=== PATIENT | male | born 1950 | race Asian ===

== ENCOUNTER → 2020-06-27 08:17 | Outpatient (CLI) | payer MEDICARE, SELFPAY ==
[2020-06-27 10:13] LABS: Absolute Lymphocyte Count 2.11 X10^3/uL (0.83-4.51); Absolute Neutrophil Count 2.7 X10^3/uL (2.0-7.7); Basophil# 0.02 X10^3/uL; Basophil% 0.3 % (0-1); Eosinophils% 14.4 % (0-5); Hematocrit 52.5 % (40-54); Hemoglobin 16.6 g/dL (13.0-16.5); Lymphocyte # 2.11 X10^3/ul (4.0); Lymphocyte % 33.8 % (19-41); Mean Corp Hgb Conc 31.6 g/dL (32-36); Mean Corpuscular Hgb 28.9 pg (27.0-32.0); Mean Corpuscular Volume 91.3 fL (80-94); Mean Platelet Vol. 9.9 fl (6.2-12.0); NRBC Flagged by Analyzer 0 % (0-5); Neutrophil # 2.69 X10^3/uL (2.7-7.7); Neutrophil % 43.2 % (47-70); Platelet Count 280 K/mm3 (150-450); RBC Distribution Width CV 13.2 % (11.6-14.6); RBC Distribution Width SD 44.7 fl (35.1-43.9); Red Blood Count 5.75 M/mm3 (4.6-6.2); White Blood Count 6.2 K/mm3 (4.4-11.0)
[2020-06-27 10:41] LABS: Hemoglobin A1c 6.1 % (3.8-5.6)
[2020-06-27 10:47] LABS: ALB/GLOB Ratio 1.1 RATIO (0.9-2.4); AST(SGOT) 26 U/L (15-37); Alanine Aminotransfer ALT/SGPT 19 U/L (16-61); Albumin, Serum 4.1 g/dL (3.2-5.0); Alkaline Phosphatase 100 U/L (45-117); Anion Gap 10 (5-15); BUN 11 mg/dL (7-18); BUN/Creat Ratio 10.8 RATIO (10-20); Calcium,Total 9.3 mg/dL (8.5-10.1); Chloride 106 mmol/L (98-107); Cholesterol 173 mg/dL (200); Creatinine, Serum 1.02 mg/dL (0.70-1.30); EST Glomerular Filtration Rate 77 mL/min (>60); Est Glom Filt Rate - Afr Amer 93 mL/min (>60); Globulin 3.9 g/dL (2.2-4.2); Glucose 85 mg/dL (74-106); High Density Lipoprotein 40 mg/dL; Potassium 4.1 mmol/L (3.5-5.1); Sodium Level 140 mmol/L (136-145); Triglycerides 217 mg/dL; Very Low Density Lipoprotein 43 mg/dL (5-40)
== END ==
PROVIDERS: Visit Provider Family Medicine
DX: E11.9 Type 2 diabetes mellitus without complications (principal); E78.5 Hyperlipidemia, unspecified
CPT/HCPCS: 36415; 80053; 80061; 83036; 85025

== ENCOUNTER → 2020-09-29 07:31 | Outpatient (CLI) | payer MEDICARE, SELFPAY ==
[2020-09-29 10:40] LABS: Hemoglobin A1c 6.3 % (3.8-5.6)
[2020-09-29 10:45] LABS: ALB/GLOB Ratio 0.8 RATIO (0.9-2.4); AST(SGOT) 20 U/L (15-37); Alanine Aminotransfer ALT/SGPT 24 U/L (16-61); Albumin, Serum 3.9 g/dL (3.2-5.0); Alkaline Phosphatase 90 U/L (45-117); Anion Gap 7 (5-15); BUN 12 mg/dL (7-18); BUN/Creat Ratio 10.3 RATIO (10-20); Calcium,Total 9.7 mg/dL (8.5-10.1); Chloride 102 mmol/L (98-107); Cholesterol 203 mg/dL (200); Creatinine, Serum 1.16 mg/dL (0.70-1.30); EST Glomerular Filtration Rate 66 mL/min (>60); Est Glom Filt Rate - Afr Amer 80 mL/min (>60); Globulin 4.6 g/dL (2.2-4.2); Glucose 95 mg/dL (74-106); High Density Lipoprotein 49 mg/dL; Potassium 4.2 mmol/L (3.5-5.1); Protein, Total 8.5 g/dL (6.4-8.2); Sodium Level 138 mmol/L (136-145); Triglycerides 197 mg/dL; Very Low Density Lipoprotein 39 mg/dL (5-40)
== END ==
DX: E11.9 Type 2 diabetes mellitus without complications (principal)
CPT/HCPCS: 36415; 80053; 80061; 83036

== ENCOUNTER → 2020-10-11 | Outpatient (CLI) | payer MEDICARE, SELFPAY | END | disposition home or self-care (01) | LOC: LABSPEC 11:32 | PROVIDERS: Referring Provider Nurse Practitioner Adult Health; Visit Provider Nurse Practitioner Adult Health | DX: D72.10 Eosinophilia, unspecified (principal) | CPT/HCPCS: 87177; 87209 ==

== ENCOUNTER → 2020-10-20 | Outpatient (CLI) | payer MEDICARE, SELFPAY | END | disposition home or self-care (01) | LOC: LABSPEC 11:27 | PROVIDERS: Visit Provider Internal Medicine Infectious Disease | DX: D72.10 Eosinophilia, unspecified (principal) | CPT/HCPCS: 87177; 87209 ==

== ENCOUNTER → 2020-10-27 07:36 | Outpatient (CLI) | payer MEDICARE, SELFPAY ==
--- NOTE | 2020-10-27 07:43 | US_ITS ---
INDICATION: ABD PAIN-general. epigasric -- REFLUX EXAMINATION: Ultrasound US Abdomen Complete TECHNIQUE: Hinojosa-scale and color Doppler imaging was performed of the abdomen. COMPARISON: None. FINDINGS: LIVER: There is increased hepatic echogenicity.. No focal hepatic lesion. No intrahepatic biliary ductal dilatation. There is no free fluid. GALLBLADDER AND BILIARY TREE: The gallbladder is surgically absent. The common bile measures 8 mm in diameter. PANCREAS: No focal abnormality is demonstrated in the pancreas. No pancreatic ductal dilatation. SPLEEN: The spleen is normal in size and homogeneous in echotexture. KIDNEYS: There is no hydronephrosis. No shadowing calculus, focal lesion, or perinephric collection is demonstrated. VESSELS: Submitted longitudinal images of the intra-abdominal aorta demonstrate no gross abnormalities and are unremarkable. The IVC is patent. US/Abdomen Complete IMPRESSION: Healed fatty liver infiltration. Electronically Signed: Amaury Johnson MD at 12:17 EDT Tel , Service support ,
== END ==
DX: K21.9 Gastro-esophageal reflux disease without esophagitis (principal)
CPT/HCPCS: 76700

== ENCOUNTER → 2020-11-18 07:30 | Outpatient (CLI) | payer MEDICARE, SELFPAY ==
[2020-11-18 12:52] LABS: Absolute Lymphocyte Count 2.24 X10^3/uL (0.83-4.51); Absolute Neutrophil Count 2.4 X10^3/uL (2.0-7.7); Basophil# 0.03 X10^3/uL; Basophil% 0.5 % (0-1); Eosinophil# 0.48 X10^3/uL; Eosinophils% 8.2 % (0-5); Hematocrit 47.7 % (40-54); Hemoglobin 15.2 g/dL (13.0-16.5); Lymphocyte # 2.24 X10^3/ul (0.83-4.51); Lymphocyte % 38.2 % (19-41); Mean Corp Hgb Conc 31.9 g/dL (32-36); Mean Corpuscular Hgb 28.1 pg (27.0-32.0); Mean Corpuscular Volume 88.2 fL (80-94); Monocyte# 0.68 X10^3/uL; Monocyte% 11.6 % (0-10); NRBC Flagged by Analyzer 0 % (0-5); Neutrophil % 40.8 % (47-70); Platelet Count 471 K/mm3 (150-450); RBC Distribution Width CV 13.2 % (11.6-14.6); RBC Distribution Width SD 42.6 fl (35.1-43.9); Red Blood Count 5.41 M/mm3 (4.6-6.2); White Blood Count 5.9 K/mm3 (4.4-11.0)
== END ==
PROVIDERS: Referring Provider Internal Medicine Infectious Disease; Visit Provider Internal Medicine Infectious Disease
DX: D72.10 Eosinophilia, unspecified (principal)
CPT/HCPCS: 36415; 85025

== ENCOUNTER → 2021-06-15 08:16 | Outpatient (CLI) | payer MEDICARE, SELFPAY ==
[2021-06-15 10:11] LABS: Absolute Lymphocyte Count 2.21 X10^3/uL (0.83-4.51); Absolute Neutrophil Count 2.8 X10^3/uL (2.0-7.7); Basophil# 0.03 X10^3/uL; Basophil% 0.5 % (0-1); Eosinophil# 0.23 X10^3/uL; Eosinophils% 3.9 % (0-5); Hemoglobin 16.3 g/dL (13.0-16.5); Lymphocyte # 2.21 X10^3/ul (0.83-4.51); Lymphocyte % 37.9 % (19-41); Mean Corp Hgb Conc 33.3 g/dL (32-36); Mean Corpuscular Hgb 29.3 pg (27.0-32.0); Mean Platelet Vol. 9.3 fl (6.2-12.0); Monocyte% 8.6 % (0-10); NRBC Flagged by Analyzer 0 % (0-5); Neutrophil # 2.83 X10^3/uL (2.7-7.7); Neutrophil % 48.6 % (47-70); Platelet Count 376 K/mm3 (150-450); RBC Distribution Width CV 13.2 % (11.6-14.6); RBC Distribution Width SD 42.5 fl (35.1-43.9); Red Blood Count 5.57 M/mm3 (4.6-6.2); White Blood Count 5.8 K/mm3 (4.4-11.0)
[2021-06-15 10:28] LABS: ALB/GLOB Ratio 0.8 RATIO (0.9-2.4); AST(SGOT) 17 U/L (15-37); Alanine Aminotransfer ALT/SGPT 20 U/L (16-61); Albumin, Serum 3.7 g/dL (3.2-5.0); Alkaline Phosphatase 81 U/L (45-117); Anion Gap 4 (5-15); BUN 18 mg/dL (7-18); BUN/Creat Ratio 16.4 RATIO (10-20); Chloride 107 mmol/L (98-107); EST Glomerular Filtration Rate 70 mL/min (>60); Est Glom Filt Rate - Afr Amer 85 mL/min (>60); Globulin 4.4 g/dL (2.2-4.2); Glucose 103 mg/dL (74-106); Potassium 4.3 mmol/L (3.5-5.1); Protein, Total 8.1 g/dL (6.4-8.2); Sodium Level 139 mmol/L (136-145); Vitamin D,25 Hydroxy 70.6 ng/mL
[2021-06-15 10:39] LABS: Microalbumin,Random Urine 8.6 mg/L (NO RANGE EST.); Microalbumin:Creatinine Ratio 7.6 mg/g CRE (<30 mg/g CRE)
== END ==
PROVIDERS: Visit Provider Family Medicine
DX: E11.69 Type 2 diabetes mellitus with other specified complication (principal); I10 Essential (primary) hypertension; C61 Malignant neoplasm of prostate; R79.89 Other specified abnormal findings of blood chemistry
CPT/HCPCS: 36415; 80053; 82043; 82306; 82570; 83036; 84153; 85025

== ENCOUNTER → 2021-07-20 06:29 | Outpatient (CLI) | payer MEDICARE, SELFPAY ==
--- NOTE | 2021-07-20 13:27 | STRESSREP_ITS ---
Stress Test Report Exercise myocardial perfusion stress test. 70-year-old man with a history of chest pain. Stress protocol: Resting EKG demonstrates normal sinus rhythm with a rate of 60 bpm normal intervals are noted resting blood pressure is 146/84 mmHg. The patient exercised according to the regular Ronald protocol for total duration of 7 minutes completing 1 minute into stage III of the Ronald protocol. The maximum heart rate attained 141 bpm which was 94% maximum heart rate the maximum workload was 10.1 metabolic equivalents. At rest with no ST or T wave changes noted to suggest ischemia and at peak exercise upsloping ST changes were noted with did not meet the criteria for ischemia. No clinical angina was noted. The peak blood pressure was 198/90 mmHg the test was terminated due to dyspnea and the target heart rate being achieved. Myocardial perfusion protocol. 11.8 mCi of technetium 99m sestamibi was injected at rest. The patient exer cised according to regular Ronald protocol for total duration of 7 minutes. At peak exercise 36.0 mCi of technetium 99m sestamibi was injected stress images were obtained stress and rest images were reconstructed and compared in the short axis vertical long and horizontal long axis. Gated images were also obtained per Perfusion SPECT analysis: Review of the stress images demonstrate normal uptake of tracer noted in all areas of the myocardium. The resting images similarly demonstrate normal uptake of tracer noted in all areas of the myocardium. No areas of reversibility are noted suggest ischemia no previous infarct is noted. Gated SPECT analysis: The gated ejection fraction is 83%. Conclusion: Normal exercise myocardial perfusion stress test at a high workload. Preserved ejection fraction.
== END ==
PROVIDERS: Referring Provider Family Medicine; Visit Provider Family Medicine
DX: R07.89 Other chest pain (principal); E11.9 Type 2 diabetes mellitus without complications; Z86.73 Personal history of transient ischemic attack (TIA), and cerebral infarction without residual deficits
CPT/HCPCS: 78452; 93017; A9500; A4216

== ENCOUNTER 2021-12-03 09:00 | Outpatient (RCR) | payer MEDICARE, SELFPAY ==
--- NOTE | 2021-11-03 15:00 | HP.PTEVAL ---
Patient's Visit Information ERIC RENO is a 70 year old M referred to Physical Therapy by Dr. Bc Romero MD with a diagnosis of RIGHT SHOULDER/UPPER BACK PAIN. Date of Evaluation: 11/03/21 Physical Therapist: Walker Mejía PT, Cert MDT, OCS - Visit Plan Frequency: 2x /Week Duration: 4 Weeks Plan: PT INTERVERTIONS POSTURAL EX'S ,US,ICTX 16#-22# X15 MIN ,CERVICAL ROM AND MANUAL STRENGTHENING - Subjective This 70 y/o male presents to physical therapy with right UE and scapular pain. Patient has left arm pain for ~ 2weeks . 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 Initially pain started in right scapular and progressively worsen in right arm. Aggravating sitting ,turning neck to right , some lifting., driving . Alleviating factors rest lay down . Denies paresthesia/tingling, Denies MENDEZ/nausea/tinnitus. Patient sleeping good at night. No h/o trauma. Patient seen chiropractor. No diagnostics. Patient pain affects QOL and function. Patient goals decrease pain. VOCATION: retired. SOCIAL: - Pain Right Shoulder Pain Intensity (Out of 10): 4 Pain Intensity Range: 10 Right Scapula Pain Intensity (Out of 10): 4 Pain Intensity Range: 10 Right Elbow Pain Intensity (Out of 10): 4 Pain Intensity Range: 10 - Objective POSTURE: mild forward posture. PALPATION: tender UT/levator. NEURO: denies paresthesia/tingling, reflexes C5-6-7 2/3. AROM: shoulder WNL. MMT: RTC/DELTOID/BICEP/TRICEP 4/5. CERVICAL ROM: flexion min loss ,lateral flexion/rotation min loss with pain in right arm with right side movement, flexion WFL min loss ,. extension min loss mild right shoulder pain - Special Tests C/S Radiculapathy - Left Upper limb tension test: Negative C/S Radiculapathy - Right Upper limb tension test: Negative C/S Radiculapathy - Left Spurlings: Negative C/S Radiculapathy - Right Spurlings: Positive C/S Radiculapathy - Left Cervical distraction: Negative C/S Radiculapathy - Right Cervical distraction: Negative C/S Radiculapathy - Left Relief test: Negative Sharp Eliana: Negative Vertebral Artery Test: Negative Alar Ligament Test: Negative Cervical Sitting: Protrusion - Mechanical Response: No effect Cervical Sitting: Protrusion - Symptoms During Testing: Increases Cervical Sitting: Protrusion - Symptoms After Testing: No worse Cervical Sitting: Retraction - Mechanical Response: No effect Cervical Sitting: Retraction - Symptoms During Testing: Increases Cervical Sitting: Retraction - Symptoms After Testing: No worse Cervical Sitting: Retraction-Extension - Mechanical Response: No effect Cerv Sitting: Retraction-Extension - Symptoms During Testing: Increases Cerv Sitting: Retraction-Extension - Symptoms After Testing: No worse Cervical Sitting: Sidebend Right - Mechanical Response: No effect Cervical Sitting: Sidebend Right - Symptoms During Testing: Increases Cervical Sitting: Sidebend Right - Symptoms After Testing: Worse Cervical Sitting: Sidebend Left - Mechanical Response: No effect Cervical Sitting: Sidebend Left - Symptoms During Testing: Abolishes Cervical Sitting: Sidebend Left - Symptoms After Testing: Better Cervical Sitting: Rotation Right - Mechanical Response: No effect Cervical Sitting: Rotation Right - Symptoms During Testing: Increases Cervical Sitting: Rotation Right - Symptoms After Testing: Worse Cervical Sitting: Rotation Left - Mechanical Response: No effect Cervical Sitting: Rotation Left - Symptoms During Testing: Abolishes Cervical Sitting: Rotation Left - Symptoms After Testing: Better Cervical Sitting: Flexion - Mechanical Response: No effect Cervical Sitting: Flexion - Symptoms During Testing: Increases Cervical Sitting: Flexion - Symptoms After Testing: No worse - Balance/Special Test Scores Oswestry Neck Score: 16 - Goals Goal 1:: I with HEP for cervical spine Goal Time Frame: 4-6 Weeks Goal 2:: Patient improve posture for ADLS Goal Time Frame: 4-6 Weeks Goal 3:: Patient to demonstrate 75% improvement with decrease symptoms in arm and improve function Goal Time Frame: 4-6 Weeks Goal 4:: Patient to improve cervical ROM for function of recovery to turn neck when driving Goal Time Frame: 4-6 Weeks Goal 5:: Patient to improve neck oswestry score by 5 points or > to improve QOL and function Goal Time Frame: 4-6 Weeks - Rehabilitation Potential Physical Therapy Diagnosis: This patient has cervical radiculopathy with pain with positioning with sitting ,motion testing with + spurling test to right and pain less with motion to left and cervical traction relieves symptoms thus benefit from skilled PT Rehabilitation Potential: Good - Anticipated Interventions Patient/Client Instruction: Educate patient on: Condition, Plan of Care For the Purpose of:: To decrease pain, To increase ROM, To improve muscle performance and motor function, To improve ability to perform ADL's, To increase tolerance to activity/condition/position, To improve ability of physical actions for home/community/work/leisure, To improve health of tissue, To decrease soft tissue restriction, To increase flexibility/ROM, To prevent re-injury Therapeutic Exercise to Include: Strength training, Body mechanics, Postural training, Active ROM For the Purpose of:: To decrease pain, To increase ROM, To improve muscle performance and motor function, To improve ability to perform ADL's, To increase tolerance to activity/condition/position, To improve ability of physical actions for home/community/work/leisure, To improve health of tissue, To decrease soft tissue restriction, To increase flexibility/ROM, To reduce risk of recurrence TENS: Yes IF ES: Yes Cryotherapy (ice pack, ice massage): Yes Thermo therapy (hot pack): Yes Ultrasound (thermal/non thermal): Yes Intermittent cervical traction: Yes For the Purpose of:: To decrease pain, To decrease swelling/inflammation, To increase ROM, To improve nutrient delivery to tissue, To increase oxygenation perfusion, To improve health of tissue, To decrease soft tissue restriction, To increase flexibility/ROM Thank you for the opportunity to evaluate your patient. For Medicare and Medicare HMO plans, please review the plan of care and approve it. It will need to be FAXED BACK to us at [phone] for Medicare purposes. For Medicare only, by signing this I certify the plan of care. Please let me know if there are questions or concerns regarding this plan of care. Physician Signature: Date:
--- NOTE | 2022-04-28 09:30 | HP.PTDCSUM ---
It has been my pleasure to treat ERIC RENO referred by Dr. Bc Romero MD, with the diagnosis of RIGHT SHOULDER/UPPER BACK PAIN for a total of 9 visit(s). Discharge Date: 12/03/21 Please see the following information for a summary of their discharge status. Subjective: Doing good ..no pain today Right Shoulder Pain Intensity (Out of 10): 0 Right Scapula Pain Intensity (Out of 10): 0 Right Elbow Pain Intensity (Out of 10): 0 % Improvement: 100 Objective/Function: POSTURE: WFL. NEURO: :INTACT. BUE: WFL. MMT: BUE 4/5. CERTVIVAL ROM: FLEXION WFL,ROTATION MIN,LATERAL FLEXION MIN LOSS,EXT MIN LOSS Goal 1:: I with HEP for cervical spine Goal Progress: Goal Met Goal 2:: Patient improve posture for ADLS Goal Progress: Goal Met Goal 3:: Patient to demonstrate 75% improvement with decrease symptoms in arm and improve function Goal Progress: Goal Met Goal 4:: Patient to improve cervical ROM for function of recovery to turn neck when driving Goal Progress: Goal Met Goal 5:: Patient to improve neck oswestry score by 5 points or > to improve QOL and function Goal Progress: Goal Met Plan: D/C If there are questions or concerns regarding this patient's physical therapy, please feel free to call me at [phone]. Thank you for the referral of this patient. Sincerely, Walker Mejía, PT, Cert MDT, OCS Balance/Gait/Functional tests - Balance/Special Test Scores Oswestry Neck Score: 0
== END 2021-12-03 19:00 | disposition home or self-care (01) ==
LOC: PT 09:00
PROVIDERS: Referring Provider Family Medicine; Visit Provider Family Medicine
DX: M25.511 Pain in right shoulder (principal); M54.9 Dorsalgia, unspecified
CPT/HCPCS: 97012; 97035; 97110; 97162

== ENCOUNTER → 2022-06-08 | Outpatient (CLI) | payer MEDICARE, SELFPAY | END | disposition home or self-care (01) | LOC: MFPLAB 08:07 | PROVIDERS: PCP Family Medicine; Referring Provider Family Medicine; Visit Provider Family Medicine | DX: Z00.00 Encounter for general adult medical examination without abnormal findings (principal) ==

== ENCOUNTER → 2022-12-13 | Outpatient (CLI) | payer MEDICARE, SELFPAY ==
[2022-12-13 10:13] LABS: Absolute Lymphocyte Count 2.11 X10^3/uL (0.83-4.51); Absolute Neutrophil Count 2.2 X10^3/uL (2.0-7.7); Basophil# 0.02 X10^3/uL; Basophil% 0.4 % (0-1); Eosinophil# 0.12 X10^3/uL; Eosinophils% 2.4 % (0-5); Hemoglobin 16.2 g/dL (13.0-16.5); Lymphocyte # 2.11 X10^3/ul (0.83-4.51); Lymphocyte % 42.4 % (19-41); Mean Corp Hgb Conc 33.1 g/dL (32-36); Mean Corpuscular Hgb 29.5 pg (27.0-32.0); Mean Corpuscular Volume 89.1 fL (80-94); Mean Platelet Vol. 9.6 fl (6.2-12.0); Monocyte# 0.55 X10^3/uL; NRBC Flagged by Analyzer 0 % (0-5); Neutrophil # 2.17 X10^3/uL (2.7-7.7); Neutrophil % 43.6 % (47-70); Platelet Count 368 K/mm3 (150-450); RBC Distribution Width CV 13.7 % (11.6-14.6); RBC Distribution Width SD 44.8 fl (35.1-43.9)
[2022-12-13 10:37] LABS: Microalbumin,Random Urine < 5.0 mg/L (NO RANGE EST.)
[2022-12-13 10:46] LABS: ALB/GLOB Ratio 0.9 RATIO (0.9-2.4); AST(SGOT) 25 U/L (15-37); Alanine Aminotransfer ALT/SGPT 27 U/L (16-61); Albumin, Serum 3.8 g/dL (3.2-5.0); Alkaline Phosphatase 93 U/L (45-117); Anion Gap 10 (5-15); BUN 14 mg/dL (7-18); BUN/Creat Ratio 12.7 RATIO (10-20); Calcium,Total 9.3 mg/dL (8.5-10.1); Chloride 105 mmol/L (98-107); EST Glomerular Filtration Rate 70 mL/min (>60); Est Glom Filt Rate - Afr Amer 84 mL/min (>60); Globulin 4.3 g/dL (2.2-4.2); Glucose 113 mg/dL (74-106); Potassium 4.6 mmol/L (3.5-5.1); Protein, Total 8.1 g/dL (6.4-8.2); Sodium Level 140 mmol/L (136-145)
== END | disposition home or self-care (01) ==
LOC: MFPLAB 08:10
PROVIDERS: PCP Family Medicine; Visit Provider Family Medicine
DX: R01.2 Other cardiac sounds (principal); E11.69 Type 2 diabetes mellitus with other specified complication; I10 Essential (primary) hypertension
CPT/HCPCS: 36415; 80053; 82043; 82570; 85025

== ENCOUNTER → 2023-03-31 | Outpatient (CLI) | payer MEDICARE, SELFPAY ==
[2023-03-31 17:39] LABS: Absolute Lymphocyte Count 2.18 X10^3/uL (0.83-4.51); Absolute Neutrophil Count 3.4 X10^3/uL (2.0-7.7); Basophil# 0.03 X10^3/uL; Basophil% 0.5 % (0-1); Eosinophils% 1.6 % (0-5); Hematocrit 49.2 % (40-54); Hemoglobin 15.9 g/dL (13.0-16.5); Lymphocyte # 2.18 X10^3/ul (0.83-4.51); Lymphocyte % 34.7 % (19-41); Mean Corp Hgb Conc 32.3 g/dL (32-36); Mean Corpuscular Volume 89.6 fL (80-94); Mean Platelet Vol. 9.5 fl (6.2-12.0); Monocyte# 0.56 X10^3/uL; Monocyte% 8.9 % (0-10); NRBC Flagged by Analyzer 0 % (0-5); Neutrophil # 3.39 X10^3/uL (2.7-7.7); Platelet Count 370 K/mm3 (150-450); RBC Distribution Width CV 13.2 % (11.6-14.6); RBC Distribution Width SD 43.9 fl (35.1-43.9); Red Blood Count 5.49 M/mm3 (4.6-6.2); White Blood Count 6.3 K/mm3 (4.4-11.0)
[2023-03-31 17:56] LABS: Vitamin B12 309 pg/mL (211-911)
[2023-03-31 18:18] LABS: ALB/GLOB Ratio 0.9 RATIO (0.9-2.4); AST(SGOT) 22 U/L (15-37); Alanine Aminotransfer ALT/SGPT 22 U/L (16-61); Albumin, Serum 3.7 g/dL (3.2-5.0); Alkaline Phosphatase 86 U/L (45-117); Anion Gap 7 (5-15); BUN 11 mg/dL (7-18); BUN/Creat Ratio 9.6 RATIO (10-20); CRP < 2.90 mg/L (0.0-3.0); Calcium,Total 8.9 mg/dL (8.5-10.1); Chloride 105 mmol/L (98-107); Creatinine, Serum 1.15 mg/dL (0.70-1.30); EST Glomerular Filtration Rate 66 mL/min (>60); Est Glom Filt Rate - Afr Amer 80 mL/min (>60); Glucose 135 mg/dL (74-106); Potassium 3.8 mmol/L (3.5-5.1); Protein, Total 7.7 g/dL (6.4-8.2); Sodium Level 137 mmol/L (136-145); Thyroid Stim Hormone (TSH) 1.67 uIU/mL (0.358-3.74)
[2023-04-04 15:08] LABS: PROEL- A/G Ratio 1.2 (0.7-1.7); PROEL- Albumin 3.9 g/dL (2.9-4.4); PROEL- Alpha-1 Globulin 0.2 g/dL (0.0-0.4); PROEL- Alpha-2 Globulin 0.7 g/dL (0.4-1.0); PROEL- Gamma Globulin 1.3 g/dL (0.4-1.8); PROEL- Globulin, Total 3.2 g/dL (2.2-3.9); PROEL- TOTAL PROTEIN 7.1 g/dL (6.0-8.5)
== END | disposition home or self-care (01) ==
LOC: MFPLAB 14:11
PROVIDERS: PCP Family Medicine; Visit Provider Family Medicine
DX: R53.83 Other fatigue (principal); C61 Malignant neoplasm of prostate
CPT/HCPCS: 36415; 80053; 82607; 82746; 84153; 84165; 84443; 85025; 86140

== ENCOUNTER → 2023-04-14 | Outpatient (CLI) | payer MEDICARE, SELFPAY ==
--- NOTE | 2023-04-14 10:55 | RAD_ITS ---
STUDY: X-RAY CHEST REASON FOR EXAM: Male, 72 years old. wheezing, SOB TECHNIQUE: PA and lateral views of the chest. COMPARISON: None. FINDINGS: There is minimal lower lobe atelectasis and/or fibrotic change. There is no demonstrated pleural abnormality. Normal size heart. Normal mediastinum and jovanny. Normal visualized pulmonary arteries. There is atherosclerotic calcification of the aortic arch with tortuosity. Normal visualized thoracic spine. Normal visualized ribs, clavicles, and shoulders. There is no demonstrated abnormality of the visualized soft tissue structures of the upper abdomen. RAD/Chest PA and Lateral IMPRESSION: No demonstrated acute cardiopulmonary process. Electronically Signed: Laura Anderson MD at 4:13 EDT ,
== END | disposition home or self-care (01) ==
LOC: MTRAD 10:54
PROVIDERS: PCP Family Medicine; Visit Provider Family Medicine
DX: R06.2 Wheezing (principal)
CPT/HCPCS: 71046

== ENCOUNTER → 2023-07-01 | Outpatient (CLI) | payer MEDICARE, SELFPAY ==
[2023-07-01 12:45] LABS: Absolute Lymphocyte Count 1.97 X10^3/uL (0.83-4.51); Basophil# 0.02 X10^3/uL; Basophil% 0.4 % (0-1); Eosinophils% 1.8 % (0-5); Hemoglobin 16.5 g/dL (13.0-16.5); Lymphocyte # 1.97 X10^3/ul (0.83-4.51); Mean Corp Hgb Conc 32.4 g/dL (32-36); Mean Corpuscular Hgb 28.3 pg (27.0-32.0); Mean Corpuscular Volume 87.5 fL (80-94); Monocyte# 0.49 X10^3/uL; Monocyte% 8.7 % (0-10); NRBC Flagged by Analyzer 0 % (0-5); Neutrophil # 3.03 X10^3/uL (2.7-7.7); Neutrophil % 53.7 % (47-70); Platelet Count 386 K/mm3 (150-450); RBC Distribution Width CV 13.8 % (11.6-14.6); RBC Distribution Width SD 43.4 fl (35.1-43.9); Red Blood Count 5.83 M/mm3 (4.6-6.2); White Blood Count 5.6 K/mm3 (4.4-11.0)
[2023-07-01 13:06] LABS: ALB/GLOB Ratio 0.9 RATIO (0.9-2.4); AST(SGOT) 29 U/L (15-37); Alanine Aminotransfer ALT/SGPT 27 U/L (16-61); Alkaline Phosphatase 87 U/L (45-117); Anion Gap 6 (5-15); BUN 15 mg/dL (7-18); BUN/Creat Ratio 14.2 RATIO (10-20); Calcium,Total 9.3 mg/dL (8.5-10.1); Chloride 108 mmol/L (98-107); Creatinine, Serum 1.06 mg/dL (0.70-1.30); EST Glomerular Filtration Rate 73 mL/min (>60); Est Glom Filt Rate - Afr Amer 88 mL/min (>60); Globulin 4.4 g/dL (2.2-4.2); Glucose 70 mg/dL (74-106); Potassium 4.1 mmol/L (3.5-5.1); Protein, Total 8.4 g/dL (6.4-8.2); Sodium Level 138 mmol/L (136-145)
[2023-07-02 05:07] LABS: Fructosamine 273 umol/L (0-285)
== END | disposition home or self-care (01) ==
LOC: MFPLAB 11:21
PROVIDERS: PCP Family Medicine; Visit Provider Family Medicine
DX: E11.65 Type 2 diabetes mellitus with hyperglycemia (principal)
CPT/HCPCS: 36415; 80053; 82985; 83036; 85025

== ENCOUNTER → 2023-11-01 | Outpatient (CLI) | payer MEDICARE, SELFPAY ==
[2023-11-01 16:33] LABS: AST(SGOT) 32 U/L (15-37); Alanine Aminotransfer ALT/SGPT 25 U/L (16-61); Albumin, Serum 4.1 g/dL (3.2-5.0); Alkaline Phosphatase 78 U/L (45-117); Anion Gap 11 (5-15); BUN 15 mg/dL (7-18); BUN/Creat Ratio 12.9 RATIO (10-20); Calcium,Total 9.4 mg/dL (8.5-10.1); Chloride 110 mmol/L (98-107); Creatinine, Serum 1.16 mg/dL (0.70-1.30); EST Glomerular Filtration Rate 65 mL/min (>60); Est Glom Filt Rate - Afr Amer 79 mL/min (>60); Globulin 4.1 g/dL (2.2-4.2); Glucose 63 mg/dL (74-106); Potassium 3.8 mmol/L (3.5-5.1); Protein, Total 8.2 g/dL (6.4-8.2); Sodium Level 140 mmol/L (136-145)
== END | disposition home or self-care (01) ==
LOC: MFPLAB 11:13
PROVIDERS: PCP Family Medicine; Visit Provider Family Medicine
DX: E11.69 Type 2 diabetes mellitus with other specified complication (principal)
CPT/HCPCS: 36415; 80053

== ENCOUNTER → 2024-01-31 | Outpatient (CLI) | payer MEDICARE, SELFPAY ==
--- NOTE | 2024-01-31 16:22 | CT_ITS ---
STUDY: CT ABDOMEN AND PELVIS WITHOUT CONTRAST REASON FOR EXAM: Male, 73 years old. hematuria, flank pain, r/o kidney stone RADIATION DOSAGE (If Supplied By Facility): CTDIvol = ( 6.34 ) mGy, DLP = ( 337.53 ) mGycm TECHNIQUE: Transaxial images were obtained from the dome of the diaphragm to the symphysis pubis without oral contrast, and without intravenous contrast. Sagittal and coronal images were reconstructed. Individualized dose optimization techniques were used for this CT. COMPARISON: None. FINDINGS: The visualized lung bases are unremarkable. The visualized portions of the heart are within normal limits. Normal liver. Nonvisualization of the gallbladder. No dilatation of the extrahepatic biliary system. Normal spleen. Normal pancreas. Normal bilateral adrenal glands. Mild hydronephrosis of the right kidney with right hydroureter. Normal left kidney. Normal visualized stomach. Normal small intestine. Normal colon. The appendix is visualized and appears normal. Normal abdominal aorta. Normal inferior vena cava. Normal retroperitoneum. There is an obstructive 3 mm stone at the intramural segment of the right UVJ in the urinary bladder. Normal abdominal wall. Normal osseous structures. CT/Abdomen/Pelvis without Cont IMPRESSION: Right hydronephrosis and right hydroureter with a stone at the right UVJ noted. Electronically Signed: Heath Nuno DO at 18:13 EDT Reading Location ID and State: [facility] / [place] Tel [phone], Service support ,
== END | disposition home or self-care (01) ==
PROVIDERS: PCP Family Medicine; Referring Provider Family Medicine; Visit Provider Family Medicine
DX: R31.9 Hematuria, unspecified (principal); R10.9 Unspecified abdominal pain
CPT/HCPCS: 74176

== ENCOUNTER 2024-05-12 11:51 | Observation (INO) | payer MEDICARE, SELFPAY ==
[2024-05-12] VITALS (16 sets, daily range): BP systolic 126–155; BP diastolic 69–89; PULSE 59–78; RESP 14–24; TEMP 36.1–36.7; O2SAT 95–99; BMI 27.5; BMI 29.1; BMI 27.4
[2024-05-12 12:38] LABS: Bedside Glucose 99 mg/dL (74-106)
--- NOTE | 2024-05-12 13:08 | CT_ITS ---
HISTORY: Dizziness. TECHNIQUE: Noncontrast axial images were obtained of the brain. Subsequently, routine carotid and [place] CT angiogram protocol was performed after the intravenous administration of 100 mL Isovue-370. NASCET criteria using the distal ICAs for comparison were used for evaluation of stenoses. 3D reconstructions were reviewed. A radiation dose optimization technique was used for this scan .2426 images. COMPARISON: None. FINDINGS: --CT BRAIN: BRAIN PARENCHYMA: Mild chronic small vessel ischemic gliosis. No acute intraparenchymal hemorrhage. CSF SPACES: Mild generalized volume loss. No midline shift or other significant mass effect.No acute extra-axial hemorrhage. OTHER: Intact calvarium.No significant air fluid levels in the paranasal sinuses. Right scleral banding. ASPECTS Score for Acute Strokes: 10 --CTA NECK: AORTIC ARCH AND BRANCHES: Mild atherosclerosis. RIGHT CCA: No occlusion, significant stenosis or dissection. RIGHT ICA: No occlusion, significant stenosis or dissection. LEFT CCA: No occlusion, significant stenosis or dissection. LEFT ICA: No occlusion, significant stenosis or dissection. RIGHT VERTEBRAL ARTERY: Hypoplastic. No occlusion, significant stenosis or dissection. LEFT VERTEBRAL ARTERY: No occlusion, significant stenosis or dissection. --CTA HEAD: ICAs: No significant stenosis at the intracranial/visualized segments. ACAs: No significant stenosis at the visualized segments. MCAs: No significant stenosis at the visualized segments. furniture fabricator: No significant stenosis at the visualized segments. Bilateral origins. BASILAR ARTERY: No significant stenosis. VERTEBRAL ARTERIES: No significant stenosis at the intradural/visualized segments. Hypoplastic right vertebral artery terminating as PICA. No evidence of intracranial aneurysm or vascular malformation. CT/CTA Head AND Neck W/ Contrast IMPRESSION: No acute intracranial process identified. Mild chronic involutional and white matter changes. No evidence for significant stenosis or occlusion in the carotid or vertebral arteries of the neck. No evidence for large vessel occlusion or other focal vascular abnormality in the [place] region. Electronically Signed: Demetria Shah MD at 14:53 EDT ,
--- NOTE | 2024-05-12 13:09 | EKG12_ITS ---
Test Reason : DIZZNIESS/BLURRED VISION Blood Pressure : / mmHG Vent. Rate : 064 BPM Atrial Rate : 064 BPM P-R Int : 198 ms QRS Dur : 070 ms QT Int : 426 ms P-R-T Axes : 035 011 018 degrees QTc Int : 439 ms Normal sinus rhythm Normal ECG Confirmed by Edmund Hoyt ([id number]), graphic editor LIONEL SOLORZANO ([id number]) on 05/14/2024 11:27:00 AM Referred By: Confirmed By:Edmund Hoyt
--- NOTE | 2024-05-12 13:17 | RAD_ITS ---
HISTORY: Dizziness. TECHNIQUE: XR Chest 1 View. COMPARISON: 04/14/2023. FINDINGS: CARDIOMEDIASTINAL BORDERS: Cardiac silhouette within normal limits in size. Mediastinal contour unremarkable. LUNGS: Mild linear bibasilar opacities. PLEURA: Mild blunting of the right costophrenic angle. OSSEOUS STRUCTURES: Unremarkable. RAD/Chest 1 View (Portable) IMPRESSION: Mild bibasilar atelectasis or scarring. Trace right pleural effusion. Electronically Signed: Demetria Shah MD at 13:52 EDT ,
--- NOTE | 2024-05-12 13:29 | EX.ED.DYSGE1 ---
HPI History of Present Illness Chief Complaint: Neuro S/Sx Narrative Narrative: Chief complaint and HPI: Dizziness. 73-year-old male with previous history of CVA on Plavix, HLD, DM, HTN presents with daughter for evaluation of dizziness. Patient states his last known normal was evening. He states yesterday he woke up with dizziness and diplopia. Daughter visited him today and noticed that he had worsening left-sided facial droop and brought him to the emergency department for further evaluation. Patient denies any headache, URI symptoms, chest pain, shortness of breath, abdominal pain, nausea, vomiting, dysuria, focal weakness, numbness or tingling. Denies any recent falls. He is unsure about his left-sided facial droop as he did not pay attention to it. Him and his daughter state at baseline he has a slight left-sided facial droop due to an injury when he was a child however daughter states again that it is worse than his baseline. Patient states his dizziness is causing him difficulty with ambulating. Review of systems: See HPI Medications: As listed on the chart Allergies: As listed on the chart PFSH: Per chart Vital signs: As listed on the chart. Reviewed. Physical exam: Gen: A&O x3, NAD Head: Normocephalic, atraumatic Eyes: No sclera icterus, conjunctiva clear, PERRL, EOMI, no nystagmus, no visual field defects on my evaluation-patient was able to interpret correctly how many fingers I was holding up despite him saying he is seeing doubling of the clock on the wall ENT: Moist mucous membranes, left-sided facial droop Neck: Trachea midline, No JVD CV: RRR, no murmurs, no peripheral edema Resp: Lungs CTA BL, no w/r/c GI: Abd soft, non-distended, non-tender, no r/r/g Musc: Full ROM, no deformity, strength +5/5 in all extremities, no pronator drift, no ataxia with [id number] or [id number] testing, ambulation was tested and patient had slightly unsteady gait but no obvious ataxia Skin: Warm, dry, intact Neuro: Alert, oriented, grossly intact, sensation intact, no focal deficits, NIH 1 Psych: Cooperative, appropriate mood and affect [facility] Medical History (Updated 05/12/24 @ 17:[address] Gerardo Gandhi MD) Hypertension Stroke Home Medications ?Medication ?Instructions ?Recorded ?Last Taken ?Type atorvastatin 20 mg tablet 20 mg PO DAILY 05/12/24 Unknown History cetirizine 10 mg tablet (24Hour 10 mg PO DAILY PRN allergy symptoms 05/12/24 Unknown History Allergy) cholecalciferol (vitamin D3) 1,250 1,250 mcg PO DAILY 05/12/24 Unknown History mcg (50,000 unit) capsule clopidogrel 75 mg tablet 75 mg PO DAILY 05/12/24 Unknown History famotidine 20 mg tablet 20 mg PO DAILY 05/12/24 Unknown History fluticasone propionate 50 1 spray intranasal DAILY PRN 05/12/24 Unknown History mcg/actuation nasal allergy symptoms spray,suspension (Allergy Relief (fluticasone)) glipizide 5 mg tablet, extended 5 mg PO DAILY 05/12/24 Unknown History release 24 hr lisinopril 5 mg tablet 5 mg PO DAILY 05/12/24 Unknown History metformin 500 mg tablet 500 mg PO DAILY 05/12/24 Unknown History omega 8-sqd-pjn-fish oil 1,200 mg cap PO 05/12/24 Unknown History (144 mg-216 mg) capsule (Fish Oil) Allergy/AdvReac Type Severity Reaction Status Date / Time No Known Allergies Allergy Verified 05/12/24 11:52 Social History (Updated 05/12/24 @ 12:16 by Funmilayo George) household members: significant other and family housing: house Smoking Status: Never smoker EXAM Physical Exam Const Vital Signs: 05/12/24 11:53 05/12/24 12:52 05/12/24 13:00 Temperature 98.1 F Temperature Source Oral Pulse Rate 78 68 66 Respiratory Rate 18 17 18 Blood Pressure 155/88 H 137/81 H 146/83 H Blood Pressure Mean 110 99 104 Pulse Ox 95 96 98 Oxygen Delivery Method Room Air Room Air Room Air 05/12/24 13:45 05/12/24 14:00 05/12/24 14:00 Temperature Temperature Source Pulse Rate 68 69 Respiratory Rate 17 17 Blood Pressure 144/86 H 140/85 H 140/85 H Blood Pressure Mean 104 103 103 Pulse Ox 97 99 Oxygen Delivery Method Room Air 05/12/24 14:08 05/12/24 14:15 05/12/24 14:30 Temperature Temperature Source Pulse Rate 71 69 65 Respiratory Rate 16 19 H 18 Blood Pressure 143/83 H 148/86 H Blood Pressure Mean 99 106 Pulse Ox 97 99 97 Oxygen Delivery Method 05/12/24 14:45 05/12/24 15:00 Temperature Temperature Source Pulse Rate 66 62 Respiratory Rate 17 14 Blood Pressure 151/84 H 147/89 H Blood Pressure Mean 105 108 Pulse Ox 96 96 Oxygen Delivery Method MDM MDM MDM Narrative Medical decision making narrative: 74-year-old male presents for evaluation of dizziness, diplopia, worsening left facial droop. Last known normal was evening therefore patient is outside the stroke and LVO window. Patient was not made a stroke alert. Differential diagnosis includes but is not limited to CVA, TIA, electrolyte abnormality, intracranial abnormality, vascular occlusion, UTI, ACS. Stroke workup ordered including UA. EKG and chest x-ray reviewed see below. CBC without leukocytosis. Patient does have hemoconcentration with a hemoglobin of 16.8. Coagulation panel unremarkable. BMP without WARREN. Patient does have mild hyponatremia at 3.3. Troponin unremarkable x 2. UA has yet to be obtained. CT head and CTA head and neck shows no acute intercranial process. Patient has chronic changes. No LVO. No significant stenosis or occlusion of the carotid or vertebral arteries of the neck. On reevaluation, patient is still endorsing dizziness and diplopia. At this point in time, without MRI brain I cannot rule out a CVA. Patient's daughter in the room wanted me to speak to the other daughter on the phone. I did speak with her. Updated of her on all the results. She states patient has received an MRI at [place] in the past for his previous stroke. Patient's was educated of all his results as well. Recommend further workup with MRI brain to assess for CVA. He confirmed understanding. Patient will warrant admission. I spoke with the hospitalist Dr. Gandhi who accepted. EKG: Interpreted by me/EM physician: EKG shows normal sinus rhythm without any acute ischemic changes. Heart rate 64. Diagnostic: Interpreted by me/EM physician: Negative for pneumonia, large effusion, cardiomegaly, pneumothorax Impression: 1. Concern for possible CVA 2. Dizziness 3. Diplopia 4. Worsening baseline left facial droop Lab Data Labs: Laboratory Results - last 24 hr 05/12/24 05/12/24 12:05 12:21 WBC 7.0 RBC 5.88 Hgb 16.8 H Hct 51.3 MCV 87.2 MCH 28.6 MCHC 32.7 RDW Std Deviation 45.6 H RDW Coeff of Rick 14.2 Plt Count 403 MPV 8.9 Immature Gran % (Auto) 0.600 Neut % (Auto) 53.0 Lymph % (Auto) 36.0 Mckenzie % (Auto) 8.1 Eos % (Auto) 1.9 Baso % (Auto) 0.4 Absolute Neuts (auto) 3.7 Absolute Lymphs (auto) 2.53 Nucleated RBC % 0 PT 12.3 INR 0.9 APTT 29.2 Sodium 138 Potassium 3.3 L Chloride 105 Carbon Dioxide 26.0 Anion Gap 7 BUN 12 Creatinine 1.18 Estim Creat Clear Calc 53.37 Est GFR (MDRD) Af Amer 78 Est GFR (MDRD) Non-Af 64 BUN/Creatinine Ratio 10.2 Glucose 76 Calcium 9.8 Troponin I High Sens 3 POC Glucose 99 Radiography Diagnostic Testing: Clinical Impression(s) from Imaging Studies Head/Neck CTA 05/12/24 13:08 IMPRESSION: No acute intracranial process identified. Mild chronic involutional and white matter changes. No evidence for significant stenosis or occlusion in the carotid or vertebral arteries of the neck. No evidence for large vessel occlusion or other focal vascular abnormality in the [place] region. Electronically Signed: Demetria Shah MD at 14:53 EDT , Chest X-Ray 05/12/24 13:17 IMPRESSION: Mild bibasilar atelectasis or scarring. Trace right pleural effusion. Electronically Signed: Demetria Shah MD at 13:52 EDT , Discharge Plan Triage Chief Complaint: Neuro S/Sx ED Provider: Kem Lindsey Dx/Rx/DC Orders Primary Care Provider: Bc Romero Referrals: Bc Romero MD [Primary Care Provider] - Print Language: [place]
[2024-05-12 13:38] LABS: Absolute Lymphocyte Count 2.53 X10^3/uL (0.83-4.51); Absolute Neutrophil Count 3.7 X10^3/uL (2.0-7.7); Basophil# 0.03 X10^3/uL; Basophil% 0.4 % (0-1); Eosinophil# 0.13 X10^3/uL; Eosinophils% 1.9 % (0-5); Hematocrit 51.3 % (40-54); Hemoglobin 16.8 g/dL (13.0-16.5); Lymphocyte # 2.53 X10^3/ul (0.83-4.51); Mean Corp Hgb Conc 32.7 g/dL (32-36); Mean Corpuscular Hgb 28.6 pg (27.0-32.0); Mean Corpuscular Volume 87.2 fL (80-94); Mean Platelet Vol. 8.9 fl (6.2-12.0); Monocyte# 0.57 X10^3/uL; Monocyte% 8.1 % (0-10); NRBC Flagged by Analyzer 0 % (0-5); Neutrophil # 3.72 X10^3/uL (2.7-7.7); Platelet Count 403 K/mm3 (150-450); RBC Distribution Width CV 14.2 % (11.6-14.6); RBC Distribution Width SD 45.6 fl (35.1-43.9); Red Blood Count 5.88 M/mm3 (4.6-6.2)
[2024-05-12 13:43] LABS: International Normalized Ratio 0.9; Partial Thromboplast Time 29.2 Seconds (24.1-36.2); Prothrombin Time (Protime)PT. 12.3 SECONDS (11.7-14.9)
[2024-05-12 13:47] LABS: Anion Gap 7 (5-15); BUN 12 mg/dL (7-18); BUN/Creat Ratio 10.2 RATIO (10-20); Calcium,Total 9.8 mg/dL (8.5-10.1); Chloride 105 mmol/L (98-107); Creatinine, Serum 1.18 mg/dL (0.70-1.30); EST Glomerular Filtration Rate 64 mL/min (>60); Est Glom Filt Rate - Afr Amer 78 mL/min (>60); Estimated Creatinine Clearance 53.37 ml/min; Glucose 76 mg/dL (74-106); Potassium 3.3 mmol/L (3.5-5.1); Sodium Level 138 mmol/L (136-145); Troponin-I HS (w/2H Reflex) 3 pg/mL (3.0-78.0)
[2024-05-12] MEDS: 0.9% Normal Saline (1000mL) 1,000 ML 999 ML IV (14:15)
[2024-05-12 15:26] LABS: Reflex Troponin-HS? (from REC) Y
--- NOTE | 2024-05-12 15:32 | PCM.HP.STD ---
HPI - General General Date of Admission: 05/12/24 Date of Service: 05/12/24 Chief Complaint: Diplopia, dizziness and left facial droop since 05/11/2024 evening HPI Narrative ERIC RENO, is a 73 M was brought to ED by her daughter for onset of sudden onset of diplopia, left-sided facial deficit and dizziness started in the evening of 05/11/2024. Patient also had mini stroke in the past about 19 years ago and resolved. Patient had left facial surgery therefore it seems mild left facial droop. Denies any one-sided weakness, imbalance/disequilibrium or falls or numbness or tingling Patient denies any change in the speech, dysphagia. Patient did not notice change in equity of vision but but vertical or horizontal lines look zigzag Patient does not meet criteria for stroke alert. Patient was admitted for stroke workup [facility] Medical History Hypertension Stroke Home Medications ?Medication ?Instructions ?Recorded ?Last Taken ?Type atorvastatin 20 mg tablet 20 mg PO DAILY 05/12/24 05/12/24 History cetirizine 10 mg tablet (24Hour 10 mg PO DAILY PRN allergy symptoms 05/12/24 05/12/24 History Allergy) cholecalciferol (vitamin D3) 1,250 1,250 mcg PO QWEEK supplement 05/12/24 05/07/24 History mcg (50,000 unit) capsule clopidogrel 75 mg tablet 75 mg PO DAILY 05/12/24 05/12/24 History famotidine 20 mg tablet 20 mg PO DAILY 05/12/24 05/12/24 History fluticasone propionate 50 1 spray intranasal DAILY PRN 05/12/24 05/12/24 History mcg/actuation nasal allergy symptoms spray,suspension (Allergy Relief (fluticasone)) glipizide 5 mg tablet, extended 5 mg PO DAILY 05/12/24 05/12/24 History release 24 hr lisinopril 5 mg tablet 5 mg PO DAILY 05/12/24 05/12/24 History metformin 500 mg tablet 500 mg PO DAILY 05/12/24 05/12/24 History omega 1-xyd-ewk-fish oil 1,200 mg 1 cap PO DAILY supplement 05/12/24 05/12/24 History (144 mg-216 mg) capsule (Fish Oil) Allergy/AdvReac Type Severity Reaction Status Date / Time No Known Allergies Allergy Verified 05/12/24 11:52 Social History household members: significant other and family housing: house Smoking Status: Never smoker ROS ROS Narrative Constitutional: Reports fatigue and weakness. No fever. HEENT: As described in HPI reports systems reviewed and no addt'l complaints, except as documented Respiratory/Chest: No acute shortness of breath or respiratory distress or wheezing. CVS: No chest pain pressure or tightness. Denies history of CAD. Gastrointestinal: Denies coffee ground emesis, hematemesis or vomiting Genitourinary: Denies burning urination or new urinary tract symptoms Musculoskeletal: Denies acute joint pain or limited range of motion. No acute injury Neurologic: Denies seizure-like symptoms. History of TIA in the past skin: No ulcer. No rash Endocrinology: Reports systems reviewed and no addt'l complaints, except as documented Hematologic/Lymphatic: Reports systems reviewed and no addt'l complaints, except as documented Rest 14 ROS are negative except as mentioned in HPI Vital Signs Vital Signs Vital Signs: 05/12/24 11:53 05/12/24 12:52 05/12/24 13:00 Temperature 98.1 F Temperature Source Oral Pulse Rate 78 68 66 Respiratory Rate 18 17 18 Blood Pressure 155/88 H 137/81 H 146/83 H Blood Pressure Mean 110 99 104 Pulse Ox 95 96 98 Oxygen Delivery Method Room Air Room Air Room Air 05/12/24 13:45 05/12/24 14:00 05/12/24 14:00 Temperature Temperature Source Pulse Rate 68 69 Respiratory Rate 17 17 Blood Pressure 144/86 H 140/85 H 140/85 H Blood Pressure Mean 104 103 103 Pulse Ox 97 99 Oxygen Delivery Method Room Air 05/12/24 14:08 05/12/24 14:15 05/12/24 14:30 Temperature Temperature Source Pulse Rate 71 69 65 Respiratory Rate 16 19 H 18 Blood Pressure 143/83 H 148/86 H Blood Pressure Mean 99 106 Pulse Ox 97 99 97 Oxygen Delivery Method 05/12/24 14:45 05/12/24 15:00 Temperature Temperature Source Pulse Rate 66 62 Respiratory Rate 17 14 Blood Pressure 151/84 H 147/89 H Blood Pressure Mean 105 108 Pulse Ox 96 96 Oxygen Delivery Method Weight Weight: 175 lb 4.28 oz Body Mass Index (BMI) 29.1 Physical Exam Narrative General: Alert, Oriented x3, Cooperative HEENT: No quadrantropia or hemianopia. No diplopia noticed. PERRLA, EOMI, Normocephalic Oral: No Gingival or Mucosal Lesions/ Ulcerations Neck: Supple, No JVD, Negative Carotid Bruits Chest wall/Lungs: Air entry diminished in bilateral lung bases. No crepitation/rhonchi Cardiovascular: Irregular rhythm due to PVCs, Normal S1, Normal S2, soft systolic murmur Abdomen: Bowel Sounds Present, Soft, Non Tender, Non-Distended : No dysuria. No renal angle tenderness. No suprapubic tenderness. Extremities: No edema, Capillary Refill Less than 3 Seconds Skin: No rashes, No breakdown Musculoskeletal: No Tenderness to Palpation of Joints or Extremities. Muscle strength 5/5 at major joints. Neurological: Cranial nerves II-XII grossly intact, DTR 2+/4. NIH stroke scale 0. Psych/Mental Status: Normal Affect, Appropriate. Results Lab / Micro Data 05/12/24 12:05 05/12/24 12:05 Labs: Laboratory Results - last 24 hr 05/12/24 12:05: WBC 7.0, RBC 5.88, Hgb 16.8 H, Hct 51.3, MCV 87.2, MCH 28.6, MCHC 32.7, RDW Std Deviation 45.6 H, RDW Coeff of Rick 14.2, Plt Count 403, MPV 8.9, Immature Gran % (Auto) 0.600, Neut % (Auto) 53.0, Lymph % (Auto) 36.0, Morton % (Auto) 8.1, Eos % (Auto) 1.9, Baso % (Auto) 0.4, Absolute Neuts (auto) 3.7, Absolute Lymphs (auto) 2.53, Nucleated RBC % 0, PT 12.3, INR 0.9, APTT 29.2, Sodium 138, Potassium 3.3 L, Chloride 105, Carbon Dioxide 26.0, Anion Gap 7, BUN 12, Creatinine 1.18, Estim Creat Clear Calc 53.37, Est GFR (MDRD) Af Amer 78, Est GFR (MDRD) Non-Af 64, BUN/Creatinine Ratio 10.2, Glucose 76, Calcium 9.8, Troponin I High Sens 3 05/12/24 12:21: POC Glucose 99 Imaging Radiology Impression Head/Neck CTA 05/12/24 13:08 IMPRESSION: No acute intracranial process identified. Mild chronic involutional and white matter changes. No evidence for significant stenosis or occlusion in the carotid or vertebral arteries of the neck. No evidence for large vessel occlusion or other focal vascular abnormality in the [place] region. Electronically Signed: Demetria Shah MD at 14:53 EDT , Chest X-Ray 05/12/24 13:17 IMPRESSION: Mild bibasilar atelectasis or scarring. Trace right pleural effusion. Electronically Signed: Demetria Shah MD at 13:52 EDT , Assessment & Plan Assessment/Plan (1) Diplopia: PLAN: Plan This 73 gentleman being admitted for evaluation of diplopia, dizziness with suspicion of posterior circulation stroke/TIA 1. Possible posterior circulation stroke/TIA: Patient is being admitted in PCU. CTA head and neck does not show acute intracranial process. No evidence for LVO or occlusion in carotid or vertebral arteries of the neck. Chest x-ray mild bibasilar atelectasis. Twelve-lead EKG NSR 64 bpm, occasional PVCs. PT, OT, speech therapy/swallow evaluation and management, nursing NIH stroke scale, BP and glucose monitoring and control as per stroke protocol. TSH, A1c fasting lipid profile tomorrow AM. MRI brain and 2D echo with bubble contrast study ordered 2. Hypertension: Blood pressure is controlled. 3. History of left sided face surgery: This might be reason for left-sided facial droop but her daughter said she noticed more obvious left-sided facial droop but it sounds baseline today. DVT prophylaxis, high risk: Lovenox 40 Mg subcu daily. Living will/advanced directive/end of life care: Patient does have living will or advanced directive. His daughter who is not present in ED is power of resp therapist for health. After discussion of benefits/risks procedures involved with full code, DNR CC arrest and DNR CC, the patient opted for full code. Patient does want artificial life support including intubation, tube feed, ventilator and/chest compression, central venous catheter, vasopressor and DC shock if needed Total time spent in [id number] encounter in discussion of advanced directive 17 minutes. Laboratory Results 05/12/24 12:05: WBC 7.0, RBC 5.88, Hgb 16.8 H, Hct 51.3, MCV 87.2, MCH 28.6, MCHC 32.7, RDW Std Deviation 45.6 H, RDW Coeff of Rick 14.2, Plt Count 403, MPV 8.9, Immature Gran % (Auto) 0.600, Neut % (Auto) 53.0, Lymph % (Auto) 36.0, Morton % (Auto) 8.1, Eos % (Auto) 1.9, Baso % (Auto) 0.4, Absolute Neuts (auto) 3.7, Absolute Lymphs (auto) 2.53, Nucleated RBC % 0, PT 12.3, INR 0.9, APTT 29.2, Sodium 138, Potassium 3.3 L, Chloride 105, Carbon Dioxide 26.0, Anion Gap 7, BUN 12, Creatinine 1.18, Estim Creat Clear Calc 53.37, Est GFR (MDRD) Af Amer 78, Est GFR (MDRD) Non-Af 64, BUN/Creatinine Ratio 10.2, Glucose 76, Calcium 9.8, Troponin I High Sens 3 05/12/24 12:21: POC Glucose 99 05/12/24 15:13: Troponin I High Sens 4 Clinical Impression(s) from Imaging Studies Head/Neck CTA 05/12/24 13:08 IMPRESSION: No acute intracranial process identified. Mild chronic involutional and white matter changes. No evidence for significant stenosis or occlusion in the carotid or vertebral arteries of the neck. No evidence for large vessel occlusion or other focal vascular abnormality in the [place] region. Chest X-Ray 05/12/24 13:17 IMPRESSION: Mild bibasilar atelectasis or scarring. Trace right pleural effusion. Electronically Signed: Demetria Shah MD at 13:52 EDT , Charges/Coding Visit Charges Inpatient E&M: 01950 Init Hosp L3 Procedures Hospitalists Procedures: 30887 Advncd Care Plan 30 Min
[2024-05-12 15:55] LABS: Troponin-I HS 4 pg/mL (3.0-78.0)
[2024-05-12] MEDS: 0.9% Normal Saline (1000mL) 1,000 ML 75 ML IV (18:28)
[2024-05-12] MEDS: Aspirin 81 MG TAB.CHEW PO (18:31)
[2024-05-12 20:12] LABS: Bedside Glucose 99 mg/dL (74-106)
[2024-05-12] MEDS: Famotidine 20 MG Tablet PO (23:03)
[2024-05-12] MEDS: Atorvastatin Calcium 80 MG Tablet PO (23:03)
[2024-05-13] VITALS (8 sets, daily range): BP systolic 118–148; BP diastolic 66–86; PULSE 57–68; RESP 16; TEMP 36.5–36.8; O2SAT 96–99
[2024-05-13 03:49] LABS: Bedside Glucose 104 mg/dL (74-106)
--- NOTE | 2024-05-13 03:59 | ECHOD_ITS ---
Reason For Study: TIA/CVA Procedure This was a 2D Doppler, Color Flow transthoracic echocardiogram. Exam performed portable in patient room. Left Ventricle Normal LV size. Left ventricular systolic function is normal. The estimated ejection fraction is 60 %. Normal diastology for age. No regional wall motion abnormalities noted. Right Ventricle Normal RV size. Normal systolic function. Atria The left and right atria are normal. Mitral Valve The mitral valve is structurally normal. No prolapse or stenosis seen. Mild (1+) mitral valve insufficiency. Tricuspid Valve Normal tricuspid valve. Trivial tricuspid valve insufficiency. Unable to estimate RV systolic pressure due to insufficient tricuspid regurgitant envelope. Aortic Valve Trisinus/trileaflet aortic valve. Pulmonic Valve Normal pulmonic valve. Mild (1+) pulmonic valve insufficiency. Great Vessels Normal aortic root. Pericardium/Pleural No pericardial effusion. Medication Negative bubble study on previous echo. MMode/2D Measurements & Calculations LVIDd: 4.0 cm IVSd: 0.96 cm Ao root diam: 3.3 cm LVIDs: 2.5 cm LVPWd: 0.95 cm RVDd: 3.5 cm FS: 36.4 % LAV(MOD-bp): 26.2 ml LVAd ap4: 21.7 cm2 LVAd ap2: 20.1 cm2 LAV(MOD-bp) Indexed: 14.4 ml/m2 LVLd ap4: 7.5 cm LVLd ap2: 7.1 cm LAV(MOD-sp2): 20.2 ml EDV(MOD-sp4): 54.0 ml EDV(MOD-sp2): 48.4 ml LAV(MOD-sp4): 28.0 ml EDV(sp4-el): 53.6 ml EDV(sp2-el): 48.4 ml LVAs ap4: 13.1 cm2 LVAs ap2: 12.0 cm2 LVLs ap4: 6.8 cm LVLs ap2: 6.5 cm ESV(MOD-sp4): 21.7 ml ESV(MOD-sp2): 19.2 ml ESV(sp4-el): 21.5 ml ESV(sp2-el): 18.7 ml EF(MOD-sp4): 59.8 % EF(MOD-sp2): 60.3 % EF(sp4-el): 60.0 % SV(MOD-sp4): 32.3 ml SV(MOD-sp2): 29.2 ml SV(sp4-el): 32.2 ml LA A4 area: 13.6 cm2 LA dimension(2D): 3.6 cm RA A4 area: 12.5 cm2 TAPSE: 1.9 cm Time Measurements MV dec time: 0.19 sec Doppler Measurements & Calculations MV E max nima: 69.9 cm/sec Lat Peak E' Nima: 10.0 cm/sec Med Peak E' Nima: 6.7 cm/sec MV A max nima: 77.9 cm/sec E/E' lat: 7.0 E/E' med: 10.4 MV E/A: 0.90 Ao V2 max: 106.6 cm/sec LV V1 max: 73.6 cm/sec MV dec slope: 365.4 cm/sec2 Ao max P.5 mmHg LV V1 max P.2 mmHg Ao V2 mean: 70.6 cm/sec LV V1 mean P.3 mmHg Ao mean P.3 mmHg LV V1 mean: 52.8 cm/sec Ao V2 VTI: 22.0 cm LV V1 VTI: 16.3 cm AV (velocity ratio): 0.74 PA V2 max: 84.0 cm/sec PA V2 mean: 55.5 cm/sec ECHO/Echo Complete Interpretation Summary The estimated ejection fraction is 60 %. Mild (1+) mitral valve insufficiency. Mild (1+) pulmonic valve insufficiency. Ordering Physician: Keyona العراقي Referring Physician: Bc Romero MD Performed By: Beena Gallardo RDCS
[2024-05-13] MEDS: Enoxaparin 40 MG/0.4 ML Syringe SC (06:15)
[2024-05-13 06:32] LABS: Cholesterol 131 mg/dL (200); High Density Lipoprotein 35 mg/dL; Triglycerides 130 mg/dL; Very Low Density Lipoprotein 26 mg/dL (5-40)
[2024-05-13 06:42] LABS: Bedside Glucose 91 mg/dL (74-106)
[2024-05-13 07:38] LABS: Hemoglobin A1c 5.9 % (3.8-5.6)
[2024-05-13] MEDS: Aspirin 81 MG TAB.CHEW PO (09:14)
[2024-05-13] MEDS: Famotidine 20 MG Tablet PO ×2 (09:14→21:52)
[2024-05-13] MEDS: Clopidogrel Bisulfate 75 MG Tablet PO (09:14)
[2024-05-13] MEDS: metFORMIN HCl 500 MG Tablet PO (09:14)
[2024-05-13] MEDS: glipiZIDE XL 5 MG Tablet PO (09:14)
[2024-05-13] MEDS: Lisinopril 5 MG Tablet PO (09:14)
[2024-05-13] MEDS: FLU VACCINE **HIGH DOSE** TV 24-25 180 MCG/0.5 ML SYRINGE IM (09:17)
[2024-05-13] MEDS: Acetaminophen 325 MG Tablet 650 MG PO ×2 (09:29→16:43)
--- NOTE | 2024-05-13 11:18 | NEURO.CONS ---
Assessment and Plan: Neuro Assessment/Plan ERIC RENO is a 73 M with a past medical history of htn and stoke, being evaluated by Teleneurology for diplopia and dizziness, sudden onset on Tuesday morning. Unclear etiology, stroke is a possibility but less likely. Could also consider slight CN palsy - III or . [place], so could also consider an atypical infection. Will need to better evaluate with MRI. Diagnosis: Dysconjugate gaze Plan: - MRI Brain with and without contrast - Neurology will follow I personally attended this patient and spent a total time of 31 minutes evaluating this patient including clinical assessment, review of chart, medical history imaging, and determining appropriate treatment and workup. HPI Consult Data Date of Consult: 05/13/24 HPI Narrative HPI Narrative: ERIC RENO, is a 73 M who presents with dizziness and double vision. His double visions and dizziness began on Tuesday morning, worsened on Tuesday. Objects appear as a side by side echo of each other. No fevers, chills, cough. No weakness, numbness. He is able to walk, but feels unsteady and will sway like he drunk for a brief moment. He also reports a slight posterior headache and the top of his head feels warm. He also feels a burning sensation on the right sided of his nose. Family reports he did just return home from visit to [facility]. [facility] Medical History Hypertension Stroke Home Medications ?Medication ?Instructions ?Recorded ?Last Taken ?Type atorvastatin 20 mg tablet 20 mg PO DAILY 05/12/24 05/12/24 History cetirizine 10 mg tablet (24Hour 10 mg PO DAILY PRN allergy symptoms 05/12/24 05/12/24 History Allergy) cholecalciferol (vitamin D3) 1,250 1,250 mcg PO QWEEK supplement 05/12/24 05/07/24 History mcg (50,000 unit) capsule clopidogrel 75 mg tablet 75 mg PO DAILY 05/12/24 05/12/24 History famotidine 20 mg tablet 20 mg PO DAILY 05/12/24 05/12/24 History fluticasone propionate 50 1 spray intranasal DAILY PRN 05/12/24 05/12/24 History mcg/actuation nasal allergy symptoms spray,suspension (Allergy Relief (fluticasone)) glipizide 5 mg tablet, extended 5 mg PO DAILY 05/12/24 05/12/24 History release 24 hr lisinopril 5 mg tablet 5 mg PO DAILY 05/12/24 05/12/24 History metformin 500 mg tablet 500 mg PO DAILY 05/12/24 05/12/24 History omega 7-gqm-wxt-fish oil 1,200 mg 1 cap PO DAILY supplement 05/12/24 05/12/24 History (144 mg-216 mg) capsule (Fish Oil) Allergy/AdvReac Type Severity Reaction Status Date / Time No Known Allergies Allergy Verified 05/12/24 11:52 Social History household members: significant other and family housing: house Smoking Status: Never smoker Vital Signs Vital Signs Vital Signs: 05/12/24 11:53 05/12/24 12:52 05/12/24 13:00 Temperature 98.1 F Temperature Source Oral Pulse Rate 78 68 66 Respiratory Rate 18 17 18 Respiratory Effort Respiratory Depth Respiratory Pattern Blood Pressure 155/88 H 137/81 H 146/83 H Blood Pressure Mean 110 99 104 Blood Pressure Source Blood Pressure Position Blood Pressure Location Pulse Ox 95 96 98 Oxygen Delivery Method Room Air Room Air Room Air 05/12/24 13:45 05/12/24 14:00 05/12/24 14:00 Temperature Temperature Source Pulse Rate 68 69 Respiratory Rate 17 17 Respiratory Effort Respiratory Depth Respiratory Pattern Blood Pressure 144/86 H 140/85 H 140/85 H Blood Pressure Mean 104 103 103 Blood Pressure Source Blood Pressure Position Blood Pressure Location Pulse Ox 97 99 Oxygen Delivery Method Room Air 05/12/24 14:08 05/12/24 14:15 05/12/24 14:30 Temperature Temperature Source Pulse Rate 71 69 65 Respiratory Rate 16 19 H 18 Respiratory Effort Respiratory Depth Respiratory Pattern Blood Pressure 143/83 H 148/86 H Blood Pressure Mean 99 106 Blood Pressure Source Blood Pressure Position Blood Pressure Location Pulse Ox 97 99 97 Oxygen Delivery Method 05/12/24 14:45 05/12/24 15:00 05/12/24 15:34 Temperature 97.6 F L Temperature Source Pulse Rate 66 62 62 Respiratory Rate 17 14 14 Respiratory Effort Respiratory Depth Respiratory Pattern Blood Pressure 151/84 H 147/89 H 147/89 H Blood Pressure Mean 105 108 108 Blood Pressure Source Blood Pressure Position Blood Pressure Location Pulse Ox 96 96 96 Oxygen Delivery Method 05/12/24 16:00 05/12/24 17:25 05/12/24 17:30 Temperature 96.9 F L Temperature Source Temporal Pulse Rate 59 L 67 Respiratory Rate 24 H 16 Respiratory Effort Normal Non-Labored Respiratory Depth Normal Respiratory Pattern Normal Blood Pressure 145/86 H 150/84 H Blood Pressure Mean 105 106 Blood Pressure Source Monitor Blood Pressure Position Semi-Fowlers Blood Pressure Location Left Arm Pulse Ox 97 98 Oxygen Delivery Method Room Air Room Air 05/12/24 18:29 05/12/24 20:30 05/12/24 23:00 Temperature 98.1 F Temperature Source Oral Pulse Rate 65 59 L Respiratory Rate 16 Respiratory Effort Normal Non-Labored Respiratory Depth Respiratory Pattern Blood Pressure 126/69 H Blood Pressure Mean 88 Blood Pressure Source Monitor Blood Pressure Position Semi-Fowlers Blood Pressure Location Left Arm Pulse Ox 96 96 96 Oxygen Delivery Method Room Air Room Air Room Air 05/13/24 04:00 05/13/24 07:47 05/13/24 07:58 Temperature 97.7 F L 98 F Temperature Source Oral Oral Pulse Rate 68 67 Respiratory Rate 16 16 Respiratory Effort Respiratory Depth Respiratory Pattern Blood Pressure 128/72 H 130/82 H Blood Pressure Mean 90 98 Blood Pressure Source Monitor Monitor Blood Pressure Position Semi-Fowlers Supine Blood Pressure Location Right Arm Left Arm Pulse Ox 96 97 97 Oxygen Delivery Method Room Air Room Air Room Air 05/13/24 08:49 Temperature Temperature Source Pulse Rate Respiratory Rate Respiratory Effort Normal Non-Labored Respiratory Depth Normal Respiratory Pattern Normal Blood Pressure Blood Pressure Mean Blood Pressure Source Blood Pressure Position Blood Pressure Location Pulse Ox Oxygen Delivery Method Room Air Weight Weight: 74.752 kg Body Mass Index (BMI) 27.4 EEG Results Procedure Details EEG Procedure Details: ERIC RENO is a 73 year old M with a past medical history of , who presents for evaluation of Electroencephalogram on DATE at TIME NIHSS NIHSS Nursing Documentation NIHSS Nursing Documentation: NIHSS: Ischemic Stroke/TIA Start: 05/12/24 16:58 Text: For ICU Patients: NIH sroke scale at Status: Active presentation and every 2 hours or with change in RN caregiver Freq: [id number] Protocol: Activity Type Activity Date Activity User E-sign Co-sign Detail Recorded Client Recorded Date Recorded By Document 05/13/24 04:00 [facility] [id number] 05/13/24 04:34 Dandre 05/13/24 04:00 NIH Stroke Scale [NIHSS] A score of 0 is normal or asymptomatic . Total possible score is 42. Inpatient: RN or Physician to activate a stroke alert for onset of new stroke symptoms or with NIHSS increase >/= 3 points. Following change in neurological status, NIHSS will be performed per physician order or more frequently PRN. -1a. Level of Consciousness Alert; keenly responsive -1b. LOC Questions Answers BOTH questions correctly. -1c. LOC Commands Performs both tasks correctly . -2. Best Gaze Normal -3. Visual No visual loss -4. Facial Palsy Minor paralysis (flattened nasolabial fold , asymmetry on smiling) -5a. Left Arm No drift; arm holds 90 (or 45 ) degrees for full 10 seconds -5b. Right Arm No drift; arm holds 90 (or 45 ) degrees for full 10 seconds -6a. Left Leg No drift; leg holds 30-degree position for full 5 seconds -6b. Right Leg No drift; leg holds 30-degree position for full 5 seconds -7. Limb Ataxia Absent -8. Sensory Normal; no sensory loss -9. Best Language No aphasia; normal -10. Dysarthria Normal -11. Extinction and Inattention No abnormality -Total 1 Query Text:A score of 0 is normal or asymptomatic. Total possible score is 42 . ED: Notify Physician for NIHSS increase by > / = 3 points. Inpatient: RN or Physician to activate a stroke alert for NIHSS increase of > / = 3 points. Coma Scale [Assess] -Eye Opening Spontaneous -Motor Obeys Commands -Verbal Oriented [Total] -Coma Scale Total 15 NIHSS: Ischemic Stroke/TIA Start: 05/12/24 16:58 Text: For PCU Patients: NIH and Neuro Check every 4 Status: Active hours, PRN and with change in RN caregiver. Freq: [id number] Protocol: Activity Type Activity Date Activity User E-sign Co-sign Detail Recorded Client Recorded Date Recorded By Document 05/13/24 07:57 GABE [id number] 05/13/24 07:59 GABE 05/13/24 07:57 NIH Stroke Scale [NIHSS] A score of 0 is normal or asymptomatic . Total possible score is 42. Inpatient: RN or Physician to activate a stroke alert for onset of new stroke symptoms or with NIHSS increase >/= 3 points. Following change in neurological status, NIHSS will be performed per physician order or more frequently PRN. -1a. Level of Consciousness Alert; keenly responsive -1b. LOC Questions Answers BOTH questions correctly. -1c. LOC Commands Performs both tasks correctly . -2. Best Gaze Normal -3. Visual No visual loss -4. Facial Palsy Minor paralysis (flattened nasolabial fold , asymmetry on smiling) -5a. Left Arm No drift; arm holds 90 (or 45 ) degrees for full 10 seconds -5b. Right Arm No drift; arm holds 90 (or 45 ) degrees for full 10 seconds -6a. Left Leg No drift; leg holds 30-degree position for full 5 seconds -6b. Right Leg No drift; leg holds 30-degree position for full 5 seconds -7. Limb Ataxia Absent -8. Sensory Normal; no sensory loss -9. Best Language No aphasia; normal -10. Dysarthria Normal -11. Extinction and Inattention No abnormality -Total 1 Query Text:A score of 0 is normal or asymptomatic. Total possible score is 42 . ED: Notify Physician for NIHSS increase by > / = 3 points. Inpatient: RN or Physician to activate a stroke alert for NIHSS increase of > / = 3 points. Coma Scale [Assess] -Eye Opening Spontaneous -Motor Obeys Commands -Verbal Oriented [Total] -Coma Scale Total 15 Physical Exam Const alert, oriented x3 and no apparent distress Neuro oriented x3 Cranial Nerves: CN normal except as noted, CN III (oculomotor) Laterality: bilateral (Slight discon gaze at rest, but EOMI appear intact. ) and CN VII (facial) Laterality: left (slightl left facial droop at rest (chronic - prior surgery involving left cheek)) Coordination / Balance: bsfnix-dm-pwza test normal, qejs-qw-aftm test normal, tandem gait normal and Romberg test negative Speech: speech normal Gait (Neuro): normal gait Sensory Exam: extremities light-touch: normal Motor Exam: strength 5/5 throughout, muscle tone normal throughout and no pronator drift Coordination: amykpg-kh-jevw test normal, xmnt-rw-ftgt test normal and Romberg test normal Lab / Micro Data 05/12/24 12:05 05/12/24 12:05 Labs: Laboratory Results - last 24 hr 05/12/24 12:05: WBC 7.0, RBC 5.88, Hgb 16.8 H, Hct 51.3, MCV 87.2, MCH 28.6, MCHC 32.7, RDW Std Deviation 45.6 H, RDW Coeff of Rick 14.2, Plt Count 403, MPV 8.9, Immature Gran % (Auto) 0.600, Neut % (Auto) 53.0, Lymph % (Auto) 36.0, Iron % (Auto) 8.1, Eos % (Auto) 1.9, Baso % (Auto) 0.4, Absolute Neuts (auto) 3.7, Absolute Lymphs (auto) 2.53, Nucleated RBC % 0, PT 12.3, INR 0.9, APTT 29.2, Sodium 138, Potassium 3.3 L, Chloride 105, Carbon Dioxide 26.0, Anion Gap 7, BUN 12, Creatinine 1.18, Estim Creat Clear Calc 53.37, Est GFR (MDRD) Af Amer 78, Est GFR (MDRD) Non-Af 64, BUN/Creatinine Ratio 10.2, Glucose 76, Calcium 9.8, Troponin I High Sens 3 05/12/24 12:21: POC Glucose 99 05/12/24 15:13: Troponin I High Sens 4 05/12/24 18:33: POC Glucose 99 05/12/24 23:05: POC Glucose 104 05/13/24 05:15: Hemoglobin A1c 5.9 H, Triglycerides 130, Cholesterol 131, LDL Cholesterol 70, VLDL Cholesterol 26, HDL Cholesterol 35 L, TSH 1.910 05/13/24 06:12: POC Glucose 91 Imaging Radiology Impression Head/Neck CTA 05/12/24 13:08 IMPRESSION: No acute intracranial process identified. Mild chronic involutional and white matter changes. No evidence for significant stenosis or occlusion in the carotid or vertebral arteries of the neck. No evidence for large vessel occlusion or other focal vascular abnormality in the [place] region. Electronically Signed: Demetria Shah MD at 14:53 EDT Reading Location ID and State: [facility] / [place] Tel , Service support , Chest X-Ray 05/12/24 13:17 IMPRESSION: Mild bibasilar atelectasis or scarring. Trace right pleural effusion. Electronically Signed: Demetria Shah MD at 13:52 EDT Reading Location ID and State: [facility] / [place] Tel , Service support , Active Medications Active Medications Active Medications: Current Medications Generic Name Dose Route Start Last Admin Trade Name Freq PRN Reason Stop Dose Admin Acetaminophen 650 mg 05/12/24 16:58 05/13/24 09:29 Acetaminophen 325 Mg Tablet PO 650 mg Q4H PRN PRN Administration Pain 1-10 Or Fever>99.6 Aspirin 81 mg 05/12/24 16:58 05/13/24 09:14 Aspirin 81 Mg Tab.Chew PO 81 mg BREAKFAST ARIE Administration Atorvastatin Calcium 80 mg 05/12/24 22:00 05/12/24 23:03 Atorvastatin Calcium 80 Mg Tablet PO 80 mg QHS ARIE Administration Clopidogrel Bisulfate 75 mg 05/13/24 10:00 05/13/24 09:14 Clopidogrel Bisulfate 75 Mg Tablet PO 75 mg DAILY ARIE Administration Enoxaparin Sodium 40 mg 05/13/24 06:00 05/13/24 06:15 Enoxaparin 40 Mg/0.4 Ml Syringe SC 40 mg DAILY@0600 ARIE Administration Ergocalciferol 1.25 mg 05/14/24 08:00 Ergocalciferol 1.25 Mg (50, 000 Unit) Capsule PO Mo ARIE Famotidine 20 mg 05/12/24 22:00 05/13/24 09:14 Famotidine 20 Mg Tablet PO 20 mg BID ARIE Administration Fluticasone Propionate 1 spray 05/12/24 17:00 Fluticasone 0.05% 1 [place] Nasal.Sry NASAL DAILY PRN allergy symptoms Glipizide 5 mg 05/13/24 08:00 05/13/24 09:14 Glipizide Xl 5 Mg Tablet PO 5 mg DAILYCM ARIE Administration Glucagon 1 mg 05/12/24 17:01 Glucagon 1 Mg/Ml Syringe IM X1 PRN Hypoglycemia Protocol Hydralazine HCl 5 mg 05/12/24 16:58 Hydralazine 20 Mg/Ml Vial IV 05/13/24 16:58 Q30M PRN maintain BP parameters with HR <60 Dextrose 250 mls @ 0 mls/hr 05/12/24 17:01 Dextrose 10%-Water IV .Q0M PRN HYPOGLYCEMIA Protocol As Directed Insulin Human Lispro 0 unit 05/12/24 22:00 05/13/24 06:15 Insulin Lispro 100 Unit/Ml Insuln.Pen SC Not Given ACHS ARIE Protocol Labetalol HCl 10 - 20 mg 05/12/24 16:58 Labetalol (Prefilled) 20 Mg/4 Ml Vial IV 05/13/24 16:58 Q10M PRN PRN maintain BP parameters with HR >/=60 Lisinopril 5 mg 05/13/24 10:00 05/13/24 09:14 Lisinopril 5 Mg Tablet PO 5 mg DAILY ARIE Administration Protocol Loratadine 10 mg 05/12/24 17:00 Loratadine 10 Mg Tablet PO DAILY PRN allergy symptoms Metformin HCl 500 mg 05/13/24 08:00 05/13/24 09:14 Metformin Hcl 500 Mg Tablet PO 500 mg DAILYCM ARIE Administration Sodium Chloride 10 - 40 ml 05/12/24 16:59 0.9% Saline Lock 10 Ml Syringe IV UD PRN SALINE FLUSH
[2024-05-13] MEDS: Insulin Lispro 100 UNIT/ML INSULN.PEN SC (11:47)
[2024-05-13 12:11] LABS: Bedside Glucose 165 mg/dL (74-106)
--- NOTE | 2024-05-13 12:44 | PN.HOSP_ITS ---
Subjective Subjective Doing well, no issues overnight. Still little bit of double vision and a headache but no left facial droop or numbness. Objective Data Objective Data Vital Signs: Vital Signs Temp Pulse Resp BP Pulse Ox O2 Del Method 98 F 67 16 130/82 H 97 Room Air 05/13/24 07:58 05/13/24 07:58 05/13/24 07:58 05/13/24 07:58 05/13/24 07:58 05/13/24 08:49 Oxygen Delivery Method Room Air Weight: 164 lb 12.8 oz Body Mass Index (BMI) 27.4 Intake & Output: Intake and Output for Last 24 Hours 05/12/24 05/13/24 05/14/24 03:59 03:59 03:59 Intake Total 1300 / 1300 1200 / 1200 Balance 1300 / 1300 1200 / 1200 Lab / Micro Data 05/12/24 12:05 05/12/24 12:05 Labs: Laboratory Results - last 24 hr 05/12/24 12:05: WBC 7.0, RBC 5.88, Hgb 16.8 H, Hct 51.3, MCV 87.2, MCH 28.6, MCHC 32.7, RDW Std Deviation 45.6 H, RDW Coeff of Rick 14.2, Plt Count 403, MPV 8.9, Immature Gran % (Auto) 0.600, Neut % (Auto) 53.0, Lymph % (Auto) 36.0, [place] % (Auto) 8.1, Eos % (Auto) 1.9, Baso % (Auto) 0.4, Absolute Neuts (auto) 3.7, Absolute Lymphs (auto) 2.53, Nucleated RBC % 0, PT 12.3, INR 0.9, APTT 29.2, Sodium 138, Potassium 3.3 L, Chloride 105, Carbon Dioxide 26.0, Anion Gap 7, BUN 12, Creatinine 1.18, Estim Creat Clear Calc 53.37, Est GFR (MDRD) Af Amer 78, Est GFR (MDRD) Non-Af 64, BUN/Creatinine Ratio 10.2, Glucose 76, Calcium 9.8, Troponin I High Sens 3 05/12/24 15:13: Troponin I High Sens 4 05/12/24 18:33: POC Glucose 99 05/12/24 23:05: POC Glucose 104 05/13/24 05:15: Hemoglobin A1c 5.9 H, Triglycerides 130, Cholesterol 131, LDL Cholesterol 70, VLDL Cholesterol 26, HDL Cholesterol 35 L, TSH 1.910 05/13/24 06:12: POC Glucose 91 05/13/24 11:34: POC Glucose 165 H Radiography Diagnostic Testing: Radiology Impression Head/Neck CTA 05/12/24 13:08 IMPRESSION: No acute intracranial process identified. Mild chronic involutional and white matter changes. No evidence for significant stenosis or occlusion in the carotid or vertebral arteries of the neck. No evidence for large vessel occlusion or other focal vascular abnormality in the [place] region. Electronically Signed: Demetria Shah MD at 14:53 EDT Reading Location ID and State: [facility] / [place] Tel , Service support , Chest X-Ray 05/12/24 13:17 IMPRESSION: Mild bibasilar atelectasis or scarring. Trace right pleural effusion. Electronically Signed: Demetria Shah MD at 13:52 EDT , Physical Exam Narrative General: Alert, Oriented x3, Cooperative, No apparent distress HEENT: Atraumatic, PERRLA, EOMI, Normocephalic, no nystagmus Oral: Moist Mucosa Neck: Supple, No JVD Lungs: Clear to auscultation, Normal air movement, No rhonchi, No wheeze, No rales Cardiovascular: Regular rate, Regular Rhythm, Normal S1, Normal S2, No murmurs Abdomen: Soft, Non Tender, Non-Distended, No Hepato-splenomegaly Extremities: No edema, Capillary Refill Less than 3 Seconds Skin: No rashes, No breakdown Musculoskeletal: No Tenderness to Palpation of Joints or Extremities Neurological: No focal neurological deficits, Motor Exam 5/5 strength throughout, Sensory exam intact to light touch and pain Psych/Mental Status: Normal Affect, Appropriate Assessment & Plan Assessment/Plan (1) Diplopia: PLAN: Plan 1. CVA versus cranial nerve palsy versus other etiology ? Appreciate neurology's assistance. Left facial droop now appears to be at chronic baseline after his cheek surgery ? Will change MRI to with and without contrast per the recommendation ? No obvious signs of infection, no neck pain though he does have a headache ? CTA of the head and neck is unremarkable ? LDL of 70 2. Essential HTN/HLD ? Blood pressures are stable ? Will continue with his home blood pressure medications ? Will monitor make adjustments as necessary 3. Type 2 diabetes ? Since he will have an MRI with contrast will hold metformin ? Sliding scale insulin ? Accu-Cheks ACHS ? Will monitor make adjustments as necessary ? A1c of 5.9 DVT: Lovenox Charges/Coding Visit Charges Inpatient E&M: 84648 Subs Hosp L2
[2024-05-13 17:31] LABS: Bedside Glucose 99 mg/dL (74-106)
--- NOTE | 2024-05-13 18:53 | PCM.HOSP.N ---
Hospitalist Note Seen and examined at the request of patient's PCP Dr. Bc Romero As per the patient's daughter, he had hemianopsia could not see half of the vision but when I went to see the patient he denies any hemianopsia. On one-to-one visual confrontation exam, he can see in all 4 quadrants. No diplopia near vision but he seems to clocks on the wall. No lateral gaze deviation. No nystagmus. On further review of the chart, patient was seen by neurologist. MRI brain with and without contrast is ordered as per his recommendation. Is thinking more of slight cranial or passive 3 or 6 rather than a stroke although stroke may be less likely. The patient's attending hospitalist also informed. After I saw the patient, I communicated back to the patient's PCP Dr. Bc Romero, and told him about the plan of management. Patient's granddaughter present in the room she has patient is also on tamsulosin and pregabalin which I do not see on his home medication list. I talked to Dr. Bc Romero and he said he does not have over the top of his head but will send his updated medicine list tomorrow to PCU.
[2024-05-13] MEDS: Atorvastatin Calcium 80 MG Tablet PO (21:52)
[2024-05-13 22:56] LABS: Bedside Glucose 124 mg/dL (74-106)
[2024-05-14 01:46] VITALS: BP 142/70; PULSE 59; RESP 14; TEMP 36.8; O2SAT 97
[2024-05-14 05:45] VITALS: BP 144/81; PULSE 62; RESP 18; TEMP 36.7; O2SAT 97
[2024-05-14] MEDS: Enoxaparin 40 MG/0.4 ML Syringe SC (06:21)
[2024-05-14 06:40] LABS: Bedside Glucose 106 mg/dL (74-106)
[2024-05-14 06:51] VITALS: O2SAT 98
--- NOTE | 2024-05-14 09:58 | NURSING ---
NIHSS not completed on time at 0945 as patient was off the unit getting Brain MRI. Will complete when patient returns to the floor.
[2024-05-14 10:03] VITALS: BP 140/92; PULSE 69; RESP 17; TEMP 36.6; O2SAT 97
--- NOTE | 2024-05-14 10:08 | CASEMGMT ---
Met with patients daughter to complete MORENO form. MORENO form explained to daughter who voiced understanding and signed form. Original form placed in pt?s chart and copy provided to patient. Pamela Panda, Discharge Planning Asst
[2024-05-14] MEDS: Clopidogrel Bisulfate 75 MG Tablet PO (10:10)
[2024-05-14] MEDS: Aspirin 81 MG TAB.CHEW PO (10:10)
[2024-05-14] MEDS: Famotidine 20 MG Tablet PO (10:10)
[2024-05-14] MEDS: Ergocalciferol 1.25 MG (50, 000 UNIT) Capsule PO (10:10)
[2024-05-14] MEDS: Lisinopril 5 MG Tablet PO (10:11)
--- NOTE | 2024-05-14 12:16 | MRI_ITS ---
STUDY: MRI BRAIN WITH AND WITHOUT CONTRAST REASON FOR EXAM: Male, 73 years old. CVA r/o and other differential Technologist Notes double vision, MENDEZ, HTN, prior stroke, severe artifact from unremovable dental work TECHNIQUE: Standardized multiplanar fat and water weighted pulse sequences were obtained. IV 15ml clariscan was administered for the contrast portion of the examination. COMPARISON: Head CT dated May 12, 2024 FINDINGS: Metallic artifact from right side dental implants result in significant susceptibility artifact and limited visualization of the right orbit, right frontal lobe, and right periventricular regions on different sequences. No significant pathology can''t be excluded in these areas. Only the posterior half of the brain is visualized on the diffusion-weighted sequence with no evidence of an acute infarct. The anterior half of the brain is completely obscured by metallic artifact and not evaluated by MRI. There is mild cerebral atrophy with widening of the extra-axial spaces and ventricular dilatation. There are multiple white matter hyperintensities, distributed throughout the deep white matter tracts of the cerebral hemispheres, consistent with moderate chronic white matter ischemic changes. Normal sella turcica, pituitary gland, infundibular stalk, optic chiasm and hypothalamus. Normal tectal plate and pineal gland. Normal midbrain, shayne and medulla. Normal cerebellum. Normal basal cisterns. Normal bilateral temporal bones. Normal bilateral internal auditory canals. MRI/Brain W/WO Contrast IMPRESSION: 1. Metallic artifact from right side dental implants result in significant susceptibility artifact and limited visualization of the right orbit, right frontal lobe, and right periventricular regions on different sequences. No significant pathology can''t be excluded in these areas. 2. Only the posterior half of the brain is visualized on the diffusion-weighted sequence with no evidence of an acute infarct. The anterior half of the brain is completely obscured by metallic artifact and not evaluated by MRI. 3. Involutional and chronic ischemic changes of the brain, as described above. Electronically Signed: Juan Antonio Schaefer MD at 10:23 EDT ,
[2024-05-14 14:00] VITALS: BP 150/89; PULSE 73; RESP 16; TEMP 36.8; O2SAT 96
--- NOTE | 2024-05-14 15:22 | DCINST_ITS ---
Discharge Instructions Diet Discharge Diet: Low fat / Low cholesterol Activity Discharge Activity: May Not Drive Dressing / Incision Call your doctor if you observe: Fever of 101 or Higher, Shortness of breath, Dizziness, Fainting spells, Swelling in the ankles, Chest pain and Increased palpitations (irregular heartbeat) Follow Up Care Test Results: Test results from this visit will be discussed in further detail at your follow- up appointment, if applicable. Discharge Plan Admission Admit Date/Time: 05/12/24 15:27 Attending Provider: Samir Gutierrez Primary Care Provider: Bc Romero Consulting Providers: Santino Treviño; Catrina Duke; Zulma Cherry; Yulia Miller; Jo Ann Shahid; Jason Valente; Zulema Martins; Allen Perez; Walker Breen; Alejandro Rivas; Karma Monterroso; Jose Rafael Strickland; Yessenia Gates; Tracy Davis; Celi Alfonso; Yvon Garcia; Niesha Hernandez; Harinder Andrea; Irene Tripp; Kim Carvalho; Gerardo Gandhi Discharge Orders/Prescriptions Prescriptions: New meclizine 25 mg tablet 25 mg PO BID PRN (Reason: dizziness) Qty: 20 0RF Continued fluticasone propionate [Allergy Relief (fluticasone)] 50 mcg/actuation spray,suspension 1 spray intranasal DAILY PRN (Reason: allergy symptoms) Rx Instructions: administer into each nostril glipizide 5 mg tablet extended release 24hr 5 mg PO DAILY cholecalciferol (vitamin D3) 1,250 mcg (50,000 unit) capsule 1,250 mcg PO QWEEK Rx Instructions: takes every tuesday clopidogrel 75 mg tablet 75 mg PO DAILY metformin 500 mg tablet 500 mg PO DAILY cetirizine [24Hour Allergy] 10 mg tablet 10 mg PO DAILY PRN (Reason: allergy symptoms) famotidine 20 mg tablet 20 mg PO DAILY atorvastatin 20 mg tablet 20 mg PO DAILY lisinopril 5 mg tablet 5 mg PO DAILY pregabalin [Lyrica] 25 mg capsule 25 mg PO TID Rx Instructions: 1-2 capsules TID tamsulosin [Flomax] 0.4 mg capsule 0.4 mg PO QHS Referrals / Follow Up: Bc Romero MD [Primary Care Provider] - Within 1 Week Keith Paul MD [Med Staff - Active Staff] - Within 1 Week Disposition Disposition (needs filled in before D/C Order can be placed): Home, Self Care
--- NOTE | 2024-05-14 16:22 | PCM.DC.SUM ---
Providers Date of Admission: 05/12/24 Primary Care Physician: Dr. Bc Romero MD Consultations 05/12/24 16:58 Consult: Tele-Neurology Routine Consulting Provider: [facility] Reason for Consult: Acute Ischemic Stroke/TIA EMERGENT Consult: No MD Notified: Yes Date Notified: 05/12/24 Time Notified: 23:40 Method of Notification: Answering Service Comments:: Dizziness, diplopia and facial droop Nursing Unit Staff Notify [facility] of Tele-Neurology Consult: Yes Reason For Visit: DIPOLPIA, DIZZINESS Diagnosis Discharge Diagnosis (1) Diplopia: Status: Acute Code(s): H53.2 - Diplopia Medications at Discharge Home Medications atorvastatin 20 mg tablet 20 mg PO DAILY cholesterol 05/12/24 cetirizine 10 mg tablet (24Hour Allergy) 10 mg PO DAILY PRN allergy symptoms 05/12/24 cholecalciferol (vitamin D3) 1,250 mcg (50,000 unit) capsule 1,250 mcg PO QWEEK supplement 05/12/24 clopidogrel 75 mg tablet 75 mg PO DAILY anti-platelet 05/12/24 famotidine 20 mg tablet 20 mg PO DAILY GERD 05/12/24 fluticasone propionate 50 mcg/actuation nasal spray,suspension (Allergy Relief (fluticasone)) 1 spray intranasal DAILY PRN allergy symptoms 05/12/24 glipizide 5 mg tablet, extended release 24 hr 5 mg PO DAILY diabetes 05/12/24 lisinopril 5 mg tablet 5 mg PO DAILY blood pressure 05/12/24 metformin 500 mg tablet 500 mg PO DAILY diabetes 05/12/24 meclizine 25 mg tablet 25 mg PO BID PRN dizziness #20 tabs 05/14/24 pregabalin 25 mg capsule (Lyrica) 25 mg PO TID nerve pain 05/14/24 tamsulosin 0.4 mg capsule (Flomax) 0.4 mg PO QHS 05/14/24 Hospital Course Operations None Procedures 2-D Echocardiogram Summary of Care Provided Minutes Spent on Discharge: 36 Hospital Course: Per HPI: ERIC RENO, marlene a 73 M was brought to ED by her daughter for onset of sudden onset of diplopia, left-sided facial deficit and dizziness started in the evening of 05/11/2024. Patient also had mini stroke in the past about 19 years ago and resolved. Patient had left facial surgery therefore it seems mild left facial droop. Denies any one-sided weakness, imbalance/disequilibrium or falls or numbness or tingling Patient denies any change in the speech, dysphagia. Patient did not notice change in equity of vision but but vertical or horizontal lines look zigzag Patient does not meet criteria for stroke alert. Patient was admitted for stroke workup Hospital Course: 1. CVA versus cranial nerve palsy versus other etiology?73-year-old male presented to hospital with left facial droop as well as headache and diplopia. 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 No signs of infection, no leukocytosis or fever. No neck pain. He was evaluated by neurology who recommended an MRI with and without contrast however he does have a metal feeling so his left and right frontal lobe lobes cannot be seen on the DWI and the T2 flares were not evident on the right frontal lobe so a stroke cannot be completely ruled out however the symptoms do not seem to correlate with a right frontal lobe CVA. He does not have any nystagmus on exam and neurology was recommending an ophthalmology consult as an an outpatient with the possibility of a neuro-ophthalmology consult. 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 Symptoms have not worsened but I do recommend that he does not drive which was made abundantly clear to the family. No changes in his home medications were made though he was given a prescription for meclizine to see if this helps with his nausea and his dizziness with the diplopia. Recommended follow-up with his PCP in 3 to 5 days, and if no obvious answer for the diplopia is found by the department store door greeter then he can likely obtain a referral for neuro-department store door greeter from his primary department store door greeter. CTA of the head and neck was also unremarkable on admission, an echo was normal with an EF of 60%. 2. Essential hypertension, hyperlipidemia, type 2 diabetes are chronic medical conditions which complicate his care. His home medications were continued where appropriate. A1c of 5.9. Physical Exam Narrative General: Alert, Oriented x3, Cooperative, No apparent distress HEENT: Atraumatic, PERRLA, EOMI, Normocephalic, no nystagmus Oral: Moist Mucosa Neck: Supple, No JVD Lungs: Clear to auscultation, Normal air movement, No rhonchi, No wheeze, No rales Cardiovascular: Regular rate, Regular Rhythm, Normal S1, Normal S2, No murmurs Abdomen: Soft, Non Tender, Non-Distended, No Hepato-splenomegaly Extremities: No edema, Capillary Refill Less than 3 Seconds Skin: No rashes, No breakdown Musculoskeletal: No Tenderness to Palpation of Joints or Extremities Neurological: No focal neurological deficits, Motor Exam 5/5 strength throughout, Sensory exam intact to light touch and pain Psych/Mental Status: Normal Affect, Appropriate Weight / BMI Weight Weight: 164 lb 14.492 oz Body Mass Index (BMI) 27.4 ABG / Lab / Microbiology Data 05/12/24 12:05 05/12/24 12:05 Laboratory: Laboratory Results - last 24 hr 05/13/24 16:41: POC Glucose 99 05/13/24 21:49: POC Glucose 124 H 05/14/24 06:20: POC Glucose 106 Radiography Diagnostic Testing: Radiology Impression Echocardiogram 05/13/24 03:59 Interpretation Summary The estimated ejection fraction is 60 %. Mild (1+) mitral valve insufficiency. Mild (1+) pulmonic valve insufficiency. Ordering Physician: Keyona العراقي Referring Physician: Bc Romero MD Performed By: Beena Gallardo [facility] Brain MRI 05/14/24 12:16 IMPRESSION: 1. Metallic artifact from right side dental implants result in significant susceptibility artifact and limited visualization of the right orbit, right frontal lobe, and right periventricular regions on different sequences. No significant pathology can''t be excluded in these areas. 2. Only the posterior half of the brain is visualized on the diffusion-weighted sequence with no evidence of an acute infarct. The anterior half of the brain is completely obscured by metallic artifact and not evaluated by MRI. 3. Involutional and chronic ischemic changes of the brain, as described above. Electronically Signed: Juan Antonio Schaefer MD at 10:23 EDT , D/C Instructions Discharge Diet: Low fat / Low cholesterol Call your doctor if you observe: Fever of 101 or Higher, Shortness of breath, Dizziness, Fainting spells, Swelling in the ankles, Chest pain and Increased palpitations (irregular heartbeat) Meaningful Use Info Meaningful Use Meaningful Use Diagnoses (Choose all that apply): None applicable Ischemic Stroke Statin Dosing Therapy Reference: STATIN DOSE THERAPY REFERENCE: * Patients > 75 years receive moderate or high dose statin therapy. * Patients 75 years or YOUNGER should receive HIGH intensity statin dose unless contraindicated. You will be required to document reason for non-treatment if statin daily dose does not meet guidelines. HIGH DOSE STATIN THERAPY DAILY Atorvastatin > than or = to 40 mg Rosuvastatin > than or = to 20 mg Amlodipine + Atorvastatin > than or = to 2.5/40 mg Ezetimibe + Simvastatin 10/80 mg Simvastatin 80mg Discharge Plan Admission Admit Date/Time: 05/12/24 15:27 Attending Provider: Samir Gutierrez Primary Care Provider: Bc Romero Consulting Providers: Santino Treviño; Catrina Duke; Zulma Cherry; Yulia Miller; Jo Ann Shahid; Jason Valente; Zulema Martins; Allen Perez; Walker Breen; Alejandro Rivas; Karma Monterroso; Jose Rafael Strickland; Yessenia Gates; Tracy Davis; Celi Alfonso; Yvon Garcia; Niesha Hernandez; Harinder Andrea; Irene Tripp; Kim Carvalho; Gerardo Gandhi Discharge Orders/Prescriptions Prescriptions: New meclizine 25 mg tablet 25 mg PO BID PRN (Reason: dizziness) Qty: 20 0RF Continued fluticasone propionate [Allergy Relief (fluticasone)] 50 mcg/actuation spray,suspension 1 spray intranasal DAILY PRN (Reason: allergy symptoms) Rx Instructions: administer into each nostril glipizide 5 mg tablet extended release 24hr 5 mg PO DAILY cholecalciferol (vitamin D3) 1,250 mcg (50,000 unit) capsule 1,250 mcg PO QWEEK Rx Instructions: takes every tuesday clopidogrel 75 mg tablet 75 mg PO DAILY metformin 500 mg tablet 500 mg PO DAILY cetirizine [24Hour Allergy] 10 mg tablet 10 mg PO DAILY PRN (Reason: allergy symptoms) famotidine 20 mg tablet 20 mg PO DAILY atorvastatin 20 mg tablet 20 mg PO DAILY lisinopril 5 mg tablet 5 mg PO DAILY pregabalin [Lyrica] 25 mg capsule 25 mg PO TID Rx Instructions: 1-2 capsules TID tamsulosin [Flomax] 0.4 mg capsule 0.4 mg PO QHS Referrals / Follow Up: Bc Romero MD [Primary Care Provider] - Within 1 Week Keith Paul MD [Med Staff - Active Staff] - Within 1 Week Disposition Disposition (needs filled in before D/C Order can be placed): Home, Self Care Charges/Coding Visit Charges Inpatient E&M: 71701 Disch Hosp >30min
--- NOTE | 2024-05-14 16:42 | PN.NEURO_ITS ---
Assessment and Plan: Neuro Assessment/Plan This is a 73-year-old gentleman with a past medical history of diabetes, hypertension, prior stroke on Plavix who presented to [facility] on 05/12/24 for sudden onset double vision, dizziness, headache. He describes objects as appearing horizontally side by side. Denies vertigo or room spinning. Family denies fever, new rash, shortness of breath, palpitations. Recent travel to [place]. Labs on admission showed normal WBC count and differential, he has been afebrile since admission. MRI brain with and without contrast limited due to dental artifact, but no brainstem pathology, no clear pathologic enhancement. At this time unclear etiology for double vision. On examination, his extraocular movements appear overall normal, however subtle abnormalities will be missed over televideo. I do not think lumbar puncture will be of great utility at this point given normal MRI brain, and afebrile status. This may be subtle nerve palsy due to diabetes. 1. recommend evaluation with neuro-ophthalmology in the outpatient setting I personally attended this patient and spent a total time of 30 minutes evaluating this patient including clinical assessment, review of chart, medical history imaging, and determining appropriate treatment and workup. Subject: Neurology Subjective This is a 73-year-old gentleman with a past medical history of diabetes, hypertension, prior stroke on Plavix who presented to [facility] on 05/12/24 for sudden onset double vision, dizziness, headache. He describes objects as side by side. Denies vertigo or room spinning. Family denies fever, new rash, shortness of breath, palpitations. Recent travel to [place]. Labs on admission showed normal WBC count (7), normal differential, normal renal function NIHSS NIHSS Nursing Documentation NIHSS Nursing Documentation: NIHSS: Ischemic Stroke/TIA Start: 05/12/24 16:58 Text: For ICU Patients: NIH sroke scale at Status: Complete presentation and every 2 hours or with change in RN caregiver Freq: [id number] Protocol: Activity Type Activity Date Activity User E-sign Co-sign Detail Recorded Client Recorded Date Recorded By Document 05/13/24 04:00 JL [id number] 05/13/24 04:34 STEPH 05/13/24 04:00 NIH Stroke Scale [NIHSS] A score of 0 is normal or asymptomatic . Total possible score is 42. Inpatient: RN or Physician to activate a stroke alert for onset of new stroke symptoms or with NIHSS increase >/= 3 points. Following change in neurological status, NIHSS will be performed per physician order or more frequently PRN. -1a. Level of Consciousness Alert; keenly responsive -1b. LOC Questions Answers BOTH questions correctly. -1c. LOC Commands Performs both tasks correctly . -2. Best Gaze Normal -3. Visual No visual loss -4. Facial Palsy Minor paralysis (flattened nasolabial fold , asymmetry on smiling) -5a. Left Arm No drift; arm holds 90 (or 45 ) degrees for full 10 seconds -5b. Right Arm No drift; arm holds 90 (or 45 ) degrees for full 10 seconds -6a. Left Leg No drift; leg holds 30-degree position for full 5 seconds -6b. Right Leg No drift; leg holds 30-degree position for full 5 seconds -7. Limb Ataxia Absent -8. Sensory Normal; no sensory loss -9. Best Language No aphasia; normal -10. Dysarthria Normal -11. Extinction and Inattention No abnormality -Total 1 Query Text:A score of 0 is normal or asymptomatic. Total possible score is 42 . ED: Notify Physician for NIHSS increase by > / = 3 points. Inpatient: RN or Physician to activate a stroke alert for NIHSS increase of > / = 3 points. Coma Scale [Assess] -Eye Opening Spontaneous -Motor Obeys Commands -Verbal Oriented [Total] -Coma Scale Total 15 NIHSS: Ischemic Stroke/TIA Start: 05/12/24 16:58 Text: For PCU Patients: NIH and Neuro Check every 4 Status: Discharge hours, PRN and with change in RN caregiver. Freq: [id number] Protocol: Activity Type Activity Date Activity User E-sign Co-sign Detail Recorded Client Recorded Date Recorded By Document 05/14/24 14:00 [id number] 05/14/24 14:51 05/14/24 14:00 NIH Stroke Scale [NIHSS] A score of 0 is normal or asymptomatic . Total possible score is 42. Inpatient: RN or Physician to activate a stroke alert for onset of new stroke symptoms or with NIHSS increase >/= 3 points. Following change in neurological status, NIHSS will be performed per physician order or more frequently PRN. -1a. Level of Consciousness Alert; keenly responsive -1b. LOC Questions Answers BOTH questions correctly. -1c. LOC Commands Performs both tasks correctly . -2. Best Gaze Normal -3. Visual No visual loss -4. Facial Palsy Normal symmetrical movements -5a. Left Arm No drift; arm holds 90 (or 45 ) degrees for full 10 seconds -5b. Right Arm No drift; arm holds 90 (or 45 ) degrees for full 10 seconds -6a. Left Leg No drift; leg holds 30-degree position for full 5 seconds -6b. Right Leg No drift; leg holds 30-degree position for full 5 seconds -7. Limb Ataxia Absent -8. Sensory Normal; no sensory loss -9. Best Language No aphasia; normal -10. Dysarthria Normal -11. Extinction and Inattention No abnormality -Total 0 Query Text:A score of 0 is normal or asymptomatic. Total possible score is 42 . ED: Notify Physician for NIHSS increase by > / = 3 points. Inpatient: RN or Physician to activate a stroke alert for NIHSS increase of > / = 3 points. Coma Scale [Assess] -Eye Opening Spontaneous -Motor Obeys Commands -Verbal Oriented [Total] -Coma Scale Total 15 EEG Results Procedure Details EEG Procedure Details: ERIC RENO is a 73 year old M with a past medical history of , who presents for evaluation of Electroencephalogram on DATE at TIME Objective Data Objective Data Vital Signs: Vital Signs Temp Pulse Resp BP Pulse Ox O2 Del Method 98.3 F 73 16 150/89 H 96 Room Air 05/14/24 14:00 05/14/24 14:00 05/14/24 14:00 05/14/24 14:00 05/14/24 14:00 05/14/24 14:00 Oxygen Delivery Method Room Air Weight: 74.8 kg Body Mass Index (BMI) 27.4 Intake & Output: Intake and Output for Last 24 Hours 05/12/24 05/13/24 05/14/24 23:59 23:59 23:59 Intake Total 1000 / 1300 1500 / 1500 Balance 1000 / 1300 1500 / 1500 Lab / Micro Data 05/12/24 12:05 05/12/24 12:05 Labs: Laboratory Results - last 24 hr 05/13/24 16:41: POC Glucose 99 05/13/24 21:49: POC Glucose 124 H 05/14/24 06:20: POC Glucose 106 Radiography Diagnostic Testing: Radiology Impression Echocardiogram 05/13/24 03:59 Interpretation Summary The estimated ejection fraction is 60 %. Mild (1+) mitral valve insufficiency. Mild (1+) pulmonic valve insufficiency. Ordering Physician: Keyona العراقي Referring Physician: Bc Romero MD Performed By: Beena Gallardo [facility] Brain MRI 05/14/24 12:16 IMPRESSION: 1. Metallic artifact from right side dental implants result in significant susceptibility artifact and limited visualization of the right orbit, right frontal lobe, and right periventricular regions on different sequences. No significant pathology can''t be excluded in these areas. 2. Only the posterior half of the brain is visualized on the diffusion-weighted sequence with no evidence of an acute infarct. The anterior half of the brain is completely obscured by metallic artifact and not evaluated by MRI. 3. Involutional and chronic ischemic changes of the brain, as described above. Electronically Signed: Juan Antonio Schaefer MD at 10:23 EDT Reading Location ID and State: [address] [place] [address] , Service support , Physical Exam Neuro Neuro Narrative: Mental Status: The patient was alert and oriented to person, place, month, and year Language: speech is fluent and without dysarthria. Naming and repletion are intact Cranial Nerves: Pupils are equal and reactive to light.? EOMI, no nystagmus is appreciated, visual zuniga full, face is symmetric at rest and with activation, hearing is intact to conversational tone, tongue protrudes midline. Facial sensation is intact to light touch, and equal bilaterally Motor: ?All extremities are antigravity. No pronator drift noted. Muscle bulk appears normal. Sensation- Intact to light touch bilaterally Coordination: No dysmetria on [id number], finger follow finger or [id number]. No truncal ataxia
--- NOTE | 2024-05-14 16:51 | PHA.DC.MR.R ---
Pharmacy [place] Med Reconciliation Pharmacy Service has performed discharge medication reconciliation for this patient. Medication education papers prepared, patient discharged when counseling was attempted. Medications reviewed. The patient's discharge medication list was reviewed for discrepancies and discrepancies were resolved. Medications at Discharge Home Medications atorvastatin 20 mg tablet 20 mg PO DAILY cholesterol 05/12/24 cetirizine 10 mg tablet (24Hour Allergy) 10 mg PO DAILY PRN allergy symptoms 05/12/24 cholecalciferol (vitamin D3) 1,250 mcg (50,000 unit) capsule 1,250 mcg PO QWEEK supplement 05/12/24 clopidogrel 75 mg tablet 75 mg PO DAILY anti-platelet 05/12/24 famotidine 20 mg tablet 20 mg PO DAILY GERD 05/12/24 fluticasone propionate 50 mcg/actuation nasal spray,suspension (Allergy Relief (fluticasone)) 1 spray intranasal DAILY PRN allergy symptoms 05/12/24 glipizide 5 mg tablet, extended release 24 hr 5 mg PO DAILY diabetes 05/12/24 lisinopril 5 mg tablet 5 mg PO DAILY blood pressure 05/12/24 metformin 500 mg tablet 500 mg PO DAILY diabetes 05/12/24 meclizine 25 mg tablet 25 mg PO BID PRN dizziness #20 tabs 05/14/24 pregabalin 25 mg capsule (Lyrica) 25 mg PO TID nerve pain 05/14/24 tamsulosin 0.4 mg capsule (Flomax) 0.4 mg PO QHS 05/14/24
== END 2024-05-14 15:30 | disposition home or self-care (01) ==
LOC: ED 15:44 → PCU 16:12
PROVIDERS: Admitting Provider Internal Medicine; Emergency Provider Surgery; PCP Family Medicine; Visit Provider Family Medicine
DX: R42 Dizziness and giddiness (principal); E11.9 Type 2 diabetes mellitus without complications; Z79.84 Long term (current) use of oral hypoglycemic drugs; E87.1 Hypo-osmolality and hyponatremia; I10 Essential (primary) hypertension; H53.2 Diplopia; R13.10 Dysphagia, unspecified; E78.5 Hyperlipidemia, unspecified; R29.810 Facial weakness; Z79.899 Other long term (current) drug therapy; Z79.02 Long term (current) use of antithrombotics/antiplatelets; Z23 Encounter for immunization; Z86.73 Personal history of transient ischemic attack (TIA), and cerebral infarction without residual deficits; I34.0 Nonrheumatic mitral (valve) insufficiency; R53.1 Weakness; J98.11 Atelectasis; I49.3 Ventricular premature depolarization
CPT/HCPCS: 36415; 70496; 70498; 70553; 71045; 80048; 80061; 82962; 83036; 84443; 84484; 85025; 85610; 85730; 90662; 92610; 93005; 93306; 94762; 96360; 96361; 96372; 97110; 97162; 97166; 97530; 97802; 99221; 99285; A9575; J7030; Q9967; A4216; G0378; J2405

== ENCOUNTER → 2024-05-15 | Outpatient (CLI) | payer MEDICARE, SELFPAY ==
[2024-05-15 15:08] LABS: Absolute Lymphocyte Count 2.18 X10^3/uL (0.83-4.51); Absolute Neutrophil Count 4.8 X10^3/uL (2.0-7.7); Basophil# 0.03 X10^3/uL; Basophil% 0.4 % (0-1); Eosinophil# 0.13 X10^3/uL; Eosinophils% 1.7 % (0-5); Hematocrit 51.8 % (40-54); Lymphocyte # 2.18 X10^3/ul (0.83-4.51); Lymphocyte % 27.8 % (19-41); Mean Corp Hgb Conc 32.8 g/dL (32-36); Mean Corpuscular Hgb 28.7 pg (27.0-32.0); Mean Corpuscular Volume 87.4 fL (80-94); Monocyte# 0.63 X10^3/uL; NRBC Flagged by Analyzer 0 % (0-5); Neutrophil # 4.82 X10^3/uL (2.7-7.7); Neutrophil % 61.6 % (47-70); Platelet Count 442 K/mm3 (150-450); RBC Distribution Width CV 14.4 % (11.6-14.6); RBC Distribution Width SD 46.3 fl (35.1-43.9); Red Blood Count 5.93 M/mm3 (4.6-6.2); White Blood Count 7.8 K/mm3 (4.4-11.0)
[2024-05-15 15:31] LABS: CRP < 2.90 mg/L (0.0-3.0)
[2024-05-15 16:08] LABS: Erythrocyte Sedimentation Rate 13 mm/hr (0-20)
[2024-05-21 16:09] LABS: Lyme IgG P18 Ab Absent (.); Lyme IgG P23 Ab Absent (.); Lyme IgG P28 Ab Absent (.); Lyme IgG P30 Ab Absent (.); Lyme IgG P39 Ab Absent (.); Lyme IgG P41 Ab Absent (.); Lyme IgG P45 Ab Absent (.); Lyme IgG P58 Ab Absent (.); Lyme IgG P66 Ab Absent (.); Lyme IgG P93 Ab Absent (.); Lyme IgG WB Interpretation Negative (.); Lyme IgM P23 Ab Absent (.); Lyme IgM P39 Ab Absent (.); Lyme IgM P41 Ab Absent (.); Lyme IgM WB Interpretation Negative (.); PROEL- Albumin 3.9 g/dL (2.9-4.4); PROEL- Alpha-1 Globulin 0.2 g/dL (0.0-0.4); PROEL- Alpha-2 Globulin 0.8 g/dL (0.4-1.0); PROEL- Beta Globulin 1.2 g/dL (0.7-1.3); PROEL- Gamma Globulin 1.6 g/dL (0.4-1.8); PROEL- Globulin, Total 3.8 g/dL (2.2-3.9); PROEL- TOTAL PROTEIN 7.7 g/dL (6.0-8.5); PROEL-M-Spike Not Observed g/dL (Not Observed)
== END | disposition home or self-care (01) ==
PROVIDERS: Ophthalmology; PCP Family Medicine; Referring Provider Family Medicine; Visit Provider Family Medicine
DX: H53.2 Diplopia (principal)
CPT/HCPCS: 36415; 84165; 85025; 85652; 86140; 86617

== ENCOUNTER → 2024-05-16 | Outpatient (CLI) | payer MEDICARE, SELFPAY ==
--- OUTSIDE RECORDS SUMMARY | 2024-05-16 11:43 | XMS RPT_ITS | CCD ---
Author Organization [facility] Care Team Providers Care Signal Operator Name Role Phone CHRIS, JAYRAM Unavailable Unavailable IMCA Unavailable Unavailable IMCA Unavailable Unavailable CHRIS, JAYRAM Unavailable Unavailable IMCA Unavailable Unavailable IMCA Unavailable Unavailable CHRIS, JAYRAM Unavailable Unavailable IMCA Unavailable Unavailable IMCA Unavailable Unavailable CHRIS, JAYRAM Unavailable Unavailable IMCA Unavailable Unavailable IMCA Unavailable Unavailable Qasim ALFARO MD, Camryn Unavailable Ava Macias Primary Care Provider Qasim ALFARO MD, Camryn Unavailable Ava Macias Primary Care Provider Sabine Romero MD Primary Care Provider Qasim ALFARO MD, Camryn Unavailable Sabine Romero MD Primary Care Provider Sabine Romero MD Primary Care Provider [phone] ALVIN STORM MD Attending Unavail able SABINE ROMERO MD Primary Care Unavailable Camryn Tripp MD Unavailable Sabine Romero MD Primary Care Provider REGLA QUINN Referring Unavailable ROMERO, SABINE A Primary Care Unavailable ROMERO, SABINE A Primary Care Unavailable RAMESH LOVE Referring Unavail able GANGA SABINE A Primary Care Unavailable RAMESH LOVE Referring Unavail able ROMERO, SABINE A Primary Care Unavailable REGLA QUINN Attending Unavailable ROMERO, SABINE A Primary Care Unavailable ROMERO, SABINE A Referring Unavailable RAMESH LOVE Attending Unavail able GANGA, SABINE A Primary Care Unavailable RAMESH LOVE Referring Unavail SABINE Harris Primary Care Unavailable RAMESH LOVE Attending Unavail SABINE Harris Primary Care Unavailable RAMESH LOVE Attending Unavail SABINE Harris Primary Care Unavailable CHRISTINA HOWARD Admitting Unavaildevon christine CHRISTINA HOWARD Attending Unavailabl christine GANGASABINE Primary Care Unavailable CHRISTINA HOWARD Attending Unavailabl e Medications Current Medications Medication Drug Class(es) Dates Sig (Normalized) Sig (Original) aspirin 81 mg delayed release oral tablet (18 sources) Platelet Aggregation Inhibitor, Nonsteroidal Anti-inflammatory Drug take 1 tablet by mouth once daily aspirin, enteric coated (ASPIRIN, ENTERIC COATED) 81 mg EC tablet Take 81 mg by mouth once daily. Active Comment on above: Take 81 mg by mouth once daily. atorvastatin 20 mg oral tablet (18 sources) HMG-CoA Reductase Inhibitor take 1 tablet by mouth once daily atorvastatin (LIPITOR) 20 mg tablet Take 20 mg by mouth once daily. Active Comment on above: Take 20 mg by mouth once daily. cholecalciferol 1.25 mg oral capsule (18 sources) Vitamin D Start: 06-03-2017 cholecalciferol, Vitamin D3, (VITAMIN D3) 50,000 unit cap capsule once each week. 2 06/03/2017 Active Comment on above: once each week. clopidogrel 75 mg oral tablet (14 sources) P2Y12 Platelet Inhibitor take 1 tablet by mouth once daily clopidogrel (PLAVIX) 75 mg tablet Take 75 mg by mouth once daily. Active Comment on above: Take 75 mg by mouth once daily. famotidine 20 mg oral tablet (14 sources) Histamine-2 Receptor Antagonist take 1 tablet by mouth twice daily famotidine (PEPCID) 20 mg tablet Take 20 mg by mouth twice daily. Active Comment on above: Take 20 mg by mouth twice daily. gabapentin 100 mg oral capsule (14 sources) Anti-epileptic Agent take 1 capsule by mouth every eight hours as needed gabapentin (NEURONTIN) 100 mg capsule Take 100 mg by mouth three times daily as needed. Active Comment on above: Take 100 mg by mouth three times daily. Take 100 mg by mouth three times daily as needed. hydrocortisone 25 mg/ml topical cream (18 sources) Corticosteroid Start: 01-14-2016 hydrocortisone (ANUSOL-HC) 2.5 % rectal cream 1 application by RECTAL route twice daily. 1 Tube 0 01/14/2016 Active Comment on above: 1 application by REC DEIDRA route twice daily. IPRATROPIUM BROMIDE 18 MCG/ACTUATION AEROSOL INHALER (14 sources) IPRATROPIUM BROM RICH 18 MCG/ACTUATION AEROSOL INHALER Active IPRATROPIUM BROM RICH 18 MCG/ACTUATION AEROSOL INHALER iv contrast (will be provide d with radiology test) (20 sources) Start: 06-14-2023 iv contrast (w ill be provided with radiology test) MRI Prostate Inject, intravenously, once for 1 dose. No IV access, insert saline lock prior to the beginning of sedation, infusion, injection of imaging exam. Discontinue saline lock post exam. If Pt. has a central line or IVAD, may access for administration according to line specific nursing protocol. Once exam is complete flush line and de-access according to line specific nursing protocol in the MR contrast administration guidelines link. 1 Each 06/14/2023 Active Start: 06-14-2023 iv contrast (w ill be provided with radiology test) MRI Prostate Inject, intravenously, once for 1 dose. No IV access, insert saline lock prior to the beginning of sedation, infusion, injection of imaging exam. Discontinue saline lock post exam. If Pt. has a central line or IVAD, may access for administration according to line specific nursing protocol. Once exam is complete flush line and de-access according to line specific nursing protocol in the MR contrast administration guidelines link. 1 Each 0 06/14/2023 Active Start: 02-09-2022 iv contrast (w ill be provided with radiology test) MRI Prostate Inject, intravenously, once for 1 dose. No IV access, insert saline lock prior to the beginning of sedation, infusion, injection of imaging exam. Discontinue saline lock post exam. If Pt. has a central line or IVAD, may access for administration according to line specific nursing protocol. Once exam is complete flush line and de-access according to line specific nursing protocol in the MR contrast administration guidelines link. 1 Each 02/09/2022 Active Start: 02-09-2022 iv contrast (w ill be provided with radiology test) MRI Prostate Inject, intravenously, once for 1 dose. No IV access, insert saline lock prior to the beginning of sedation, infusion, injection of imaging exam. Discontinue saline lock post exam. If Pt. has a central line or IVAD, may access for administration according to line specific nursing protocol. Once exam is complete flush line and de-access according to line specific nursing protocol in the MR contrast administration guidelines link. 1 Each 0 02/09/2022 Active Start: 02-21-2018 iv contrast (w ill be provided with radiology test) MRI Prostate Inject, intravenously, once for 1 dose. No IV access, insert saline lock prior to the beginning of sedation, infusion, injection of imaging exam. Discontinue saline lock post exam. If Pt. has a central line or IVAD, may access for administration according to line specific nursing protocol. Once exam is complete flush line and de-access according to line specific nursing protocol in the MR contrast administration guidelines link. 1 Each 02/21/2018 Active Start: 02-21-2018 iv contrast (w ill be provided with radiology test) MRI Prostate Inject, intravenously, once for 1 dose. No IV access, insert saline lock prior to the beginning of sedation, infusion, injection of imaging exam. Discontinue saline lock post exam. If Pt. has a central line or IVAD, may access for administration according to line specific nursing protocol. Once exam is complete flush line and de-access according to line specific nursing protocol in the MR contrast administration guidelines link. 1 Each 0 02/21/2018 Active Comment on above: MRI Prostate Inject, intravenously, once for 1 dose. No IV access, insert saline lock prior to the beginning of sedation, infusion, injection of imaging exam. Discontinue saline lock post exam. If Pt. has a central line or IVAD, may access for administration according to line specific nursing protocol. Once exam is complete flush line and de-access according to line specific nursing protocol in the MR contrast administration guidelines link. lisinopril 5 mg oral tablet (14 sources) Angiotensin Converting Enzyme Inhibitor take 1 tablet by mouth once daily lisinopril (ZESTRIL, PRINIVIL) 5 mg tablet Take 5 mg by mouth once daily. Active Comment on above: Take 5 mg by mouth o nce daily. metFORMIN hydrochloride 500 mg oral tablet (14 sources) Biguanide take 1 tablet by mouth once daily at breakfast metFORMIN (GLUCOPHAGE) 500 mg tablet Take 500 mg by mouth daily with breakfast. Active Comment on above: Take 500 mg by mouth daily with breakfast. Oakwood-3 Fatty Acids 500 mg cap (18 sources) take 1 capsule by mouth once daily Oakwood-3 Fatty Acids 500 mg cap Take 500 mg by mouth once daily. Active take 1 capsule by mouth once yesica ly Oakwood-3 Fatty Acids 500 mg cap Take 500 mg by mouth once daily. 0 Active Comment on above: Take 500 mg by mouth once daily. pregabalin 25 mg oral capsule (5 sources) take 1 capsule by mouth twice daily pregabalin (LYRICA) 25 mg capsule Take 25 mg by mouth two times a day. Active rosuvastatin calcium 10 mg oral tablet (18 sources) HMG-CoA Reductase Inhibitor Start: 7 take 1 tablet by mouth once daily rosuvastatin (CRESTOR) 10 mg tablet Take 10 mg by mouth once daily. 2 06/07/2017 Active Comment on above: Take 10 mg by mouth once daily. tamsulosin hydrochloride 0.4 mg oral capsule (7 sources) alpha-Adrenergic Ti Start: 4 take 1 capsule by mouth once daily at bedtime tamsulosin (FLOMAX) 0.4 mg Take 1 capsule by mouth daily at bedtime. 90 capsule 3 01/12/2024 Active Completed/Discontinued Medications Medication Drug Class(es) Dates Sig (Normalized) Sig (Original) acetaminophen 325 mg oral tablet (1 source) Start: 02-29-2024 End: 02-29-2024 acetaminophen 975 mg tab(s) (TYLENOL) Start: 02-29-2024 End: 02-29-2024 acetaminophen 975 mg tab(s) (TYLENOL) levoFLOXacin 500 mg oral tablet (1 source) Quinolone Antimicrobial Start: 02-29-2024 End: 02-29-2024 levoFLOXacin 500 mg tab(s) (LEVAQUIN) Start: 02-29-2024 End: 02-29-2024 levoFLOXacin 500 mg tab(s) ( LEVAQUIN) tobramycin 40 mg/ml injectable solution (1 source) Aminoglycoside Antibacterial Start: 02-29-2024 End: 02-29-2024 tobramycin 120 mg injection (NEBCIN) Problems Active Problems Problem Classification Problem Date Documented Da te Episodic/Chronic Calculus of urinary tract (4 sources) Kidney stone; Translations: [Calculus of kidney] Onset: 02-02-2024 02-02-2024 Episodic Cancer of prostate (20 sources) Malignant tumor of prostate; Translations: [Malignant neoplasm of prostate] Onset: 09-22-2015 09-22-2015 Chronic Diabetes mellitus without complication (4 sources) Type 2 diabetes mellitus; Translations: [Type 2 diabetes mellitus without complications] Onset: 02-29-2024 02-29-2024 Chronic Essential hypertension (4 sources) Essential hypertension; Translations: [Essential (primary) hypertension] Onset: 02-29-2024 02-29-2024 Chronic Hyperplasia of prostate (20 sources) Benign prostatic hypertrophy with outflow obstruction; Translations: [Benign prostatic hyperplasia with lower urinary tract symptoms] Onset: 08-14-2015 02-21-2018 Chronic Other diseases of kidney and ureters (1 source) Other obstructive and reflux uropathy; Translations: [BPH with obstruction/lower urinary tract symptoms] Onset: 01-12-2024 Episodic Other screening for suspected conditions (not mental disorders or infectious disease) (20 sources) Liver function tests abnormal; Translations: [Abnormal results of liver function studies] Onset: 04-19-2005 04-19-2005 Episodic Unclassified (1 source) Unknown / UNK(Unknown) Onset: 02-21-2018 Urinary tract infections (2 sources) Urinary tract infectious disease; Translations: [Urinary tract infection, site not specified] Onset: 02-02-2024 02-02-2024 Episodic Past or Other Problems Problem Classification Problem Date Documented Da te Episodic/Chronic Other nervous system disorders (18 sources) Disorder of large intestine; Translations: [Other disturbances of skin sensation] Onset: 09-22-2015 09-22-2015 Episodic Unclassified (1 source) Benign prostatic hyperplasia with lower urinary tract symptoms Onset: 02-21-2018 Results Test Name Value Interpretation Reference Range Facility [facility] 03-15-2024 CNOV Office Visit (UROLAE ) ERIC RENO ([id number]) 1950 M Date Time Provider Department 03/15/24 10:00 AM RAMESH LOVE During your visit today, we recorded the following information about you: Pulse Blood pressure 82/minute 126/72 Ramesh Love MD 03/15/2024 10:57 AM Signed [facility] [place] ESTABLISHED PATIENT OFFICE VISIT HISTORY OF PRESENT ILLNESS Eric Reno is a 73 year old male who presents with prostate cancer. Here in follow-up to recent prostate fusion biopsy. Biopsy indicated due to progression on MRI. Pathology is as below. Fusion biopsy prostate 02/29/24: FINAL DIAGNOSIS A. Prostate, right, lesion #1, biopsy: - Adenocarcinoma of the prostate, Cottonwood score 3+4 = 7 (grade Group 2), involving 4 of 4 cores (8 mm, 6 mm, 4 mm, 2 mm, 55%, 50%, 70%, 25%). - Pattern 4 comprises approximately 5% of the tumor. B. Prostate, right lateral base, needle biopsy: - Adenocarcinoma of the prostate, Cottonwood score 3+4 =7 (grade Group 2), involving 1 of 1 core (6 mm, 70%). - Pattern 4 comprises approximately 5% of the tumor. - Perineural invasion is present C. Prostate, right lateral MID, needle biopsy: - Adenocarcinoma of the prostate, Poonam score 3+3 = 6 (grade Group 1), involving 1 of 1 core (3 mm, 25%). D. Prostate, right lateral apex, needle biopsy: - Adenocarcinoma of the prostate, Poonam score 3+3 = 6 (grade Group 1), involving 1 of 1 core (4 mm, 50%). E. Prostate, left lateral base, needle biopsy: - Atypical small acinar proliferation. See comment. F. Prostate, left lateral MID, needle biopsy: - Benign prostatic tissue. G. Prostate, left lateral apex, needle biopsy: - Benign prostatic tissue. Prostate Cancer Biopsy Summary Number of cores examined: 10 Number of cores positive: 7 Highest Grade Group: 2 Highest % of core involvement: 70 % Cribriform pattern 4: Absent Intraductal carcinoma: Absent MRI prostate October 25, 2023: Interval increase in size of right peripheral zone base to mid gland abnormality, now measuring 1.5 cm and compatible with a PI-RADS 5 lesion. The lesion is equivocal for exercise extension with broad capsule contact. Dimensions: 4.3 x 3.1 x 3.7 cm corresponding to a volume of approximately 26 cc. Cancer history: Dr. Perez's summary: Initial visit: Patient has a history of carcinoma of the prostate. He has undergone 2 prostate biopsies, 1 that was repeated and prior to May 2016 came back showing Cottonwood 6 in 2 cores, 1 core positive 40%, 1 core positive 10% Cottonwood 6. This was repeated again with a 2nd biopsy which came back again showing the same Cottonwood 6 tumor. A genetic Oncotype test was accomplished with a very low GPS score (8), Two daughters are here with him providing history and placed the patient active surveillance. A PSA in April 2016 was 6.56, May of 2017 was 7.58, and now in November 2017 was 9.73. Plan 06/09/22: PSA stable MRI reviewed - one PIRADS 2 lesion (2017) No high grade lesions MRI 03/2022 - PIRADS 4 lesion - s/p MRI fusion biopsy - 05/28/2022 Stable Poonam 6 disease and one small focus of Cottonwood 7 Send decipher biopsy. Continue PSA surveillance. Path: 09/15/15 ([place]) Specimen originated from [facility] Specimen #: [id number] Submitting Physician: VICTOR M MEMBRENO M.D. FINAL DIAGNOSIS 1. Prostate, right base, lateral, needle biopsy (A) - Adenocarcinoma of the prostate, Poonam score 3+3=6 discontinuously involving 40% of one of one core and measuring 4 mm. 2. Prostate, right mid lateral, needle biopsy (B) - Benign prostatic tissue. 3. Prostate, right apex lateral, needle biopsy (C) - Benign prostatic tissue with focal atrophy and chronic inflammation. 4. Prostate, right base medial, needle biopsy (D) - Adenocarcinoma of the prostate, Poonam score 3+3=6 involving 10% of one of one core and measuring 1 mm. 5. Prostate, right mid medial, needle biopsy (E) - Benign prostatic tissue. 6. Prostate, right apex medial, needle biopsy (F) - Benign prostatic tissue with focal atrophy. 7. Prostate, left base lateral, needle biopsy (G) - Benign prostatic tissue. 8. Prostate, left mid lateral, needle biopsy (H) - Benign prostatic tissue with focal chronic inflammation. 9. Prostate, left apex lateral, needle biopsy (I) - Benign prostatic tissue. 10. Prostate, left base medial, needle biopsy (J) - Benign prostatic tissue with focal acute inflammation. 11. Prostate, left mid medial, needle biopsy (K) - Benign prostatic tissue. 12. Prostate, left apex medial, needle biopsy (L) - Benign prostatic tissue. Path 05/26/22 (Colby/Chris): FINAL DIAGNOSIS A. Prostate, lesion #1, biopsy: - Prostatic adenocarcinoma Poonam score 3+3 = 6 (grade (more content not included)... Normal [facility] HISTORY PHYSICALon HISTORY PHYSICAL HNO ID: [id number] Author: CHRISTINA HOWARD MD Service: Urology Author Type: Physician Type: H&P Filed: 02/29/2024 12:44 Note Text: UPDATED HISTORY AND PHYSICAL EXAMINATION SERVICE DATE: 02/29/2024 SERVICE TIME: 12:44 PM PHYSICAL EXAM MUST BE COMPLETED ON ADMISSION The History and Physical (completed in the past 30 days) has been reviewed and the patient has been examined. The contents accurately reflect the patient's condition with the following additions or revisions since the HANDP was completed. Rrr cta Examination indicates no changes. This HANDP can be found in the Electronic Medical Record dated 02/13. SIGNATURE: Christina Howard MD PATIENT NAME: Eric Reno DATE: February 29, 2024 TIME: 12:44 PM PAGER: Normal [facility] HISTORY PHYSICAL HNO ID: [id number] Author: RAEGAN CHAPARRO APRN.CNP Service: Anesthesiology Author Type: Nurse Practitioner Type: H&P Filed: 02/29/2024 12:54 Note Text: HISTORY AND PHYSICAL EXAMINATION Eric [place] 1950 SERVICE DATE: 02/29/2024 SERVICE TIME: 12:22 PM PRIMARY CARE PHYSICIAN: Sabine Romero MD SURGEON: Surgeon(s) and Role: * Christina Howard MD - Primary ANESTHESIA: Local DIAGNOSIS: Elevated prostate specific antigen (PSA) [R97.20] Malignant neoplasm of prostate (HCC) [C61] PROCEDURE: Procedure(s) with comments: BIOPSY PROSTATE, TRANSRECTAL (N/A) - LOCAL MRI FUSION PROSTATE BIOPSY (N/A) Subjective CHIEF COMPLAINT: elevated PSA, malignant neoplasm of prostate The reason for this visit is to perform a comprehensive review of the patient's past medical history, assess their current health status and obtain any additional testing required based on anesthesia guidelines. We will also identify any potential anesthesia problems or contraindications to the planned procedure. HPI: This is a 73 year old male who presents with elevated PSA, malignant neoplasm of prostate. Hx prostate cancer, active surveillance. Biopsy 2 years ago per pt. Denies gross hematuria. No family hx prostate cancer METS: Climb a flight of stairs or walk up a hill (5.50 METs) FUNCTIONAL STATUS: Independent PAST MEDICAL HISTORY No date: Diabetes mellitus (HCC) No date: Essential hypertension No date: Hyperlipidemia No date: Kidney stone No date: Prostate cancer (HCC) 11/2020: Shingles 07/2019: Stroke (HCC) Comment: no residual PAST SURGICAL HISTORY No date: CHOLECYSTECTOMY No date: COLONOSCOPY No date: PAST SURGICAL HISTORY OF; Right Comment: retinal detachment FAMILY HISTORY Problem Relation Age of Onset other (heart disease) Mother Stroke Brother Social History Tobacco Use Smoking status: Never Smokeless tobacco: Never Substance Use Topics Alcohol use: Yes Comment: social - weekends Drug use: No Prior to Admission medications as of 02/29/24 1234 Medication Sig Last Dose Taking pregabalin (LYRICA) 25 mg capsule Take 25 mg by mouth two times a day. 02/29/2024 Yes tamsulosin (FLOMAX) 0.4 mg Take 1 capsule by mouth daily at bedtime. 02/29/2024 Yes clopidogrel (PLAVIX) 75 mg tablet Take 75 mg by mouth once daily. 02/22/2024 Yes metFORMIN (GLUCOPHAGE) 500 mg tablet Take 500 mg by mouth daily with breakfast. 02/29/2024 Yes gabapentin (NEURONTIN) 100 mg capsule Take 100 mg by mouth three times daily as needed. 02/29/2024 at 1030 Yes IPRATROPIUM BROMIDE 18 MCG/ACTUATION AEROSOL INHALER 02/29/2024 Yes cholecalciferol, Vitamin D3, (VITAMIN D3) 50,000 unit cap capsule once each week. 02/22/2024 Yes atorvastatin (LIPITOR) 20 mg tablet Take 20 mg by mouth once daily. 02/29/2024 Yes Oakwood-3 Fatty Acids 500 mg cap Take 500 mg by mouth once daily. 02/22/2024 Yes iv contrast (will be provided with radiology test) MRI Prostate Inject, intravenously, once for 1 dose. No IV access, insert saline lock prior to the beginning of sedation, infusion, injection of imaging exam. Discontinue saline lock post exam. If Pt. has a central line or IVAD, may access for administration according to line specific nursing protocol. Once exam is complete flush line and de-access according to line specific nursing protocol in the MR contrast administration guidelines link. lisinopril (ZESTRIL, PRINIVIL) 5 mg tablet Take 5 mg by mouth once daily. famotidine (PEPCID) 20 mg tablet Take 20 mg by mouth twice daily. Patient not taking: Reported on 02/14/2024 iv contrast (will be provided with radiology test) MRI Prostate Inject, intravenously, once for 1 dose. No IV access, insert saline lock prior to the beginning of sedation, infusion, injection of imaging exam. Discontinue saline lock post exam. If Pt. has a central line or IVAD, may access for administration according to line specific nursing protocol. Once exam is complete flush line and de-access according to line specific nursing protocol in the MR contrast administration guidelines link. Patient not taking: Reported on 04/13/2022 iv contrast (will be provided with radiology test) MRI Prostate Inject, intravenously, once for 1 dose. No IV access, insert saline lock prior to the beginning of sedation, infusion, injection of imaging exam. Discontinue saline lock post exam. If Pt. has a central line or IVAD, may access for administration according to line specific nursing protocol. Once exam is complete flush line and de-access according to line specific nursing protocol in the MR contrast administration guidelines link. Patient not taking: No sig reported rosuvastatin (CRESTOR) 10 mg tablet Take 10 mg by mouth once daily. Patient not taking: Reported on 04/13/2022 hydrocortisone (ANUSOL-HC) 2.5 % rectal cream 1 application by RECTAL route twice daily. Patient not taking: No sig reported aspirin, enteric coated (ASPIRIN, ENTERIC (more content not included)... Normal [facility] OPERATIVE NOon 02-29-2024 OPERATIVE NO HNO ID: [id number] Author: CHRISTINA HOWARD MD Service: Urology Author Type: Physician Type: Operative Report Filed: 02/29/2024 13:14 Note Text: MRI Fusion Biopsy of Prostate/transrectal Eric Reno a 73 year old. 02/29/2024 LOG ID: [id number] INCISION/PROCEDURE START TIME: 12:57 PM INCISION CLOSE/PROCEDURE END TIME: 1:09 PM Preop Dx: elevated PSA, prostate cancer Post op Dx: same Procedure: MRI fusion biopsy of the prostate Surgeon: Christina Howard MD SURGEON(S)/PROCEDURALIST(S) AND REMOTE SENSING PROGRAM MANAGER(S): Surgeon(s) and Role: * Christina Howard MD - Primary No Additional Staff Anesthesia: local ESTIMATED BLOOD LOSS: < 5 cc SPECIMENS: prostate bxs COMPLICATIONS: None Procedure: History and Physical reviewed and is unchanged. . ALLERGIES No Known Allergies Informed Consent Discussed: Yes. Risks, benefits, alternatives and personnel discussed with patient who consents to proceed. Discussed RBAPC. Antibiotics given pre-operatively: Yes, ; Levaquin 500 mg po, Tobramycin 120 mg IM on arrival Huddle was performed in standard fashion and pt taken back to OR Pt placed in Lt lateral decubitus position Audible time out was performed. PSA (ng/mL) Date Value 12/08/2023 12.42 07/07/2021 9.21 PROSTATE ULTRASOUND/TRUS MEDICATIONS: 10 ml 1% Plain Xylocaine alondra prostatic nerve block given: Yes The prostate sonogram was obtained via transrectal approach. The gland is slightly enlarged, measuring 25cc. There is an inhomogeneous echo pattern throughout the prostate gland. Echogenic foci within the gland consistant with clacifications were noted. There is no focal lesion within the pereferal zone of the prostate gland. MRI/US fusion/guided biopsies: The MRI image was viewed on the UroNav unit and the the image was fused to US image in standard fashion. There are 1 lesion noted on the MRI: the biopsy needle is passed using this guidence Lesion 1--6 biopsies taken Prostate biopsies taken from the site below using ultrasound guidance 1.) RIGHT BASE: 1 2.) RIGHT MID: 1 3.) RIGHT APEX: 1 4.) LEFT BASE: 1 5.) LEFT MID: 1 6.) LEFT APEX: 1 POST PROCEDURE: Pt taken to recovery room and will f/u as planned Christina Howard MD Normal [facility] SURGICAL PATHOLOGYon 024 CASE REPORT Normal [facility] Comment on above: Order Comment: Speci men Type: TISSUE SPECIMENOrdering Facility: [facility] Address: [address] [place] [address] Result Comment: [facility] Pathology Report Case: [id number] Authorizing Provider: Christina Howard MD Collected: 02/29/2024 01:05 PM Ordering Location: [facility] Received: 02/29/2024 04:10 PM Pathologist: Stephen Perez DO Specimens: A) - Prostate, Target/Lesion, Biopsy, #1 lesion right side B) - Prostate, Right, Lateral Base, Biopsy C) - Prostate, Right, Lateral Mid, Biopsy D) - Prostate, Right, Lateral Williams, Biopsy E) - Prostate, Left, Lateral Base, Biopsy F) - Prostate, Left, Lateral Mid, Biopsy G) - Prostate, Left, Lateral Williams , Biopsy Performed By: #### S ####[facility]ITAL[facility] [id number] [address] CLINICAL HISTORY Normal [facility] Comment on above: Order Comment: Speci men Type: TISSUE SPECIMENOrdering Facility: [facility] Address: [address] [place] [address] Result Comment: Pre- op diagnosis: Elevated prostate specific antigen (PSA) [R97.20] Malignant neoplasm of prostate (HCC) [C61] Performed By: #### S ####[facility] LABORATORYCLIA [id number] [address] DIAGNOSIS COMMENT Normal [facility] Comment on above: Order Comment: Speci men Type: TISSUE SPECIMENOrdering Facility: [facility] Address: [address] [place] [address] Result Comment: E. T he atypical glands in part E is qualitatively and quantitatively insufficient for the diagnosis of adenocarcinoma. Christopher Blackburn has reviewed part A of this case and agrees with the above diagnosis. Performed By: #### S ####[facility] LABORATORYCLIA [id number] [address] FINAL DIAGNOSIS Normal [facility] Comment on above: Order Comment: Speci men Type: TISSUE SPECIMENOrdering Facility: [facility] Address: [address] [place] [address] Result Comment: Christopher Ballesteros rostate, right, lesion #1, biopsy: - Adenocarcinoma of the prostate, Poonam score 3+4 = 7 (grade Group 2), involving 4 of 4 cores (8 mm, 6 mm, 4 mm, 2 mm, 55%, 50%, 70%, 25%). - Pattern 4 comprises approximately 5% of the tumor. B. Prostate, right lateral base, needle biopsy: - Adenocarcinoma of the prostate, Poonam score 3+4 =7 (grade Group 2), involving 1 of 1 core (6 mm, 70%). - Pattern 4 comprises approximately 5% of the tumor. - Perineural invasion is present C. Prostate, right lateral MID, needle biopsy: - Adenocarcinoma of the prostate, Poonam score 3+3 = 6 (grade Group 1), involving 1 of 1 core (3 mm, 25%). D. Prostate, right lateral apex, needle biopsy: - Adenocarcinoma of the prostate, Cottonwood score 3+3 = 6 (grade Group 1), involving 1 of 1 core (4 mm, 50%). E. Prostate, left lateral base, needle biopsy: - Atypical small acinar proliferation. See comment. F. Prostate, left lateral MID, needle biopsy: - Benign prostatic tissue. G. Prostate, left lateral apex, needle biopsy: - Benign prostatic tissue. Prostate Cancer Biopsy Summary Number of cores examined: 10 Number of cores positive: 7 Highest Grade Group: 2 Highest % of core involvement: 70 % Cribriform pattern 4: Absent Intraductal carcinoma: Absent Performed By: #### S ####[facility] LABORATORYCLIA [id number] [address] STATES OF [facility] FINAL PERFORMING LAB Normal [facility] Comment on above: Order Comment: Speci men Type: TISSUE SPECIMENOrdering Facility: [facility] Address: [address] [place] [address] Result Comment: Diag nostic interpretation performed at [facility], [address] [place] [address] CLIA# [id number] Roll Trucker: Sabine Trevino M.D. Performed By: #### S ####[facility] LABORATORYCLIA [id number] [address] STATES OF [place] DESCRIPTION Normal [facility] Comment on above: Order Comment: Speci men Type: TISSUE SPECIMENOrdering Facility: [facility] Address: [address] [place] [address] [place] [address] Result Comment: A. P rostate, Target/Lesion, Biopsy Received in formalin labeled lesion #1 right side are 5 segments of cylindrical tissue ranging in length from 0.4 to 1.5 cm and averaging 0.1 cm in diameter, hernandez and of a soft and friable consistency. Totally submitted in formalin in cassette A1-A2. B. Prostate, Right, Lateral Base, Biopsy Received in formalin labeled right lateral base is one hernandez, cylindrical fragment of soft tissue measuring 2 x 0.1 x 0.1 cm. Totally submitted in cassette B1. C. Prostate, Right, Lateral Mid, Biopsy Received in formalin labeled right lateral mid is one hernandez, cylindrical fragment of soft tissue measuring 1 x 0.1 x 0.1 cm. Totally submitted in cassette C1. D. Prostate, Right, Lateral Williams, Biopsy Received in formalin labeled right lateral apex is one hernandez, cylindrical fragment of soft tissue measuring 1 x 0.1 x 0.1 cm. Totally submitted in cassette D1. E. Prostate, Left, Lateral Base, Biopsy Received in formalin labeled left lateral base is one hernandez, cylindrical fragment of soft tissue measuring 1.5 x 0.1 x 0.1 cm. Totally submitted in cassette E1. F. Prostate, Left, Lateral Mid, Biopsy Received in formalin labeled left lateral mid is one hernandez, cylindrical fragment of soft tissue measuring 1.5 x 0.1 x 0.1 cm. Totally submitted in cassette F1. G. Prostate, Left, Lateral Williams , Biopsy Received in formalin labeled left lateral apex is one hernandez, cylindrical fragment of soft tissue measuring 1 x 0.1 x 0.1 cm. Totally submitted in cassette G1. Gross examination performed at [facility], [address] [place] [address] CLIA#[id number] [facility] March 01, 2024 2:17 PM Performed By: #### S ####[facility] [id number] [place] [address] [facility] Luz Maria 02-23-2024 CNPN Telephone (AKURFL) NATEERIC OSORIO ([id number]) 1950 M Date Time Provider Department 02/23/24 CHRISTINA HOWARD During your visit today, we recorded the following information about you: Aimee Amaya 02/23/2024 9:29 AM Signed Pt is scheduled for MRI Fusion Bx LOCAL with Dr Howard at [facility] on 02/29/24 @ 1:30 (12:00 arrival). Pt to stop Plavix 7 days prior and resume 2 days after. Follow up with Dr Love on 03/15/24. Pt and daughter Harvey given date, time, prep and arrival instructions in person on 02/14/24. Written info given also. Aimee Amaya Allergies As of Date: 02/23/2024 (No Known Allergies) Date Reviewed: 02/14/2024 Reviewed by: Christina Howard MD - Fully Assessed Reason for Visit: Surgery Scheduled [Other] Prescriptions as of 02/23/2024 - pregabalin (LYRICA) 25 mg capsule Take 25 mg by mouth two times a day. - tamsulosin (FLOMAX) 0.4 mg Take 1 capsule by mouth daily at bedtime. - iv contrast (will be provided with radiology test) MRI Prostate Inject, intravenously, once for 1 dose. No IV access, insert saline lock prior to the beginning of sedation, infusion, injection of imaging exam. Discontinue saline lock post exam. If Pt. has a central line or IVAD, may access for administration according to line specific nursing protocol. Once exam is complete flush line and de-access according to line specific nursing protocol in the MR contrast administration guidelines link. - clopidogrel (PLAVIX) 75 mg tablet Take 75 mg by mouth once daily. - lisinopril (ZESTRIL, PRINIVIL) 5 mg tablet Take 5 mg by mouth once daily. - metFORMIN (GLUCOPHAGE) 500 mg tablet Take 500 mg by mouth daily with breakfast. - gabapentin (NEURONTIN) 100 mg capsule Take 100 mg by mouth three times daily as needed. - famotidine (PEPCID) 20 mg tablet Take 20 mg by mouth twice daily. - IPRATROPIUM BROMIDE 18 MCG/ACTUATION AEROSOL INHALER - iv contrast (will be provided with radiology test) MRI Prostate Inject, intravenously, once for 1 dose. No IV access, insert saline lock prior to the beginning of sedation, infusion, injection of imaging exam. Discontinue saline lock post exam. If Pt. has a central line or IVAD, may access for administration according to line specific nursing protocol. Once exam is complete flush line and de-access according to line specific nursing protocol in the MR contrast administration guidelines link. - iv contrast (will be provided with radiology test) MRI Prostate Inject, intravenously, once for 1 dose. No IV access, insert saline lock prior to the beginning of sedation, infusion, injection of imaging exam. Discontinue saline lock post exam. If Pt. has a central line or IVAD, may access for administration according to line specific nursing protocol. Once exam is complete flush line and de-access according to line specific nursing protocol in the MR contrast administration guidelines link. - rosuvastatin (CRESTOR) 10 mg tablet Take 10 mg by mouth once daily. - cholecalciferol, Vitamin D3, (VITAMIN D3) 50,000 unit cap capsule once each week. - hydrocortisone (ANUSOL-HC) 2.5 % rectal cream 1 application by RECTAL route twice daily. - atorvastatin (LIPITOR) 20 mg tablet Take 20 mg by mouth once daily. - Oakwood-3 Fatty Acids 500 mg cap Take 500 mg by mouth once daily. - aspirin, enteric coated (ASPIRIN, ENTERIC COATED) 81 mg EC tablet Take 81 mg by mouth once daily. Problem List As Of Date 02/23/2024 Noted Resolved ABNORMAL LIVER FUNCTION STUDY [R94.5] 04/19/2005 Elevated prostate specific antigen (PSA) [R97.2*08/14/2015 Benign prostatic hyperplasia with urinary obstr*08/14/2015 Prostate cancer (HCC) [C61] 09/22/2015 Rectal burning [R20.8] 09/22/2015 Encounter Status:Closed by AIMEE AMAYA on 02/23/24 Normal [facility] US KIDNEY/BLADDERon 02-15-20 US KIDNEY/BLADDER * * *Final Report* * * DATE OF EXAM: Feb 15 2024 7:54AM [facility] 1055 - US KIDNEY/BLADDER / PROCEDURE REASON: Kidney stone * * * * Physician Interpretation * * * * EXAMINATION: RENAL ULTRASOUND CLINICAL HISTORY: History of right hydronephrosis. History of 3 mm stone at the right UVJ TECHNIQUE: Sonography of the kidneys and urinary bladder was performed. Images were obtained and stored in a permanent archive. MQ: UR_1 COMPARISON: Report from CT scans of 09/28/2004 RESULT: Right Kidney: -Renal length: 10.7 cm -Parenchyma: Normal parenchymal echogenicity. Normal parenchymal thickness. -Collecting system: No hydronephrosis. -Calculus: No echogenic, shadowing calculus. -Lesion: None. Left Kidney: -Renal length: 10.4 cm -Parenchyma: Normal parenchymal echogenicity. Normal parenchymal thickness. -Collecting system: No hydronephrosis. -Calculus: No echogenic, shadowing calculus. -Lesion: None. Bladder: Normal sonographic appearance. Bilateral ureteral jets are seen Pre and postvoid urinary bladder volume of 211 cc and 14 cc respectively were recorded IMPRESSION: NORMAL SONOGRAPHIC APPEARANCE OF KIDNEYS AND BLADDER. No evidence of persistent hydronephrosis Test Deck Supervisor: [facility] Transcribe Date/Time: Feb 15 2024 8:17A Dictated by : FLORIN ARREGUIN MD This examination was interpreted and the report reviewed and electronically signed by: FLORIN ARREGUIN MD on Feb 15 2024 8:19AM EST [id number] Normal [facility] US Kidney - bilateral and Ur inary bladderon 02-15-2024 IMPRESSION: NORMAL SONOGRAPHIC APPEARANCE OF KIDNEYS AND BLADDER. No evidence of persistent hydronephrosis Test Deck Supervisor: [facility] Transcribe Date/Time: Feb 15 2024 8:17A Dictated by : FLORIN ARREGUIN MD This examination was interpreted and the report reviewed and electronically signed by: FLORIN ARREGUIN MD on Feb 15 2024 8:19AM EST DIVISION OF RADIOLOGY * * *Final Report* * * DATE OF EXAM: Feb 15 2024 7:54AM [facility] 1055 - US KIDNEY/BLADDER / PROCEDURE REASON: Kidney stone * * * * Physician Interpretation * * * * EXAMINATION: RENAL ULTRASOUND CLINICAL HISTORY: History of right hydronephrosis. History of 3 mm stone at the right UVJ TECHNIQUE: Sonography of the kidneys and urinary bladder was performed. Images were obtained and stored in a permanent archive. MQ: UR_1 COMPARISON: Report from CT scans of 09/28/2004 RESULT: Right Kidney: -Renal length: 10.7 cm -Parenchyma: Normal parenchymal echogenicity. Normal parenchymal thickness. -Collecting system: No hydronephrosis. -Calculus: No echogenic, shadowing calculus. -Lesion: None. Left Kidney: -Renal length: 10.4 cm -Parenchyma: Normal parenchymal echogenicity. Normal parenchymal thickness. -Collecting system: No hydronephrosis. -Calculus: No echogenic, shadowing calculus. -Lesion: None. Bladder: Normal sonographic appearance. Bilateral ureteral jets are seen Pre and postvoid urinary bladder volume of 211 cc and 14 cc respectively were recorded DIVISION OF RADIOLOGY Provider, [facility] - 02/15/2024 * * *Final Report* * * DATE OF EXAM: Feb 15 2024 7:54AM [facility] KIDNEY/BLADDER / PROCEDURE REASON: Kidney stone * * * * Physician Interpretation * * * * EXAMINATION: RENAL ULTRASOUND CLINICAL HISTORY: History of right hydronephrosis. History of 3 mm stone at the right UVJ TECHNIQUE: Sonography of the kidneys and urinary bladder was performed. Images were obtained and stored in a permanent archive. MQ: UR_1 COMPARISON: Report from CT scans of 09/28/2004 RESULT: Right Kidney: -Renal length: 10.7 cm -Parenchyma: Normal parenchymal echogenicity. Normal parenchymal thickness. -Collecting system: No hydronephrosis. -Calculus: No echogenic, shadowing calculus. -Lesion: None. Left Kidney: -Renal length: 10.4 cm -Parenchyma: Normal parenchymal echogenicity. Normal parenchymal thickness. -Collecting system: No hydronephrosis. -Calculus: No echogenic, shadowing calculus. -Lesion: None. Bladder: Normal sonographic appearance. Bilateral ureteral jets are seen Pre and postvoid urinary bladder volume of 211 cc and 14 cc respectively were recorded IMPRESSION IMPRESSION: NORMAL SONOGRAPHIC APPEARANCE OF KIDNEYS AND BLADDER. No evidence of persistent hydronephrosis Test Deck Supervisor: [facility] Transcribe Date/Time: Feb 15 2024 8:17A Dictated by : FLORIN ARREGUIN MD This examination was interpreted and the report reviewed and electronically signed by: FLORIN ARREGUIN MD on Feb 15 2024 8:19AM EST [facility] Radiology Study observation (narrative) [facility] US Kidney - bilateral and Ur inary bladderOrdered By: Ccf Provider on 02-15-2024 [facility] CNOVon 02-14-2024 CNOV Office Visit (AKURFL ) ERIC RENO ([id number]) 1950 M Date Time Provider Department 02/14/24 4:00 PM CHRISTINA HOWARD TXALLISON During your visit today, we recorded the following information about you: Pulse Height 80/minute 1.651 m Christina Howard MD 02/15/2024 9:25 AM Signed ESTABLISHED PATIENT OFFICE VISIT PATIENT INFO: rEic Reno 73 year old HPI 02/14/2024 CC: bx Patient had MRI done at [facility] and PI-RADS 5 lesion x 1 and 26 cc prostate patient with prostate cancer and seen by me in the past and did fine with fusion biopsy under local anesthetic Presents with his daughter who helps with some translation but he can give history himself also No longer on baby aspirin but remains on Plavix We will schedule fusion biopsy under local and he knows to be off Plavix 7 days prior and 2 days after the biopsy Past Urology Hx: February 02, 2024-seen by nurse practitioner- 73 year old male who presents today in f/u. Patient with a history of prostate cancer, BPH. Presents today with complaints of a kidney stone. Was seen in the emergency room at [facility] on 01/31/2024 with complaints of right flank pain. CT abdomen pelvis without IV contrast showed a 3 mm calculi in the right UVJ of the bladder. Patient feels that he may have passed the stone. He felt a pop while voiding in the middle of the night. He has intermittent mild right flank pain now. He denies any fever or chills. No nausea. Denies gross hematuria. No dysuria. He is taking tamsulosin 0.4 mg daily. ASSESSMENT/PLAN: 1. Urinary tract infection without hematuria, site unspecified - ICD9: 599.0, ICD10: N39.0 2. Kidney stone - ICD9: 592.0, ICD10: N20.0 -urine culture sent today. -Renal US scheduled. -Patient to report to the emergency room with any fever greater than 100.5 or uncontrolled pain. June 14, 2023-seen by Dr. Love- 72 year old male who presents with prostate cancer on . Hx as below w/ Dr. Perez. Minimal LUTs. Stream is good. No hesitancy. No hematuria. No UTIs. Erections not a priority. AUASS:09/22 Dr. Perez's summary: Initial visit: Patient has a history of carcinoma of the prostate. He has undergone 2 prostate biopsies, 1 that was repeated and prior to May 2016 came back showing Cottonwood 6 in 2 cores, 1 core positive 40%, 1 core positive 10% Cottonwood 6. This was repeated again with a 2nd biopsy which came back again showing the same Poonam 6 tumor. A genetic Oncotype test was accomplished with a very low GPS score (8), Two daughters are here with him providing history and placed the patient active surveillance. A PSA in April 2016 was 6.56, May of 2017 was 7.58, and now in November 2017 was 9.73. Plan 06/09/22: PSA stable MRI reviewed - one PIRADS 2 lesion (2018) No high grade lesions MRI 03/2022 - PIRADS 4 lesion - s/p MRI fusion biopsy - 05/28/2022 Stable Cottonwood 6 disease and one small focus of Poonam 7 Send decipher biopsy. Continue PSA surveillance. Path: 09/15/15 (Aron)Specimen originated from [facility] Specimen #: [id number] Submitting Physician: VICTOR M MEMBRENO M.D. FINAL DIAGNOSIS 1. Prostate, right base, lateral, needle biopsy (A) - Adenocarcinoma of the prostate, Poonam score 3+3=6 discontinuously involving 40% of one of one core and measuring 4 mm. 4. Prostate, right base medial, needle biopsy (D) - Adenocarcinoma of the prostate, Cottonwood score 3+3=6 involving 10% of one of one core and measuring 1 mm. Path 06/01/16 (Aron): FINAL DIAGNOSIS 1. Prostate, right base lateral, needle biopsy (A) - Adenocarcinoma of the prostate, Poonam score 3+3=6 (Grade Group 1), involving 40% of one of one core and measuring 6 mm. 4. Prostate, right base medial, needle biopsy (D) - Adenocarcinoma of the prostate, Poonam score 3+3=6 (Grade Group 1), involving 10% of one of one core and measuring 1.5 mm. Path 05/26/22 (Colby/Chris): FINAL DIAGNOSIS A. Prostate, lesion #1, biopsy: - Prostatic adenocarcinoma Cottonwood score 3+3 = 6 (grade group 1) involving 6 of 6 cores (100%, 15%, 20%, 50%, 5%, and 80%) 23 mm total tumor length. E. Prostate, right lateral base, biopsy: - Prostatic adenocarcinoma Poonam score 3+4 = 7 (grade group 2) involving 80% of 1 core (5 mm tumor length). 5% pattern 4. F. Prostate, right lateral mid, biopsy: - Prostatic adenocarcinoma Cottonwood score 3+3 = 6 (grade group 1) involving 65% of 1 core (6 mm tumor length). G. Prostate, right lateral apex, biopsy: - Prostatic adenocarcinoma Poonam score 3+3 = 6 (grade group 1) involving 20% of 1 core (1 mm tumor length). I discussed with him and his daughter is his intermediate risk prostate cancer and active surveillance. His PSA is relatively high. He is (more content not included)... Normal [facility] Bacteria Ur Culton 4 Bacteria identified Cx Nom (U) CULTURE, URINE: No growth (<1,000 CFU/ml) Normal [facility] Comment on above: Performed By: #### 6 30-4 ####[facility] LABORATORYCLIA [id number] [address] STATES OF [facility] CNOVon 02-02-2024 CNOV Office Visit (URHWST ) ERIC RENO ([id number]) 1950 M Date Time Provider Department 02/02/24 2:45 PM REGLA QUINNBOUCHRA During your visit today, we recorded the following information about you: Height 1.651 m Regla Quinn APRN.CHRONOMETER TESTER 02/02/2024 4:02 PM Signed ESTABLISHED PATIENT OFFICE VISIT HISTORY OF PRESENT ILLNESS Margaguru Reno is a 73 year old male who presents today in f/u. Patient with a history of prostate cancer, BPH. Presents today with complaints of a kidney stone. Was seen in the emergency room at [facility] on 01/31/2024 with complaints of right flank pain. CT abdomen pelvis without IV contrast showed a 3 mm calculi in the right UVJ of the bladder. Patient feels that he may have passed the stone. He felt a pop while voiding in the middle of the night. He has intermittent mild right flank pain now. He denies any fever or chills. No nausea. Denies gross hematuria. No dysuria. He is taking tamsulosin 0.4 mg daily. LAB RESULTS Creatinine Date Value Ref Range Status 01/27/2022 0.93 0.73 - 1.22 mg/dL Final PSA (ng/mL) Date Value 12/08/2023 12.42 06/21/2023 11.24 11/23/2022 12.20 01/27/2022 12.08 01/27/2022 12.33 07/07/2021 9.21 11/24/2020 10.51 2019 9.09 05/25/2019 10.64 11/20/2018 11.03 02/22/2018 8.40 06/02/2017 7.58 05/04/2016 6.56 No results found for: COLOR , CLARITY , UGLUC , UBILI , UKET , SPGR , UHB , UPH , UPROT , UROBILINOGEN , NITRITES , LEUKEST MEDICATIONS: tamsulosin (FLOMAX) 0.4 mg Take 1 capsule by mouth daily at bedtime. clopidogrel (PLAVIX) 75 mg tablet Take 75 mg by mouth once daily. lisinopril (ZESTRIL, PRINIVIL) 5 mg tablet Take 5 mg by mouth once daily. metFORMIN (GLUCOPHAGE) 500 mg tablet Take 500 mg by mouth daily with breakfast. gabapentin (NEURONTIN) 100 mg capsule Take 100 mg by mouth three times daily as needed. famotidine (PEPCID) 20 mg tablet Take 20 mg by mouth twice daily. IPRATROPIUM BROMIDE 18 MCG/ACTUATION AEROSOL INHALER cholecalciferol, Vitamin D3, (VITAMIN D3) 50,000 unit cap capsule once each week. atorvastatin (LIPITOR) 20 mg tablet Take 20 mg by mouth once daily. Oakwood-3 Fatty Acids 500 mg cap Take 500 mg by mouth once daily. aspirin, enteric coated (ASPIRIN, ENTERIC COATED) 81 mg EC tablet Take 81 mg by mouth once daily. iv contrast (will be provided with radiology test) MRI Prostate Inject, intravenously, once for 1 dose. No IV access, insert saline lock prior to the beginning of sedation, infusion, injection of imaging exam. Discontinue saline lock post exam. If Pt. has a central line or IVAD, may access for administration according to line specific nursing protocol. Once exam is complete flush line and de-access according to line specific nursing protocol in the MR contrast administration guidelines link. iv contrast (will be provided with radiology test) MRI Prostate Inject, intravenously, once for 1 dose. No IV access, insert saline lock prior to the beginning of sedation, infusion, injection of imaging exam. Discontinue saline lock post exam. If Pt. has a central line or IVAD, may access for administration according to line specific nursing protocol. Once exam is complete flush line and de-access according to line specific nursing protocol in the MR contrast administration guidelines link. (Patient not taking: Reported on 04/13/2022) iv contrast (will be provided with radiology test) MRI Prostate Inject, intravenously, once for 1 dose. No IV access, insert saline lock prior to the beginning of sedation, infusion, injection of imaging exam. Discontinue saline lock post exam. If Pt. has a central line or IVAD, may access for administration according to line specific nursing protocol. Once exam is complete flush line and de-access according to line specific nursing protocol in the MR contrast administration guidelines link. (Patient not taking: No sig reported) rosuvastatin (CRESTOR) 10 mg tablet Take 10 mg by mouth once daily. (Patient not taking: Reported on 04/13/2022) hydrocortisone (ANUSOL-HC) 2.5 % rectal cream 1 application by RECTAL route twice daily. (Patient not taking: No sig reported) REVIEW OF SYSTEMS CONSTITUTIONAL: Patient reports no recent fever or weight loss CARDIOVASCULAR: No chest pain, palpitations or ankle edema. RESPIRATORY: No wheezing, frequent cough or shortness of breath GENITOURINARY: See HPI HISTORIES PAST MEDICAL HISTORY Diagnosis Date Diabetes mellitus (HCC) Essential hypertension Hyperlipidemia Kidney stone Prostate cancer (HCC) Shingles 11/2020 Stroke (HCC) 07/2019 no residual FAMILY HISTORY Problem Relation Age of Onset other (heart disease) Mother Stroke Brother PAST SURGICAL HISTORY Procedure Laterality Date CHOLECYSTECTOMY COLONOSCOPY PAST SURGICAL HISTORY OF Right retinal detach (more content not included)... Normal [facility] UA DIP, URINE (POC)on 2023 BILIRUBIN UA (POCT) Negative Negative [facility] CLARITY UA (POCT) Clear [facility] COLOR UA (POCT) Yellow [facility] GLUCOSE UA (POCT) Negative Negative mg/dL [facility] Hemoglobin Ql (U) Trace-lysed Abnormal Negative [facility] Interpretation and review of laboratory results Abnormal [facility] KETONE UA (POCT) Negative Negative mg/dL [facility] LEUKOCYTES UA (POCT) Negative Negative [facility] NITRITE UA (POCT) Negative Negative [facility] PH UA (POCT) 5.5 4.5 - 8.0 [facility] Protein Ql (U) Negative Negative mg/dL [facility] SPECIFIC GRAVITY UA (POCT) 1.015 1.005 - 1.030 [facility] UROBILINOGEN UA (POCT) 0.2 Normal E.U./dL [facility] Location:[facility], [address], [place], [place], [id number] [place] [address] POINT OF CARE [facility] CNOVon 01-12-2024 CNOV Office Visit (UROLAE ) ERIC RENO ([id number]) 1950 M Date Time Provider Department 01/12/24 9:00 AM RAMESH LOVE During your visit today, we recorded the following information about you: Pulse Blood pressure 74/minute 124/74 Ramesh Love MD 03/08/2024 3:11 PM Signed [facility] [place] ESTABLISHED PATIENT OFFICE VISIT HISTORY OF PRESENT ILLNESS Eric Reno is a 73 year old male who presents longstanding diagnosis of prostate cancer previous monitors by Dr. Perez.has been on active surveillance. Here today with his daughters, 1 from [place] and 1 from [place] to discuss MRI findings. MRI as below: MRI prostate October 25, 2023: Interval increase in size of right peripheral zone base to mid gland abnormality, now measuring 1.5 cm and compatible with a PI-RADS 5 lesion. The lesion is equivocal for exercise extension with broad capsule contact. Dimensions: 4.3 x 3.1 x 3.7 cm corresponding to a volume of approximately 26 cc. Cancer history: Dr. Perez's summary: Initial visit: Patient has a history of carcinoma of the prostate. He has undergone 2 prostate biopsies, 1 that was repeated and prior to May 2016 came back showing Cottonwood 6 in 2 cores, 1 core positive 40%, 1 core positive 10% Cottonwood 6. This was repeated again with a 2nd biopsy which came back again showing the same Cottonwood 6 tumor. A genetic Oncotype test was accomplished with a very low GPS score (8), Two daughters are here with him providing history and placed the patient active surveillance. A PSA in April 2016 was 6.56, May of 2017 was 7.58, and now in November 2017 was 9.73. Plan 06/09/22: PSA stable MRI reviewed - one PIRADS 2 lesion (2018) No high grade lesions MRI 03/2022 - PIRADS 4 lesion - s/p MRI fusion biopsy - 05/28/2022 Stable Cottonwood 6 disease and one small focus of Cottonwood 7 Send decipher biopsy. Continue PSA surveillance. Path: 09/15/15 (Aron) Specimen originated from [facility] Specimen #: [id number] Submitting Physician: VICTOR M MEMBRENO M.D. FINAL DIAGNOSIS 1. Prostate, right base, lateral, needle biopsy (A) - Adenocarcinoma of the prostate, Pooanm score 3+3=6 discontinuously involving 40% of one of one core and measuring 4 mm. 2. Prostate, right mid lateral, needle biopsy (B) - Benign prostatic tissue. 3. Prostate, right apex lateral, needle biopsy (C) - Benign prostatic tissue with focal atrophy and chronic inflammation. 4. Prostate, right base medial, needle biopsy (D) - Adenocarcinoma of the prostate, Poonam score 3+3=6 involving 10% of one of one core and measuring 1 mm. 5. Prostate, right mid medial, needle biopsy (E) - Benign prostatic tissue. 6. Prostate, right apex medial, needle biopsy (F) - Benign prostatic tissue with focal atrophy. 7. Prostate, left base lateral, needle biopsy (G) - Benign prostatic tissue. 8. Prostate, left mid lateral, needle biopsy (H) - Benign prostatic tissue with focal chronic inflammation. 9. Prostate, left apex lateral, needle biopsy (I) - Benign prostatic tissue. 10. Prostate, left base medial, needle biopsy (J) - Benign prostatic tissue with focal acute inflammation. 11. Prostate, left mid medial, needle biopsy (K) - Benign prostatic tissue. 12. Prostate, left apex medial, needle biopsy (L) - Benign prostatic tissue. Path 05/26/22 (Carlos): FINAL DIAGNOSIS A. Prostate, lesion #1, biopsy: - Prostatic adenocarcinoma Cottonwood score 3+3 = 6 (grade group 1) involving 6 of 6 cores (100%, 15%, 20%, 50%, 5%, and 80%) 23 mm total tumor length. B. Prostate, left lateral base, biopsy: - Benign prostatic tissue. C. Prostate, left lateral mid, biopsy: - Benign prostatic tissue. D. Prostate, left lateral apex, biopsy: - Benign prostatic tissue. E. Prostate, right lateral base, biopsy: - Prostatic adenocarcinoma Cottonwood score 3+4 = 7 (grade group 2) involving 80% of 1 core (5 mm tumor length). 5% pattern 4. F. Prostate, right lateral mid, biopsy: - Prostatic adenocarcinoma Poonam score 3+3 = 6 (grade group 1) involving 65% of 1 core (6 mm tumor length). G. Prostate, right lateral apex, biopsy: - Prostatic adenocarcinoma Cottonwood score 3+3 = 6 (grade group 1) involving 20% of 1 core (1 mm tumor length). Prostate Cancer Biopsy Summary Number of cores examined: 12 Number of cores positive: 9 Highest Grade Group: 2 Highest % of core involvement: 100 % Cribriform pattern 4: Absent Intraductal carcinoma: Absent Shift Nurse Manager tumor block to use for additional studies: E AUA 19/0 ISHAN 12 Review of Systems Constitutional: Negative. HENT: Negative. Eyes: Negative. Respiratory: Negative. Cardiovascular: Negative. Gastrointestinal: Negative. Genit (more content not included)... Normal [facility] UA DIP, URINE (POC)on 2023 BILIRUBIN UA (POCT) Negative Negative [facility] CLARITY UA (POCT) Clear [facility] COLOR UA (POCT) Yellow [facility] GLUCOSE UA (POCT) Negative Negative mg/dL [facility] Hemoglobin Ql (U) Trace-intact Abnormal Negative [facility] Interpretation and review of laboratory results Abnormal [facility] KETONE UA (POCT) Negative Negative mg/dL [facility] LEUKOCYTES UA (POCT) Negative Negative [facility] NITRITE UA (POCT) Negative Negative [facility] PH UA (POCT) 6.5 4.5 - 8.0 [facility] Protein Ql (U) Negative Negative mg/dL [facility] SPECIFIC GRAVITY UA (POCT) <=1.005 Abnormal 1.005 - 1.030 [facility] UROBILINOGEN UA (POCT) 0.2 Normal E.U./dL [facility] Location:[facility], [address], [place], [address] [facility] POINT OF CARE [facility] PSA SerPl-mCncon 12-08-2023 Prostate specific Ag [Mass/Vol] 12.42 ng/mL High <2.60 [facility] Comment on above: Order Comment: Speci men Type: BLOOD SPECIMEN Ordering Facility: [facility] Address: [address] [place] [address] Result Comment: Tota l PSA test methodology used is the Electrochemiluminescence Immunoassay by [employer]. Total PSA values by differing methodologies cannot be interchanged. For an individual patient, the significance of a PSA level should be interpreted in a broad clinical context, including age, race, family history, digital rectal exam, prostate size, results of prior testing (prostate biopsy, free PSA, PCA3), and use of 5-alpha reductase inhibitors. Considering the high incidence of asymptomatic cancer in the general population that may not pose an ultimate risk to a patient, the decision to recommend urological evaluation or prostate biopsy should be individualized after consideration of all these factors. REFERENCE: Ruslan Kilgore M.D., M.P.H., Buzz Mccoy M.D., Ph.D., Jose Angel Ramos M.D., Martha Beck, M.P.H., Olena Caba, Sc.K[place]ley. Effect of Verification Bias on Screening for Prostate Cancer by Measurement of Prostatic Specific Antigen. N Engl J Med 2003,349:335-42. Performed By: #### 2 [id number] #### [facility] CLIA [id number] [address] [place], [place] [address] [place] [address] [place] MRI 3D POST PROCESSINGon MRI 3D POST PROCESSING * * *Final Report* * * DATE OF EXAM: Oct 25 2023 10:30AM [facility] 0280 - MRI 3D POST PROCESSING / PROCEDURE REASON: Malignant neoplasm of prostate (HCC) * * * * Physician Interpretation * * * * EXAMINATION: MRI PELVIS WITHOUT AND WITH IV CONTRAST (MULTIPARAMETRIC PROSTATE MRI) CLINICAL HISTORY: 72 years old with prostate cancer on active surveillance. Previous biopsy: Positive, Grade Group 2 (GS 3 + 4) 05/26/2022 PSA: 11.24 ng/mL (06/21/2023) ; Prior therapy: None. TECHNIQUE: Multiparametric MRI of the prostate and pelvis performed on a 3T scanner utilizing phase pelvic coil. Sequences obtained: multiplanar T2-WI with small FOV; Axial DWI with multiple B-values and creation of ADC-maps; DCE T1-weighted images through the prostate obtained before, during and after the administration of intravenous gadolinium; prostate dimensions and volume were obtained using a semi-automated software (Zayo). THREE-DIMENSIONAL IMAGIND imaging including complex volumetric analysis of the prostate was created on a dedicated stand-alone workstation (Zayo) by the interpreting physician, with images reviewed and archived. CONTRAST: IV: 15 cc of Dotarem. COMPARISON: None RESULT: PQ: 3-3-3-5 Prostate: Dimensions: 4.3 x 3.1 x 3.7 cm corresponding to a volume of approximately 26 cc. Post biopsy hemorrhage: Absent Peripheral zone: Diffuse mild T2/ADC map hypointensity (PI-RADS 2). Lesion #1: Location: right mid/base posterolateral peripheral zone Greatest dimension: 1.5-cm (series:5; image:10) previously 1.1 cm T2-WI: Circumscribed, homogenous moderate hypointense focus/mass (score 5) DWI/ADC: Focal markedly hypointense on ADC and markedly hyperintense on high b-value DWI (score 5) DCE: Positive Extra-prostatic extension: Equivocal (capsule contact > or = 1.5 cm OR capsule irregularity or bulge) PI-RADS assessment category: 5 Transition zone: There is transition zone hypertrophy, without focal abnormalities suspicious for clinically significant disease (PI-RADS 1). No focal lesion present. Neurovascular bundle: Unremarkable. Seminal vesicles: Unremarkable. Adjacent Organ Involvement: Not applicable. Lymph nodes: No enlarged pelvic lymph nodes. Bladder: Unremarkable. Pelvic bones: No suspicious pelvic osseous lesions. Other Findings: None. IMPRESSION: Interval increase in size of right peripheral zone base to mid gland abnormality, now measuring 1.5 cm and compatible with a PI-RADS 5 lesion. The lesion is equivocal for exercise extension with broad capsule contact. No pelvic lymphadenopathy or enhancing bone lesions. Number of targets created for MR/US fusion biopsy: Peripheral zone: 0 Transition zone: 0 If present, targets were numbered in order of level of suspicion for clinically significant prostate cancer (Cottonwood score 3 + 4 or higher). PI-RADS v2.1 Assessment Categories: PI-RADS 1: Clinically significant cancer is highly unlikely PI-RADS 2: Clinically significant cancer is unlikely PI-RADS 3: Clinically significant cancer is equivocal PI-RADS 4: Clinically significant cancer is likely PI-RADS 5: Clinically significant cancer is highly likely (V.) Test Deck Supervisor: PSCB Transcribe Date/Time: Oct 28 2023 8:47A Dictated by : CAMILLE AVILEZ MD This examination was interpreted and the report reviewed and electronically signed by: CAMILLE AVILEZ MD on Oct 28 2023 8:58AM EST [id number] Normal [facility] MRI PROSTATE WO/W IVCONon MRI PROSTATE WO/W IVCON * * *Final Report* * * DATE OF EXAM: Oct 25 2023 10:30AM [facility] 0751 - MRI PROSTATE WO/W IVCON / PROCEDURE REASON: Malignant neoplasm of prostate (HCC) * * * * Physician Interpretation * * * * EXAMINATION: MRI PELVIS WITHOUT AND WITH IV CONTRAST (MULTIPARAMETRIC PROSTATE MRI) CLINICAL HISTORY: 72 years old with prostate cancer on active surveillance. Previous biopsy: Positive, Grade Group 2 (GS 3 + 4) 05/26/2022 PSA: 11.24 ng/mL (06/21/2023) ; Prior therapy: None. TECHNIQUE: Multiparametric MRI of the prostate and pelvis performed on a 3T scanner utilizing phase pelvic coil. Sequences obtained: multiplanar T2-WI with small FOV; Axial DWI with multiple B-values and creation of ADC-maps; DCE T1-weighted images through the prostate obtained before, during and after the administration of intravenous gadolinium; prostate dimensions and volume were obtained using a semi-automated software (Zayo). THREE-DIMENSIONAL IMAGIND imaging including complex volumetric analysis of the prostate was created on a dedicated stand-alone workstation (Zayo) by the interpreting physician, with images reviewed and archived. CONTRAST: IV: 15 cc of Dotarem. COMPARISON: None RESULT: PQ: 3-3-3-5 Prostate: Dimensions: 4.3 x 3.1 x 3.7 cm corresponding to a volume of approximately 26 cc. Post biopsy hemorrhage: Absent Peripheral zone: Diffuse mild T2/ADC map hypointensity (PI-RADS 2). Lesion #1: Location: right mid/base posterolateral peripheral zone Greatest dimension: 1.5-cm (series:5; image:10) previously 1.1 cm T2-WI: Circumscribed, homogenous moderate hypointense focus/mass (score 5) DWI/ADC: Focal markedly hypointense on ADC and markedly hyperintense on high b-value DWI (score 5) DCE: Positive Extra-prostatic extension: Equivocal (capsule contact > or = 1.5 cm OR capsule irregularity or bulge) PI-RADS assessment category: 5 Transition zone: There is transition zone hypertrophy, without focal abnormalities suspicious for clinically significant disease (PI-RADS 1). No focal lesion present. Neurovascular bundle: Unremarkable. Seminal vesicles: Unremarkable. Adjacent Organ Involvement: Not applicable. Lymph nodes: No enlarged pelvic lymph nodes. Bladder: Unremarkable. Pelvic bones: No suspicious pelvic osseous lesions. Other Findings: None. IMPRESSION: Interval increase in size of right peripheral zone base to mid gland abnormality, now measuring 1.5 cm and compatible with a PI-RADS 5 lesion. The lesion is equivocal for exercise extension with broad capsule contact. No pelvic lymphadenopathy or enhancing bone lesions. Number of targets created for MR/US fusion biopsy: Peripheral zone: 0 Transition zone: 0 If present, targets were numbered in order of level of suspicion for clinically significant prostate cancer (Poonam score 3 + 4 or higher). PI-RADS v2.1 Assessment Categories: PI-RADS 1: Clinically significant cancer is highly unlikely PI-RADS 2: Clinically significant cancer is unlikely PI-RADS 3: Clinically significant cancer is equivocal PI-RADS 4: Clinically significant cancer is likely PI-RADS 5: Clinically significant cancer is highly likely (.) Test Deck Supervisor: SHAI Transcribe Date/Time: Oct 28 2023 8:47A Dictated by : CAMILLE AVILEZ MD This examination was interpreted and the report reviewed and electronically signed by: CAMILLE AVILEZ MD on Oct 28 2023 8:58AM EST [id number] Normal [facility] .Auto Diffon 07-09-2023 Basophil, Absolute 0.0 10 3/mcL Normal 0.0-0.2 [facility] ([place]) Comment on above: Performed By: #### M DW, GFR, ANEU, TROPHS, LIP, CMP, CBC, ADIFF #### [address] [address] Basophils/100 WBC (Bld) 0.2 % Normal 0.0-2.5 [facility] ([place]) Comment on above: Performed By: #### M DW, GFR, ANEU, TROPHS, LIP, CMP, CBC, ADIFF #### [address] [address] Eosinophil, Absolute 0.1 10 3/mcL Normal 0.0-0.4 [facility] ([place]) Comment on above: Performed By: #### M DW, GFR, ANEU, TROPHS, LIP, CMP, CBC, ADIFF #### [address] [address] Eosinophils/100 WBC (Bld) 0.9 % Normal 0.0-7.0 [facility] ([place]) Comment on above: Performed By: #### M DW, GFR, ANEU, TROPHS, LIP, CMP, CBC, ADIFF #### [address] [address] Lymphocyte, Absolute 2.0 10 3/mcL Normal 0.8-3.9 [facility] ([place]) Comment on above: Performed By: #### M DW, GFR, ANEU, TROPHS, LIP, CMP, CBC, ADIFF #### [address] [address] Lymphocytes/100 WBC (Bld) 22.4 % Normal 10.0-50.0 [facility] ([place]) Comment on above: Performed By: #### M DW, GFR, ANEU, TROPHS, LIP, CMP, CBC, ADIFF #### [address] [address] Monocyte, Absolute 0.7 10 3/mcL Normal 0.2-1.0 [facility] ([place]) Comment on above: Performed By: #### M DW, GFR, ANEU, TROPHS, LIP, CMP, CBC, ADIFF #### [address] [address] Monocytes/100 WBC (Bld) 7.6 % Normal 1.7-13.0 [facility] ([place]) Comment on above: Performed By: #### M DW, GFR, ANEU, TROPHS, LIP, CMP, CBC, ADIFF #### [address] [address] Neutrophils/100 WBC (Bld) 68.9 % Normal 37.0-80.0 [facility] ([place]) Comment on above: Performed By: #### M DW, GFR, ANEU, TROPHS, LIP, CMP, CBC, ADIFF #### [address] [address] .GFRon 07-09-2023 GFR 70 ml/min/1.73sqm Normal [facility] ([place]) Comment on above: Result Comment: GFR Population mean for , Non- Americans Ages 20-29 = 116 mL/min/1.73 sq.m. Ages 30-39 = 107 mL/min/1.73 sq.m. Ages 40-49 = 99 mL/min/1.73 sq.m. Ages 50-59 = 93 mL/min/1.73 sq.m. Ages 60-69 = 85 mL/min/1.73 sq.m. Ages 70+ = 75 mL/min/1.73 sq.m. Chronic Kidney Disease: Less than 60 mL/min/1.73 square meters End Stage Renal Disease: Less than 15 mL/min/1.73 square meters Performed By: #### M DW, GFR, ANEU, TROPHS, LIP, CMP, CBC, ADIFF #### [address] [address] GFR Non- 58 ml/min/1.73sqm Normal [facility] ([place]) Comment on above: Result Comment: GFR Population mean for , Non- Americans Ages 20-29 = 116 mL/min/1.73 sq.m. Ages 30-39 = 107 mL/min/1.73 sq.m. Ages 40-49 = 99 mL/min/1.73 sq.m. Ages 50-59 = 93 mL/min/1.73 sq.m. Ages 60-69 = 85 mL/min/1.73 sq.m. Ages 70+ = 75 mL/min/1.73 sq.m. Chronic Kidney Disease: Less than 60 mL/min/1.73 square meters End Stage Renal Disease: Less than 15 mL/min/1.73 square meters Performed By: #### M DW, GFR, ANEU, TROPHS, LIP, CMP, CBC, ADIFF #### [place] [address] .MDWon 07-09-2023 Monocyte Distribution Width 16.66 Normal 0.00-20.00 [facility] ([place]) Comment on above: Result Comment: For ED adult patients suspected of sepsis, MDW<=20.0 does not rule out sepsis or risk of sepsis Performed By: #### M DW, GFR, ANEU, TROPHS, LIP, CMP, CBC, ADIFF #### [place] [address] .NEUABSon 07-09-2023 Neutrophil, Absolute 6.0 10 3/mcL Normal 2.9-6.2 [facility] ([place]) Comment on above: Performed By: #### M DW, GFR, ANEU, TROPHS, LIP, CMP, CBC, ADIFF #### [place] [address] CBCon 07-09-2023 Erythrocyte distribution width (RBC) [Ratio] 13.9 % Normal 11.5-14.5 [facility] ([place] Comment on above: Performed By: #### M DW, GFR, ANEU, TROPHS, LIP, CMP, CBC, ADIFF #### [place] [id number] Hematocrit (Bld) [Volume fraction] 44.1 % Normal 42.0-52.0 [facility] ([place] Comment on above: Performed By: #### M DW, GFR, ANEU, TROPHS, LIP, CMP, CBC, ADIFF #### [address] [address] Hgb 15.0 G/dL Normal 14.0-18.0 [facility] ([place]) Comment on above: Performed By: #### M DW, GFR, ANEU, TROPHS, LIP, CMP, CBC, ADIFF #### [address] [address] MCH (RBC) [Entitic mass] 29.3 pg Normal 27.0-31.2 [facility] ([place] Comment on above: Performed By: #### M DW, GFR, ANEU, TROPHS, LIP, CMP, CBC, ADIFF #### [address] [address] MCHC 34.0 G/dL Normal 31.8-35.4 [facility] ([place]) Comment on above: Performed By: #### M DW, GFR, ANEU, TROPHS, LIP, CMP, CBC, ADIFF #### [address] [address] MCV (RBC) [Entitic vol] 86.2 fL Normal 80.0-94.0 [facility] ([place] Comment on above: Performed By: #### M DW, GFR, ANEU, TROPHS, LIP, CMP, CBC, ADIFF #### [address] [address] Platelet 372 10 3/mcL Normal 130-400 [facility] ([place]) Comment on above: Performed By: #### M DW, GFR, ANEU, TROPHS, LIP, CMP, CBC, ADIFF #### [address] [address] Platelet mean volume (Bld) [Entitic vol] 6.9 fL Low 7.4-10.4 [facility] ([place] Comment on above: Performed By: #### M DW, GFR, ANEU, TROPHS, LIP, CMP, CBC, ADIFF #### [address] [address] RBC 5.12 10 6/mcL Normal 4.04-6.13 [facility] ([place] Comment on above: Performed By: #### M DW, GFR, ANEU, TROPHS, LIP, CMP, CBC, ADIFF #### [address] [address] WBC 8.8 10 3/mcL Normal 4.6-10.8 [facility] ([place] Comment on above: Performed By: #### M DW, GFR, ANEU, TROPHS, LIP, CMP, CBC, ADIFF #### [address] [address] CMPon 07-09-2023 Albumin Level 3.5 G/dL Normal 3.4-4.8 [facility] ([place] Comment on above: Performed By: #### M DW, GFR, ANEU, TROPHS, LIP, CMP, CBC, ADIFF #### [address] [address] Albumin/Globulin [Mass ratio] 1.0 {ratio} Low 1.1-2.5 [facility] ([place] Comment on above: Performed By: #### M DW, GFR, ANEU, TROPHS, LIP, CMP, CBC, ADIFF #### [address] [address] ALP [Catalytic activity/Vol] 87 U/L Normal 40-135 [facility] ([place]) Comment on above: Performed By: #### M DW, GFR, ANEU, TROPHS, LIP, CMP, CBC, ADIFF #### [address] [address] ALT [Catalytic activity/Vol] 21 U/L Normal 16-63 [facility] ([place] Comment on above: Performed By: #### M DW, GFR, ANEU, TROPHS, LIP, CMP, CBC, ADIFF #### [address] [address] AST [Catalytic activity/Vol] 28 U/L Normal 10-40 [facility] ([place]) Comment on above: Performed By: #### M DW, GFR, ANEU, TROPHS, LIP, CMP, CBC, ADIFF #### [address] [address] Bili Total 0.4 mg/dL Normal 0.2-1.0 [facility] ([place]) Comment on above: Result Comment: Use of this assay is not recommended for patients undergoing treatment with eltrombopag due to the potential for falsely elevated results. Performed By: #### M DW, GFR, ANEU, TROPHS, LIP, CMP, CBC, ADIFF #### [address] [address] BUN/Creatinine Ratio 11 ratio Normal 7-27 [facility] ([place] Comment on above: Performed By: #### M DW, GFR, ANEU, TROPHS, LIP, CMP, CBC, ADIFF #### [address] [address] Calcium [Mass/Vol] 9.1 mg/dL Normal 8.4-10.2 [facility] ([place]) Comment on above: Performed By: #### M DW, GFR, ANEU, TROPHS, LIP, CMP, CBC, ADIFF #### [address] [address] Chloride [Moles/Vol] 104 mmol/L Normal 98-107 [facility] ([place]) Comment on above: Performed By: #### M DW, GFR, ANEU, TROPHS, LIP, CMP, CBC, ADIFF #### [address] [address] CO2 [Moles/Vol] 27 mmol/L Normal 23-31 [facility] ([place]) Comment on above: Performed By: #### M DW, GFR, ANEU, TROPHS, LIP, CMP, CBC, ADIFF #### [address] [address] Creatinine [Mass/Vol] 1.23 mg/dL Normal 0.70-1.30 [facility] ([place] Comment on above: Performed By: #### M DW, GFR, ANEU, TROPHS, LIP, CMP, CBC, ADIFF #### [address] [address] Electrolyte Balance 11.0 mEq/L Normal 4.0-15.0 [facility] ([place]) Comment on above: Performed By: #### M DW, GFR, ANEU, TROPHS, LIP, CMP, CBC, ADIFF #### [address] [address] Globulin 3.6 G/dL Normal [facility] ([place]) Comment on above: Performed By: #### M DW, GFR, ANEU, TROPHS, LIP, CMP, CBC, ADIFF #### [address] [address] Glucose [Mass/Vol] 139 mg/dL High 83-110 [facility] ([place]) Comment on above: Performed By: #### M DW, GFR, ANEU, TROPHS, LIP, CMP, CBC, ADIFF #### [address] [address] Potassium [Moles/Vol] 4.4 mmol/L Normal 3.5-5.1 [facility] ([place] Comment on above: Performed By: #### M DW, GFR, ANEU, TROPHS, LIP, CMP, CBC, ADIFF #### [address] [address] Sodium [Moles/Vol] 142 mmol/L Normal 136-145 [facility] ([place]) Comment on above: Performed By: #### M DW, GFR, ANEU, TROPHS, LIP, CMP, CBC, ADIFF #### [address] [address] Total Protein 7.1 G/dL Normal 6.4-8.2 [facility] ([place] Comment on above: Performed By: #### M DW, GFR, ANEU, TROPHS, LIP, CMP, CBC, ADIFF #### [address] [address] Urea nitrogen [Mass/Vol] 14 mg/dL Normal 7-18 [facility] ([place]) Comment on above: Performed By: #### M DW, GFR, ANEU, TROPHS, LIP, CMP, CBC, ADIFF #### [address] [place], [place] [address] LIPon 07-09-2023 Lipase Level 52 U/L Normal 16-77 [facility] ([place] Comment on above: Performed By: #### M DW, GFR, ANEU, TROPHS, LIP, CMP, CBC, ADIFF #### [facility] [address] [place], [place] [address] TROPHSon 07-09-2023 Troponin I High Sensitivity 4.6 ng/L Normal 0.0-76.2 [facility] ([place]) Comment on above: Performed By: #### M DW, GFR, ANEU, TROPHS, LIP, CMP, CBC, ADIFF #### [address] [place], [place] [address] XR CHEST 1 VIEWon 07-09-2023 XR CHEST 1 VIEW ORIGINAL EXAMINATION: ONE XRAY VIEW OF THE CHEST 07/09/2023 5:23 pm COMPARISON: Chest x-ray 08/01/2019 HISTORY: ORDERING SYSTEM PROVIDED HISTORY: Reason for Exam: chest pain FINDINGS: The cardiomediastinal silhouette is stable. Right basilar streaky opacity. Left basilar scarring noted, similar to prior exam from 2019. There is trace right pleural effusion. No vascular congestion. No pneumothorax. No acute osseous abnormality. IMPRESSION: Right basilar streaky opacity likely representing atelectasis or developing pneumonia. Stable left basilar scarring. Trace right pleural effusion. I have personally reviewed the images of this examination and agree with the resident's findings and interpretation. Interpreted by: Tavo Callahan Preliminary Report By: Brie Knapp Electronically signed By Tavo Callahan Dictated Date: 07/09/2023 5:28:44 PM Prelim Date: 07/09/2023 5:31:54 PM Sign Date: 07/09/2023 5:35:07 PM Ordering Provider: ALVIN Horowitz [facility] ([place]) PSA SerPl-ncon 06-21-2023 Prostate specific Ag [Mass/Vol] 11.24 ng/mL High <2.60 [facility] Comment on above: Order Comment: Speci men Type: BLOOD SPECIMEN Ordering Facility: [facility] Address: [address] [place] [address] Result Comment: Lori mae PSA test methodology used is the Electrochemiluminescence Immunoassay by [employer]. Total PSA values by differing methodologies cannot be interchanged. For an individual patient, the significance of a PSA level should be interpreted in a broad clinical context, including age, race, family history, digital rectal exam, prostate size, results of prior testing (prostate biopsy, free PSA, PCA3), and use of 5-alpha reductase inhibitors. Considering the high incidence of asymptomatic cancer in the general population that may not pose an ultimate risk to a patient, the decision to recommend urological evaluation or prostate biopsy should be individualized after consideration of all these factors. REFERENCE: Ruslan Kilgore M.D., M.P.H., Buzz Mccoy M.D., Ph.D., Jose Angel Ramos M.D., Martha Beck, M.P.H., Olena Caba, Sc.D. Effect of Verification Bias on Screening for Prostate Cancer by Measurement of Prostatic Specific Antigen. N Engl J Med 2003,349:335-42. Performed By: #### 2 [id number] #### [facility] CLIA [id number] [address] [place] [address] [place] [facility] CNOVon 06-14-2023 CNOV Office Visit (UROLAE ) ERIC RENO ([id number]) 1950 M Date Time Provider Department 06/14/23 9:30 AM RAMESH LOVE During your visit today, we recorded the following information about you: Pulse Blood pressure 78/minute 130/76 Ramesh Love MD 06/14/2023 12:56 PM Signed [facility] [place] ESTABLISHED PATIENT OFFICE VISIT HISTORY OF PRESENT ILLNESS Eric Reno is a 72 year old male who presents with prostate cancer on . Hx as below w/ Dr. Perez. Minimal LUTs. Stream is good. No hesitancy. No hematuria. No UTIs. Erections not a priority. AUASS:09/22 Dr. Perez's summary: Initial visit: Patient has a history of carcinoma of the prostate. He has undergone 2 prostate biopsies, 1 that was repeated and prior to May 2016 came back showing Poonam 6 in 2 cores, 1 core positive 40%, 1 core positive 10% Cottonwood 6. This was repeated again with a 2nd biopsy which came back again showing the same Poonam 6 tumor. A genetic Oncotype test was accomplished with a very low GPS score (8), Two daughters are here with him providing history and placed the patient active surveillance. A PSA in April 2016 was 6.56, May of 2017 was 7.58, and now in November 2017 was 9.73. Plan 06/09/22: PSA stable MRI reviewed - one PIRADS 2 lesion (2017) No high grade lesions MRI 03/2022 - PIRADS 4 lesion - s/p MRI fusion biopsy - 05/28/2022 Stable Cottonwood 6 disease and one small focus of Cottonwood 7 Send decipher biopsy. Continue PSA surveillance. Path: 09/15/15 ([facility]) Specimen originated from [facility] Specimen #: [id number] Submitting Physician: VICTOR M MEMBRENO M.D. FINAL DIAGNOSIS 1. Prostate, right base, lateral, needle biopsy (A) - Adenocarcinoma of the prostate, Cottonwood score 3+3=6 discontinuously involving 40% of one of one core and measuring 4 mm. 2. Prostate, right mid lateral, needle biopsy (B) - Benign prostatic tissue. 3. Prostate, right apex lateral, needle biopsy (C) - Benign prostatic tissue with focal atrophy and chronic inflammation. 4. Prostate, right base medial, needle biopsy (D) - Adenocarcinoma of the prostate, Poonam score 3+3=6 involving 10% of one of one core and measuring 1 mm. 5. Prostate, right mid medial, needle biopsy (E) - Benign prostatic tissue. 6. Prostate, right apex medial, needle biopsy (F) - Benign prostatic tissue with focal atrophy. 7. Prostate, left base lateral, needle biopsy (G) - Benign prostatic tissue. 8. Prostate, left mid lateral, needle biopsy (H) - Benign prostatic tissue with focal chronic inflammation. 9. Prostate, left apex lateral, needle biopsy (I) - Benign prostatic tissue. 10. Prostate, left base medial, needle biopsy (J) - Benign prostatic tissue with focal acute inflammation. 11. Prostate, left mid medial, needle biopsy (K) - Benign prostatic tissue. 12. Prostate, left apex medial, needle biopsy (L) - Benign prostatic tissue. Path 06/01/16 ([facility]): FINAL DIAGNOSIS 1. Prostate, right base lateral, needle biopsy (A) - Adenocarcinoma of the prostate, Poonam score 3+3=6 (Grade Group 1), involving 40% of one of one core and measuring 6 mm. 2. Prostate, right mid lateral, needle biopsy (B) - Benign prostatic tissue with focal atrophy and chronic inflammation. 3. Prostate, right apex, needle biopsy (C) - Benign prostatic tissue with atrophy. 4. Prostate, right base medial, needle biopsy (D) - Adenocarcinoma of the prostate, Cottonwood score 3+3=6 (Grade Group 1), involving 10% of one of one core and measuring 1.5 mm. 5. Prostate, right mid medial, needle biopsy (E) - Benign prostatic tissue with focal atrophy and chronic inflammation. 6. Prostate, right apex medial, needle biopsy (F) - Benign prostatic tissue with focal atrophy and chronic inflammation. 7. Prostate, left base lateral, needle biopsy (G) - Benign prostatic tissue. 8. Prostate, left mid lateral, needle biopsy (H) - Focal high-grade prostatic intraepithelial neoplasia. 9. Prostate, left apex lateral, needle biopsy (I) - Prostatic tissue with small focus of atypical glands. 10. Prostate, left base medial, needle biopsy (J) - Benign prostatic tissue. 11. Prostate, left mid medial, needle biopsy (K) - Benign prostatic tissue. 12. Prostate, left apex medial, needle biopsy (L) - Benign prostatic tissue. CMG/srj 06/02/2016 Path 05/26/22 ([facility]): FINAL DIAGNOSIS A. Prostate, lesion #1, biopsy: - Prostatic adenocarcinoma Cottonwood score 3+3 = 6 (grade group 1) involving 6 of 6 cores (100%, 15%, 20%, 50%, 5%, and 80%) 23 mm total tumor length. B. Prostate, left lateral base, biopsy: - Benign prostatic tissue. C. Prostate, left lateral mid, biopsy: - Benign prostatic tissue. D. (more content not included)... Normal [facility] UA DIP, URINE (POC)on 2022 BILIRUBIN UA (POCT) Negative Negative [facility] CLARITY UA (POCT) Clear [facility] COLOR UA (POCT) Yellow [facility] GLUCOSE UA (POCT) 100 mg/dL Abnormal Negative mg/dL [facility] Hemoglobin Ql (U) Trace-intact Abnormal Negative [facility] KETONE UA (POCT) Negative Negative mg/dL [facility] LEUKOCYTES UA (POCT) Negative Negative [facility] NITRITE UA (POCT) Negative Negative [facility] PH UA (POCT) 6.0 4.5 - 8.0 [facility] Protein Ql (U) Negative Negative mg/dL [facility] SPECIFIC GRAVITY UA (POCT) <=1.005 Abnormal 1.005 - 1.030 [facility] UROBILINOGEN UA (POCT) 0.2 E.U./dL Normal E.U./dL [facility] US MSR POST-VOID RESID URINE [facility] Vital Signs Date Time Vital Sign Value Performing Clinician Faci lity 03-15-2024 10:14-0400 Diastolic blood pressure 72 mm[Hg] Ramesh Love MD Work Phone: [facility] 03-15-2024 10:14-0400 Heart rate 82 /min Ramesh Love MD Work Phone: [facility] 03-15-2024 10:14-0400 SaO2% (BldA) [Mass fraction] 98 % Ramesh Love MD Work Phone: [facility] 03-15-2024 10:14-0400 Systolic blood pressure 126 mm[Hg] Ramesh Love MD Work Phone: [facility] 02-29-2024 13:14-0400 Diastolic blood pressure 80 mm[Hg] Christina Howard MD Work Phone: [facility] 02-29-2024 13:14-0400 Heart rate 72 /min Christina Howard MD Work Phone: [facility] 02-29-2024 13:14-0400 Respiratory rate 16 /min Christina Howard MD Work Phone: [facility] 02-29-2024 13:14-0400 SaO2% (BldA) [Mass fraction] 99 % Christina Howard MD Work Phone: [facility] 02-29-2024 13:14-0400 Systolic blood pressure 136 mm[Hg] Christina Howard MD Work Phone: [facility] 02-29-2024 12:16-0400 Body height 165.1 cm Christina Howard MD Work Phone: [facility] 02-29-2024 12:16-0400 Body mass index (BMI) [Ratio] 26.96 kg/m2 Christina Howard MD Work Phone: [facility] 02-29-2024 12:16-0400 Body temperature 96.8 [degF] Christina Howard MD Work Phone: [facility] 02-29-2024 12:16-0400 Body weight 73.48 kg Christina Howard MD Work Phone: [facility] 02-14-2024 15:31-0400 Body height 165.1 cm Christina Howard MD Work Phone: [facility] 02-14-2024 15:31-0400 Heart rate 80 /min Christina Howard MD Work Phone: [facility] 02-14-2024 15:31-0400 SaO2% (BldA) [Mass fraction] 98 % Christina Howard MD Work Phone: [facility] 02-02-2024 14:27-0400 Body height 165.1 cm Regla Quinn GIOVANNI Work Phone: [facility] 01-12-2024 09:02-0400 Diastolic blood pressure 74 mm[Hg] Ramesh Love MD Work Phone: [facility] 01-12-2024 09:02-0400 Heart rate 74 /min Ramesh Love MD Work Phone: [facility] 01-12-2024 09:02-0400 SaO2% (BldA) [Mass fraction] 96 % Ramesh Love MD Work Phone: [facility] 01-12-2024 09:02-0400 Systolic blood pressure 124 mm[Hg] Ramesh Love MD Work Phone: [facility] 06-14-2023 09:53-0500 Diastolic blood pressure 76 mm[Hg] Ramesh Love MD Work Phone: [facility] 06-14-2023 09:53-0500 Heart rate 78 /min Ramesh Love MD Work Phone: [facility] 06-14-2023 09:53-0500 SaO2% (BldA) [Mass fraction] 93 % Ramesh Love MD Work Phone: [facility] 06-14-2023 09:53-0500 Systolic blood pressure 130 mm[Hg] Ramesh Love MD Work Phone: [facility] 06-09-2022 15:50-0500 Body height 165.1 cm Lena Perez DO Work Phone: [facility] 06-09-2022 15:50-0500 Body weight 72.58 kg Lena Perez DO Work Phone: [facility] 04-13-2022 16:00-0400 Body height 165.1 cm Christina Howard MD Work Phone: [facility] 04-13-2022 16:00-0400 Body weight 71.67 kg Christina Howard MD Work Phone: [facility] 04-13-2022 16:00-0400 Diastolic blood pressure 80 mm[Hg] Christina Howard MD Work Phone: [facility] 04-13-2022 16:00-0400 Systolic blood pressure 124 mm[Hg] Christina Howard MD Work Phone: [facility] 02-09-2022 10:38-0400 Body height 165.1 cm Remyyrruben Woodardnan DO Work Phone: [facility] 02-09-2022 10:38-0400 Body weight 71.67 kg Jayram Chris DO Work Phone: [facility] 02-09-2022 10:38-0400 Diastolic blood pressure 80 mm[Hg] Jayram Chris DO Work Phone: [facility] 02-09-2022 10:38-0400 Systolic blood pressure 114 mm[Hg] Jayram Chris DO Work Phone: [facility] Encounters Encounter Date Encounter Type Care Provider Facility Start: 03-15-2024 End: 03-15-2024 Patient encounter procedure Ramesh Love MD Work Phone: Urology Comment on above: Prostate cancer (HCC ) (Primary Dx) Start: 03-15-2024 End: 03-15-2024 ambulatory [facility] Facility:[facility] Start: 02-29-2024 ambulatory SABINE Arelis KAHUKU Facility:[facility] Start: 02-29-2024 End: 02-29-2024 Preprocedural examination done Christina Howard MD Work Phone: [facility] Work Phone: Start: 02-29-2024 End: 02-29-2024 Subsequent hospital visit by physician Christina Howard MD Work Phone: [facility] Comment on above: Elevated prostate sp ecific antigen (PSA) [R97.20] Start: 02-23-2024 Telephone encounter Christina Howard MD Work Phone: [facility] Comment on above: Surgery Scheduled Start: 02-15-2024 End: 02-15-2024 ambulatory REGLA QUINN Facility:[facility] Start: 02-15-2024 End: 02-15-2024 Subsequent hospital visit by physician [facility] Work Phone: Radiology Comment on above: Kidney stone [N20.0] Start: 02-14-2024 End: 02-14-2024 Patient encounter procedure Christina Howard MD Work Phone: [facility] Comment on above: Prostate cancer (HCC ) (Primary Dx); BPH with obstruction/lower urinary tract symptoms Start: 02-14-2024 End: 02-14-2024 ambulatory SABINE ROMERO Facility:[facility] Start: 02-02-2024 End: 02-02-2024 Patient encounter procedure Regla Quinn CHRONOMETER TESTER Work Phone: Urology Comment on above: Urinary tract infect ion without hematuria, site unspecified (Primary Dx); Kidney stone Start: 02-02-2024 End: 02-02-2024 ambulatory SABINE ROMERO Facility:[facility] Start: 01-12-2024 End: 01-12-2024 Patient encounter procedure Ramesh Love MD Work Phone: Urology Comment on above: Prostate cancer (HCC ) (Primary Dx); BPH with obstruction/lower urinary tract symptoms Start: 01-12-2024 End: 01-12-2024 ambulatory SABINE ROMERO Facility:[facility] Start: 12-08-2023 End: 12-08-2023 ambulatory SABINE ROMERO Facility:[facility] Start: 10-25-2023 ambulatory SABINEIRISH ROMERO Facility:[facility] Start: 10-25-2023 End: 10-25-2023 Subsequent hospital visit by physician Mri 1 [facility] (I-Stat/Lg Bore/3t) [facility] Comment on above: Malignant neoplasm o f prostate (HCC) [C61] Start: 07-09-2023 End: 07-09-2023 Emergency department patient visit ALVIN STORM MD Facility:B Start: 06-21-2023 End: 06-21-2023 ambulatory SABINE ROMERO Facility:[facility] Start: 06-14-2023 End: 06-14-2023 Patient encounter procedure Ramesh Love MD Work Phone: Urology Comment on above: Malignant neoplasm o f prostate (HCC) (Primary Dx) Start: 06-14-2023 End: 06-14-2023 ambulatory SABINE Arelis KAHUKU Facility:[facility] Start: 12-03-2022 ambulatory Jayram Michael n DO Work Phone: [facility] [address] Start: 12-03-2022 Patient encounter procedure Remyyram Chris DO Work Phone: [facility] Comment on above: Upcoming appointment - December 07 Start: 06-09-2022 End: 06-09-2022 Patient encounter procedure Remyyram Chris DO Work Phone: [facility] Comment on above: Prostate cancer (HCC ) (Primary Dx) Start: 05-18-2022 Telephone encounter Christina Howard MD Work Phone: [facility] Comment on above: Surgery Scheduled Start: 05-17-2022 Orders Only Christina Howard MD Work Phone: [facility] Comment on above: Malignant neoplasm o f prostate (HCC) (Primary Dx) Start: 04-13-2022 End: 04-13-2022 Patient encounter procedure Christina Howard MD Work Phone: [facility] Comment on above: Prostate cancer (HCC ) (Primary Dx) Start: 04-03-2022 ambulatory Remyyram Michael n DO Work Phone: [facility] Comment on above: Question regarding M RI PROSTATE WO/W IVCON Start: 03-26-2022 End: 03-26-2022 Subsequent hospital visit by physician Mri 1 [facility] (I-Stat/Lg Bore/3t) [facility] Comment on above: Prostate cancer (HCC ) [C61] Start: 02-09-2022 End: 02-09-2022 Patient encounter procedure Remyyram Chris DO Work Phone: [facility] Comment on above: Prostate cancer (HCC ) (Primary Dx) Start: 02-02-2022 Telephone encounter Lena paez DO Work Phone: Urology Comment on above: Results Start: 11-28-2018 Patient encounter procedure LENA PEREZ Facility:[facility] Start: 10-24-2018 Patient encounter procedure LENA PEREZ Facility:[facility] Start: 04-25-2018 End: 04-25-2018 Patient encounter procedure LENA PEREZ Facility:[facility] Start: 02-21-2018 End: 02-21-2018 Patient encounter procedure LENA PEREZ Facility:[facility] Procedures Date Procedure Procedure Detail Performing Clinician Start: 02-15-2024 Us retroperitoneal r eal time w/image complete Regla Quinn INTERNET SPECIALIST.CHRONOMETER TESTER Work Phone: Start: 02-02-2024 Urnls dip stick/tabl et rgnt auto w/o microscopy Regla Quinn INTERNET SPECIALIST.CHRONOMETER TESTER Work Phone: Start: 01-12-2024 Urnls dip stick/tabl et rgnt auto w/o microscopy Ramesh Love MD Work Phone: Start: 06-14-2023 End: 06-14-2023 Kelsea post-voiding residual urine&/bladder cap Ramesh Love MD Work Phone: Start: 01-27-2022 Lipid 1996 panel - S alice or Plasma Ramesh Love MD Work Phone: Start: 01-06-2016 Colonoscopy Lena paez DO Work Phone: Plan of Treatment Date Care Activity Detail Author Start: 01-27-2027 Lipid 1996 panel - S alice or Plasma Lipid Screening [facility] Start: 01-27-2027 Lipid panel Lipid Screening [facility] Start: 01-27-2027 LIPID SCREEN LIPID SCREEN [facility] Start: 03-15-2025 BP Controlled (<130/80) BP Controlle d (<130/80) [facility] Start: 01-27-2025 DIABETES [facility]CREEN [facility] Start: 01-27-2025 Diabetes Screening Diabetes Screenalvin singh [facility] Start: 01-11-2025 BP Controlled (<130/80) BP Controlle d (<130/80) [facility] Start: 06-14-2024 End: 06-14-2024 Patient encounter procedure 06/14/2024 2:45 PM EST Office Visit Urology [address] [place] [address] Ramesh Love MD [address] [place] [address] 1 year fu w/psa Urology Comment on above: 1 year fu w/psa Start: 03-25-2024 Influenza vaccination Influenza Vacc ine (#1) [facility] Start: 03-15-2024 End: 03-15-2024 Patient encounter procedure 03/15/2024 10:00 AM EDT Office Visit Urology [address] [place] [address] Ramesh Love MD [address] [place] [address] fusion Bx results Urology Comment on above: fusion Bx results Start: 02-29-2024 End: 02-29-2024 Admission to same day surgery center 02/29/2024 12:45 PM EDT - 02/29/2024 1:30 PM EDT Surgery [facility] [address] [address] Christina Howard MD [address] [place] [id number] BIOPSY PROSTATE, TRANSRECTAL [facility] Comment on above: BIOPSY PROSTATE, TRA NSRECTAL Start: 02-29-2024 End: 02-29-2024 Prostate needle biopsy any approach BIOPSY PROSTATE Elevated prostate specific antigen (PSA) Malignant neoplasm of prostate (HCC) 02/29/2024 12:45 PM EDT [facility] Start: 02-29-2024 Subsequent hospital visit by physician 02/29/2024 12:45 PM EDT Hospital Encounter [facility] [address] [place] [address] Christina Howard MD [address] [place] [address] Elevated prostate specific antigen (PSA) [R97.20] [facility] Comment on above: Elevated prostate sp ecific antigen (PSA) [R97.20] Start: 02-29-2024 End: 02-29-2024 Us guidance needle placement img s&i MRI FUSION PROSTATE BIOPSY Elevated prostate specific antigen (PSA) Malignant neoplasm of prostate (HCC) 02/29/2024 12:45 PM EDT [facility] Start: 02-15-2024 End: 02-15-2024 Patient encounter procedure 02/15/2024 7:45 AM EDT Appointment Radiology [address] [place], [place] [id number] Kidney stone [N20.0] Radiology Comment on above: Kidney stone [N20.0] Start: 02-14-2024 End: 02-14-2024 Patient encounter procedure 02/14/2024 4:00 PM EDT Office Visit [facility] [address] [place] [address] Christina Howard MD [address] [place] [phone] MRI fusion biopsy prostate Per [facility] Comment on above: MRI fusion biopsy pr ostate Per [facility] Start: 07-25-2023 Advance Directive Discussion Advance Directive Discussion [facility] Start: 07-25-2023 Behavioral Health Screening Behavioral Health Screening [facility] Start: 07-25-2023 Depression Assessment Depression Ass essment [facility] Start: 03-25-2023 Covid-19 Vaccine ( season) Covid-19 Vaccine ( season) [facility] Start: 03-25-2023 Influenza vaccination INFLUENZ A (Season Ended) [facility] Start: 01-27-2023 Hepatitis B surface antibody level LDL Cholesterol [facility] Start: 07-30-2022 Hemoglobin A1c measurement HbA1C [facility] Start: 07-25-2022 ADVANCE DIRECTIVE DISCUSSION ADVANCE DIRECTIVE DISCUSSION [facility] Start: 07-25-2022 DEPRESSION ASSESSMENT DEPRESSION ASS ESSMENT [facility] Start: 03-25-2022 Influenza vaccination INFLUENZA (#1) [facility] Start: 01-26-2022 COVID-19 VACCINE (5 - Booster for Moderna series) COVID-19 VACCINE (5 - Booster for Moderna series) [facility] Start: 07-25-2021 ADVANCE DIRECTIVE DISCUSSION ADVANCE DIRECTIVE DISCUSSION [facility] Start: 07-25-2021 DEPRESSION ASSESSMENT DEPRESSION ASS ESSMENT [facility] Start: 04-10-2021 COVID-19 VACCINE (3 - Booster for Moderna series) COVID-19 VACCINE (3 - Booster for Moderna series) [facility] Start: 01-05-2017 Colonoscopy COLONOSCOPY [facility] Start: 01-05-2017 COLORECTAL CANCER SCREENING COLORECTAL CANCER SCREENING [facility] Start: 01-05-2017 Screening for malign ant neoplasm of colon [facility] Start: 2014 Pneumococcal Vaccine : 65+ (1 - PCV) Pneumococcal Vaccine: 65+ (1 - PCV) [facility] Start: 2014 Pneumococcal Vaccine : 65+ (1 of 1 - PCV) Pneumococcal Vaccine: 65+ (1 of 1 - PCV) [facility] Start: 2014 PNEUMOCOCCAL: 65+ (1 - PCV) PNEUMOCOCCAL: 65+ (1 - PCV) [facility] Start: 2009 RSV Vaccine (1 - 1-d ose 60+ series) RSV Vaccine (1 - 1-dose 60+ series) [facility] Start: 11-27-1999 SHINGRIX VACCINE (1 of 2) SHINGRIX VACCINE (1 of 2) [facility] Start: 1994 COLOGUARD (FIT-DNA) COLOGUARD (FIT-D NA) [facility] Start: [address] COLONOGRAPHY [facility] Start: 1994 FECAL OCCULT BLOOD FECAL OCCULT BLOO D [facility] Start: 1994 Screening for malign ant neoplasm of colon [facility] Start: 1994 SIGMOIDOSCOPY SIGMOIDOSCOPY [facility] Start: 1968 Urine microalbumin profile [facility] Start: 11-27-1967 Annual PCP Team Load Builder magan Disease Visit Annual PCP Team Chronic Disease Visit [facility] Start: 11-27-1967 Anxiety Screening Anxiety Screening [facility] Start: 11-27-1967 Depression Screening Depression Scre ening [facility] Start: 11-27-1967 HEPATITIS C SCREENING HEPATITIS C [facility] Start: 11-27-1967 Hepatitis C screening Hepatitis C [facility] Start: 1961 Adult depression screening assessment DEPRESSION SCREENING [facility] Start: 11-27-1959 Diabetic foot examination Diabetic Foot Exam [facility] Start: 11-27-1959 Glaucoma screening Dilated Retinal E xam [facility] Start: 11-27-1959 Hepatitis B screening Urine Albumin:Creatinine Ratio [facility] Start: 11-27-1955 Pneumococcal Vaccine : 65+ (1 of 2 - PCV) Pneumococcal Vaccine: 65+ (1 of 2 - PCV) [facility] Bacteria identified in Urine by Culture URINE CULTURE Microbiology Routine Urinary tract infection without hematuria, site unspecified 02/02/2024 3:26 PM EDT [facility] MR Prostate WO and W contrast IV MRI PROSTATE WO/W IVCON Radiology Routine Malignant neoplasm of prostate (HCC) 10/25/2023 10:30 AM EDT [facility] Work Phone: MR Unspecified body region 3D post processing MRI 3D POST PROCESSING Radiology Routine Malignant neoplasm of prostate (HCC) 10/25/2023 10:30 AM T [facility] Work Phone: End: 07-13-2024 MRI 3D POST PROCESSING MRI 3D POST PROCESSING Radiology Routine Malignant neoplasm of prostate (HCC) 1 Occurrences starting 06/14/2023 until 07/13/2024 [facility] Work Phone: Comment on above: 1 Occurrences starti ng 06/14/2023 until 07/13/2024 End: 03-11-2023 Mri pelvis w/o & w/contrast material MRI PROSTATE WO/W IVCON Radiology Routine Prostate cancer (HCC) 1 Occurrences starting 02/09/2022 until 03/11/2023 [facility] Work Phone: Comment on above: 1 Occurrences starti ng 02/09/2022 until 03/11/2023 End: 03-26-2022 Mri pelvis w/o & w/contrast material [facility] Work Phone: Comment on above: 1 Occurrences starti ng 03/26/2022 until 03/26/2022 End: 07-13-2024 MRI PROSTATE WO/W IVCON MRI PROSTATE WO/W IVCON Radiology Routine Malignant neoplasm of prostate (HCC) 1 Occurrences starting 06/14/2023 until 07/13/2024 [facility] Work Phone: Comment on above: 1 Occurrences starti ng 06/14/2023 until 07/13/2024 End: 06-09-2023 Prostate specific Ag [Mass/volume] in Serum or Plasma PSA/PROSTSPECAG DIAG Lab Routine Prostate cancer (HCC) Every 6 months for 20 Occurrences starting 06/09/2022 until 06/09/2023 [facility] Work Phone: Comment on above: Every 6 months for 2 0 Occurrences starting 06/09/2022 until 06/09/2023 End: 06-13-2024 Prostate specific Ag [Mass/volume] in Serum or Plasma PSA/PROSTSPECAG DIAG Lab Routine Malignant neoplasm of prostate (HCC) Every 6 months for 3 Occurrences starting 06/14/2023 until 06/13/2024 [facility] Work Phone: Comment on above: Every 6 months for 3 Occurrences starting 06/14/2023 until 06/13/2024 SURGICAL PATHOLOGY [facility] Work Phone: Comment on above: Release Upon Orderin g for 1 Occurrences starting 02/29/2024 End: 03-03-2025 US Kidney - bilateral and Urinary bladder US KIDNEY/BLADDER Radiology Routine Kidney stone 1 Occurrences starting 02/02/2024 until 03/03/2025 [facility] Work Phone: Comment on above: 1 Occurrences starti ng 02/02/2024 until 03/03/2025 [facility] Immunizations Immunization Date Immunization Notes Care Provider Fa jean-pierre 04-22-2023 influenza virus vacc ine, unspecified formulation Regla Quinn APRN.CHRONOMETER TESTER Work Phone: [facility] Payers Date Payer Category Payer Medicare MEDICARE MEDICAR E A AND B [id number] 2014-Present [phone] [place] [address] Medicare [id number] 2014 Medicare MEDICARE MEDICAR E A AND B [id number] 2014-Present [phone] [place] [address] Medicare [id number] 2014 Medicare [id number] 1950 Unknown [id number] 1950 Unknown [id number] 1950 Unknown [id number] 1950 Unknown [id number] 1950 Unknown [id number] Medicare [id number] Social History Date Type Detail Facility Start: 02-13-2018 End: 05-26-2022 Tobacco smoking status INIS Never smoked tobacco [facility] Start: 07-14-2021 End: 03-15-2024 Alcohol intake Current drinker of alcohol (finding) [facility] Start: 11-24-2015 History SDOH Alcohol Comment social - weekends [facility] Start: 1950 Sex Assigned At Not on file [facility] Start: 01-30-2022 End: 05-26-2022 Exposure to SARS-CoV-2 (event) Not sure [facility] Start: 02-13-2018 End: 05-26-2022 Tobacco use and exposure Smokeless tobacco non-user Luis Fernando godoy [facility] Start: 12-07-2022 End: 06-14-2023 History of Social function [facility] Start: 12-07-2022 End: 06-14-2023 Tobacco use panel [facility] National Score (1-10 0), lower number is lower risk 66 [facility] Start: 1950 Sex Assigned At Male C [facility] Start: 06-10-2023 Gender identity Identifies as male gender (finding) [facility] Clinical Notes 02-02-2022 to 03-15-2024 Patient InstructionsRamesh Love MD - 03/15/2024 10:15 AM Ravinder Ellison RN - 02/29/2024 1:52 PM Ravinder Ellison RN - 02/29/2024 1:52 PM EDTPatient InstructionsPatient Instructions Note Date & Type Note Facility 03-15-2024 Instructions Ramesh Love MD - 03/15/2024 10:51 AM EDT Plan: Decipher genetic test Radiation oncology consult Meet back with me afterwards. documented in this encounter [facility] 03-15-2024 Note HNO ID: [id number] Author: RAMESH LOVE MD Service: ? Author Type: Physician Type: Progress Notes Filed: 03/15/2024 10:57 Note Text: [facility] [place] ESTABLISHED PATIENT OFFICE VISIT HISTORY OF PRESENT ILLNESS Eric Reno is a 73 year old male who presents with prostate cancer. Here in follow-up to recent prostate fusion biopsy. Biopsy indicated due to progression on MRI. Pathology is as below. Fusion biopsy prostate 02/29/24: FINAL DIAGNOSIS A. Prostate, right, lesion #1, biopsy: - Adenocarcinoma of the prostate, Poonam score 3+4 = 7 (grade Group 2), involving 4 of 4 cores (8 mm, 6 mm, 4 mm, 2 mm, 55%, 50%, 70%, 25%). - Pattern 4 comprises approximately 5% of the tumor. B. Prostate, right lateral base, needle biopsy: - Adenocarcinoma of the prostate, Poonam score 3+4 =7 (grade Group 2), involving 1 of 1 core (6 mm, 70%). - Pattern 4 comprises approximately 5% of the tumor. - Perineural invasion is present C. Prostate, right lateral MID, needle biopsy: - Adenocarcinoma of the prostate, Poonam score 3+3 = 6 (grade Group 1), involving 1 of 1 core (3 mm, 25%). D. Prostate, right lateral apex, needle biopsy: - Adenocarcinoma of the prostate, Cottonwood score 3+3 = 6 (grade Group 1), involving 1 of 1 core (4 mm, 50%). E. Prostate, left lateral base, needle biopsy: - Atypical small acinar proliferation. See comment. F. Prostate, left lateral MID, needle biopsy: - Benign prostatic tissue. G. Prostate, left lateral apex, needle biopsy: - Benign prostatic tissue. Prostate Cancer Biopsy Summary Number of cores examined: 10 Number of cores positive: 7 Highest Grade Group: 2 Highest % of core involvement: 70 % Cribriform pattern 4: Absent Intraductal carcinoma: Absent MRI prostate October 25, 2023: Interval increase in size of right peripheral zone base to mid gland abnormality, now measuring 1.5 cm and compatible with a PI-RADS 5 lesion. The lesion is equivocal for exercise extension with broad capsule contact. Dimensions: 4.3 x 3.1 x 3.7 cm corresponding to a volume of approximately 26 cc. Cancer history: Dr. Perez's summary: Initial visit: Patient has a history of carcinoma of the prostate. He has undergone 2 prostate biopsies, 1 that was repeated and prior to May 2016 came back showing Cottonwood 6 in 2 cores, 1 core positive 40%, 1 core positive 10% Cottonwood 6. This was repeated again with a 2nd biopsy which came back again showing the same Cottonwood 6 tumor. A genetic Oncotype test was accomplished with a very low GPS score (8), Two daughters are here with him providing history and placed the patient active surveillance. A PSA in April 2016 was 6.56, May of 2017 was 7.58, and now in November 2017 was 9.73. Plan 06/09/22: PSA stable MRI reviewed - one PIRADS 2 lesion (2018) No high grade lesions MRI 03/2022 - PIRADS 4 lesion - s/p MRI fusion biopsy - 05/28/2022 Stable Cottonwood 6 disease and one small focus of Cottonwood 7 Send decipher biopsy. Continue PSA surveillance. Path: 09/15/15 (Aron) Specimen originated from [facility] Specimen #: [id number] Submitting Physician: VICTOR M MEMBRENO M.D. FINAL DIAGNOSIS 1. Prostate, right base, lateral, needle biopsy (A) - Adenocarcinoma of the prostate, Cottonwood score 3+3=6 discontinuously involving 40% of one of one core and measuring 4 mm. 2. Prostate, right mid lateral, needle biopsy (B) - Benign prostatic tissue. 3. Prostate, right apex lateral, needle biopsy (C) - Benign prostatic tissue with focal atrophy and chronic inflammation. 4. Prostate, right base medial, needle biopsy (D) - Adenocarcinoma of the prostate, Cottonwood score 3+3=6 involving 10% of one of one core and measuring 1 mm. 5. Prostate, right mid medial, needle biopsy (E) - Benign prostatic tissue. 6. Prostate, right apex medial, needle biopsy (F) - Benign prostatic tissue with focal atrophy. 7. Prostate, left base lateral, needle biopsy (G) - Benign prostatic tissue. 8. Prostate, left mid lateral, needle biopsy (H) - Benign prostatic tissue with focal chronic inflammation. 9. Prostate, left apex lateral, needle biopsy (I) - Benign prostatic tissue. 10. Prostate, left base medial, needle biopsy (J) - Benign prostatic tissue with focal acute inflammation. 11. Prostate, left mid medial, needle biopsy (K) - Benign prostatic tissue. 12. Prostate, left apex medial, needle biopsy (L) - Benign prostatic tissue. Path 05/26/22 (Colby/Chris): FINAL DIAGNOSIS A. Prostate, lesion #1, biopsy: - Prostatic adenocarcinoma Poonam score 3+3 = 6 (grade group 1) involving 6 of 6 cores (100%, 15%, 20%, 50%, 5%, and 80%) 23 mm total tumor length. B. Prostate, left lateral base, biopsy: - Benign prostatic tissue. C. Prostate, left lateral mid, biopsy: - Benign prostatic tissue. D. Prostate, left (more content not included)... [facility] 03-15-2024 History of Presen t illness Narrative Images from the original note were not included. [facility] [place] ESTABLISHED PATIENT OFFICE VISIT HISTORY OF PRESENT ILLNESS Eric Reno is a 73 year old male who presents with prostate cancer. Here in follow-up to recent prostate fusion biopsy. Biopsy indicated due to progression on MRI. Pathology is as below. Fusion biopsy prostate 02/29/24: FINAL DIAGNOSIS A. Prostate, right, lesion #1, biopsy: - Adenocarcinoma of the prostate, Poonam score 3+4 = 7 (grade Group 2), involving 4 of 4 cores (8 mm, 6 mm, 4 mm, 2 mm, 55%, 50%, 70%, 25%). - Pattern 4 comprises approximately 5% of the tumor. B. Prostate, right lateral base, needle biopsy: - Adenocarcinoma of the prostate, Poonam score 3+4 =7 (grade Group 2), involving 1 of 1 core (6 mm, 70%). - Pattern 4 comprises approximately 5% of the tumor. - Perineural invasion is present C. Prostate, right lateral MID, needle biopsy: - Adenocarcinoma of the prostate, Poonam score 3+3 = 6 (grade Group 1), involving 1 of 1 core (3 mm, 25%). D. Prostate, right lateral apex, needle biopsy: - Adenocarcinoma of the prostate, Poonam score 3+3 = 6 (grade Group 1), involving 1 of 1 core (4 mm, 50%). E. Prostate, left lateral base, needle biopsy: - Atypical small acinar proliferation. See comment. F. Prostate, left lateral MID, needle biopsy: - Benign prostatic tissue. G. Prostate, left lateral apex, needle biopsy: - Benign prostatic tissue. Prostate Cancer Biopsy Summary Number of cores examined: 10 Number of cores positive: 7 Highest Grade Group: 2 Highest % of core involvement: 70 % Cribriform pattern 4: Absent Intraductal carcinoma: Absent MRI prostate October 25, 2023: Interval increase in size of right peripheral zone base to mid gland abnormality, now measuring 1.5 cm and compatible with a PI-RADS 5 lesion. The lesion is equivocal for exercise extension with broad capsule contact. Dimensions: 4.3 x 3.1 x 3.7 cm corresponding to a volume of approximately 26 cc. Cancer history: Dr. Perez's summary: Initial visit: Patient has a history of carcinoma of the prostate. He has undergone 2 prostate biopsies, 1 that was repeated and prior to May 2016 came back showing Cottonwood 6 in 2 cores, 1 core positive 40%, 1 core positive 10% Cottonwood 6. This was repeated again with a 2nd biopsy which came back again showing the same Cottonwood 6 tumor. A genetic Oncotype test was accomplished with a very low GPS score (8), Two daughters are here with him providing history and placed the patient active surveillance. A PSA in April 2016 was 6.56, May of 2017 was 7.58, and now in November 2017 was 9.73. Plan 06/09/22: PSA stable MRI reviewed - one PIRADS 2 lesion (2017) No high grade lesions MRI 03/2022 - PIRADS 4 lesion - s/p MRI fusion biopsy - 05/28/2022 Stable Cottonwood 6 disease and one small focus of Poonam 7 Send decipher biopsy. Continue PSA surveillance. Path: 09/15/15 (Aron) Specimen originated from [facility] Specimen #: [id number] Submitting Physician: VICTOR M MEMBRENO M.D. FINAL DIAGNOSIS 1. Prostate, right base, lateral, needle biopsy (A) - Adenocarcinoma of the prostate, Poonam score 3+3=6 discontinuously involving 40% of one of one core and measuring 4 mm. 2. Prostate, right mid lateral, needle biopsy (B) - Benign prostatic tissue. 3. Prostate, right apex lateral, needle biopsy (C) - Benign prostatic tissue with focal atrophy and chronic inflammation. 4. Prostate, right base medial, needle biopsy (D) - Adenocarcinoma of the prostate, Poonam score 3+3=6 involving 10% of one of one core and measuring 1 mm. 5. Prostate, right mid medial, needle biopsy (E) - Benign prostatic tissue. 6. Prostate, right apex medial, needle biopsy (F) - Benign prostatic tissue with focal atrophy. 7. Prostate, left base lateral, needle biopsy (G) - Benign prostatic tissue. 8. Prostate, left mid lateral, needle biopsy (H) - Benign prostatic tissue with focal chronic inflammation. 9. Prostate, left apex lateral, needle biopsy (I) - Benign prostatic tissue. 10. Prostate, left base medial, needle biopsy (J) - Benign prostatic tissue with focal acute inflammation. 11. Prostate, left mid medial, needle biopsy (K) - Benign prostatic tissue. 12. Prostate, left apex medial, needle biopsy (L) - Benign prostatic tissue. Path 05/26/22 (Colby/Chris): FINAL DIAGNOSIS A. Prostate, lesion #1, biopsy: - Prostatic adenocarcinoma Poonam score 3+3 = 6 (grade group 1) involving 6 of 6 cores (100%, 15%, 20%, 50%, 5%, and 80%) 23 mm total tumor length. B. Prostate, left lateral base, biopsy: - Benign prostatic tissue. C. Prostate, left lateral mid, biopsy: - Benign prostatic tissue. D. Prostate, left lateral apex, biopsy: - Benign prostatic tissue. E. Prostate, right lateral base, biopsy: - Prostatic adenocarcinoma Cottonwood score 3+4 = 7 (grade group 2) involving 80% of 1 core (5 mm tumor length). 5% pattern 4. F. Prostate, right lateral mid, biopsy: - Prostatic adenocarcinoma Cottonwood score 3+3 = 6 (grade group 1) involving 65% of 1 core (6 mm tumor length). G. Prostate, right lateral apex, biopsy: - Prostatic adenocarcinoma Cottonwood score 3+3 = 6 (grade group 1) involving 20% of 1 core (1 mm tumor length). Prostate Cancer Biopsy Summary Number of cores examined: 12 Number of cores positive: 9 Highest Grade Group: 2 Highest % of core involvement: 100 % Cribriform pattern 4: Absent Intraductal carcinoma: Absent Shift Nurse Manager tumor block to use for additional studies: E Review of Systems Constitutional: Negative. HENT: Negative. Eyes: Negative. Respiratory: Negative. Cardiovascular: Negative. Gastrointestinal: Negative. Endocrine: Negative. Genitourinary: Negative. Musculoskeletal: Negative. Skin: Negative. Allergic/Immunologic: Negative. Neurological: Negative. Hematological: Negative. Psychiatric/Behavioral: Negative. The remainder of the ROS was reviewed and is negative. LAB Creatinine Date Value Ref Range Status 01/27/2022 0.93 0.73 - 1.22 mg/dL Final PSA (ng/mL) Date Value 12/08/2023 12.42 06/21/2023 11.24 11/23/2022 12.20 01/27/2022 12.08 01/27/2022 12.33 07/07/2021 9.21 11/24/2020 10.51 2019 9.09 05/25/2019 10.64 11/20/2018 11.03 02/22/2018 8.40 06/02/2017 7.58 05/04/2016 6.56 GLUCOSE UA (POCT) Negative 02/02/2024 BILIRUBIN UA (POCT) Negative 02/02/2024 KETONE UA (POCT) Negative 02/02/2024 SPECIFIC GRAVITY UA (POCT) 1.015 02/02/2024 HEMOGLOBIN/BLOOD UA (POCT) Trace-lysed 02/02/2024 PH UA (POCT) 5.5 02/02/2024 PROTEIN UA (POCT) Negative 02/02/2024 UROBILINOGEN UA (POCT) 0.2 02/02/2024 NITRITE UA (POCT) Negative 02/02/2024 LEUKOCYTES UA (POCT) Negative 02/02/2024 COLOR UA (POCT) Yellow 02/02/2024 CLARITY UA (POCT) Clear 02/02/2024 MEDICATIONS pregabalin (LYRICA) 25 mg capsule Take 25 mg by mouth two times a day. tamsulosin (FLOMAX) 0.4 mg Take 1 capsule by mouth daily at bedtime. iv contrast (will be provided with radiology test) MRI Prostate Inject, intravenously, once for 1 dose. No IV access, insert saline lock prior to the beginning of sedation, infusion, injection of imaging exam. Discontinue saline lock post exam. If Pt. has a central line or IVAD, may access for administration according to line specific nursing protocol. Once exam is complete flush line and de-access according to line specific nursing protocol in the MR contrast administration guidelines link. clopidogrel (PLAVIX) 75 mg tablet Take 75 mg by mouth once daily. lisinopril (ZESTRIL, PRINIVIL) 5 mg tablet Take 5 mg by mouth once daily. metFORMIN (GLUCOPHAGE) 500 mg tablet Take 500 mg by mouth daily with breakfast. gabapentin (NEURONTIN) 100 mg capsule Take 100 mg by mouth three times daily as needed. famotidine (PEPCID) 20 mg tablet Take 20 mg by mouth twice daily. (Patient not taking: Reported on 02/14/2024) IPRATROPIUM BROMIDE 18 MCG/ACTUATION AEROSOL INHALER iv contrast (will be provided with radiology test) MRI Prostate Inject, intravenously, once for 1 dose. No IV access, insert saline lock prior to the beginning of sedation, infusion, injection of imaging exam. Discontinue saline lock post exam. If Pt. has a central line or IVAD, may access for administration according to line specific nursing protocol. Once exam is complete flush line and de-access according to line specific nursing protocol in the MR contrast administration guidelines link. (Patient not taking: Reported on 04/13/2022) iv contrast (will be provided with radiology test) MRI Prostate Inject, intravenously, once for 1 dose. No IV access, insert saline lock prior to the beginning of sedation, infusion, injection of imaging exam. Discontinue saline lock post exam. If Pt. has a central line or IVAD, may access for administration according to line specific nursing protocol. Once exam is complete flush line and de-access according to line specific nursing protocol in the MR contrast administration guidelines link. (Patient not taking: No sig reported) rosuvastatin (CRESTOR) 10 mg tablet Take 10 mg by mouth once daily. (Patient not taking: Reported on 04/13/2022) cholecalciferol, Vitamin D3, (VITAMIN D3) 50,000 unit cap capsule once each week. hydrocortisone (ANUSOL-HC) 2.5 % rectal cream 1 application by RECTAL route twice daily. (Patient not taking: No sig reported) atorvastatin (LIPITOR) 20 mg tablet Take 20 mg by mouth once daily. Oakwood-3 Fatty Acids 500 mg cap Take 500 mg by mouth once daily. aspirin, enteric coated (ASPIRIN, ENTERIC COATED) 81 mg EC tablet Take 81 mg by mouth once daily. (Patient not taking: Reported on 02/14/2024) HISTORIES PAST MEDICAL HISTORY No date: Diabetes mellitus (HCC) No date: Essential hypertension No date: Hyperlipidemia No date: Kidney stone No date: Prostate cancer (HCC) 11/2020: Shingles 07/2019: Stroke (HCC) Comment: no residual PAST SURGICAL HISTORY No date: CHOLECYSTECTOMY No date: COLONOSCOPY No date: PAST SURGICAL HISTORY OF; Right Comment: retinal detachment FAMILY HISTORY Problem Relation Age of Onset other (heart disease) Mother Stroke Brother SOCIAL HISTORY Social History Tobacco Use Smoking status: Never Smokeless tobacco: Never Substance Use Topics Alcohol use: Yes Comment: social - weekends Drug use: No BP 126/72 Pulse 82 SpO2 98% Physical Exam IMAGING ASSESSMENT/PLAN: 1. Prostate cancer (HCC) - ICD9: 185, ICD10: C61 Unfortunately he does have evidence of progression of disease. Both pathologic and radiologic progression noted. His PSA has remained stable over the last couple years. Certainly treatment could be considered at this time. Of note he did have an Oncotype Dx test in 2018 that placed him in a very low risk category. I am going to obtain a decipher score and have him see radiation oncology to discuss treatment options further. Definitely 1 could consider active surveillance as he still has grade group 2 only disease. I will see him back after meeting with radiation oncology along with his daughters to finalize a decision. Ramesh Love Medical Decision Making: Problems: High: Chronic illness with severe change Data: Unique test result(s) reviewed: 2 Unique test(s) ordered: 2 Risk: Moderate: Moderate risk from testing/treatment Medical Decision Making Level: 4 - Moderate This note was partially created using voice recognition software and is inherently subject to errors including those of syntax and sound-alike substitutions which may escape proofreading. In such instances, original meaning may be extrapolated by contextual derivation. documented in this encounter [facility] 02-29-2024 Note HNO ID: [id number] Author: RAVINDER JOHN RN Service: ? Author Type: Registered Nurse Type: Nursing Progress Note Filed: 02/29/2024 13:53 Note Text: Patient voided without difficulty [facility] 02-29-2024 Nurse Note Patient voided without difficulty [facility] 02-29-2024 Nurse Note Patient voided without difficulty documented in this encounter [facility] 02-29-2024 Surgery Surgical operation note MRI Fusion Biopsy of Prostate/transrectal Eric Reno a 73 year old. 02/29/2024 LOG ID: [id number] INCISION/PROCEDURE START TIME: 12:57 PM INCISION CLOSE/PROCEDURE END TIME: 1:09 PM Preop Dx: elevated PSA, prostate cancer Post op Dx: same Procedure: MRI fusion biopsy of the prostate Surgeon: Christina Howard MD SURGEON(S)/PROCEDURALIST(S) AND REMOTE SENSING PROGRAM MANAGER(S): Surgeon(s) and Role: * Christina Howard MD - Primary No Additional Staff Anesthesia: local ESTIMATED BLOOD LOSS: < 5 cc SPECIMENS: prostate bxs COMPLICATIONS: None Procedure: History and Physical reviewed and is unchanged. . ALLERGIES No Known Allergies Informed Consent Discussed: Yes. Risks, benefits, alternatives and personnel discussed with patient who consents to proceed. Discussed RBAPC. Antibiotics given pre-operatively: Yes, ; Levaquin 500 mg po, Tobramycin 120 mg IM on arrival Huddle was performed in standard fashion and pt taken back to OR Pt placed in Lt lateral decubitus position Audible time out was performed. PSA (ng/mL) Date Value 12/08/2023 12.42 07/07/2021 9.21 PROSTATE ULTRASOUND/TRUS MEDICATIONS: 10 ml 1% Plain Xylocaine alondra prostatic nerve block given: Yes The prostate sonogram was obtained via transrectal approach. The gland is slightly enlarged, measuring 25cc. There is an inhomogeneous echo pattern throughout the prostate gland. Echogenic foci within the gland consistant with clacifications were noted. There is no focal lesion within the pereferal zone of the prostate gland. MRI/US fusion/guided biopsies: The MRI image was viewed on the UroNav unit and the the image was fused to US image in standard fashion. There are 1 lesion noted on the MRI: the biopsy needle is passed using this guidence Lesion 1--6 biopsies taken Prostate biopsies taken from the site below using ultrasound guidance 1.) RIGHT BASE: 1 2.) RIGHT MID: 1 3.) RIGHT APEX: 1 4.) LEFT BASE: 1 5.) LEFT MID: 1 6.) LEFT APEX: 1 POST PROCEDURE: Pt taken to recovery room and will f/u as planned Christina Howard MD [facility] 02-29-2024 Surgical operatio n note MRI Fusion Biopsy of Prostate/transrectal Eric Reno a 73 year old. 02/29/2024 LOG ID: [id number] INCISION/PROCEDURE START TIME: 12:57 PM INCISION CLOSE/PROCEDURE END TIME: 1:09 PM Preop Dx: elevated PSA, prostate cancer Post op Dx: same Procedure: MRI fusion biopsy of the prostate Surgeon: Christina Howard MD SURGEON(S)/PROCEDURALIST(S) AND REMOTE SENSING PROGRAM MANAGER(S): Surgeon(s) and Role: * Christina Howard MD - Primary No Additional Staff Anesthesia: local ESTIMATED BLOOD LOSS: < 5 cc SPECIMENS: prostate bxs COMPLICATIONS: None Procedure: History and Physical reviewed and is unchanged. . ALLERGIES No Known Allergies Informed Consent Discussed: Yes. Risks, benefits, alternatives and personnel discussed with patient who consents to proceed. Discussed RBAPC. Antibiotics given pre-operatively: Yes, ; Levaquin 500 mg po, Tobramycin 120 mg IM on arrival Huddle was performed in standard fashion and pt taken back to OR Pt placed in Lt lateral decubitus position Audible time out was performed. PSA (ng/mL) Date Value 12/08/2023 12.42 07/07/2021 9.21 PROSTATE ULTRASOUND/TRUS MEDICATIONS: 10 ml 1% Plain Xylocaine alondra prostatic nerve block given: Yes The prostate sonogram was obtained via transrectal approach. The gland is slightly enlarged, measuring 25cc. There is an inhomogeneous echo pattern throughout the prostate gland. Echogenic foci within the gland consistant with clacifications were noted. There is no focal lesion within the pereferal zone of the prostate gland. MRI/US fusion/guided biopsies: The MRI image was viewed on the UroNav unit and the the image was fused to US image in standard fashion. There are 1 lesion noted on the MRI: the biopsy needle is passed using this guidence Lesion 1--6 biopsies taken Prostate biopsies taken from the site below using ultrasound guidance 1.) RIGHT BASE: 1 2.) RIGHT MID: 1 3.) RIGHT APEX: 1 4.) LEFT BASE: 1 5.) LEFT MID: 1 6.) LEFT APEX: 1 POST PROCEDURE: Pt taken to recovery room and will f/u as planned Christina Howard MD documented in this encounter [facility] 02-29-2024 History and physical note UPDATED HISTORY AND PHYSICAL EXAMINATION SERVICE DATE: 02/29/2024 SERVICE TIME: 12:44 PM PHYSICAL EXAM MUST BE COMPLETED ON ADMISSION The History and Physical (completed in the past 30 days) has been reviewed and the patient has been examined. The contents accurately reflect the patient's condition with the following additions or revisions since the H&P was completed. Rrr cta Examination indicates no changes. This H&P can be found in the Electronic Medical Record dated 02/13. SIGNATURE: Christina Howard MD PATIENT NAME: Eric Reno DATE: February 29, 2024 TIME: 12:44 PM PAGER: [facility] 02-29-2024 History and physical note UPDATED HISTORY AND PHYSICAL EXAMINATION SERVICE DATE: 02/29/2024 SERVICE TIME: 12:44 PM PHYSICAL EXAM MUST BE COMPLETED ON ADMISSION The History and Physical (completed in the past 30 days) has been reviewed and the patient has been examined. The contents accurately reflect the patient's condition with the following additions or revisions since the H&P was completed. Rrr cta Examination indicates no changes. This H&P can be found in the Electronic Medical Record dated 02/13. SIGNATURE: Christina Howard MD PATIENT NAME: Eric Reno DATE: February 29, 2024 TIME: 12:44 PM PAGER: HISTORY AND PHYSICAL EXAMINATION Eric Reno 1950 SERVICE DATE: 02/29/2024 SERVICE TIME: 12:22 PM PRIMARY CARE PHYSICIAN: Sabine Romero MD SURGEON: Surgeon(s) and Role: * Christina Howard MD - Primary ANESTHESIA: Local DIAGNOSIS: Elevated prostate specific antigen (PSA) [R97.20] Malignant neoplasm of prostate (HCC) [C61] PROCEDURE: Procedure(s) with comments: BIOPSY PROSTATE, TRANSRECTAL (N/A) - LOCAL MRI FUSION PROSTATE BIOPSY (N/A) Subjective CHIEF COMPLAINT: elevated PSA, malignant neoplasm of prostate The reason for this visit is to perform a comprehensive review of the patient's past medical history, assess their current health status and obtain any additional testing required based on anesthesia guidelines. We will also identify any potential anesthesia problems or contraindications to the planned procedure. HPI: This is a 73 year old male who presents with elevated PSA, malignant neoplasm of prostate. Hx prostate cancer, active surveillance. Biopsy 2 years ago per pt. Denies gross hematuria. No family hx prostate cancer METS: Climb a flight of stairs or walk up a hill (5.50 METs) FUNCTIONAL STATUS: Independent PAST MEDICAL HISTORY No date: Diabetes mellitus (HCC) No date: Essential hypertension No date: Hyperlipidemia No date: Kidney stone No date: Prostate cancer (HCC) 11/2020: Shingles 07/2019: Stroke (HCC) Comment: no residual PAST SURGICAL HISTORY No date: CHOLECYSTECTOMY No date: COLONOSCOPY No date: PAST SURGICAL HISTORY OF; Right Comment: retinal detachment FAMILY HISTORY Problem Relation Age of Onset other (heart disease) Mother Stroke Brother Social History Tobacco Use Smoking status: Never Smokeless tobacco: Never Substance Use Topics Alcohol use: Yes Comment: social - weekends Drug use: No Prior to Admission medications as of 02/29/24 1234 Medication Sig Last Dose Taking pregabalin (LYRICA) 25 mg capsule Take 25 mg by mouth two times a day. 02/29/2024 Yes tamsulosin (FLOMAX) 0.4 mg Take 1 capsule by mouth daily at bedtime. 02/29/2024 Yes clopidogrel (PLAVIX) 75 mg tablet Take 75 mg by mouth once daily. 02/22/2024 Yes metFORMIN (GLUCOPHAGE) 500 mg tablet Take 500 mg by mouth daily with breakfast. 02/29/2024 Yes gabapentin (NEURONTIN) 100 mg capsule Take 100 mg by mouth three times daily as needed. 02/29/2024 at 1030 Yes IPRATROPIUM BROMIDE 18 MCG/ACTUATION AEROSOL INHALER 02/29/2024 Yes cholecalciferol, Vitamin D3, (VITAMIN D3) 50,000 unit cap capsule once each week. 02/22/2024 Yes atorvastatin (LIPITOR) 20 mg tablet Take 20 mg by mouth once daily. 02/29/2024 Yes Oakwood-3 Fatty Acids 500 mg cap Take 500 mg by mouth once daily. 02/22/2024 Yes iv contrast (will be provided with radiology test) MRI Prostate Inject, intravenously, once for 1 dose. No IV access, insert saline lock prior to the beginning of sedation, infusion, injection of imaging exam. Discontinue saline lock post exam. If Pt. has a central line or IVAD, may access for administration according to line specific nursing protocol. Once exam is complete flush line and de-access according to line specific nursing protocol in the MR contrast administration guidelines link. lisinopril (ZESTRIL, PRINIVIL) 5 mg tablet Take 5 mg by mouth once daily. famotidine (PEPCID) 20 mg tablet Take 20 mg by mouth twice daily. Patient not taking: Reported on 02/14/2024 iv contrast (will be provided with radiology test) MRI Prostate Inject, intravenously, once for 1 dose. No IV access, insert saline lock prior to the beginning of sedation, infusion, injection of imaging exam. Discontinue saline lock post exam. If Pt. has a central line or IVAD, may access for administration according to line specific nursing protocol. Once exam is complete flush line and de-access according to line specific nursing protocol in the MR contrast administration guidelines link. Patient not taking: Reported on 04/13/2022 iv contrast (will be provided with radiology test) MRI Prostate Inject, intravenously, once for 1 dose. No IV access, insert saline lock prior to the beginning of sedation, infusion, injection of imaging exam. Discontinue saline lock post exam. If Pt. has a central line or IVAD, may access for administration according to line specific nursing protocol. Once exam is complete flush line and de-access according to line specific nursing protocol in the MR contrast administration guidelines link. Patient not taking: No sig reported rosuvastatin (CRESTOR) 10 mg tablet Take 10 mg by mouth once daily. Patient not taking: Reported on 04/13/2022 hydrocortisone (ANUSOL-HC) 2.5 % rectal cream 1 application by RECTAL route twice daily. Patient not taking: No sig reported aspirin, enteric coated (ASPIRIN, ENTERIC COATED) 81 mg EC tablet Take 81 mg by mouth once daily. Patient not taking: Reported on 02/14/2024 ALLERGIES No Known Allergies COMPLETE REVIEW OF SYSTEMS: GENERAL: No weight loss, malaise or fevers RESPIRATORY: Negative for cough, hemoptysis, wheezing, COPD, dyspnea or shortness of breath Cardiac: Negative for chest pain, leg swelling, CHF or palpitations, +HTN, +HLD GI: No nausea, vomiting, or diarrhea : See HPI MUSCULOSKELETAL: Negative for joint pain or swelling, back pain or muscle pain PSYCH: Negative for sleep disturbance, mood disorder and recent psychosocial stressors ENDOCRINE:DM type II, denies thyroid problems NEURO: No Hx seizures, tremors, hx of 07/2019 CVA no residual Heme/Onc: No hx blood clots, clotting disorders, hx prostate cancer Objective PHYSICAL EXAM: 02/29/24 1216 BP: 127/83 Pulse: 85 Resp: 16 Temp: 36 C (96.8 F) TempSrc: Temporal Artery SpO2: 98% Weight: 73.5 kg (162 lb) Height: 165.1 cm (5' 5 ) Body mass index is 26.96 kg/m . MENTAL STATUS: alert, oriented to person, place and time HEENT: Normocephalic/atraumatic, pharynx clear LUNGS: Lungs clear to auscultation, Good diaphragmatic excursion CARDIAC: Normal S1 and S2; no rubs, murmurs, or gallops ABDOMEN: Soft, nontender EXTREMITIES: Extremities normal, no deformities, edema, clubbing or skin discoloration. Good capillary refill. Diagnostic tests reviewed for today's visit: Lab Value Units Date High Low HB No results within date range. HCT No results within date range. WBC No results within date range. PLT No results within date range. NA No results within date range. K No results within date range. GLUC No results within date range. BUN No results within date range. CREAT No results within date range. PTSEC No results within date range. INR No results within date range. APTT No results within date range. ALT No results within date range. AST No results within date range. TBILI No results within date range. TSH No results within date range. Lab Value Units Date High Low HCGQT No results within date range. UHCG No results within date range. HCG, BODY* No results within date range. Lab Value Units Date High Low ABORHD No results within date range. ABSCREEN No results within date range. Hemoglobin A1C (%) Date Value 01/27/2022 6.3 Assessment/Plan ANESTHESIA FINDINGS: Intubation History: No history of difficult intubation Significant Anesthesia Considerations: None FAMILY PROBLEMS WITH ANESTHESIA: no history of adverse anesthetic event Pre-op testing: Medical conditions which may affect the alondra-operative course were addressed in the visit today. PLAN Procedure Diagnosis: Elevated prostate specific antigen (PSA) [R97.20] Malignant neoplasm of prostate (HCC) [C61] Planned Procedure: Procedure(s) with comments: BIOPSY PROSTATE, TRANSRECTAL (N/A) - LOCAL MRI FUSION PROSTATE BIOPSY (N/A) Planned Anesthetic: local I spent a total of 20 minutes on the date of the service which included preparing to see the patient, [id number] patient care, completing clinical documentation, obtaining and/or reviewing separately obtained history, and performing a medically appropriate examination. SIGNATURE: Raegan Chaparro APRN.CNP PATIENT NAME: Eric Phillipsbereket DATE: February 29, 2024 TIME: 12:22 PM PAGER/CONTACT #: documented in this encounter [facility] 02-29-2024 History and physical note HISTORY AND PHYSICAL EXAMINATION Eric Rene Rogelio 1950 SERVICE DATE: 02/29/2024 SERVICE TIME: 12:22 PM PRIMARY CARE PHYSICIAN: Sabine Romero MD SURGEON: Surgeon(s) and Role: * Christina Howard MD - Primary ANESTHESIA: Local DIAGNOSIS: Elevated prostate specific antigen (PSA) [R97.20] Malignant neoplasm of prostate (HCC) [C61] PROCEDURE: Procedure(s) with comments: BIOPSY PROSTATE, TRANSRECTAL (N/A) - LOCAL MRI FUSION PROSTATE BIOPSY (N/A) Subjective CHIEF COMPLAINT: elevated PSA, malignant neoplasm of prostate The reason for this visit is to perform a comprehensive review of the patient's past medical history, assess their current health status and obtain any additional testing required based on anesthesia guidelines. We will also identify any potential anesthesia problems or contraindications to the planned procedure. HPI: This is a 73 year old male who presents with elevated PSA, malignant neoplasm of prostate. Hx prostate cancer, active surveillance. Biopsy 2 years ago per pt. Denies gross hematuria. No family hx prostate cancer METS: Climb a flight of stairs or walk up a hill (5.50 METs) FUNCTIONAL STATUS: Independent PAST MEDICAL HISTORY No date: Diabetes mellitus (HCC) No date: Essential hypertension No date: Hyperlipidemia No date: Kidney stone No date: Prostate cancer (HCC) 11/2020: Shingles 07/2019: Stroke (HCC) Comment: no residual PAST SURGICAL HISTORY No date: CHOLECYSTECTOMY No date: COLONOSCOPY No date: PAST SURGICAL HISTORY OF; Right Comment: retinal detachment FAMILY HISTORY Problem Relation Age of Onset other (heart disease) Mother Stroke Brother Social History Tobacco Use Smoking status: Never Smokeless tobacco: Never Substance Use Topics Alcohol use: Yes Comment: social - weekends Drug use: No Prior to Admission medications as of 02/29/24 1234 Medication Sig Last Dose Taking pregabalin (LYRICA) 25 mg capsule Take 25 mg by mouth two times a day. 02/29/2024 Yes tamsulosin (FLOMAX) 0.4 mg Take 1 capsule by mouth daily at bedtime. 02/29/2024 Yes clopidogrel (PLAVIX) 75 mg tablet Take 75 mg by mouth once daily. 02/22/2024 Yes metFORMIN (GLUCOPHAGE) 500 mg tablet Take 500 mg by mouth daily with breakfast. 02/29/2024 Yes gabapentin (NEURONTIN) 100 mg capsule Take 100 mg by mouth three times daily as needed. 02/29/2024 at 1030 Yes IPRATROPIUM BROMIDE 18 MCG/ACTUATION AEROSOL INHALER 02/29/2024 Yes cholecalciferol, Vitamin D3, (VITAMIN D3) 50,000 unit cap capsule once each week. 02/22/2024 Yes atorvastatin (LIPITOR) 20 mg tablet Take 20 mg by mouth once daily. 02/29/2024 Yes Oakwood-3 Fatty Acids 500 mg cap Take 500 mg by mouth once daily. 02/22/2024 Yes iv contrast (will be provided with radiology test) MRI Prostate Inject, intravenously, once for 1 dose. No IV access, insert saline lock prior to the beginning of sedation, infusion, injection of imaging exam. Discontinue saline lock post exam. If Pt. has a central line or IVAD, may access for administration according to line specific nursing protocol. Once exam is complete flush line and de-access according to line specific nursing protocol in the MR contrast administration guidelines link. lisinopril (ZESTRIL, PRINIVIL) 5 mg tablet Take 5 mg by mouth once daily. famotidine (PEPCID) 20 mg tablet Take 20 mg by mouth twice daily. Patient not taking: Reported on 02/14/2024 iv contrast (will be provided with radiology test) MRI Prostate Inject, intravenously, once for 1 dose. No IV access, insert saline lock prior to the beginning of sedation, infusion, injection of imaging exam. Discontinue saline lock post exam. If Pt. has a central line or IVAD, may access for administration according to line specific nursing protocol. Once exam is complete flush line and de-access according to line specific nursing protocol in the MR contrast administration guidelines link. Patient not taking: Reported on 04/13/2022 iv contrast (will be provided with radiology test) MRI Prostate Inject, intravenously, once for 1 dose. No IV access, insert saline lock prior to the beginning of sedation, infusion, injection of imaging exam. Discontinue saline lock post exam. If Pt. has a central line or IVAD, may access for administration according to line specific nursing protocol. Once exam is complete flush line and de-access according to line specific nursing protocol in the MR contrast administration guidelines link. Patient not taking: No sig reported rosuvastatin (CRESTOR) 10 mg tablet Take 10 mg by mouth once daily. Patient not taking: Reported on 04/13/2022 hydrocortisone (ANUSOL-HC) 2.5 % rectal cream 1 application by RECTAL route twice daily. Patient not taking: No sig reported aspirin, enteric coated (ASPIRIN, ENTERIC COATED) 81 mg EC tablet Take 81 mg by mouth once daily. Patient not taking: Reported on 02/14/2024 ALLERGIES No Known Allergies COMPLETE REVIEW OF SYSTEMS: GENERAL: No weight loss, malaise or fevers RESPIRATORY: Negative for cough, hemoptysis, wheezing, COPD, dyspnea or shortness of breath Cardiac: Negative for chest pain, leg swelling, CHF or palpitations, +HTN, +HLD GI: No nausea, vomiting, or diarrhea : See HPI MUSCULOSKELETAL: Negative for joint pain or swelling, back pain or muscle pain PSYCH: Negative for sleep disturbance, mood disorder and recent psychosocial stressors ENDOCRINE:DM type II, denies thyroid problems NEURO: No Hx seizures, tremors, hx of 07/2019 CVA no residual Heme/Onc: No hx blood clots, clotting disorders, hx prostate cancer Objective PHYSICAL EXAM: 02/29/24 1216 BP: 127/83 Pulse: 85 Resp: 16 Temp: 36 C (96.8 F) TempSrc: Temporal Artery SpO2: 98% Weight: 73.5 kg (162 lb) Height: 165.1 cm (5' 5 ) Body mass index is 26.96 kg/m . MENTAL STATUS: alert, oriented to person, place and time HEENT: Normocephalic/atraumatic, pharynx clear LUNGS: Lungs clear to auscultation, Good diaphragmatic excursion CARDIAC: Normal S1 and S2; no rubs, murmurs, or gallops ABDOMEN: Soft, nontender EXTREMITIES: Extremities normal, no deformities, edema, clubbing or skin discoloration. Good capillary refill. Diagnostic tests reviewed for today's visit: Lab Value Units Date High Low HB No results within date range. HCT No results within date range. WBC No results within date range. PLT No results within date range. NA No results within date range. K No results within date range. GLUC No results within date range. BUN No results within date range. CREAT No results within date range. PTSEC No results within date range. INR No results within date range. APTT No results within date range. ALT No results within date range. AST No results within date range. TBILI No results within date range. TSH No results within date range. Lab Value Units Date High Low HCGQT No results within date range. UHCG No results within date range. HCG, BODY* No results within date range. Lab Value Units Date High Low ABORHD No results within date range. ABSCREEN No results within date range. Hemoglobin A1C (%) Date Value 01/27/2022 6.3 Assessment/Plan ANESTHESIA FINDINGS: Intubation History: No history of difficult intubation Significant Anesthesia Considerations: None FAMILY PROBLEMS WITH ANESTHESIA: no history of adverse anesthetic event Pre-op testing: Medical conditions which may affect the alondra-operative course were addressed in the visit today. PLAN Procedure Diagnosis: Elevated prostate specific antigen (PSA) [R97.20] Malignant neoplasm of prostate (HCC) [C61] Planned Procedure: Procedure(s) with comments: BIOPSY PROSTATE, TRANSRECTAL (N/A) - LOCAL MRI FUSION PROSTATE BIOPSY (N/A) Planned Anesthetic: local I spent a total of 20 minutes on the date of the service which included preparing to see the patient, [id number] patient care, completing clinical documentation, obtaining and/or reviewing separately obtained history, and performing a medically appropriate examination. SIGNATURE: Raegan Chaparro APRN.CNP PATIENT NAME: Eric Reno DATE: February 29, 2024 TIME: 12:22 PM PAGER/CONTACT #: [facility] 02-23-2024 Telephone encounter Note Pt is scheduled for MRI Fusion Bx LOCAL with Dr Howard at [facility] on 02/29/24 @ 1:30 (12:00 arrival). Pt to stop Plavix 7 days prior and resume 2 days after. Follow up with Dr Love on 03/15/24. Pt and daughter Harvey given date, time, prep and arrival instructions in person on 02/14/24. Written info given also. Aimee Amaya [facility] 02-23-2024 Miscellaneous Notes Pt is scheduled for MRI Fusion Bx LOCAL with Dr Howard at [facility] on 02/29/24 @ 1:30 (12:00 arrival). Pt to stop Plavix 7 days prior and resume 2 days after. Follow up with Dr Love on 03/15/24. Pt and daughter Harvey given date, time, prep and arrival instructions in person on 02/14/24. Written info given also. Aimee Amaya documented in this encounter [facility] 02-15-2024 History of Presen t illness Narrative Radiology Service Progress Note PATIENT NAME: Eric Reno DATE OF SERVICE: February 15, 2024 TIME: 9:08 AM PATIENT IDENTITY VERIFICATION COMPLETED USING TWO (2) IDENTIFIERS: Name and Date of confirmed by patient verbally. FALL SCREENING: Has the patient had 2 falls in the last year or 1 fall with injury or currently using an Ambulatory Assistive Device (Walker, Cane, Wheelchair, Crutches, etc.)? No PATIENT GENDER DATA: Male PATIENT RELEVANT IMPLANT DATA REVIEWED: Not Applicable PATIENT PRESENTS WITH AN IMPLANTABLE OR ATTACHED CLOTH FINISHING RANGE TENDER: No RADIOLOGY DEPARTMENT: Ultrasound PERIPHERAL IV DATA: Not applicable SIGNED BY: Ibis Escalante RDMS February 15, 2024 9:08 AM documented in this encounter [facility] 02-15-2024 Note HNO ID: [id number] Author: IBIS ESCALANTE RDMS Service: ? Author Type: Windshield Wiper Repairer Type: Progress Notes Filed: 02/15/2024 09:08 Note Text: Radiology Service Progress Note PATIENT NAME: Eric Reno DATE OF SERVICE: February 15, 2024 TIME: 9:08 AM PATIENT IDENTITY VERIFICATION COMPLETED USING TWO (2) IDENTIFIERS: Name and Date of confirmed by patient verbally. FALL SCREENING: Has the patient had 2 falls in the last year or 1 fall with injury or currently using an Ambulatory Assistive Device (Walker, Cane, Wheelchair, Crutches, etc.)? No PATIENT GENDER DATA: Male PATIENT RELEVANT IMPLANT DATA REVIEWED: Not Applicable PATIENT PRESENTS WITH AN IMPLANTABLE OR ATTACHED CLOTH FINISHING RANGE TENDER: No RADIOLOGY DEPARTMENT: Ultrasound PERIPHERAL IV DATA: Not applicable SIGNED BY: Ibis Escalante RDMS February 15, 2024 9:08 AM [facility] 02-14-2024 Instructions Christina Howard MD - 02/14/2024 3:52 PM EDT INSTRUCTIONS FROM DR. HOWARD: PATIENT INFORMATION: For prostate biopsy You may take Baby aspirin if you are on it Do not take high dose aspirin ,ibuprofen or other blood thinner type products for 1 week prior to the biopsy: Blood thinners can include also Advil, Motrin, Naprosyn, naproxen, Aleve, Plavix, Coumadin, etc. MEDICATION INFORMATION ASPIRIN and ADVIL can make you more prone to bleeding after surgery. Please STOP taking these medications at least (7) days before surgery or procedure. Medications can be resumed (1) days after the Prostate Biopsy procedure. NOTE: Please obtain approval to stop any prescribed medication from the prescribing doctor. Some common medications that contain ASPIRIN or act like Aspirin are to be avoided are as follows: This is a list of the medications you should avoid: Advil Clinoril (Sulindac) Naprosyn (Naproxen) Aggrenox Ecotrin NSAID (Non-Steroidal Agrylin Excedrin Anti-Inflammatory Drugs) Aleve (Naproxen) Fish Oil Pepto-Bismol Josephine-Chariton Gingko [place] Persantine (Dipyridamole) Anacin Glucosamine Chondroitin Plavix (Clopidogrel) Ascriptin Green Tea Plaquenil (Hydroxychloroquine) Aspergum Heparin Pletal (Cilostazol) Aspirin Herbals Ticlid (Ticlopidine) Abbie Ibuprofen Trental (Pentoxyfylline) Bextra Indocin (Indomethacin) Vanquish Bufferin Midol Vitamin E (MVI) Coumadin (warfarin) Mobic/Meloxicam Multivitamin (MVI) MEDICATIONS you may SUBSTITUTE: Anacin 3 Plenadol Percocet* Datril Sine-Aide Excedrin PM Tylenol Fioricet* Tylenol with codeine* (*Denotes prescription needed to obtain these medications) documented in this encounter [facility] 02-14-2024 Nurse Note patient declined manager athletics Aida Roldan MA [facility] 02-14-2024 Note HNO ID: [id number] Author: CHRISTINA HOWARD MD Service: ? Author Type: Physician Type: Progress Notes Filed: 02/15/2024 09:25 Note Text: ESTABLISHED PATIENT OFFICE VISIT PATIENT INFO: Eric Reno 73 year old HPI 02/14/2024 CC: bx Patient had MRI done at [facility] and PI-RADS 5 lesion x 1 and 26 cc prostate patient with prostate cancer and seen by me in the past and did fine with fusion biopsy under local anesthetic Presents with his daughter who helps with some translation but he can give history himself also No longer on baby aspirin but remains on Plavix We will schedule fusion biopsy under local and he knows to be off Plavix 7 days prior and 2 days after the biopsy Past Urology Hx: February 02, 2024-seen by nurse practitioner- 73 year old male who presents today in f/u. Patient with a history of prostate cancer, BPH. Presents today with complaints of a kidney stone. Was seen in the emergency room at [facility] on 01/31/2024 with complaints of right flank pain. CT abdomen pelvis without IV contrast showed a 3 mm calculi in the right UVJ of the bladder. Patient feels that he may have passed the stone. He felt a pop while voiding in the middle of the night. He has intermittent mild right flank pain now. He denies any fever or chills. No nausea. Denies gross hematuria. No dysuria. He is taking tamsulosin 0.4 mg daily. ASSESSMENT/PLAN: 1. Urinary tract infection without hematuria, site unspecified - ICD9: 599.0, ICD10: N39.0 2. Kidney stone - ICD9: 592.0, ICD10: N20.0 -urine culture sent today. -Renal US scheduled. -Patient to report to the emergency room with any fever greater than 100.5 or uncontrolled pain. June 14, 2023-seen by Dr. Love- 72 year old male who presents with prostate cancer on . Hx as below w/ Dr. Perez. Minimal LUTs. Stream is good. No hesitancy. No hematuria. No UTIs. Erections not a priority. AUASS:09/22 Dr. Perez's summary: Initial visit: Patient has a history of carcinoma of the prostate. He has undergone 2 prostate biopsies, 1 that was repeated and prior to May 2016 came back showing Cottonwood 6 in 2 cores, 1 core positive 40%, 1 core positive 10% Cottonwood 6. This was repeated again with a 2nd biopsy which came back again showing the same Poonam 6 tumor. A genetic Oncotype test was accomplished with a very low GPS score (8), Two daughters are here with him providing history and placed the patient active surveillance. A PSA in April 2016 was 6.56, May of 2017 was 7.58, and now in November 2017 was 9.73. Plan 06/09/22: PSA stable MRI reviewed - one PIRADS 2 lesion (2018) No high grade lesions MRI 03/2022 - PIRADS 4 lesion - s/p MRI fusion biopsy - 05/28/2022 Stable Cottonwood 6 disease and one small focus of Cottonwood 7 Send decipher biopsy. Continue PSA surveillance. Path: 09/15/15 (Aron)Specimen originated from [facility] Specimen #: [id number] Submitting Physician: VICTOR M MEMBRENO M.D. FINAL DIAGNOSIS 1. Prostate, right base, lateral, needle biopsy (A) - Adenocarcinoma of the prostate, Cottonwood score 3+3=6 discontinuously involving 40% of one of one core and measuring 4 mm. 4. Prostate, right base medial, needle biopsy (D) - Adenocarcinoma of the prostate, Poonam score 3+3=6 involving 10% of one of one core and measuring 1 mm. Path 06/01/16 (Aron): FINAL DIAGNOSIS 1. Prostate, right base lateral, needle biopsy (A) - Adenocarcinoma of the prostate, Cottonwood score 3+3=6 (Grade Group 1), involving 40% of one of one core and measuring 6 mm. 4. Prostate, right base medial, needle biopsy (D) - Adenocarcinoma of the prostate, Cottonwood score 3+3=6 (Grade Group 1), involving 10% of one of one core and measuring 1.5 mm. Path 05/26/22 (Carlos): FINAL DIAGNOSIS A. Prostate, lesion #1, biopsy: - Prostatic adenocarcinoma Poonam score 3+3 = 6 (grade group 1) involving 6 of 6 cores (100%, 15%, 20%, 50%, 5%, and 80%) 23 mm total tumor length. E. Prostate, right lateral base, biopsy: - Prostatic adenocarcinoma Cottonwood score 3+4 = 7 (grade group 2) involving 80% of 1 core (5 mm tumor length). 5% pattern 4. F. Prostate, right lateral mid, biopsy: - Prostatic adenocarcinoma Cottonwood score 3+3 = 6 (grade group 1) involving 65% of 1 core (6 mm tumor length). G. Prostate, right lateral apex, biopsy: - Prostatic adenocarcinoma Cottonwood score 3+3 = 6 (grade group 1) involving 20% of 1 core (1 mm tumor length). I discussed with him and his daughter is his intermediate risk prostate cancer and active surveillance. His PSA is relatively high. He is content with his urinary symptoms though not completely emptying today. I want him to have a PSA now and every 6 months. Plan on MRI in September 2023 provided PSA is stable. Follow-up with me in a year. April 13, 2022-seen by me- CC: (more content not included)... [facility] 02-14-2024 History of Presen t illness Narrative ESTABLISHED PATIENT OFFICE VISIT PATIENT INFO: Eric Reno 73 year old HPI 02/14/2024 CC: bx Patient had MRI done at [facility] and PI-RADS 5 lesion x 1 and 26 cc prostate patient with prostate cancer and seen by me in the past and did fine with fusion biopsy under local anesthetic Presents with his daughter who helps with some translation but he can give history himself also No longer on baby aspirin but remains on Plavix We will schedule fusion biopsy under local and he knows to be off Plavix 7 days prior and 2 days after the biopsy Past Urology Hx: February 02, 2024-seen by nurse practitioner- 73 year old male who presents today in f/u. Patient with a history of prostate cancer, BPH. Presents today with complaints of a kidney stone. Was seen in the emergency room at [facility] on 01/31/2024 with complaints of right flank pain. CT abdomen pelvis without IV contrast showed a 3 mm calculi in the right UVJ of the bladder. Patient feels that he may have passed the stone. He felt a pop while voiding in the middle of the night. He has intermittent mild right flank pain now. He denies any fever or chills. No nausea. Denies gross hematuria. No dysuria. He is taking tamsulosin 0.4 mg daily. ASSESSMENT/PLAN: 1. Urinary tract infection without hematuria, site unspecified - ICD9: 599.0, ICD10: N39.0 2. Kidney stone - ICD9: 592.0, ICD10: N20.0 -urine culture sent today. -Renal US scheduled. -Patient to report to the emergency room with any fever greater than 100.5 or uncontrolled pain. June 14, 2023-seen by Dr. Love- 72 year old male who presents with prostate cancer on . Hx as below w/ Dr. Perez. Minimal LUTs. Stream is good. No hesitancy. No hematuria. No UTIs. Erections not a priority. AUASS:09/22 Dr. Perez's summary: Initial visit: Patient has a history of carcinoma of the prostate. He has undergone 2 prostate biopsies, 1 that was repeated and prior to May 2016 came back showing Cottonwood 6 in 2 cores, 1 core positive 40%, 1 core positive 10% Poonam 6. This was repeated again with a 2nd biopsy which came back again showing the same Poonam 6 tumor. A genetic Oncotype test was accomplished with a very low GPS score (8), Two daughters are here with him providing history and placed the patient active surveillance. A PSA in April 2016 was 6.56, May of 2017 was 7.58, and now in November 2017 was 9.73. Plan 06/09/22: PSA stable MRI reviewed - one PIRADS 2 lesion (2017) No high grade lesions MRI 03/2022 - PIRADS 4 lesion - s/p MRI fusion biopsy - 05/28/2022 Stable Cottonwood 6 disease and one small focus of Poonam 7 Send decipher biopsy. Continue PSA surveillance. Path: 09/15/15 (Aron)Specimen originated from [facility] Specimen #: [id number] Submitting Physician: VICTOR M MEMBRENO M.D. FINAL DIAGNOSIS 1. Prostate, right base, lateral, needle biopsy (A) - Adenocarcinoma of the prostate, Poonam score 3+3=6 discontinuously involving 40% of one of one core and measuring 4 mm. 4. Prostate, right base medial, needle biopsy (D) - Adenocarcinoma of the prostate, Cottonwood score 3+3=6 involving 10% of one of one core and measuring 1 mm. Path 06/01/16 (Aron): FINAL DIAGNOSIS 1. Prostate, right base lateral, needle biopsy (A) - Adenocarcinoma of the prostate, Cottonwood score 3+3=6 (Grade Group 1), involving 40% of one of one core and measuring 6 mm. 4. Prostate, right base medial, needle biopsy (D) - Adenocarcinoma of the prostate, Cottonwood score 3+3=6 (Grade Group 1), involving 10% of one of one core and measuring 1.5 mm. Path 05/26/22 (Colby/Chris): FINAL DIAGNOSIS A. Prostate, lesion #1, biopsy: - Prostatic adenocarcinoma Cottonwood score 3+3 = 6 (grade group 1) involving 6 of 6 cores (100%, 15%, 20%, 50%, 5%, and 80%) 23 mm total tumor length. E. Prostate, right lateral base, biopsy: - Prostatic adenocarcinoma Cottonwood score 3+4 = 7 (grade group 2) involving 80% of 1 core (5 mm tumor length). 5% pattern 4. F. Prostate, right lateral mid, biopsy: - Prostatic adenocarcinoma Cottonwood score 3+3 = 6 (grade group 1) involving 65% of 1 core (6 mm tumor length). G. Prostate, right lateral apex, biopsy: - Prostatic adenocarcinoma Poonam score 3+3 = 6 (grade group 1) involving 20% of 1 core (1 mm tumor length). I discussed with him and his daughter is his intermediate risk prostate cancer and active surveillance. His PSA is relatively high. He is content with his urinary symptoms though not completely emptying today. I want him to have a PSA now and every 6 months. Plan on MRI in September 2023 provided PSA is stable. Follow-up with me in a year. 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 Perez as noted below and has PI-RADS 4 lesion with 26 cc prostate on MRI that was done through [facility] system Had an MRI in 2018 that just shows PI-RADS 2 area Patient understands but presents with daughter who helps with communication and they say they help him with all his medical issues and information He is on Plavix and they understand setting up MRI fusion biopsy and will need to be off Plavix week prior and can resume 48 hours after and get medical clearance without Not a great historian so hard to know exactly how he did with his previous biopsies so we will plan on twilight anesthetic which he thinks he wants anyway On the Plavix because of history of stroke RADS: Creatinine Date Value Ref Range Status 01/27/2022 0.93 0.73 - 1.22 mg/dL Final PSA (ng/mL) Date Value 12/08/2023 12.42 06/21/2023 11.24 11/23/2022 12.20 01/27/2022 12.08 01/27/2022 12.33 07/07/2021 9.21 11/24/2020 10.51 2019 9.09 05/25/2019 10.64 11/20/2018 11.03 02/22/2018 8.40 06/02/2017 7.58 05/04/2016 6.56 No results found for: COLOR , CLARITY , UGLUC , UBILI , UKET , SPGR , UHB , UPH , UPROT , UROBILINOGEN , NITRITES , LEUKEST Review of Systems Constitutional: Negative. HENT: Negative. Eyes: Negative. Respiratory: Negative. Cardiovascular: Negative. Gastrointestinal: Negative. Endocrine: Negative. Genitourinary: See HPI Musculoskeletal: Negative. Skin: Negative. Allergic/Immunologic: Negative. Neurological: Negative. Hematological: Negative. Psychiatric/Behavioral: Negative. I reviewed and confirmed ROS obtained by MA HISTORIES PAST MEDICAL HISTORY Diagnosis Date Diabetes mellitus (HCC) Essential hypertension Hyperlipidemia Kidney stone Prostate cancer (HCC) Shingles 11/2020 Stroke (HCC) 07/2019 no residual FAMILY HISTORY Problem Relation Age of Onset other (heart disease) Mother Stroke Brother SOCIAL HISTORY Social History Tobacco Use Smoking status: Never Smokeless tobacco: Never Substance Use Topics Alcohol use: Yes Comment: social - weekends Drug use: No MEDICATIONS: pregabalin (LYRICA) 25 mg capsule Take 25 mg by mouth two times a day. tamsulosin (FLOMAX) 0.4 mg Take 1 capsule by mouth daily at bedtime. clopidogrel (PLAVIX) 75 mg tablet Take 75 mg by mouth once daily. lisinopril (ZESTRIL, PRINIVIL) 5 mg tablet Take 5 mg by mouth once daily. metFORMIN (GLUCOPHAGE) 500 mg tablet Take 500 mg by mouth daily with breakfast. gabapentin (NEURONTIN) 100 mg capsule Take 100 mg by mouth three times daily as needed. cholecalciferol, Vitamin D3, (VITAMIN D3) 50,000 unit cap capsule once each week. atorvastatin (LIPITOR) 20 mg tablet Take 20 mg by mouth once daily. Oakwood-3 Fatty Acids 500 mg cap Take 500 mg by mouth once daily. iv contrast (will be provided with radiology test) MRI Prostate Inject, intravenously, once for 1 dose. No IV access, insert saline lock prior to the beginning of sedation, infusion, injection of imaging exam. Discontinue saline lock post exam. If Pt. has a central line or IVAD, may access for administration according to line specific nursing protocol. Once exam is complete flush line and de-access according to line specific nursing protocol in the MR contrast administration guidelines link. famotidine (PEPCID) 20 mg tablet Take 20 mg by mouth twice daily. (Patient not taking: Reported on 02/14/2024) IPRATROPIUM BROMIDE 18 MCG/ACTUATION AEROSOL INHALER iv contrast (will be provided with radiology test) MRI Prostate Inject, intravenously, once for 1 dose. No IV access, insert saline lock prior to the beginning of sedation, infusion, injection of imaging exam. Discontinue saline lock post exam. If Pt. has a central line or IVAD, may access for administration according to line specific nursing protocol. Once exam is complete flush line and de-access according to line specific nursing protocol in the MR contrast administration guidelines link. (Patient not taking: Reported on 04/13/2022) iv contrast (will be provided with radiology test) MRI Prostate Inject, intravenously, once for 1 dose. No IV access, insert saline lock prior to the beginning of sedation, infusion, injection of imaging exam. Discontinue saline lock post exam. If Pt. has a central line or IVAD, may access for administration according to line specific nursing protocol. Once exam is complete flush line and de-access according to line specific nursing protocol in the MR contrast administration guidelines link. (Patient not taking: No sig reported) rosuvastatin (CRESTOR) 10 mg tablet Take 10 mg by mouth once daily. (Patient not taking: Reported on 04/13/2022) hydrocortisone (ANUSOL-HC) 2.5 % rectal cream 1 application by RECTAL route twice daily. (Patient not taking: No sig reported) aspirin, enteric coated (ASPIRIN, ENTERIC COATED) 81 mg EC tablet Take 81 mg by mouth once daily. (Patient not taking: Reported on 02/14/2024) Physical Exam HENT: Head: Normocephalic and atraumatic. Nose: Nose normal. Neck: Trachea: No tracheal deviation. Pulmonary: Effort: Pulmonary effort is normal. No respiratory distress. Musculoskeletal: General: No deformity. Normal range of motion. Cervical back: Normal range of motion. Skin: General: Skin is warm. Neurological: Mental Status: He is alert and oriented to person, place, and time. Gait: Gait is intact. Psychiatric: Mood and Affect: Mood and affect normal. Cognition and Memory: Memory normal. Risk/Benefit Discussion: Prostate Ultrasound With Needle Biopsy Prostate Patient was instructed to stop all aspirin type products 7 days prior to the procedure. I specifically explained the possible complications, and the fact that a negative prostate biopsy does not definitely indicate that there is no prostate cancer present, but only that there was no malignancy found in the biopsy specimens. I explained the possibility of impotency and some incontinence, blood in the urine, stool/possible severe and admition to hospital , and/or semen. Risk retention urine. He may also experience frequency, urgency, and dysuria after the procedure. I explained the remote possibility of blood loss and the possibility of infection of the prostate and rectum post operatively/sepsis risk. The patient expressed an understanding with regard to possible benefits, risks, complications and outcome. FOLLOW UP (1s&1w; 3s): Return if symptoms worsen or fail to improve. ASSESSMENT/PLAN: 1. Prostate cancer (HCC) - ICD9: 185, ICD10: C61 (primary diagnosis) [facility]-MRI fusion biopsy of prostate/local 2. BPH with obstruction/lower urinary tract symptoms - ICD9: 600.01, 599.69, ICD10: N40.1, N13.8 Christina Howard Please note: This note has been produced using speech recognition software and may contain errors related to that system including grammar, punctuation, spelling, gender and words and phrases that may be inappropriate. 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 Author Type: Nurse Practitioner Type: Progress Notes Filed: 02/02/2024 16:02 Note Text: ESTABLISHED PATIENT OFFICE VISIT HISTORY OF PRESENT ILLNESS Eric Reno is a 73 year old male who presents today in f/u. Patient with a history of prostate cancer, BPH. Presents today with complaints of a kidney stone. Was seen in the emergency room at [facility] on 01/31/2024 with complaints of right flank pain. CT abdomen pelvis without IV contrast showed a 3 mm calculi in the right UVJ of the bladder. Patient feels that he may have passed the stone. He felt a pop while voiding in the middle of the night. He has intermittent mild right flank pain now. He denies any fever or chills. No nausea. Denies gross hematuria. No dysuria. He is taking tamsulosin 0.4 mg daily. LAB RESULTS Creatinine Date Value Ref Range Status 01/27/2022 0.93 0.73 - 1.22 mg/dL Final PSA (ng/mL) Date Value 12/08/2023 12.42 06/21/2023 11.24 11/23/2022 12.20 01/27/2022 12.08 01/27/2022 12.33 07/07/2021 9.21 11/24/2020 10.51 2019 9.09 05/25/2019 10.64 11/20/2018 11.03 02/22/2018 8.40 06/02/2017 7.58 05/04/2016 6.56 No results found for: COLOR , CLARITY , UGLUC , UBILI , UKET , SPGR , UHB , UPH , UPROT , UROBILINOGEN , NITRITES , LEUKEST MEDICATIONS: tamsulosin (FLOMAX) 0.4 mg Take 1 capsule by mouth daily at bedtime. clopidogrel (PLAVIX) 75 mg tablet Take 75 mg by mouth once daily. lisinopril (ZESTRIL, PRINIVIL) 5 mg tablet Take 5 mg by mouth once daily. metFORMIN (GLUCOPHAGE) 500 mg tablet Take 500 mg by mouth daily with breakfast. gabapentin (NEURONTIN) 100 mg capsule Take 100 mg by mouth three times daily as needed. famotidine (PEPCID) 20 mg tablet Take 20 mg by mouth twice daily. IPRATROPIUM BROMIDE 18 MCG/ACTUATION AEROSOL INHALER cholecalciferol, Vitamin D3, (VITAMIN D3) 50,000 unit cap capsule once each week. atorvastatin (LIPITOR) 20 mg tablet Take 20 mg by mouth once daily. Oakwood-3 Fatty Acids 500 mg cap Take 500 mg by mouth once daily. aspirin, enteric coated (ASPIRIN, ENTERIC COATED) 81 mg EC tablet Take 81 mg by mouth once daily. iv contrast (will be provided with radiology test) MRI Prostate Inject, intravenously, once for 1 dose. No IV access, insert saline lock prior to the beginning of sedation, infusion, injection of imaging exam. Discontinue saline lock post exam. If Pt. has a central line or IVAD, may access for administration according to line specific nursing protocol. Once exam is complete flush line and de-access according to line specific nursing protocol in the MR contrast administration guidelines link. iv contrast (will be provided with radiology test) MRI Prostate Inject, intravenously, once for 1 dose. No IV access, insert saline lock prior to the beginning of sedation, infusion, injection of imaging exam. Discontinue saline lock post exam. If Pt. has a central line or IVAD, may access for administration according to line specific nursing protocol. Once exam is complete flush line and de-access according to line specific nursing protocol in the MR contrast administration guidelines link. (Patient not taking: Reported on 04/13/2022) iv contrast (will be provided with radiology test) MRI Prostate Inject, intravenously, once for 1 dose. No IV access, insert saline lock prior to the beginning of sedation, infusion, injection of imaging exam. Discontinue saline lock post exam. If Pt. has a central line or IVAD, may access for administration according to line specific nursing protocol. Once exam is complete flush line and de-access according to line specific nursing protocol in the MR contrast administration guidelines link. (Patient not taking: No sig reported) rosuvastatin (CRESTOR) 10 mg tablet Take 10 mg by mouth once daily. (Patient not taking: Reported on 04/13/2022) hydrocortisone (ANUSOL-HC) 2.5 % rectal cream 1 application by RECTAL route twice daily. (Patient not taking: No sig reported) REVIEW OF SYSTEMS CONSTITUTIONAL: Patient reports no recent fever or weight loss CARDIOVASCULAR: No chest pain, palpitations or ankle edema. RESPIRATORY: No wheezing, frequent cough or shortness of breath GENITOURINARY: See HPI HISTORIES PAST MEDICAL HISTORY Diagnosis Date Diabetes mellitus (HCC) Essential hypertension Hyperlipidemia Kidney stone Prostate cancer (HCC) Shingles 11/2020 Stroke (HCC) 07/2019 no residual FAMILY HISTORY Problem Relation Age of Onset other (heart disease) Mother Stroke Brother PAST SURGICAL HISTORY Procedure Laterality Date CHOLECYSTECTOMY COLONOSCOPY PAST SURGICAL HISTORY OF Right retinal detachment SOCIAL HISTORY Social History Tobacco Use Smoking status: Never Smokeless tobacco: Never Substance Use Topics Alcohol use: Yes Comment: social - weekends Drug use: No PHYSICAL EXAMINATION (more content not included)... [facility] 02-02-2024 History of Presen t illness Narrative ESTABLISHED PATIENT OFFICE VISIT HISTORY OF PRESENT ILLNESS Eric Reno is a 73 year old male who presents today in f/u. Patient with a history of prostate cancer, BPH. Presents today with complaints of a kidney stone. Was seen in the emergency room at [facility] on 01/31/2024 with complaints of right flank pain. CT abdomen pelvis without IV contrast showed a 3 mm calculi in the right UVJ of the bladder. Patient feels that he may have passed the stone. He felt a pop while voiding in the middle of the night. He has intermittent mild right flank pain now. He denies any fever or chills. No nausea. Denies gross hematuria. No dysuria. He is taking tamsulosin 0.4 mg daily. LAB RESULTS Creatinine Date Value Ref Range Status 01/27/2022 0.93 0.73 - 1.22 mg/dL Final PSA (ng/mL) Date Value 12/08/2023 12.42 06/21/2023 11.24 11/23/2022 12.20 01/27/2022 12.08 01/27/2022 12.33 07/07/2021 9.21 11/24/2020 10.51 2019 9.09 05/25/2019 10.64 11/20/2018 11.03 02/22/2018 8.40 06/02/2017 7.58 05/04/2016 6.56 No results found for: COLOR , CLARITY , UGLUC , UBILI , UKET , SPGR , UHB , UPH , UPROT , UROBILINOGEN , NITRITES , LEUKEST MEDICATIONS: tamsulosin (FLOMAX) 0.4 mg Take 1 capsule by mouth daily at bedtime. clopidogrel (PLAVIX) 75 mg tablet Take 75 mg by mouth once daily. lisinopril (ZESTRIL, PRINIVIL) 5 mg tablet Take 5 mg by mouth once daily. metFORMIN (GLUCOPHAGE) 500 mg tablet Take 500 mg by mouth daily with breakfast. gabapentin (NEURONTIN) 100 mg capsule Take 100 mg by mouth three times daily as needed. famotidine (PEPCID) 20 mg tablet Take 20 mg by mouth twice daily. IPRATROPIUM BROMIDE 18 MCG/ACTUATION AEROSOL INHALER cholecalciferol, Vitamin D3, (VITAMIN D3) 50,000 unit cap capsule once each week. atorvastatin (LIPITOR) 20 mg tablet Take 20 mg by mouth once daily. Oakwood-3 Fatty Acids 500 mg cap Take 500 mg by mouth once daily. aspirin, enteric coated (ASPIRIN, ENTERIC COATED) 81 mg EC tablet Take 81 mg by mouth once daily. iv contrast (will be provided with radiology test) MRI Prostate Inject, intravenously, once for 1 dose. No IV access, insert saline lock prior to the beginning of sedation, infusion, injection of imaging exam. Discontinue saline lock post exam. If Pt. has a central line or IVAD, may access for administration according to line specific nursing protocol. Once exam is complete flush line and de-access according to line specific nursing protocol in the MR contrast administration guidelines link. iv contrast (will be provided with radiology test) MRI Prostate Inject, intravenously, once for 1 dose. No IV access, insert saline lock prior to the beginning of sedation, infusion, injection of imaging exam. Discontinue saline lock post exam. If Pt. has a central line or IVAD, may access for administration according to line specific nursing protocol. Once exam is complete flush line and de-access according to line specific nursing protocol in the MR contrast administration guidelines link. (Patient not taking: Reported on 04/13/2022) iv contrast (will be provided with radiology test) MRI Prostate Inject, intravenously, once for 1 dose. No IV access, insert saline lock prior to the beginning of sedation, infusion, injection of imaging exam. Discontinue saline lock post exam. If Pt. has a central line or IVAD, may access for administration according to line specific nursing protocol. Once exam is complete flush line and de-access according to line specific nursing protocol in the MR contrast administration guidelines link. (Patient not taking: No sig reported) rosuvastatin (CRESTOR) 10 mg tablet Take 10 mg by mouth once daily. (Patient not taking: Reported on 04/13/2022) hydrocortisone (ANUSOL-HC) 2.5 % rectal cream 1 application by RECTAL route twice daily. (Patient not taking: No sig reported) REVIEW OF SYSTEMS CONSTITUTIONAL: Patient reports no recent fever or weight loss CARDIOVASCULAR: No chest pain, palpitations or ankle edema. RESPIRATORY: No wheezing, frequent cough or shortness of breath GENITOURINARY: See HPI HISTORIES PAST MEDICAL HISTORY Diagnosis Date Diabetes mellitus (HCC) Essential hypertension Hyperlipidemia Kidney stone Prostate cancer (HCC) Shingles 11/2020 Stroke (HCC) 07/2019 no residual FAMILY HISTORY Problem Relation Age of Onset other (heart disease) Mother Stroke Brother PAST SURGICAL HISTORY Procedure Laterality Date CHOLECYSTECTOMY COLONOSCOPY PAST SURGICAL HISTORY OF Right retinal detachment SOCIAL HISTORY Social History Tobacco Use Smoking status: Never Smokeless tobacco: Never Substance Use Topics Alcohol use: Yes Comment: social - weekends Drug use: No PHYSICAL EXAMINATION General appearance: Well appearing, alert, in no acute distress, well-hydrated, well nourished.. BACK: not examined. MUSCULOSKELETAL: Negative for joint pain or swelling. RESPIRATORY: Normal respiratory effort. SKIN: Normal color, no rash, no lesions.. ASSESSMENT/PLAN: 1. Urinary tract infection without hematuria, site unspecified - ICD9: 599.0, ICD10: N39.0 2. Kidney stone - ICD9: 592.0, ICD10: N20.0 -urine culture sent today. -Renal US scheduled. -Patient to report to the emergency room with any fever greater than 100.5 or uncontrolled pain. Regla Quinn APRN.PAIGE documented in this encounter [facility] 01-12-2024 Note HNO ID: [id number] Author: RAMESH LOVE MD Service: ? Author Type: Physician Type: Progress Notes Filed: 03/08/2024 15:11 Note Text: [facility] [place] ESTABLISHED PATIENT OFFICE VISIT HISTORY OF PRESENT ILLNESS Eric Reno is a 73 year old male who presents longstanding diagnosis of prostate cancer previous monitors by Dr. Perez.has been on active surveillance. Here today with his daughters, 1 from [place] and 1 from [place] to discuss MRI findings. MRI as below: MRI prostate October 25, 2023: Interval increase in size of right peripheral zone base to mid gland abnormality, now measuring 1.5 cm and compatible with a PI-RADS 5 lesion. The lesion is equivocal for exercise extension with broad capsule contact. Dimensions: 4.3 x 3.1 x 3.7 cm corresponding to a volume of approximately 26 cc. Cancer history: Dr. Perez's summary: Initial visit: Patient has a history of carcinoma of the prostate. He has undergone 2 prostate biopsies, 1 that was repeated and prior to May 2016 came back showing Cottonwood 6 in 2 cores, 1 core positive 40%, 1 core positive 10% Poonam 6. This was repeated again with a 2nd biopsy which came back again showing the same Poonam 6 tumor. A genetic Oncotype test was accomplished with a very low GPS score (8), Two daughters are here with him providing history and placed the patient active surveillance. A PSA in April 2016 was 6.56, May of 2017 was 7.58, and now in November 2017 was 9.73. Plan 06/09/22: PSA stable MRI reviewed - one PIRADS 2 lesion (2017) No high grade lesions MRI 03/2022 - PIRADS 4 lesion - s/p MRI fusion biopsy - 05/28/2022 Stable Poonam 6 disease and one small focus of Poonam 7 Send decipher biopsy. Continue PSA surveillance. Path: 09/15/15 (Aron) Specimen originated from [facility] Specimen #: [id number] Submitting Physician: VICTOR M MEMBRENO M.D. FINAL DIAGNOSIS 1. Prostate, right base, lateral, needle biopsy (A) - Adenocarcinoma of the prostate, Cottonwood score 3+3=6 discontinuously involving 40% of one of one core and measuring 4 mm. 2. Prostate, right mid lateral, needle biopsy (B) - Benign prostatic tissue. 3. Prostate, right apex lateral, needle biopsy (C) - Benign prostatic tissue with focal atrophy and chronic inflammation. 4. Prostate, right base medial, needle biopsy (D) - Adenocarcinoma of the prostate, Cottonwood score 3+3=6 involving 10% of one of one core and measuring 1 mm. 5. Prostate, right mid medial, needle biopsy (E) - Benign prostatic tissue. 6. Prostate, right apex medial, needle biopsy (F) - Benign prostatic tissue with focal atrophy. 7. Prostate, left base lateral, needle biopsy (G) - Benign prostatic tissue. 8. Prostate, left mid lateral, needle biopsy (H) - Benign prostatic tissue with focal chronic inflammation. 9. Prostate, left apex lateral, needle biopsy (I) - Benign prostatic tissue. 10. Prostate, left base medial, needle biopsy (J) - Benign prostatic tissue with focal acute inflammation. 11. Prostate, left mid medial, needle biopsy (K) - Benign prostatic tissue. 12. Prostate, left apex medial, needle biopsy (L) - Benign prostatic tissue. Path 05/26/22 (Colby/Chris): FINAL DIAGNOSIS A. Prostate, lesion #1, biopsy: - Prostatic adenocarcinoma Poonam score 3+3 = 6 (grade group 1) involving 6 of 6 cores (100%, 15%, 20%, 50%, 5%, and 80%) 23 mm total tumor length. B. Prostate, left lateral base, biopsy: - Benign prostatic tissue. C. Prostate, left lateral mid, biopsy: - Benign prostatic tissue. D. Prostate, left lateral apex, biopsy: - Benign prostatic tissue. E. Prostate, right lateral base, biopsy: - Prostatic adenocarcinoma Poonam score 3+4 = 7 (grade group 2) involving 80% of 1 core (5 mm tumor length). 5% pattern 4. F. Prostate, right lateral mid, biopsy: - Prostatic adenocarcinoma Poonam score 3+3 = 6 (grade group 1) involving 65% of 1 core (6 mm tumor length). G. Prostate, right lateral apex, biopsy: - Prostatic adenocarcinoma Poonam score 3+3 = 6 (grade group 1) involving 20% of 1 core (1 mm tumor length). Prostate Cancer Biopsy Summary Number of cores examined: 12 Number of cores positive: 9 Highest Grade Group: 2 Highest % of core involvement: 100 % Cribriform pattern 4: Absent Intraductal carcinoma: Absent Shift Nurse Manager tumor block to use for additional studies: E AUA 19/0 ISHAN 12 Review of Systems Constitutional: Negative. HENT: Negative. Eyes: Negative. Respiratory: Negative. Cardiovascular: Negative. Gastrointestinal: Negative. Genitourinary: Positive for difficulty urinating, frequency and urgency. Musculoskeletal: Negative. Skin: Negative. Allergic/Immunologic: Negative. Neurological: Negative. Hematological: Negative. Psychiatric/Behavioral: Negative. The remainder o (more content not included)... [facility] 01-12-2024 History of Presen t illness Narrative Images from the original note were not included. [facility] [place] ESTABLISHED PATIENT OFFICE VISIT HISTORY OF PRESENT ILLNESS Eric Reno is a 73 year old male who presents longstanding diagnosis of prostate cancer previous monitors by Dr. Perez.has been on active surveillance. Here today with his daughters, 1 from [place] and 1 from [place] to discuss MRI findings. MRI as below: MRI prostate October 25, 2023: Interval increase in size of right peripheral zone base to mid gland abnormality, now measuring 1.5 cm and compatible with a PI-RADS 5 lesion. The lesion is equivocal for exercise extension with broad capsule contact. Dimensions: 4.3 x 3.1 x 3.7 cm corresponding to a volume of approximately 26 cc. Cancer history: Dr. Perez's summary: Initial visit: Patient has a history of carcinoma of the prostate. He has undergone 2 prostate biopsies, 1 that was repeated and prior to May 2016 came back showing Cottonwood 6 in 2 cores, 1 core positive 40%, 1 core positive 10% Cottonwood 6. This was repeated again with a 2nd biopsy which came back again showing the same Cottonwood 6 tumor. A genetic Oncotype test was accomplished with a very low GPS score (8), Two daughters are here with him providing history and placed the patient active surveillance. A PSA in April 2016 was 6.56, May of 2017 was 7.58, and now in November 2017 was 9.73. Plan 06/09/22: PSA stable MRI reviewed - one PIRADS 2 lesion (2018) No high grade lesions MRI 03/2022 - PIRADS 4 lesion - s/p MRI fusion biopsy - 05/28/2022 Stable Cottonwood 6 disease and one small focus of Poonam 7 Send decipher biopsy. Continue PSA surveillance. Path: 09/15/15 (rAon) Specimen originated from [facility] Specimen #: [id number] Submitting Physician: VICTOR M MEMBRENO M.D. FINAL DIAGNOSIS 1. Prostate, right base, lateral, needle biopsy (A) - Adenocarcinoma of the prostate, Cottonwood score 3+3=6 discontinuously involving 40% of one of one core and measuring 4 mm. 2. Prostate, right mid lateral, needle biopsy (B) - Benign prostatic tissue. 3. Prostate, right apex lateral, needle biopsy (C) - Benign prostatic tissue with focal atrophy and chronic inflammation. 4. Prostate, right base medial, needle biopsy (D) - Adenocarcinoma of the prostate, Poonam score 3+3=6 involving 10% of one of one core and measuring 1 mm. 5. Prostate, right mid medial, needle biopsy (E) - Benign prostatic tissue. 6. Prostate, right apex medial, needle biopsy (F) - Benign prostatic tissue with focal atrophy. 7. Prostate, left base lateral, needle biopsy (G) - Benign prostatic tissue. 8. Prostate, left mid lateral, needle biopsy (H) - Benign prostatic tissue with focal chronic inflammation. 9. Prostate, left apex lateral, needle biopsy (I) - Benign prostatic tissue. 10. Prostate, left base medial, needle biopsy (J) - Benign prostatic tissue with focal acute inflammation. 11. Prostate, left mid medial, needle biopsy (K) - Benign prostatic tissue. 12. Prostate, left apex medial, needle biopsy (L) - Benign prostatic tissue. Path 05/26/22 (Colby/Chris): FINAL DIAGNOSIS A. Prostate, lesion #1, biopsy: - Prostatic adenocarcinoma Poonam score 3+3 = 6 (grade group 1) involving 6 of 6 cores (100%, 15%, 20%, 50%, 5%, and 80%) 23 mm total tumor length. B. Prostate, left lateral base, biopsy: - Benign prostatic tissue. C. Prostate, left lateral mid, biopsy: - Benign prostatic tissue. D. Prostate, left lateral apex, biopsy: - Benign prostatic tissue. E. Prostate, right lateral base, biopsy: - Prostatic adenocarcinoma Poonam score 3+4 = 7 (grade group 2) involving 80% of 1 core (5 mm tumor length). 5% pattern 4. F. Prostate, right lateral mid, biopsy: - Prostatic adenocarcinoma Cottonwood score 3+3 = 6 (grade group 1) involving 65% of 1 core (6 mm tumor length). G. Prostate, right lateral apex, biopsy: - Prostatic adenocarcinoma Cottonwood score 3+3 = 6 (grade group 1) involving 20% of 1 core (1 mm tumor length). Prostate Cancer Biopsy Summary Number of cores examined: 12 Number of cores positive: 9 Highest Grade Group: 2 Highest % of core involvement: 100 % Cribriform pattern 4: Absent Intraductal carcinoma: Absent Shift Nurse Manager tumor block to use for additional studies: Christine AUA 19/0 ISHAN 12 Review of Systems Constitutional: Negative. HENT: Negative. Eyes: Negative. Respiratory: Negative. Cardiovascular: Negative. Gastrointestinal: Negative. Genitourinary: Positive for difficulty urinating, frequency and urgency. Musculoskeletal: Negative. Skin: Negative. Allergic/Immunologic: Negative. Neurological: Negative. Hematological: Negative. Psychiatric/Behavioral: Negative. The remainder of the ROS was reviewed and is negative. LAB Creatinine Date Value Ref Range Status 01/27/2022 0.93 0.73 - 1.22 mg/dL Final PSA (ng/mL) Date Value 12/08/2023 12.42 06/21/2023 11.24 11/23/2022 12.20 01/27/2022 12.08 01/27/2022 12.33 07/07/2021 9.21 11/24/2020 10.51 2019 9.09 05/25/2019 10.64 11/20/2018 11.03 02/22/2018 8.40 06/02/2017 7.58 05/04/2016 6.56 GLUCOSE UA (POCT) 100 06/14/2023 BILIRUBIN UA (POCT) Negative 06/14/2023 KETONE UA (POCT) Negative 06/14/2023 SPECIFIC GRAVITY UA (POCT) <=1.005 06/14/2023 HEMOGLOBIN/BLOOD UA (POCT) Trace-intact 06/14/2023 PH UA (POCT) 6.0 06/14/2023 PROTEIN UA (POCT) Negative 06/14/2023 UROBILINOGEN UA (POCT) 0.2 06/14/2023 NITRITE UA (POCT) Negative 06/14/2023 LEUKOCYTES UA (POCT) Negative 06/14/2023 COLOR UA (POCT) Yellow 06/14/2023 CLARITY UA (POCT) Clear 06/14/2023 MEDICATIONS tamsulosin (FLOMAX) 0.4 mg Take 1 capsule by mouth daily at bedtime. iv contrast (will be provided with radiology test) MRI Prostate Inject, intravenously, once for 1 dose. No IV access, insert saline lock prior to the beginning of sedation, infusion, injection of imaging exam. Discontinue saline lock post exam. If Pt. has a central line or IVAD, may access for administration according to line specific nursing protocol. Once exam is complete flush line and de-access according to line specific nursing protocol in the MR contrast administration guidelines link. clopidogrel (PLAVIX) 75 mg tablet Take 75 mg by mouth once daily. lisinopril (ZESTRIL, PRINIVIL) 5 mg tablet Take 5 mg by mouth once daily. metFORMIN (GLUCOPHAGE) 500 mg tablet Take 500 mg by mouth daily with breakfast. gabapentin (NEURONTIN) 100 mg capsule Take 100 mg by mouth three times daily as needed. famotidine (PEPCID) 20 mg tablet Take 20 mg by mouth twice daily. IPRATROPIUM BROMIDE 18 MCG/ACTUATION AEROSOL INHALER iv contrast (will be provided with radiology test) MRI Prostate Inject, intravenously, once for 1 dose. No IV access, insert saline lock prior to the beginning of sedation, infusion, injection of imaging exam. Discontinue saline lock post exam. If Pt. has a central line or IVAD, may access for administration according to line specific nursing protocol. Once exam is complete flush line and de-access according to line specific nursing protocol in the MR contrast administration guidelines link. (Patient not taking: Reported on 04/13/2022) iv contrast (will be provided with radiology test) MRI Prostate Inject, intravenously, once for 1 dose. No IV access, insert saline lock prior to the beginning of sedation, infusion, injection of imaging exam. Discontinue saline lock post exam. If Pt. has a central line or IVAD, may access for administration according to line specific nursing protocol. Once exam is complete flush line and de-access according to line specific nursing protocol in the MR contrast administration guidelines link. (Patient not taking: No sig reported) rosuvastatin (CRESTOR) 10 mg tablet Take 10 mg by mouth once daily. (Patient not taking: Reported on 04/13/2022) cholecalciferol, Vitamin D3, (VITAMIN D3) 50,000 unit cap capsule once each week. hydrocortisone (ANUSOL-HC) 2.5 % rectal cream 1 application by RECTAL route twice daily. (Patient not taking: No sig reported) atorvastatin (LIPITOR) 20 mg tablet Take 20 mg by mouth once daily. Oakwood-3 Fatty Acids 500 mg cap Take 500 mg by mouth once daily. aspirin, enteric coated (ASPIRIN, ENTERIC COATED) 81 mg EC tablet Take 81 mg by mouth once daily. HISTORIES PAST MEDICAL HISTORY Diagnosis Date Diabetes mellitus (HCC) Essential hypertension Hyperlipidemia Kidney stone Prostate cancer (HCC) Shingles 11/2020 Stroke (HCC) 07/2019 no residual PAST SURGICAL HISTORY Procedure Laterality Date CHOLECYSTECTOMY COLONOSCOPY PAST SURGICAL HISTORY OF Right retinal detachment FAMILY HISTORY Problem Relation Age of Onset other (heart disease) Mother Stroke Brother SOCIAL HISTORY Social History Tobacco Use Smoking status: Never Smokeless tobacco: Never Substance Use Topics Alcohol use: Yes Comment: social - weekends Drug use: No BP 124/74 Pulse 74 SpO2 96% Physical Exam IMAGING ASSESSMENT/PLAN: 1. Prostate cancer (HCC) - ICD9: 185, ICD10: C61 (primary diagnosis) 2. BPH with obstruction/lower urinary tract symptoms - ICD9: 600.01, 599.69, ICD10: N40.1, N13.8 Assessment: 1. Intermediate-risk prostate cancer with slight progression based on recent MRI findings. 2. Urinary symptoms potentially due to benign prostatic hyperplasia (BPH) or prostate cancer. Plan: 1. Monitoring and Surveillance: - Continue active surveillance with periodic PSA checks every six months. - Schedule another MRI in 12 months. 2. Biopsy: - Plan for a fusion biopsy to reassess the lesion. Arrange a consultation with Dr. Howard for the procedure. 3. Medication: - Start Tamsulosin (Flomax) to manage urinary symptoms. Discuss potential side effects including dizziness, headache, and fatigue. Recommend taking the medication in the morning. 4. Consultation: - Schedule an appointment with a radiation oncologist to discuss all available treatment options. - Follow-up with the patient after the biopsy to review results and decide on further management. 5. Patient Education and Coordination: - Discuss with the patient and family the rationale for continued surveillance versus immediate intervention. - Inform family that they do not need to be present for every appointment, especially routine follow-ups and post-biopsy discussions. 6. Additional Notes: - Due to family circumstances, avoid scheduling any procedures that could restrict travel in the near term. Follow-Up: - Arrange a follow-up appointment post-biopsy to discuss results and further management. Ramesh Love Medical Decision Making: Problems: Moderate: 2+ stable chronic illnesses Data: Unique test result(s) reviewed: 2 Unique test(s) ordered: 2 Medical Decision Making Level: 4 - Moderate This note was partially created using voice recognition software and is inherently subject to errors including those of syntax and sound-alike substitutions which may escape proofreading. In such instances, original meaning may be extrapolated by contextual derivation. documented in this encounter [facility] 10-25-2023 History of Presen t illness Narrative Radiology Service Progress Note DATE OF SERVICE: October 25, 2023 TIME: 10:01 AM PATIENT IDENTITY VERIFICATION COMPLETED USING TWO (2) STANDARD IDENTIFIERS: Name and Date of confirmed by patient verbally and Name and Date of confirmed by identification band. FALL SCREENING: Has the patient had 2 falls in the last year or 1 fall with injury or currently using an Ambulatory Assistive Device (Walker, Cane, Wheelchair, Crutches, etc.)? No PATIENT GENDER DATA: Male PATIENT RELEVANT IMPLANT DATA REVIEWED: Not Applicable PATIENT PRESENTS WITH AN IMPLANTABLE OR ATTACHED CLOTH FINISHING RANGE TENDER: No ALLERGIES: Reviewed and unchanged CONTRAST ALLERGY: NO. EXAM: MRI - CONTRAST TYPE: GROUP II PERIPHERAL IV DATA: Ambulatory: A peripheral IV was started in the Right antecubital site with a Angio cath: 22 gauge. RADIOLOGY DEPARTMENT: MR; Exam(s) Completed: Body: Prostate SIGNATURE: RT Florian(R) PATIENT NAME: Eric Reno DATE: October 25, 2023 TIME: 10:01 AM documented in this encounter [facility] 10-25-2023 Note HNO ID: [id number] Author: SELIN MARTELL RT(R) Service: Radiology Author Type: Technologist Type: Progress Notes Filed: 10/25/2023 10:02 Note Text: Radiology Service Progress Note DATE OF SERVICE: October 25, 2023 TIME: 10:01 AM PATIENT IDENTITY VERIFICATION COMPLETED USING TWO (2) STANDARD IDENTIFIERS: Name and Date of confirmed by patient verbally and Name and Date of confirmed by identification band. FALL SCREENING: Has the patient had 2 falls in the last year or 1 fall with injury or currently using an Ambulatory Assistive Device (Walker, Cane, Wheelchair, Crutches, etc.)? No PATIENT GENDER DATA: Male PATIENT RELEVANT IMPLANT DATA REVIEWED: Not Applicable PATIENT PRESENTS WITH AN IMPLANTABLE OR ATTACHED CLOTH FINISHING RANGE TENDER: No ALLERGIES: Reviewed and unchanged CONTRAST ALLERGY: NO. EXAM: MRI - CONTRAST TYPE: GROUP II PERIPHERAL IV DATA: Ambulatory: A peripheral IV was started in the Right antecubital site with a Angio cath: 22 gauge. RADIOLOGY DEPARTMENT: MR; Exam(s) Completed: Body: Prostate SIGNATURE: RT Florian(R) PATIENT NAME: Eric Reno DATE: October 25, 2023 TIME: 10:01 AM [facility] 06-14-2023 Instructions Ramesh Love MD - 06/14/2023 10:19 AM EST It was great to see you today! Please continue with a PSA now and every 6 months. We will plan on an MRI in September and I'll see you back in a year. documented in this encounter [facility] 06-14-2023 Note HNO ID: [id number] Author: Ramesh Love MD Service: ? Author Type: Physician Type: Progress Notes Filed: 06/14/2023 12:56 PM Note Text: [facility] [place] ESTABLISHED PATIENT OFFICE VISIT HISTORY OF PRESENT ILLNESS Eric Reno is a 72 year old male who presents with prostate cancer on . Hx as below w/ Dr. Perez. Minimal LUTs. Stream is good. No hesitancy. No hematuria. No UTIs. Erections not a priority. AUASS:09/22 Dr. Perez's summary: Initial visit: Patient has a history of carcinoma of the prostate. He has undergone 2 prostate biopsies, 1 that was repeated and prior to May 2016 came back showing Cottonwood 6 in 2 cores, 1 core positive 40%, 1 core positive 10% Poonam 6. This was repeated again with a 2nd biopsy which came back again showing the same Poonam 6 tumor. A genetic Oncotype test was accomplished with a very low GPS score (8), Two daughters are here with him providing history and placed the patient active surveillance. A PSA in April 2016 was 6.56, May of 2017 was 7.58, and now in November 2017 was 9.73. Plan 06/09/22: PSA stable MRI reviewed - one PIRADS 2 lesion (2017) No high grade lesions MRI 03/2022 - PIRADS 4 lesion - s/p MRI fusion biopsy - 05/28/2022 Stable Cottonwood 6 disease and one small focus of Cottonwood 7 Send decipher biopsy. Continue PSA surveillance. Path: 09/15/15 (Aron) Specimen originated from [facility] Specimen #: [id number] Submitting Physician: VICTOR M MEMBRENO M.D. FINAL DIAGNOSIS 1. Prostate, right base, lateral, needle biopsy (A) - Adenocarcinoma of the prostate, Cottonwood score 3+3=6 discontinuously involving 40% of one of one core and measuring 4 mm. 2. Prostate, right mid lateral, needle biopsy (B) - Benign prostatic tissue. 3. Prostate, right apex lateral, needle biopsy (C) - Benign prostatic tissue with focal atrophy and chronic inflammation. 4. Prostate, right base medial, needle biopsy (D) - Adenocarcinoma of the prostate, Cottonwood score 3+3=6 involving 10% of one of one core and measuring 1 mm. 5. Prostate, right mid medial, needle biopsy (E) - Benign prostatic tissue. 6. Prostate, right apex medial, needle biopsy (F) - Benign prostatic tissue with focal atrophy. 7. Prostate, left base lateral, needle biopsy (G) - Benign prostatic tissue. 8. Prostate, left mid lateral, needle biopsy (H) - Benign prostatic tissue with focal chronic inflammation. 9. Prostate, left apex lateral, needle biopsy (I) - Benign prostatic tissue. 10. Prostate, left base medial, needle biopsy (J) - Benign prostatic tissue with focal acute inflammation. 11. Prostate, left mid medial, needle biopsy (K) - Benign prostatic tissue. 12. Prostate, left apex medial, needle biopsy (L) - Benign prostatic tissue. Path 06/01/16 ([facility]): FINAL DIAGNOSIS 1. Prostate, right base lateral, needle biopsy (A) - Adenocarcinoma of the prostate, Poonam score 3+3=6 (Grade Group 1), involving 40% of one of one core and measuring 6 mm. 2. Prostate, right mid lateral, needle biopsy (B) - Benign prostatic tissue with focal atrophy and chronic inflammation. 3. Prostate, right apex, needle biopsy (C) - Benign prostatic tissue with atrophy. 4. Prostate, right base medial, needle biopsy (D) - Adenocarcinoma of the prostate, Cottonwood score 3+3=6 (Grade Group 1), involving 10% of one of one core and measuring 1.5 mm. 5. Prostate, right mid medial, needle biopsy (E) - Benign prostatic tissue with focal atrophy and chronic inflammation. 6. Prostate, right apex medial, needle biopsy (F) - Benign prostatic tissue with focal atrophy and chronic inflammation. 7. Prostate, left base lateral, needle biopsy (G) - Benign prostatic tissue. 8. Prostate, left mid lateral, needle biopsy (H) - Focal high-grade prostatic intraepithelial neoplasia. 9. Prostate, left apex lateral, needle biopsy (I) - Prostatic tissue with small focus of atypical glands. 10. Prostate, left base medial, needle biopsy (J) - Benign prostatic tissue. 11. Prostate, left mid medial, needle biopsy (K) - Benign prostatic tissue. 12. Prostate, left apex medial, needle biopsy (L) - Benign prostatic tissue. NOLVIA/tyrone 06/02/2016 Path 05/26/22 ([facility]): FINAL DIAGNOSIS A. Prostate, lesion #1, biopsy: - Prostatic adenocarcinoma Cottonwood score 3+3 = 6 (grade group 1) involving 6 of 6 cores (100%, 15%, 20%, 50%, 5%, and 80%) 23 mm total tumor length. B. Prostate, left lateral base, biopsy: - Benign prostatic tissue. C. Prostate, left lateral mid, biopsy: - Benign prostatic tissue. D. Prostate, left lateral apex, biopsy: - Benign prostatic tissue. E. Prostate, right lateral base, biopsy: - Prostatic adenocarcinoma Cottonwood score 3+4 = 7 (grade group 2) involving 80% of 1 core (5 mm tumor length). 5% patte (more content not included)... [facility] 06-14-2023 History of Presen t illness Narrative Images from the original note were not included. [facility] [place] ESTABLISHED PATIENT OFFICE VISIT HISTORY OF PRESENT ILLNESS Eric Reno is a 72 year old male who presents with prostate cancer on . Hx as below w/ Dr. Perez. Minimal LUTs. Stream is good. No hesitancy. No hematuria. No UTIs. Erections not a priority. AUASS:09/22 Dr. Perez's summary: Initial visit: Patient has a history of carcinoma of the prostate. He has undergone 2 prostate biopsies, 1 that was repeated and prior to May 2016 came back showing Poonam 6 in 2 cores, 1 core positive 40%, 1 core positive 10% Poonam 6. This was repeated again with a 2nd biopsy which came back again showing the same Poonam 6 tumor. A genetic Oncotype test was accomplished with a very low GPS score (8), Two daughters are here with him providing history and placed the patient active surveillance. A PSA in April 2016 was 6.56, May of 2017 was 7.58, and now in November 2017 was 9.73. Plan 06/09/22: PSA stable MRI reviewed - one PIRADS 2 lesion (2017) No high grade lesions MRI 03/2022 - PIRADS 4 lesion - s/p MRI fusion biopsy - 05/28/2022 Stable Poonam 6 disease and one small focus of Poonam 7 Send decipher biopsy. Continue PSA surveillance. Path: 09/15/15 ([facility]) Specimen originated from [facility] Specimen #: [id number] Submitting Physician: VICTOR M MEMBRENO M.D. FINAL DIAGNOSIS 1. Prostate, right base, lateral, needle biopsy (A) - Adenocarcinoma of the prostate, Cottonwood score 3+3=6 discontinuously involving 40% of one of one core and measuring 4 mm. 2. Prostate, right mid lateral, needle biopsy (B) - Benign prostatic tissue. 3. Prostate, right apex lateral, needle biopsy (C) - Benign prostatic tissue with focal atrophy and chronic inflammation. 4. Prostate, right base medial, needle biopsy (D) - Adenocarcinoma of the prostate, Poonam score 3+3=6 involving 10% of one of one core and measuring 1 mm. 5. Prostate, right mid medial, needle biopsy (E) - Benign prostatic tissue. 6. Prostate, right apex medial, needle biopsy (F) - Benign prostatic tissue with focal atrophy. 7. Prostate, left base lateral, needle biopsy (G) - Benign prostatic tissue. 8. Prostate, left mid lateral, needle biopsy (H) - Benign prostatic tissue with focal chronic inflammation. 9. Prostate, left apex lateral, needle biopsy (I) - Benign prostatic tissue. 10. Prostate, left base medial, needle biopsy (J) - Benign prostatic tissue with focal acute inflammation. 11. Prostate, left mid medial, needle biopsy (K) - Benign prostatic tissue. 12. Prostate, left apex medial, needle biopsy (L) - Benign prostatic tissue. Path 06/01/16 ([facility]): FINAL DIAGNOSIS 1. Prostate, right base lateral, needle biopsy (A) - Adenocarcinoma of the prostate, Cottonwood score 3+3=6 (Grade Group 1), involving 40% of one of one core and measuring 6 mm. 2. Prostate, right mid lateral, needle biopsy (B) - Benign prostatic tissue with focal atrophy and chronic inflammation. 3. Prostate, right apex, needle biopsy (C) - Benign prostatic tissue with atrophy. 4. Prostate, right base medial, needle biopsy (D) - Adenocarcinoma of the prostate, Cottonwood score 3+3=6 (Grade Group 1), involving 10% of one of one core and measuring 1.5 mm. 5. Prostate, right mid medial, needle biopsy (E) - Benign prostatic tissue with focal atrophy and chronic inflammation. 6. Prostate, right apex medial, needle biopsy (F) - Benign prostatic tissue with focal atrophy and chronic inflammation. 7. Prostate, left base lateral, needle biopsy (G) - Benign prostatic tissue. 8. Prostate, left mid lateral, needle biopsy (H) - Focal high-grade prostatic intraepithelial neoplasia. 9. Prostate, left apex lateral, needle biopsy (I) - Prostatic tissue with small focus of atypical glands. 10. Prostate, left base medial, needle biopsy (J) - Benign prostatic tissue. 11. Prostate, left mid medial, needle biopsy (K) - Benign prostatic tissue. 12. Prostate, left apex medial, needle biopsy (L) - Benign prostatic tissue. CMG/srj 06/02/2016 Path 05/26/22 ([facility]): FINAL DIAGNOSIS A. Prostate, lesion #1, biopsy: - Prostatic adenocarcinoma Cottonwood score 3+3 = 6 (grade group 1) involving 6 of 6 cores (100%, 15%, 20%, 50%, 5%, and 80%) 23 mm total tumor length. B. Prostate, left lateral base, biopsy: - Benign prostatic tissue. C. Prostate, left lateral mid, biopsy: - Benign prostatic tissue. D. Prostate, left lateral apex, biopsy: - Benign prostatic tissue. E. Prostate, right lateral base, biopsy: - Prostatic adenocarcinoma Cottonwood score 3+4 = 7 (grade group 2) involving 80% of 1 core (5 mm tumor length). 5% pattern 4. F. Prostate, right lateral mid, biopsy: - Prostatic adenocarcinoma Poonam score 3+3 = 6 (grade group 1) involving 65% of 1 core (6 mm tumor length). G. Prostate, right lateral apex, biopsy: - Prostatic adenocarcinoma Poonam score 3+3 = 6 (grade group 1) involving 20% of 1 core (1 mm tumor length). Prostate Cancer Biopsy Summary Number of cores examined: 12 Number of cores positive: 9 Highest Grade Group: 2 Highest % of core involvement: 100 % Cribriform pattern 4: Absent Intraductal carcinoma: Absent Shift Nurse Manager tumor block to use for additional studies: E Review of Systems Constitutional: Negative. HENT: Negative. Eyes: Negative. Respiratory: Negative. Cardiovascular: Negative. Gastrointestinal: Negative. Endocrine: Negative. Genitourinary: Negative. Musculoskeletal: Negative. Skin: Negative. Allergic/Immunologic: Negative. Neurological: Negative. Hematological: Negative. Psychiatric/Behavioral: Negative. The remainder of the ROS was reviewed and is negative. LAB Creatinine Date Value Ref Range Status 01/27/2022 0.93 0.73 - 1.22 mg/dL Final PSA (ng/mL) Date Value 11/23/2022 12.20 01/27/2022 12.08 01/27/2022 12.33 07/07/2021 9.21 11/24/2020 10.51 2019 9.09 05/25/2019 10.64 11/20/2018 11.03 02/22/2018 8.40 06/02/2017 7.58 05/04/2016 6.56 GLUCOSE UA (POCT) Negative 11/28/2018 BILIRUBIN UA (POCT) Negative 11/28/2018 KETONE UA (POCT) Negative 11/28/2018 SPECIFIC GRAVITY UA (POCT) 1.020 11/28/2018 HEMOGLOBIN/BLOOD UA (POCT) Negative 11/28/2018 PH UA (POCT) 6.5 11/28/2018 PROTEIN UA (POCT) Negative 11/28/2018 UROBILINOGEN UA (POCT) 0.2 11/28/2018 NITRITE UA (POCT) Negative 11/28/2018 LEUKOCYTES UA (POCT) Negative 11/28/2018 COLOR UA (POCT) Yellow 11/28/2018 CLARITY UA (POCT) Clear 11/28/2018 MEDICATIONS iv contrast (will be provided with radiology test) MRI Prostate Inject, intravenously, once for 1 dose. No IV access, insert saline lock prior to the beginning of sedation, infusion, injection of imaging exam. Discontinue saline lock post exam. If Pt. has a central line or IVAD, may access for administration according to line specific nursing protocol. Once exam is complete flush line and de-access according to line specific nursing protocol in the MR contrast administration guidelines link. clopidogrel (PLAVIX) 75 mg tablet Take 75 mg by mouth once daily. lisinopril (ZESTRIL, PRINIVIL) 5 mg tablet Take 5 mg by mouth once daily. metFORMIN (GLUCOPHAGE) 500 mg tablet Take 500 mg by mouth daily with breakfast. gabapentin (NEURONTIN) 100 mg capsule Take 100 mg by mouth three times daily as needed. famotidine (PEPCID) 20 mg tablet Take 20 mg by mouth twice daily. IPRATROPIUM BROMIDE 18 MCG/ACTUATION AEROSOL INHALER iv contrast (will be provided with radiology test) MRI Prostate Inject, intravenously, once for 1 dose. No IV access, insert saline lock prior to the beginning of sedation, infusion, injection of imaging exam. Discontinue saline lock post exam. If Pt. has a central line or IVAD, may access for administration according to line specific nursing protocol. Once exam is complete flush line and de-access according to line specific nursing protocol in the MR contrast administration guidelines link. (Patient not taking: Reported on 04/13/2022) iv contrast (will be provided with radiology test) MRI Prostate Inject, intravenously, once for 1 dose. No IV access, insert saline lock prior to the beginning of sedation, infusion, injection of imaging exam. Discontinue saline lock post exam. If Pt. has a central line or IVAD, may access for administration according to line specific nursing protocol. Once exam is complete flush line and de-access according to line specific nursing protocol in the MR contrast administration guidelines link. (Patient not taking: No sig reported) rosuvastatin (CRESTOR) 10 mg tablet Take 10 mg by mouth once daily. (Patient not taking: Reported on 04/13/2022) cholecalciferol, Vitamin D3, (VITAMIN D3) 50,000 unit cap capsule once each week. hydrocortisone (ANUSOL-HC) 2.5 % rectal cream 1 application by RECTAL route twice daily. (Patient not taking: No sig reported) atorvastatin (LIPITOR) 20 mg tablet Take 20 mg by mouth once daily. Oakwood-3 Fatty Acids 500 mg cap Take 500 mg by mouth once daily. aspirin, enteric coated (ASPIRIN, ENTERIC COATED) 81 mg EC tablet Take 81 mg by mouth once daily. (Patient not taking: Reported on 04/13/2022) HISTORIES PAST MEDICAL HISTORY Diagnosis Date Diabetes mellitus (HCC) Essential hypertension Hyperlipidemia Kidney stone Prostate cancer (HCC) Shingles 11/2020 Stroke (HCC) 07/2019 no residual PAST SURGICAL HISTORY Procedure Laterality Date CHOLECYSTECTOMY COLONOSCOPY PAST SURGICAL HISTORY OF Right retinal detachment FAMILY HISTORY Problem Relation Age of Onset other (heart disease) Mother Stroke Brother SOCIAL HISTORY Social History Tobacco Use Smoking status: Never Smokeless tobacco: Never Substance Use Topics Alcohol use: Yes Comment: social - weekends Drug use: No BP 130/76 Pulse 78 SpO2 93% Physical Exam Genitourinary: Comments: Prostate is 25 to 30 g no areas of nodularity or induration. IMAGING ASSESSMENT/PLAN: 1. Malignant neoplasm of prostate (HCC) - ICD9: 185, ICD10: C61 - US MSR POST-VOID RESID URINE - MRI PROSTATE WO/W IVCON - MRI 3D POST PROCESSING - PSA/PROSTSPECAG DIAG I discussed with him and his daughter is his intermediate risk prostate cancer and active surveillance. His PSA is relatively high. He is content with his urinary symptoms though not completely emptying today. I want him to have a PSA now and every 6 months. Plan on MRI in September 2023 provided PSA is stable. Follow-up with me in a year. Ramesh Love Medical Decision Making: Problems: Moderate: 1+ chronic illnesses with change Data: Unique test result(s) reviewed: 3+ Unique test(s) ordered: 2 Medical Decision Making Level: 4 - Moderate This note was partially created using voice recognition software and is inherently subject to errors including those of syntax and sound-alike substitutions which may escape proofreading. In such instances, original meaning may be extrapolated by contextual derivation. documented in this encounter [facility] 12-06-2022 Miscellaneous Notes No appt needed please cancel Appt scheduled for 12/07/22. Please advise. Lenny Goff RN documented in this encounter [facility] 06-09-2022 History of Presen t illness Narrative Images from the original note were not included. [facility] [place] [facility] LOCATION: [address] [place] [address] ESTABLISHED PATIENT PATIENT INFO: Eric Reno 71 year old Chief Complaint: Prostate Cancer - Poonam 6 HPI Here after MRI fusion biopsy PREVIOUS HX: Marga is here for second opinion regarding his prostate cancer Patient has a history of carcinoma of the prostate. He has undergone 2 prostate biopsies, 1 that was repeated and prior to May 2016 came back showing Poonam 6 in 2 cores, 1 core positive 40%, 1 core positive 10% Poonam 6. This was repeated again with a 2nd biopsy which came back again showing the same Poonam 6 tumor. A genetic Oncotype test was accomplished with a very low GPS score (8), Two daughters are here with him providing history and placed the patient active surveillance. A PSA in April 2016 was 6.56, May of 2017 was 7.58, and now in November 2017 was 9.73. 1-Duration: 2021 2-Location: prostate 3-Severity: N/A 4-Quality: Not applicable 5-Context: N/A 6-Timing: N/A 7-Modifying factors: No treatment prior to referral 8-Associated signs & symptoms: no additional symptoms No question data found. PATHOLOGY: FINAL DIAGNOSIS A. Prostate, lesion #1, biopsy: - Prostatic adenocarcinoma Poonam score 3+3 = 6 (grade group 1) involving 6 of 6 cores (100%, 15%, 20%, 50%, 5%, and 80%) 23 mm total tumor length. B. Prostate, left lateral base, biopsy: - Benign prostatic tissue. C. Prostate, left lateral mid, biopsy: - Benign prostatic tissue. D. Prostate, left lateral apex, biopsy: - Benign prostatic tissue. E. Prostate, right lateral base, biopsy: - Prostatic adenocarcinoma Cottonwood score 3+4 = 7 (grade group 2) involving 80% of 1 core (5 mm tumor length). 5% pattern 4. F. Prostate, right lateral mid, biopsy: - Prostatic adenocarcinoma Cottonwood score 3+3 = 6 (grade group 1) involving 65% of 1 core (6 mm tumor length). G. Prostate, right lateral apex, biopsy: - Prostatic adenocarcinoma Poonam score 3+3 = 6 (grade group 1) involving 20% of 1 core (1 mm tumor length). Prostate Cancer Biopsy Summary Number of cores examined: 12 Number of cores positive: 9 Highest Grade Group: 2 Highest % of core involvement: 100 % Cribriform pattern 4: Absent Intraductal carcinoma: Absent Shift Nurse Manager tumor block to use for additional studies: E LAB: WBC (k/uL) Date Value 01/27/2022 6.56 RBC (m/uL) Date Value 01/27/2022 5.58 Hemoglobin (g/dL) Date Value 01/27/2022 16.2 Hematocrit (%) Date Value 01/27/2022 49.0 MCV (fL) Date Value 01/27/2022 87.8 MCH (pg) Date Value 01/27/2022 29.0 MCHC (g/dL) Date Value 01/27/2022 33.1 RDW-CV (%) Date Value 01/27/2022 13.3 Platelet Count (k/uL) Date Value 01/27/2022 379 MPV (fL) Date Value 01/27/2022 9.1 Neut% (%) Date Value 01/27/2022 72.7 Lymph% (%) Date Value 01/27/2022 20.6 [place]% (%) Date Value 01/27/2022 5.8 Baso% (%) Date Value 01/27/2022 0.2 Abs Neut (k/uL) Date Value 01/27/2022 4.78 Abs [place] (k/uL) Date Value 01/27/2022 0.38 Abs Eosin (k/uL) Date Value 01/27/2022 <0.03 Abs Baso (k/uL) Date Value 01/27/2022 <0.03 Creatinine Date Value Ref Range Status 01/27/2022 0.93 0.73 - 1.22 mg/dL Final 02/22/2018 1.07 0.73 - 1.22 mg/dL Final 04/19/2005 0.9 0.7 - 1.4 mg/dL Final PSA (ng/mL) Date Value 01/27/2022 12.08 01/27/2022 12.33 07/07/2021 9.21 11/24/2020 10.51 2019 9.09 05/25/2019 10.64 PSA, Percent Free (%) Date Value 01/27/2022 6 URINE POC GLUCOSE UA (POCT) Negative 11/28/2018 BILIRUBIN UA (POCT) Negative 11/28/2018 KETONE UA (POCT) Negative 11/28/2018 SPECIFIC GRAVITY UA (POCT) 1.020 11/28/2018 HEMOGLOBIN/BLOOD UA (POCT) Negative 11/28/2018 PH UA (POCT) 6.5 11/28/2018 PROTEIN UA (POCT) Negative 11/28/2018 UROBILINOGEN UA (POCT) 0.2 11/28/2018 NITRITE UA (POCT) Negative 11/28/2018 LEUKOCYTES UA (POCT) Negative 11/28/2018 COLOR UA (POCT) Yellow 11/28/2018 CLARITY UA (POCT) Clear 11/28/2018 IMAGING: MRI PROSTATE WO/W IVCON (Order [id number]) Patient Info Patient Name Sex Eric Barrera ([id number]) Male 1950 03/30/2022 1:55 PM - Radiology, [facility] In Impression IMPRESSION: 1.1 cm right mid/base posterolateral peripheral zone subcapsular PI-RADS 4 lesion, more conspicuous than on the prior study. Equivocal extracapsular extension and right neurovascular bundle involvement. No pelvic lymphadenopathy or suspicious pelvic bone lesions. Number of targets created for MR/US fusion biopsy: Peripheral zone: 1 Transition zone: 0 ALLERGIES: ALLERGIES No Known Allergies MEDICATIONS: clopidogrel (PLAVIX) 75 mg tablet Take 75 mg by mouth once daily. lisinopril (ZESTRIL, PRINIVIL) 5 mg tablet Take 5 mg by mouth once daily. metFORMIN (GLUCOPHAGE) 500 mg tablet Take 500 mg by mouth daily with breakfast. gabapentin (NEURONTIN) 100 mg capsule Take 100 mg by mouth three times daily as needed. famotidine (PEPCID) 20 mg tablet Take 20 mg by mouth twice daily. IPRATROPIUM BROMIDE 18 MCG/ACTUATION AEROSOL INHALER iv contrast (will be provided with radiology test) MRI Prostate Inject, intravenously, once for 1 dose. No IV access, insert saline lock prior to the beginning of sedation, infusion, injection of imaging exam. Discontinue saline lock post exam. If Pt. has a central line or IVAD, may access for administration according to line specific nursing protocol. Once exam is complete flush line and de-access according to line specific nursing protocol in the MR contrast administration guidelines link. (Patient not taking: Reported on 04/13/2022) iv contrast (will be provided with radiology test) MRI Prostate Inject, intravenously, once for 1 dose. No IV access, insert saline lock prior to the beginning of sedation, infusion, injection of imaging exam. Discontinue saline lock post exam. If Pt. has a central line or IVAD, may access for administration according to line specific nursing protocol. Once exam is complete flush line and de-access according to line specific nursing protocol in the MR contrast administration guidelines link. (Patient not taking: No sig reported) rosuvastatin (CRESTOR) 10 mg tablet Take 10 mg by mouth once daily. (Patient not taking: Reported on 04/13/2022) cholecalciferol, Vitamin D3, (VITAMIN D3) 50,000 unit cap capsule once each week. hydrocortisone (ANUSOL-HC) 2.5 % rectal cream 1 application by RECTAL route twice daily. (Patient not taking: No sig reported) atorvastatin (LIPITOR) 20 mg tablet Take 20 mg by mouth once daily. Oakwood-3 Fatty Acids 500 mg cap Take 500 mg by mouth once daily. aspirin, enteric coated (ASPIRIN, ENTERIC COATED) 81 mg EC tablet Take 81 mg by mouth once daily. (Patient not taking: Reported on 04/13/2022) Does the patient take any herbal medications?: No HISTORIES PAST MEDICAL HISTORY Diagnosis Date Diabetes mellitus (HCC) Essential hypertension Hyperlipidemia Kidney stone Prostate cancer (HCC) Shingles 11/2020 Stroke (HCC) 07/2019 no residual Smoking Status Reviewed: Yes REVIEW OF SYSTEMS GENERAL: No fever, chills, weight loss, or fatigue. HEAD & NECK: No blurred vision or Sjogren's syndrome CARDIOVASCULAR: NO CHEST PAIN, PALPITATIONS, ANKLE EDEMA RESPIRATORY: No chronic cough, wheezing, dyspnea, hemoptysis. MUSCULOSKELETAL: NO CHRONIC BACK PAIN, ARTHRITIS, CHRONIC NECK PAIN SKIN: NO VARICOSE VEINS, RASH, ABNORMAL ITCHING BLOOD/LYMPHATIC: No easy bleeding, easy bruising, transfusion Hx NEUROLOGICAL: NO HEADACHES, NUMBNESS, SEIZURES, STROKE PSYCHIATRIC: No depression or inordinate anxiety The remainder of the ROS was negative. PHYSICAL EXAMINATION Ht 165.1 cm (5' 5 ) Wt 72.6 kg (160 lb) BMI 26.63 kg/m General appearance: Well appearing, alert, in no acute distress and well-hydrated, well nourished Skin: Skin color, texture, turgor normal, no suspicious rashes or lesions Head: Normocephalic, no masses, lesions, tenderness or abnormalities Abdomen: Normal abdominal exam, Abdomen soft, non-tender. Bowel sounds normal. No masses, organomegaly Genitourinary: MALE EXAM: Exam NOT Indicated PVR: NA IMPRESSION/PLAN: Cottonwood 6 Prostate cancer PSA at the time of diagnosis 6.58 Initially diagnosed in November 2015 and was placed on active surveillance Repeat biopsy 1 year later confirmed Poonam 6 disease GPS score 8 PSA now slowly rising to ~12 I had an extensive discussion with the patient as well as his 2 daughters We reviewed all options and thorough detail to include active surveillance radiation therapy and surgical removal of the prostate At this time since the patient is traveling and actively hunting and fishing PSA stable MRI reviewed - one PIRADS 2 lesion (2017) No high grade lesions MRI 03/2022 - PIRADS 4 lesion - s/p MRI fusion biopsy - 05/28/2022 Stable Cottonwood 6 disease and one small focus of Cottonwood 7 Send decipher biopsy. Continue PSA surveillance. I spent 30 minutes in the visit, with more than 50% of the total [id number] time of the visit in counseling / coordination of care. Lena Perez DO MBA documented in this encounter [facility] 05-18-2022 Miscellaneous Notes Pt is scheduled for MRI Fusion Bx MAC with Dr Howard at [facility] on 05/26/22 @ 8:55 (6:55 arrival). Pt takes Plavix- medical clearance form faxed to pcp Dr Sabine Romero, f. [phone] on 04/14/22. 05/18/22- Received clearance back- okay for pt to stop Plavix 7 days prior and resume it 48 hours after.Faxed clearance to chart command. Follow up with Dr Perez in [place] on 06/09/22 @ 4:00. Pt and daughter Ibis given date, time, prep and arrival instructions in person on 04/13/22. Written info given also. Aimee CUMMINS documented in this encounter [facility] 04-13-2022 Instructions Christina Howard MD - 04/13/2022 4:32 PM EDT PATIENT INFORMATION: For prostate biopsy You may take Baby aspirin if you are on it Do not take high dose aspirin ,ibuprofen or other blood thinner type products for 1 week prior to the biopsy: Blood thinners can include also Advil, Motrin, Naprosyn, naproxen, Aleve, Plavix, Coumadin, etc. MEDICATION INFORMATION ASPIRIN and ADVIL can make you more prone to bleeding after surgery. Please STOP taking these medications at least (7) days before surgery or procedure. Medications can be resumed (1) days after the Prostate Biopsy procedure. NOTE: Please obtain approval to stop any prescribed medication from the prescribing doctor. Some common medications that contain ASPIRIN or act like Aspirin are to be avoided are as follows: This is a list of the medications you should avoid: Advil Clinoril (Sulindac) Naprosyn (Naproxen) Aggrenox Ecotrin NSAID (Non-Steroidal Agrylin Excedrin Anti-Inflammatory Drugs) Aleve (Naproxen) Fish Oil Pepto-Bismol Josephine-Chariton Gingko Bilboa Persantine (Dipyridamole) Anacin Glucosamine Chondroitin Plavix (Clopidogrel) Ascriptin Green Tea Plaquenil (Hydroxychloroquine) Aspergum Heparin Pletal (Cilostazol) Aspirin Herbals Ticlid (Ticlopidine) Abbie Ibuprofen Trental (Pentoxyfylline) Bextra Indocin (Indomethacin) Vanquish Bufferin Midol Vitamin E (MVI) Coumadin (warfarin) Mobic/Meloxicam Multivitamin (MVI) MEDICATIONS you may SUBSTITUTE: Anacin 3 Plenadol Percocet* Datril Sine-Aide Excedrin PM Tylenol Fioricet* Tylenol with codeine* (*Denotes prescription needed to obtain these medications) documented in this encounter [facility] 04-13-2022 History of Presen t illness Narrative ESTABLISHED PATIENT OFFICE VISIT PATIENT INFO: Eric Reno 71 year old HPI 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 Perez as noted below and has PI-RADS 4 lesion with 26 cc prostate on MRI that was done through [facility] system Had an MRI in 2018 that just shows PI-RADS 2 area Patient understands but presents with daughter who helps with communication and they say they help him with all his medical issues and information He is on Plavix and they understand setting up MRI fusion biopsy and will need to be off Plavix week prior and can resume 48 hours after and get medical clearance without Not a great historian so hard to know exactly how he did with his previous biopsies so we will plan on twilight anesthetic which he thinks he wants anyway On the Plavix because of history of stroke Past Urology Hx: February 09, 2022-seen by Dr. Perez- Here for 6 months PSA review PREVIOUS HX: Ban is here for second opinion regarding his prostate cancer Patient has a history of carcinoma of the prostate. He has undergone 2 prostate biopsies, 1 that was repeated and prior to May 2016 came back showing Cottonwood 6 in 2 cores, 1 core positive 40%, 1 core positive 10% Cottonwood 6. This was repeated again with a 2nd biopsy which came back again showing the same Poonam 6 tumor. A genetic Oncotype test was accomplished with a very low GPS score (8), Two daughters are here with him providing history and placed the patient active surveillance. A PSA in April 2016 was 6.56, May of 2017 was 7.58, and now in November 2017 was 9.73. IMPRESSION/PLAN: Poonam 6 Prostate cancer PSA at the time of diagnosis 6.58 Initially diagnosed in November 2015 and was placed on active surveillance Repeat biopsy 1 year later confirmed Cottonwood 6 disease GPS score 8 PSA now slowly rising to ~12 I had an extensive discussion with the patient as well as his 2 daughters We reviewed all options and thorough detail to include active surveillance radiation therapy and surgical removal of the prostate At this time since the patient is traveling and actively hunting and fishing PSA stable MRI reviewed - one PIRADS 2 lesion (2018) No high grade lesions REPEAT MRI NOW. Lena Perez DO MBA Creatinine Date Value Ref Range Status 01/27/2022 0.93 0.73 - 1.22 mg/dL Final PSA (ng/mL) Date Value 01/27/2022 12.08 01/27/2022 12.33 07/07/2021 9.21 11/24/2020 10.51 2019 9.09 05/25/2019 10.64 11/20/2018 11.03 02/22/2018 8.40 06/02/2017 7.58 05/04/2016 6.56 No results found for: COLOR, CLARITY, UGLUC, UBILI, UKET, SPGR, UHB, UPH, UPROT, UROBILINOGEN, NITRITES, LEUKEST Review of Systems Constitutional: Negative. HENT: Negative. Eyes: Negative. Respiratory: Negative. Cardiovascular: Negative. Gastrointestinal: Negative. Endocrine: Negative. Genitourinary: See HPI Musculoskeletal: Negative. Skin: Negative. Allergic/Immunologic: Negative. Neurological: Negative. Hematological: Negative. Psychiatric/Behavioral: Negative. I reviewed and confirmed ROS obtained by MA HISTORIES PAST MEDICAL HISTORY Diagnosis Date Hyperlipidemia Kidney stone Prostate cancer (HCC) FAMILY HISTORY Problem Relation Age of Onset other (heart disease) Mother Stroke Brother SOCIAL HISTORY Social History Tobacco Use Smoking status: Never Smokeless tobacco: Never Substance Use Topics Alcohol use: Yes Comment: social - weekends Drug use: No MEDICATIONS: clopidogrel (PLAVIX) 75 mg tablet Take 75 mg by mouth once daily. lisinopril (ZESTRIL, PRINIVIL) 5 mg tablet Take 5 mg by mouth once daily. metFORMIN (GLUCOPHAGE) 500 mg tablet Take 500 mg by mouth daily with breakfast. gabapentin (NEURONTIN) 100 mg capsule Take 100 mg by mouth three times daily. famotidine (PEPCID) 20 mg tablet Take 20 mg by mouth twice daily. IPRATROPIUM BROMIDE 18 MCG/ACTUATION AEROSOL INHALER cholecalciferol, Vitamin D3, (VITAMIN D3) 50,000 unit cap capsule once each week. atorvastatin (LIPITOR) 20 mg tablet Take 20 mg by mouth once daily. Oakwood-3 Fatty Acids 500 mg cap Take 500 mg by mouth once daily. iv contrast (will be provided with radiology test) MRI Prostate Inject, intravenously, once for 1 dose. No IV access, insert saline lock prior to the beginning of sedation, infusion, injection of imaging exam. Discontinue saline lock post exam. If Pt. has a central line or IVAD, may access for administration according to line specific nursing protocol. Once exam is complete flush line and de-access according to line specific nursing protocol in the MR contrast administration guidelines link. (Patient not taking: Reported on 04/13/2022) iv contrast (will be provided with radiology test) MRI Prostate Inject, intravenously, once for 1 dose. No IV access, insert saline lock prior to the beginning of sedation, infusion, injection of imaging exam. Discontinue saline lock post exam. If Pt. has a central line or IVAD, may access for administration according to line specific nursing protocol. Once exam is complete flush line and de-access according to line specific nursing protocol in the MR contrast administration guidelines link. (Patient not taking: No sig reported) rosuvastatin (CRESTOR) 10 mg tablet Take 10 mg by mouth once daily. (Patient not taking: Reported on 04/13/2022) hydrocortisone (ANUSOL-HC) 2.5 % rectal cream 1 application by RECTAL route twice daily. (Patient not taking: No sig reported) aspirin, enteric coated (ASPIRIN, ENTERIC COATED) 81 mg EC tablet Take 81 mg by mouth once daily. (Patient not taking: Reported on 04/13/2022) Physical Exam HENT: Head: Normocephalic and atraumatic. Nose: Nose normal. Neck: Trachea: No tracheal deviation. Pulmonary: Effort: Pulmonary effort is normal. No respiratory distress. Musculoskeletal: General: No deformity. Normal range of motion. Cervical back: Normal range of motion. Skin: General: Skin is warm. Neurological: Mental Status: He is alert and oriented to person, place, and time. Gait: Gait is intact. Psychiatric: Mood and Affect: Mood and affect normal. Cognition and Memory: Memory normal. Risk/Benefit Discussion: Prostate Ultrasound With Needle Biopsy Prostate Patient was instructed to stop all aspirin type products 7 days prior to the procedure. I explained the options concerning the findings of a prostatic nodule both with and without an elevated PSA, as well as an elevated PSA without a prostate nodule. I specifically explained the possible complications, and the fact that a negative prostate biopsy does not definitely indicate that there is no prostate cancer present, but only that there was no malignancy found in the biopsy specimens. I explained the possibility of impotency and some incontinence, blood in the urine, stool/possible severe and admition to hospital , and/or semen. He may also experience frequency, urgency, and dysuria after the procedure. I explained the remote possibility of blood loss and the possibility of infection of the prostate and rectum post operatively/sepsis risk. The patient expressed an understanding with regard to possible benefits, risks, complications and outcome. FOLLOW UP (1s&1w; 3s): Return if symptoms worsen or fail to improve. ASSESSMENT/PLAN: 1. Prostate cancer (HCC) - ICD9: 185, ICD10: C61 Health and wellness-MRI fusion biopsy/MAC Christina Howard Please note: This note has been produced using speech recognition software and may contain errors related to that system including grammar, punctuation, spelling, gender and words and phrases that may be inappropriate. documented in this encounter [facility] 04-05-2022 Miscellaneous Notes Lesion has increased in size. Recommend MRI fusion biopsy to make sure cancer is not progressing documented in this encounter [facility] 03-26-2022 History of Presen t illness Narrative Radiology Service Progress Note DATE OF SERVICE: March 26, 2022 TIME: 10:09 AM PATIENT IDENTITY VERIFICATION COMPLETED USING TWO (2) STANDARD IDENTIFIERS: Name and Date of confirmed by patient verbally. FALL SCREENING: Has the patient had 2 falls in the last year or 1 fall with injury or currently using an Ambulatory Assistive Device (Walker, Cane, Wheelchair, Crutches, etc.)? No PATIENT GENDER DATA: Male PATIENT RELEVANT IMPLANT DATA REVIEWED: Yes ALLERGIES: Reviewed and unchanged CONTRAST ALLERGY: NO. EXAM: MRI - CONTRAST TYPE: GROUP II PERIPHERAL IV DATA: Ambulatory: A peripheral IV was started in the Left hand with a Angio cath: 22 gauge. RADIOLOGY DEPARTMENT: MR; Exam(s) Completed: Body: Prostate SIGNATURE: RT Dianne(R) PATIENT NAME: Eric Reno DATE: March 26, 2022 TIME: 10:09 AM documented in this encounter [facility] 02-09-2022 History of Presen t illness Narrative Images from the original note were not included. [facility] [place] [facility] LOCATION: [address] [place] [address] ESTABLISHED PATIENT PATIENT INFO: Eric Reno 71 year old Chief Complaint: Prostate Cancer - Poonam 6 HPI Here for 6 months PSA review PREVIOUS HX: Marga is here for second opinion regarding his prostate cancer Patient has a history of carcinoma of the prostate. He has undergone 2 prostate biopsies, 1 that was repeated and prior to May 2016 came back showing Poonam 6 in 2 cores, 1 core positive 40%, 1 core positive 10% Cottonwood 6. This was repeated again with a 2nd biopsy which came back again showing the same Cottonwood 6 tumor. A genetic Oncotype test was accomplished with a very low GPS score (8), Two daughters are here with him providing history and placed the patient active surveillance. A PSA in April 2016 was 6.56, May of 2017 was 7.58, and now in November 2017 was 9.73. 1-Duration: 2021 2-Location: prostate 3-Severity: N/A 4-Quality: Not applicable 5-Context: N/A 6-Timing: N/A 7-Modifying factors: No treatment prior to referral 8-Associated signs & symptoms: no additional symptoms No question data found. PATHOLOGY: As above LAB: WBC (k/uL) Date Value 01/27/2022 6.56 RBC (m/uL) Date Value 01/27/2022 5.58 Hemoglobin (g/dL) Date Value 01/27/2022 16.2 Hematocrit (%) Date Value 01/27/2022 49.0 MCV (fL) Date Value 01/27/2022 87.8 MCH (pg) Date Value 01/27/2022 29.0 MCHC (g/dL) Date Value 01/27/2022 33.1 RDW-CV (%) Date Value 01/27/2022 13.3 Platelet Count (k/uL) Date Value 01/27/2022 379 MPV (fL) Date Value 01/27/2022 9.1 Neut% (%) Date Value 01/27/2022 72.7 Lymph% (%) Date Value 01/27/2022 20.6 Ionia% (%) Date Value 01/27/2022 5.8 Baso% (%) Date Value 01/27/2022 0.2 Abs Neut (k/uL) Date Value 01/27/2022 4.78 Abs Ionia (k/uL) Date Value 01/27/2022 0.38 Abs Eosin (k/uL) Date Value 01/27/2022 <0.03 Abs Baso (k/uL) Date Value 01/27/2022 <0.03 Creatinine Date Value Ref Range Status 01/27/2022 0.93 0.73 - 1.22 mg/dL Final 02/22/2018 1.07 0.73 - 1.22 mg/dL Final 04/19/2005 0.9 0.7 - 1.4 mg/dL Final PSA (ng/mL) Date Value 01/27/2022 12.08 01/27/2022 12.33 07/07/2021 9.21 11/24/2020 10.51 2019 9.09 05/25/2019 10.64 PSA, Percent Free (%) Date Value 01/27/2022 6 URINE POC GLUCOSE UA (POCT) Negative 11/28/2018 BILIRUBIN UA (POCT) Negative 11/28/2018 KETONE UA (POCT) Negative 11/28/2018 SPECIFIC GRAVITY UA (POCT) 1.020 11/28/2018 HEMOGLOBIN/BLOOD UA (POCT) Negative 11/28/2018 PH UA (POCT) 6.5 11/28/2018 PROTEIN UA (POCT) Negative 11/28/2018 UROBILINOGEN UA (POCT) 0.2 11/28/2018 NITRITE UA (POCT) Negative 11/28/2018 LEUKOCYTES UA (POCT) Negative 11/28/2018 COLOR UA (POCT) Yellow 11/28/2018 CLARITY UA (POCT) Clear 11/28/2018 IMAGING: None No imaging to review. ALLERGIES: ALLERGIES No Known Allergies MEDICATIONS: iv contrast (will be provided with radiology test) MRI Prostate Inject, intravenously, once for 1 dose. No IV access, insert saline lock prior to the beginning of sedation, infusion, injection of imaging exam. Discontinue saline lock post exam. If Pt. has a central line or IVAD, may access for administration according to line specific nursing protocol. Once exam is complete flush line and de-access according to line specific nursing protocol in the MR contrast administration guidelines link. rosuvastatin (CRESTOR) 10 mg tablet Take 10 mg by mouth once daily. cholecalciferol, Vitamin D3, (VITAMIN D3) 50,000 unit cap capsule once each week. hydrocortisone (ANUSOL-HC) 2.5 % rectal cream 1 application by RECTAL route twice daily. atorvastatin (LIPITOR) 20 mg tablet Take 20 mg by mouth once daily. Oakwood-3 Fatty Acids 500 mg cap Take 500 mg by mouth once daily. aspirin, enteric coated (ASPIRIN, ENTERIC COATED) 81 mg EC tablet Take 81 mg by mouth once daily. Does the patient take any herbal medications?: No HISTORIES PAST MEDICAL HISTORY Diagnosis Date Hyperlipidemia Kidney stone Prostate cancer (HCC) Smoking Status Reviewed: Yes REVIEW OF SYSTEMS GENERAL: No fever, chills, weight loss, or fatigue. HEAD & NECK: No blurred vision or Sjogren's syndrome CARDIOVASCULAR: NO CHEST PAIN, PALPITATIONS, ANKLE EDEMA RESPIRATORY: No chronic cough, wheezing, dyspnea, hemoptysis. MUSCULOSKELETAL: NO CHRONIC BACK PAIN, ARTHRITIS, CHRONIC NECK PAIN SKIN: NO VARICOSE VEINS, RASH, ABNORMAL ITCHING BLOOD/LYMPHATIC: No easy bleeding, easy bruising, transfusion Hx NEUROLOGICAL: NO HEADACHES, NUMBNESS, SEIZURES, STROKE PSYCHIATRIC: No depression or inordinate anxiety The remainder of the ROS was negative. PHYSICAL EXAMINATION BP 114/80 Ht 165.1 cm (5' 5 ) Wt 71.7 kg (158 lb) BMI 26.29 kg/m General appearance: Well appearing, alert, in no acute distress and well-hydrated, well nourished Skin: Skin color, texture, turgor normal, no suspicious rashes or lesions Head: Normocephalic, no masses, lesions, tenderness or abnormalities Abdomen: Normal abdominal exam, Abdomen soft, non-tender. Bowel sounds normal. No masses, organomegaly Genitourinary: MALE EXAM: Exam NOT Indicated PVR: NA IMPRESSION/PLAN: Cottonwood 6 Prostate cancer PSA at the time of diagnosis 6.58 Initially diagnosed in November 2015 and was placed on active surveillance Repeat biopsy 1 year later confirmed Cottonwood 6 disease GPS score 8 PSA now slowly rising to ~12 I had an extensive discussion with the patient as well as his 2 daughters We reviewed all options and thorough detail to include active surveillance radiation therapy and surgical removal of the prostate At this time since the patient is traveling and actively hunting and fishing PSA stable MRI reviewed - one PIRADS 2 lesion (2018) No high grade lesions REPEAT MRI NOW. I spent 30 minutes in the visit, with more than 50% of the total jcar-re-otum time of the visit in counseling / coordination of care. Lena Perez DO SOCRATES documented in this encounter [facility] 02-02-2022 Miscellaneous Notes Phoned patient and notified of results as /per provider . Patient acknowledge understanding of instructions and has no further questions. GABBY Jimenes ----- Message from Lena Perez DO sent at 02/01/2022 4:38 PM EDT ----- PSA stable documented in this encounter [facility] Evaluation note Diagnosis Prostate cancer (HCC)- Primary Malignant neoplasm of prostate [facility] ([facility]CC) Malignant neoplasm of prostate [facility] Prostate cancer (HCC)- Primary Malignant neoplasm of prostate [facility] Diagnosis Malignant neoplasm of prostate (HCC)- Primary Malignant neoplasm of prostate [facility] Malignant neoplasm of prostate (HCC)- Primary Malignant neoplasm of prostate [facility] Diagnosis Malignant neoplasm of prostate (HCC) Malignant neoplasm of prostate [facility] Diagnosis Urinary tract infection without hematuria, site unspecified- Primary Kidney stone Calculus of kidney [facility] Diagnosis Prostate cancer (HCC)- Primary 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) [facility] Diagnosis Kidney stone Calculus of kidney [facility] Diagnosis Elevated prostate specific antigen (PSA) Malignant neoplasm of prostate (HCC) Malignant neoplasm of prostate Pre-op exam Preoperative examination, unspecified Primary hypertension Unspecified essential hypertension Diabetes mellitus (adult onset) (HCC) Prostate cancer (HCC) Malignant neoplasm of prostate [facility] Diagnosis Prostate cancer (HCC)- Primary 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) [facility] Diagnosis Prostate cancer (HCC)- Primary Malignant neoplasm of prostate documented in this encounter [facility] for referral (narrative)* Diagnostic Procedure Only (Routine) - Authorized Specialty Diagnoses / Procedures Referred By Contac t Referred To Contact US IMAGING Diagnoses Kidney stone Procedures US KIDNEY/BLADDER US RETROPERITONEAL REAL TIME W/IMAGE COMPLETE Regla Quinn APRN.CNP [address] [place], [place] [id number] Us Imaging [id number] Referral ID Status Reason Start Date Expiration Date Visits Requested Visits Authorized [id number] Authorized Auto-Generat ed Referral 02/02/2024 03/03/2025 1 1 [facility] for referral (narrative)* Diagnostic Procedure Only (Routine) - Closed Specialty Diagnoses / Procedures Referred By Contac t Referred To Contact US IMAGING Diagnoses Kidney stone Procedures US KIDNEY/BLADDER US RETROPERITONEAL REAL TIME W/IMAGE COMPLETE Regla Quinn APRN.CHRONOMETER TESTER [address] [place] [id number] [place] [address] Referral ID Status Reason Start Date Expiration Date V isits Requested Visits Authorized [id number] Closed Auto-Generate d Referral 02/02/2024 03/03/2025 1 1 [facility] Summary Purpose Family History No Family History Records FoundNo Family History Records FoundNo Family History Records FoundNo Family History Records Found Advance Directives No Advanced Directives Records FoundDocuments on File Type Date Recorded Patient Shift Nurse Manager Expl anation Advance Directive(s) Advance Directive(s) 01/06/2016 8:10 AM Advance Directive(s) 09/25/2015 12:19 PM Documents on File Type Date Recorded Patient Shift Nurse Manager Expl anation Advance Directive(s) Advance Directive(s) 01/06/2016 8:10 AM Advance Directive(s) 09/25/2015 12:19 PM Documents on File Type Date Recorded Patient Shift Nurse Manager Expl anation Advance Directive(s) 09/25/2015 12:19 PM Documents on File Type Date Recorded Patient Shift Nurse Manager Expl anation Advance Directive(s) 09/25/2015 12:19 PM Reason for Referral Specialty Diagnoses / Procedures Referred By Contac t Referred To Contact MR IMAGING Diagnoses Prostate cancer (HCC) Procedures MRI PROSTATE WO/W IVCON MRI PELVIS W/O & W/CONTRAST MATERIAL Lena Perez DO [address] [place] [address] Mr Imaging Referral ID Status Reason Start Date Expiration Date Visits Requested Visits Authorized [id number] Authorized Auto-Generat ed Referral 02/09/2022 03/11/2023 1 1 Referral ID Status Reason Start Date Expiration Date V isits Requested Visits Authorized [id number] Closed Auto-Generate d Referral 02/09/2022 03/11/2023 1 1 Specialty Diagnoses / Procedures Referred By Contac t Referred To Contact MR IMAGING Diagnoses Malignant neoplasm of prostate (HCC) Procedures MRI 3D POST PROCESSING 3D RENDERING W/INTERP&POSTPROC DIFF WORK STATION Ramesh Love MD [address] [place] [address] Mr Imaging [id number] Referral ID Status Reason Start Date Expiration Date Visits Requested Visits Authorized [id number] Authorized Auto-Generat ed Referral 3 07/13/2024 1 1 Specialty Diagnoses / Procedures Referred By Contac t Referred To Contact MR IMAGING Diagnoses Malignant neoplasm of prostate (HCC) Procedures MRI PROSTATE WO/W IVCON MRI PELVIS W/O & W/CONTRAST MATERIAL Ramesh Love MD [address] [place] [address] [place] [address] Referral ID Status Reason Start Date Expiration Date Visits Requested Visits Authorized [id number] Authorized Auto-Generat ed Referral 3 07/13/2024 1 1 Additional Source Comments (unrecognized sect ion and content) No Status Records FoundNo Status Records FoundNo Status Records FoundNo Status Records Found INFORMATION SOURCE (unrecogn ized section and content) DATE CREATED AUTHOR 08/02/2018 [facility] DATE CREATED AUTHOR AUTHOR'S ORGANIZ ATION 07/15/2023 [facility] ([place]) DATE CREATED AUTHOR AUTHOR'S ORGANIZ ATION 02/17/2024 [facility] DATE CREATED AUTHOR AUTHOR'S ORGANIZ ATION 03/17/[address] [facility] Source Comments (unrecognize d section and content) In the event this informatio n is protected by the Federal Confidentiality of Alcohol and Drug Abuse Patient Records regulations: The Federal rules restrict any use of the information to criminally investigate or prosecute any alcohol or drug abuse patient.[facility] event this information is protected by the Federal Confidentiality of Alcohol and Drug Abuse Patient Records regulations: The Federal rules restrict any use of the information to criminally investigate or prosecute any alcohol or drug abuse patient.[facility] the event this information is protected by the Federal Confidentiality of Alcohol and Drug Abuse Patient Records regulations: The Federal rules restrict any use of the information to criminally investigate or prosecute any alcohol or drug abuse patient.[facility] the event this information is protected by the Federal Confidentiality of Alcohol and Drug Abuse Patient Records regulations: The Federal rules restrict any use of the information to criminally investigate or prosecute any alcohol or drug abuse patient.[facility] the event this information is protected by the Federal Confidentiality of Alcohol and Drug Abuse Patient Records regulations: The Federal rules restrict any use of the information to criminally investigate or prosecute any alcohol or drug abuse patient.[facility] the event this information is protected by the Federal Confidentiality of Alcohol and Drug Abuse Patient Records regulations: The Federal rules restrict any use of the information to criminally investigate or prosecute any alcohol or drug abuse patient.[facility] the event this information is protected by the Federal Confidentiality of Alcohol and Drug Abuse Patient Records regulations: The Federal rules restrict any use of the information to criminally investigate or prosecute any alcohol or drug abuse patient.[facility] the event this information is protected by the Federal Confidentiality of Alcohol and Drug Abuse Patient Records regulations: The Federal rules restrict any use of the information to criminally investigate or prosecute any alcohol or drug abuse patient.[facility] the event this information is protected by the Federal Confidentiality of Alcohol and Drug Abuse Patient Records regulations: The Federal rules restrict any use of the information to criminally investigate or prosecute any alcohol or drug abuse patient.[facility] the event this information is protected by the Federal Confidentiality of Alcohol and Drug Abuse Patient Records regulations: The Federal rules restrict any use of the information to criminally investigate or prosecute any alcohol or drug abuse patient.[facility] the event this information is protected by the Federal Confidentiality of Alcohol and Drug Abuse Patient Records regulations: The Federal rules restrict any use of the information to criminally investigate or prosecute any alcohol or drug abuse patient.[facility] the event this information is protected by the Federal Confidentiality of Alcohol and Drug Abuse Patient Records regulations: The Federal rules restrict any use of the information to criminally investigate or prosecute any alcohol or drug abuse patient.[facility] the event this information is protected by the Federal Confidentiality of Alcohol and Drug Abuse Patient Records regulations: The Federal rules restrict any use of the information to criminally investigate or prosecute any alcohol or drug abuse patient.[facility] the event this information is protected by the Federal Confidentiality of Alcohol and Drug Abuse Patient Records regulations: The Federal rules restrict any use of the information to criminally investigate or prosecute any alcohol or drug abuse patient.[facility] the event this information is protected by the Federal Confidentiality of Alcohol and Drug Abuse Patient Records regulations: The Federal rules restrict any use of the information to criminally investigate or prosecute any alcohol or drug abuse patient.[facility] the event this information is protected by the Federal Confidentiality of Alcohol and Drug Abuse Patient Records regulations: The Federal rules restrict any use of the information to criminally investigate or prosecute any alcohol or drug abuse patient.[facility] the event this information is protected by the Federal Confidentiality of Alcohol and Drug Abuse Patient Records regulations: The Federal rules restrict any use of the information to criminally investigate or prosecute any alcohol or drug abuse patient.[facility] the event this information is protected by the Federal Confidentiality of Alcohol and Drug Abuse Patient Records regulations: The Federal rules restrict any use of the information to criminally investigate or prosecute any alcohol or drug abuse patient.[facility] Reason for Visit (unrecogniz ed section and content) Reason Comments Results Reason Comments Prostate Cancer Specialty Diagnoses / Procedures Referred By Contac t Referred To Contact MR IMAGING Diagnoses Prostate cancer (HCC) Procedures MRI PROSTATE WO/W IVCON MRI PELVIS W/O & W/CONTRAST MATERIAL Lena Perez DO [address] [place] [address] Mr Imaging Referral ID Status Reason Start Date Expiration Date V isits Requested Visits Authorized [id number] Closed Auto-Generate d Referral 02/09/2022 03/11/2023 1 1 Reason Comments Prostate Problem Reason Comments Surgery Scheduled Reason Comments Prostate Cancer Specialty Diagnoses / Procedures Referred By Contac t Referred To Contact MR IMAGING Diagnoses Malignant neoplasm of prostate (HCC) Procedures MRI PROSTATE WO/W IVCON MRI PELVIS W/O & W/CONTRAST MATERIAL Ramesh Love MD [address] [place] [address] [place] [address] Referral ID Status Reason Start Date Expiration Date V isits Requested Visits Authorized [id number] Closed Auto-Generate d Referral 06/14/2023 07/13/2024 1 1 Reason Comments Kidney Stones Reason Comments PSA Reason Comments Radiology US Specialty Diagnoses / Procedures Referred By Contac t Referred To Contact US IMAGING Diagnoses Kidney stone Procedures US KIDNEY/BLADDER US RETROPERITONEAL REAL TIME W/IMAGE COMPLETE Regla Quinn, INTERNET SPECIALIST.CHRONOMETER TESTER [address] [place] [address] [place] [address] Referral ID Status Reason Start Date Expiration Date V isits Requested Visits Authorized [id number] Closed Auto-Generate d Referral 02/02/2024 03/03/2025 1 1 Reason Comments Prostate Cancer Reason Comments Consult Prostate Biopsy Care Teams (unrecognized sec tion and content) Signal Operator Relationship Specialty Start Date End Date Ava Macias [place], [place] [id number] PCP - General Family Practice 02/21/18 Camryn Tripp MD, MD [address], [place] [id number] Physician Radiation Oncology 11/18/15 Signal Operator Relationship Specialty Start Date [place] [address] PCP - General Family Practice 02/21/18 Camryn Tripp MD, [address] [place] [address] Physician Radiation Oncology 11/18/15 Signal Operator Relationship Specialty Start Date End Date FionaRema kimjenn[place] [address] [place] [address] PCP - General Family Practice 02/21/18 Camryn Tripp MD, [address] [place] [address] Physician Radiation Oncology 11/18/15 Signal Operator Relationship Specialty Start Date End Date Ava [address]ias [address] [place] [address] PCP - General Family Practice 02/21/18 Camryn Tripp MD, [address] [place] [address] Physician Radiation Oncology 11/18/15 Signal Operator Relationship Specialty Start Date End Date Sabine Romero MD [address] [place] [address] PCP - General Family Medicine 04/13/22 Camryn Tripp MD, [address] [place] [address] Physician Radiation Oncology 11/18/15 Signal Operator Relationship Specialty Start Date End Date Sabine Romero MD [address] [place] [address] PCP - General Family Medicine 04/13/22 Camryn Tripp MD, [address] [place] [address] Physician Radiation Oncology 11/18/15 Signal Operator Relationship Specialty Start Date End Date Sabine Romero MD [address] [place] [address] PCP - General Family Medicine 04/13/22 Camryn Trpip MD, [address] [place] [address] Physician Radiation Oncology 11/18/15 Signal Operator Relationship Specialty Start Date End Date Sabine Romero MD [address] [place] [address] PCP - General Family Medicine 04/13/22 Camryn Tripp MD, [address] [place] [address] Physician Radiation Oncology 11/18/15 Signal Operator Relationship Specialty Start Date End Date Sabine Romero MD [address] [place] [address] PCP - General Family Medicine 04/13/22 Camryn Tripp MD [address] [place] [address] Physician Radiation Oncology 11/18/15 Signal Operator Relationship Specialty Start Date End Date Sabine Romero MD [address] [place] [address] PCP - General Family Medicine 04/13/22 Camryn Tripp MD [address] [place] [address] Physician Radiation Oncology 11/18/15 Signal Operator Relationship Specialty Start Date End Date Sabine Romero MD [address] [place] [address] PCP - General Family Medicine 04/13/22 Camryn Tripp MD [address] [place] [address] Physician Radiation Oncology 11/18/15 Signal Operator Relationship Specialty Start Date End Date Sabine Romero MD [address] [place] [address] PCP - General Family Medicine 04/13/22 Camryn Tripp MD [address] [place] [address] Physician Radiation Oncology 11/18/15 Signal Operator Relationship Specialty Start Date End Date Sabine Romero MD [address] [place] [address] PCP - General Family Medicine 04/13/22 Camryn Tripp MD [address] [place] [address] Physician Radiation Oncology 11/18/15 Signal Operator Relationship Specialty Start Date End Date Sabine Romero MD [address] [place] [address] PCP - General Family Medicine 04/13/22 Camryn Tripp MD [address] [place] [address] Physician Radiation Oncology 11/18/15 Signal Operator Relationship Specialty Start Date End Date Sabine Romero MD [address] [place] [address] PCP - General Family Medicine 04/13/22 Camryn Tripp MD [address] [place] [address] Physician Radiation Oncology 11/18/15 Scheduled Active and Recently Administ ered Medications (unrecognized section and content) Medication Order 02/27/2024 02/28/2024 02/29/2024 acetaminophen 975 mg tab(s) (TYLENOL) (COMPLETED) 975 mg, ORAL, PRE-OP ONCE, 1 dose, On Tue02/29/24 at 1230, If ordered PRN for pain, patient/guardian may elect to receive this medication for higher pain levels INSTEAD of the opioid, if preferred: Yes, Preprocedure 1227 (Given - Provid er: Lorena Humphreys RN) levoFLOXacin 500 mg tab(s) (LEVAQUIN) (COMPLETED) 500 mg, ORAL, ONCE, 1 dose, On Tue02/29/24 at 1230, Administer 2 hours before or 2 hours after medications containing calcium, magnesium, aluminum, iron, or zinc (including antacids and sucralfate), and sevelamer. May be administered without regard to meals. Tube feedings should be held 1 hour before and 1 hour after administration., Antimicrobial indication: Prophylaxis, Preprocedure 1227 (Given - Provid er: Lorena Humphreys RN) tobramycin 120 mg injection (NEBCIN) (COMPLETED) 120 mg, INTRAMUSCULAR, ONCE, 1 dose, On Tue02/29/24 at 1230, Antimicrobial indication: Prophylaxis, Preprocedure 1230 (Given - Provid er: Lorena Humphreys RN) PRN Medication Order 02/27/2024 02/28/2024 02/29/2024 lidocaine 10 mg/mL (1 %) injection (XYLOCAINE) (CANCELED) X (OR/PROCEDURE) PRN, Starting on Tue02/29/24 at 1302, Until Tue02/29/24 at 1314, Intraprocedure 1302 (Given - Provid er: Christina Howard MD) FOR RECORDS PERTAINING TO PATIENTS WHO ARE OR HAVE BEEN ENROLLED IN A CHEMICAL DEPENDENCY/SUBSTANCEABUSE PROGRAM, SOME INFORMATION MAY BE OMITTED. This clinical summary was aggregated from multiple sources. Caution should be exercised in using it in the provision of clinical care. This summary normalizes information from multiple sources, and as a consequence, information in this document may materially change the coding, format and clinical context of patient data. In addition, data may be omitted in some cases. CLINICAL DECISIONS SHOULD BE BASED ON THE PRIMARY CLINICAL RECORDS. [facility] [employer] [facility]. provides no warranty or guarantee of the accuracy or completeness of information in this document.
== END | disposition home or self-care (01) ==
PROVIDERS: PCP Family Medicine; Referring Provider Family Medicine; Visit Provider Family Medicine
DX: H53.2 Diplopia (principal)
CPT/HCPCS: 36415; 87177; 87209

== ENCOUNTER → 2024-05-17 | Outpatient (CLI) | payer MEDICARE, SELFPAY | END | disposition home or self-care (01) | LOC: LABSPEC 09:32 | PROVIDERS: PCP Family Medicine; Referring Provider Family Medicine; Visit Provider Family Medicine | DX: H53.2 Diplopia (principal) | CPT/HCPCS: 87177; 87209 ==

== ENCOUNTER → 2024-05-18 | Outpatient (CLI) | payer MEDICARE, SELFPAY ==
--- OUTSIDE RECORDS SUMMARY | 2024-05-18 17:30 | XMS RPT_ITS | CCD ---
Author Organization [facility] Care Team Providers Care 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 Name Role Phone CHRIS, JAYRAM Unavailable Unavailable [...] Romero MD Primary Care Provider [phone] AVLIN STORM MD Attending Unavail able SABINE ROMERO MD Primary Care Unavailable Camryn Tripp MD Unavailable Sabine Romero MD Primary Care Provider REGLA QUINN Referring Unavailable ROMERO, SABINE A Primary Care Unavailable ROMERO, SABINE A Primary Care Unavailable RAMESH LOVE Referring Unavail able GANGA, SABINE A Primary Care [...] 500 mg by mouth daily with breakfast. Rosie-3 Fatty Acids 500 mg cap (18 sources) take 1 capsule by mouth once daily Rosie-3 Fatty Acids 500 mg cap Take 500 mg by mouth once daily. Active take 1 capsule by mouth once yesica ly Rosie-3 Fatty Acids 500 mg cap Take 500 [...] Test Name Value Interpretation Reference Range Facility [facility] 03-15-2024 CNOV Office Visit (UROLAE ) ERIC RENO ([id number]) 1950 M Date Time Provider Department 03/15/24 10:00 AM RAMESH LOVE During your visit today, we recorded the following information about you: Pulse Blood pressure 82/minute 126/72 Ramesh Love MD 03/15/2024 10:57 AM Signed [facility] [place] ESTABLISHED PATIENT OFFICE VISIT HISTORY OF PRESENT ILLNESS Eric Reno is a 73 year old male who presents with prostate cancer. Here in follow-up to recent prostate fusion biopsy. Biopsy indicated due to progression on MRI. Pathology is as below. Fusion biopsy prostate 02/29/24: FINAL DIAGNOSIS A. Prostate, right, lesion #1, biopsy: - Adenocarcinoma of the prostate, [place] score 3+4 = 7 (grade Group 2), involving 4 of 4 cores (8 mm, 6 mm, 4 mm, 2 mm, 55%, 50%, 70%, 25%). - Pattern 4 comprises approximately 5% of the tumor. B. Prostate, right lateral base, needle biopsy: - Adenocarcinoma of the prostate, [place] score 3+4 =7 (grade Group 2), involving [...] prior to May 2016 came back showing [place] 6 in 2 cores, 1 core positive 40%, 1 core positive 10% [place] 6. This was repeated again with a 2nd biopsy which came back again showing the same [place] 6 tumor. A genetic Oncotype test was [...] 6 disease and one small focus of [place] 7 Send decipher biopsy. Continue PSA surveillance. Path: 09/15/15 (Aron) Specimen originated from [facility] Specimen #: [id number] Submitting Physician: VICTOR M MEMBRENO M.D. FINAL [...] 6 (grade (more content not included)... Normal [facility] HISTORY PHYSICALon HISTORY PHYSICAL HNO ID: [id number] Author: CHRISTINA HOWARD MD Service: Urology Author [...] 29, 2024 TIME: 12:44 PM PAGER: Normal [facility] HISTORY PHYSICAL HNO ID: [id number] Author: RAEGAN CHAPARRO APRN.CNP Service: Anesthesiology Author [...] mg by mouth once daily. 02/29/2024 Yes Rosie-3 Fatty Acids 500 mg cap Take 500 [...] (ASPIRIN, ENTERIC (more content not included)... Normal [facility] OPERATIVE NOon 02-29-2024 OPERATIVE NO HNO ID: [id number] Author: CHRISTINA HOWARD MD Service: Urology Author Type: Physician Type: Operative Report Filed: 02/29/2024 13:14 Note Text: MRI Fusion Biopsy of Prostate/transrectal Eric Reno a 73 year old. 02/29/2024 LOG ID: [id number] INCISION/PROCEDURE START TIME: 12:57 PM INCISION CLOSE/PROCEDURE END TIME: 1:09 PM Preop Dx: elevated PSA, prostate cancer Post op Dx: same Procedure: MRI fusion biopsy of the prostate Surgeon: Christina Howard MD SURGEON(S)/PROCEDURALIST(S) AND SHINGLE CATCHER(S): Surgeon(s) and Role: * Christina Howard MD [...] f/u as planned Christina Howard MD Normal [facility] SURGICAL PATHOLOGYon 024 CASE REPORT Normal [facility] Comment on above: Order Comment: Speci men Type: TISSUE SPECIMENOrdering Facility: [facility] Address: [address] [place] [address] Result Comment: Surg [facility] Pathology Report Case: [id number] Authorizing Provider: Christina Howard MD Collected: 02/29/2024 01:05 PM Ordering Location: [facility] Received: 02/29/2024 04:10 PM Pathologist: Stephen Perez DO Specimens: A) - Prostate, Target/Lesion, Biopsy, #1 lesion right side B) - Prostate, Right, Lateral Base, Biopsy C) - Prostate, Right, Lateral Mid, Biopsy D) - Prostate, Right, Lateral [place], Biopsy E) - Prostate, Left, Lateral Base, Biopsy F) - Prostate, Left, Lateral Mid, Biopsy G) - Prostate, Left, Lateral [place] , Biopsy Performed By: #### S ####[facility] [id number] CLINICAL HISTORY Normal [facility] Comment on above: Order Comment: Speci men Type: TISSUE SPECIMENOrdering Facility: [facility] Address: [address] [place] [address] Result Comment: Pre- op diagnosis: Elevated prostate specific antigen (PSA) [R97.20] Malignant neoplasm of prostate (HCC) [C61] Performed By: #### S ####[facility]ATORYCL[facility] [id number] DIAGNOSIS COMMENT Normal [facility] Comment on above: Order Comment: Speci men Type: TISSUE SPECIMENOrdering Facility: [facility] Address: [address] [place] [address] Result Comment: E. T he atypical glands in part E is qualitatively and quantitatively insufficient for the diagnosis of adenocarcinoma. Christopher Blackburn has reviewed part A of this case and agrees with the above diagnosis. Performed By: #### S ####[facility]ORYCLIA [id number] [address] FINAL DIAGNOSIS Normal [facility] Comment on above: Order Comment: Speci men Type: TISSUE SPECIMENOrdering Facility: [facility] Address: [address] [place] [address] Result Comment: Christopher Ballesteros rostate, right, lesion [...] needle biopsy: - Adenocarcinoma of the prostate, [place] score 3+3 = 6 (grade Group 1), [...] Intraductal carcinoma: Absent Performed By: #### S ####[facility]ORATORYCLIA [id number] [address] STATES OF [facility] FINAL PERFORMING LAB Normal [facility] Comment on above: Order Comment: Speci men Type: TISSUE SPECIMENOrdering Facility: [facility] Address: [address] [place] [address] Result Comment: Diag nostic interpretation performed at [facility], [address] [place] [address] CLIA# [id number] Liquor Clerk: Sabine Trevino M.D. Performed By: #### S ####[facility]ORATORYCLIA [id number] [address] STATES OF [place] DESCRIPTION Normal [facility] Comment on above: Order Comment: Speci men Type: TISSUE SPECIMENOrdering Facility: [facility] Address: [address] [place] [address] [place] [address] Result Comment: A. P rostate, Target/Lesion, Biopsy [...] in cassette C1. D. Prostate, Right, Lateral [place], Biopsy Received in formalin labeled right lateral [...] in cassette F1. G. Prostate, Left, Lateral [place] , Biopsy Received in formalin labeled left lateral apex is one hernandez, cylindrical fragment of soft tissue measuring 1 x 0.1 x 0.1 cm. Totally submitted in cassette G1. Gross examination performed at [facility], [address] [place] [address] CLIA#[id number] [facility] March 01, 2024 2:17 PM Performed By: #### S ####[facility] [id number] [place] [address] [facility] Luz Maria 02-23-2024 CNPN Telephone (AKURFL) NATEERIC OSORIO ([id number]) 1950 M Date Time Provider Department 02/23/24 CHRISTINA HOWARD During your visit today, we recorded the following information about you: Aimee Amaya 02/23/2024 9:29 AM Signed Pt is scheduled for MRI Fusion Bx LOCAL with Dr Howard at [facility] on 02/29/24 @ 1:30 (12:00 arrival). Pt [...] 20 mg by mouth once daily. - Rosie-3 Fatty Acids 500 mg cap Take 500 [...] Status:Closed by AIMEE AMAYA on 02/23/24 Normal [facility] US KIDNEY/BLADDERon 02-15-20 US KIDNEY/BLADDER * * [...] AND BLADDER. No evidence of persistent hydronephrosis Tannery Gummer: [facility] Transcribe Date/Time: Feb 15 2024 8:17A Dictated by : FLORIN ARREGUIN MD This examination was interpreted and the report reviewed and electronically signed by: FLORIN ARREGUIN MD on Feb 15 2024 8:19AM EST [id number] Normal [facility] US Kidney - bilateral and Ur inary bladderon 02-15-2024 IMPRESSION: NORMAL SONOGRAPHIC APPEARANCE OF KIDNEYS AND BLADDER. No evidence of persistent hydronephrosis Tannery Gummer: [facility] Transcribe Date/Time: Feb 15 2024 8:17A Dictated [...] respectively were recorded DIVISION OF RADIOLOGY Provider, [facility] - 02/15/2024 * * *Final Report* * * DATE OF EXAM: Feb 15 2024 7:54AM [facility] [address] [facility] KIDNEY/BLADDER / PROCEDURE REASON: Kidney stone [...] AND BLADDER. No evidence of persistent hydronephrosis Tannery Gummer: [facility] Transcribe Date/Time: Feb 15 2024 8:17A Dictated by : FLORIN ARREGUIN MD This examination was interpreted and the report reviewed and electronically signed by: FLORIN ARREGUIN MD on Feb 15 2024 8:19AM EST [facility] Radiology Study observation (narrative) [facility] US Kidney - bilateral and Ur inary bladderOrdered By: [facility]cf Provider on 02-15-2024 [facility] CNOVon 02-14-2024 CNOV Office Visit (AKURFL ) ERIC RENO ([id number]) 1950 M Date Time Provider Department 02/14/24 4:00 PM CHRISTINA HOWARD GAALLISON During your visit today, we recorded the following information about you: Pulse Height 80/minute 1.651 m Christina Howard MD 02/15/2024 9:25 AM Signed ESTABLISHED PATIENT OFFICE VISIT PATIENT INFO: Eric Reno 73 year old HPI 02/14/2024 CC: bx Patient had MRI done at [facility] and PI-RADS 5 lesion x 1 [...] Was seen in the emergency room at [facility] on 01/31/2024 with complaints of right flank [...] prior to May 2016 came back showing [place] 6 in 2 cores, 1 core positive 40%, 1 core positive 10% [place] 6. This was repeated again with a [...] s/p MRI fusion biopsy - 05/28/2022 Stable [place] 6 disease and one small focus of [place] 7 Send decipher biopsy. Continue PSA surveillance. Path: 09/15/15 (Aron)Specimen originated from [facility] Specimen #: [id number] Submitting Physician: VICTOR M MEMBRENO M.D. FINAL DIAGNOSIS 1. Prostate, right base, lateral, needle biopsy (A) - Adenocarcinoma of the prostate, [place] score 3+3=6 discontinuously involving 40% of one of one core and measuring 4 mm. 4. Prostate, right base medial, needle biopsy (D) - Adenocarcinoma of the prostate, [place] score 3+3=6 involving 10% of one of [...] Prostate, lesion #1, biopsy: - Prostatic adenocarcinoma [place] score 3+3 = 6 (grade group 1) involving 6 of 6 cores (100%, 15%, 20%, 50%, 5%, and 80%) 23 mm total tumor length. E. Prostate, right lateral base, biopsy: - Prostatic adenocarcinoma [place] score 3+4 = 7 (grade group 2) involving 80% of 1 core (5 mm tumor length). 5% pattern 4. F. Prostate, right lateral mid, biopsy: - Prostatic adenocarcinoma [place] score 3+3 = 6 (grade group 1) [...] He is (more content not included)... Normal [facility] Bacteria Ur Culton 4 Bacteria identified Cx Nom (U) CULTURE, URINE: No growth (<1,000 CFU/ml) Normal [facility] Comment on above: Performed By: #### 6 30-4 ####[facility] LABORATORYCLIA [id number] [address] STATES OF [facility] CNOVon 02-02-2024 CNOV Office Visit (URHWST ) ERIC RENO ([id number]) 1950 M Date Time Provider Department 02/02/24 2:45 PM REGLA QUINNBOUCHRA During your visit today, we recorded the following information about you: Height 1.651 m Regla Quinn APRN.STORE DIRECTOR 02/02/2024 4:02 PM Signed ESTABLISHED PATIENT OFFICE VISIT HISTORY OF PRESENT ILLNESS Margaguru Reno is a 73 year old male who presents today in f/u. Patient with a history of prostate cancer, BPH. Presents today with complaints of a kidney stone. Was seen in the emergency room at [facility] on 01/31/2024 with complaints of right flank [...] Take 20 mg by mouth once daily. Rosie-3 Fatty Acids 500 mg cap Take 500 [...] retinal detach (more content not included)... Normal [facility] UA DIP, URINE (POC)on 2023 BILIRUBIN UA (POCT) Negative Negative [facility] CLARITY UA (POCT) Clear [facility] COLOR UA (POCT) Yellow [facility] GLUCOSE UA (POCT) Negative Negative mg/dL [facility] Hemoglobin Ql (U) Trace-lysed Abnormal Negative [facility] Interpretation and review of laboratory results Abnormal [facility] KETONE UA (POCT) Negative Negative mg/dL [facility] LEUKOCYTES UA (POCT) Negative Negative [facility] NITRITE UA (POCT) Negative Negative [facility] PH UA (POCT) 5.5 4.5 - 8.0 [facility] Protein Ql (U) Negative Negative mg/dL [facility] SPECIFIC GRAVITY UA (POCT) 1.015 1.005 - 1.030 [facility] UROBILINOGEN UA (POCT) 0.2 Normal E.U./dL [facility] Location:[facility], [address], [place], [place], [id number] [place] [address] POINT OF CARE [facility] CNOVon 01-12-2024 CNOV Office Visit (UROLAE ) ERIC RENO ([id number]) 1950 M Date Time Provider Department 01/12/24 9:00 AM RAMESH LOVE During your visit today, we recorded the following information about you: Pulse Blood pressure 74/minute 124/74 Ramesh Love MD 03/08/2024 3:11 PM Signed [facility] [place] ESTABLISHED PATIENT OFFICE VISIT HISTORY OF PRESENT ILLNESS Eric Reno is a 73 year old male who presents longstanding diagnosis of prostate cancer previous monitors by Dr. Perez.has been on active surveillance. Here today with his daughters, 1 from [place] and 1 from [place] to discuss MRI findings. MRI as below: [...] prior to May 2016 came back showing [place] 6 in 2 cores, 1 core positive 40%, 1 core positive 10% [place] 6. This was repeated again with a 2nd biopsy which came back again showing the same [place] 6 tumor. A genetic Oncotype test was [...] s/p MRI fusion biopsy - 05/28/2022 Stable [place] 6 disease and one small focus of [place] 7 Send decipher biopsy. Continue PSA surveillance. Path: 09/15/15 (Aron) Specimen originated from [facility] Specimen #: [id number] Submitting Physician: VICTOR M MEMBRENO M.D. FINAL [...] Prostate, lesion #1, biopsy: - Prostatic adenocarcinoma [place] score 3+3 = 6 (grade group 1) involving 6 of 6 cores (100%, 15%, 20%, 50%, 5%, and 80%) 23 mm total tumor length. B. Prostate, left lateral base, biopsy: - Benign prostatic tissue. C. Prostate, left lateral mid, biopsy: - Benign prostatic tissue. D. Prostate, left lateral apex, biopsy: - Benign prostatic tissue. E. Prostate, right lateral base, biopsy: - Prostatic adenocarcinoma [place] score 3+4 = 7 (grade group 2) involving 80% of 1 core (5 mm tumor length). 5% pattern 4. F. Prostate, right lateral mid, biopsy: - Prostatic adenocarcinoma [place] score 3+3 = 6 (grade group 1) involving 65% of 1 core (6 mm tumor length). G. Prostate, right lateral apex, biopsy: - Prostatic adenocarcinoma [place] score 3+3 = 6 (grade group 1) involving 20% of 1 core (1 mm tumor length). Prostate Cancer Biopsy Summary Number of cores examined: 12 Number of cores positive: 9 Highest Grade Group: 2 Highest % of core involvement: 100 % Cribriform pattern 4: Absent Intraductal carcinoma: Absent 3D Modeler tumor block to use for additional studies: E AUA 19/0 ISHAN 12 Review of Systems Constitutional: Negative. HENT: Negative. Eyes: Negative. Respiratory: Negative. Cardiovascular: Negative. Gastrointestinal: Negative. Genit (more content not included)... Normal [facility] UA DIP, URINE (POC)on 2023 BILIRUBIN UA (POCT) Negative Negative [facility] CLARITY UA (POCT) Clear [facility] COLOR UA (POCT) Yellow [facility] GLUCOSE UA (POCT) Negative Negative mg/dL [facility] Hemoglobin Ql (U) Trace-intact Abnormal Negative [facility] Interpretation and review of laboratory results Abnormal [facility] KETONE UA (POCT) Negative Negative mg/dL [facility] LEUKOCYTES UA (POCT) Negative Negative [facility] NITRITE UA (POCT) Negative Negative [facility] PH UA (POCT) 6.5 4.5 - 8.0 [facility] Protein Ql (U) Negative Negative mg/dL [facility] SPECIFIC GRAVITY UA (POCT) <=1.005 Abnormal 1.005 - 1.030 [facility] UROBILINOGEN UA (POCT) 0.2 Normal E.U./dL [facility] Location:[facility], [address] [place], [place], [address] [facility] POINT OF CARE [facility] PSA SerPl-mCncon 12-08-2023 Prostate specific Ag [Mass/Vol] 12.42 ng/mL High <2.[address] [facility] Comment on above: Order Comment: Speci men Type: BLOOD SPECIMEN [facility] Address: [address] [place] [address] Result Comment: Tota l PSA test methodology used is the Electrochemiluminescence Immunoassay by [employer]. Total PSA values by differing methodologies cannot [...] 2003,349:335-42. Performed By: #### 2 857-1 #### [facility] CLIA [id number] [address] [place], [place] [address] [address] [place] MRI 3D POST [...] volume were obtained using a semi-automated software ([employer]). THREE-DIMENSIONAL IMAGIND imaging including complex volumetric analysis of the prostate was created on a dedicated stand-alone workstation ([employer]) by the interpreting physician, with images reviewed [...] of suspicion for clinically significant prostate cancer ([place] score 3 + 4 or higher). PI-RADS v2.1 Assessment Categories: PI-RADS 1: Clinically significant cancer is highly unlikely PI-RADS 2: Clinically significant cancer is unlikely PI-RADS 3: Clinically significant cancer is equivocal PI-RADS 4: Clinically significant cancer is likely PI-RADS 5: Clinically significant cancer is highly likely (V.) Tannery Gummer: [facility] Transcribe Date/Time: Oct 28 2023 8:47A Dictated by : CAMILLE AVILEZ MD This examination was interpreted and the report reviewed and electronically signed by: CAMILLE AVILEZ MD on Oct 28 2023 8:58AM EST [id number] Normal [facility] MRI PROSTATE WO/W IVCONon MRI PROSTATE WO/W IVCON * * *Final Report* * * DATE OF EXAM: Oct 25 2023 10:30AM [facility] 0751 - MRI PROSTATE WO/W IVCON / [...] volume were obtained using a semi-automated software ([employer]). THREE-DIMENSIONAL IMAGIND imaging including complex volumetric analysis of the prostate was created on a dedicated stand-alone workstation ([employer]) by the interpreting physician, with images reviewed [...] Clinically significant cancer is highly likely (.) Tannery Gummer: SHAI Transcribe Date/Time: Oct 28 2023 8:47A Dictated by : CAMILLE AVILEZ MD This examination was interpreted and the report reviewed and electronically signed by: CAMILLE AVILEZ MD on Oct 28 2023 8:58AM EST [id number] Normal [facility] .Auto Diffon 07-09-2023 Basophil, Absolute 0.0 10 3/mcL Normal 0.0-0.2 [facility] ([place]) Comment on above: Performed By: #### M DW, GFR, ANEU, TROPHS, LIP, CMP, CBC, ADIFF #### [address] [address] Basophils/100 WBC (Bld) 0.2 % Normal 0.0-2.5 [facility] ([place]) Comment on above: Performed By: #### M DW, GFR, ANEU, TROPHS, LIP, CMP, CBC, ADIFF #### [address] [address] Eosinophil, Absolute 0.1 10 3/mcL Normal 0.0-0.4 [facility] ([place]) Comment on above: Performed By: #### M DW, GFR, ANEU, TROPHS, LIP, CMP, CBC, ADIFF #### [address] [address] Eosinophils/100 WBC (Bld) 0.9 % Normal 0.0-7.0 [facility] ([place]) Comment on above: Performed By: #### M DW, GFR, ANEU, TROPHS, LIP, CMP, CBC, ADIFF #### [address] [address] Lymphocyte, Absolute 2.0 10 3/mcL Normal 0.8-3.9 [facility] ([place]) Comment on above: Performed By: #### M DW, GFR, ANEU, TROPHS, LIP, CMP, CBC, ADIFF #### [address] [address] Lymphocytes/100 WBC (Bld) 22.4 % Normal 10.0-50.0 [facility] ([place]) Comment on above: Performed By: #### M DW, GFR, ANEU, TROPHS, LIP, CMP, CBC, ADIFF #### [address] [address] Monocyte, Absolute 0.7 10 3/mcL Normal 0.2-1.0 [facility] ([place]) Comment on above: Performed By: #### M DW, GFR, ANEU, TROPHS, LIP, CMP, CBC, ADIFF #### [address] [address] Monocytes/100 WBC (Bld) 7.6 % Normal 1.7-13.0 [facility] ([place]) Comment on above: Performed By: #### M DW, GFR, ANEU, TROPHS, LIP, CMP, CBC, ADIFF #### [address] [address] Neutrophils/100 WBC (Bld) 68.9 % Normal 37.0-80.0 [facility] ([place]) Comment on above: Performed By: #### M DW, GFR, ANEU, TROPHS, LIP, CMP, CBC, ADIFF #### [address] [address] .GFRon 07-09-2023 GFR 70 ml/min/1.73sqm Normal [facility] ([place]) Comment on above: Result Comment: GFR [...] ANEU, TROPHS, LIP, CMP, CBC, ADIFF #### [address] [address] GFR Non- 58 ml/min/1.73sqm Normal [facility] ([place]) Comment on above: Result Comment: GFR [...] ANEU, TROPHS, LIP, CMP, CBC, ADIFF #### [place] [address] .MDWon 07-09-2023 Monocyte Distribution Width 16.66 Normal 0.00-20.00 [facility] ([place]) Comment on above: Result Comment: For ED adult patients suspected of sepsis, MDW<=20.0 does not rule out sepsis or risk of sepsis Performed By: #### M DW, GFR, ANEU, TROPHS, LIP, CMP, CBC, ADIFF #### [place] [address] .NEUABSon 07-09-2023 Neutrophil, Absolute 6.0 10 3/mcL Normal 2.9-6.2 [facility] ([place]) Comment on above: Performed By: #### M DW, GFR, ANEU, TROPHS, LIP, CMP, CBC, ADIFF #### [place] [address] CBCon 07-09-2023 Erythrocyte distribution width (RBC) [Ratio] 13.9 % Normal 11.5-14.5 [facility] ([place]) Comment on above: Performed By: #### M DW, GFR, ANEU, TROPHS, LIP, CMP, CBC, ADIFF #### [place] [id number] Hematocrit (Bld) [Volume fraction] 44.1 % Normal 42.0-52.0 [facility] ([place]) Comment on above: Performed By: #### M DW, GFR, ANEU, TROPHS, LIP, CMP, CBC, ADIFF #### [address] [address] Hgb 15.0 G/dL Normal 14.0-18.0 [facility] ([place]) Comment on above: Performed By: #### M DW, GFR, ANEU, TROPHS, LIP, CMP, CBC, ADIFF #### [address] [address] MCH (RBC) [Entitic mass] 29.3 pg Normal 27.0-31.2 [facility] ([place] Comment on above: Performed By: #### M DW, GFR, ANEU, TROPHS, LIP, CMP, CBC, ADIFF #### [address] [address] MCHC 34.0 G/dL Normal 31.8-35.4 [facility] ([place] Comment on above: Performed By: #### M DW, GFR, ANEU, TROPHS, LIP, CMP, CBC, ADIFF #### [address] [address] MCV (RBC) [Entitic vol] 86.2 fL Normal 80.0-94.0 [facility] ([place] Comment on above: Performed By: #### M DW, GFR, ANEU, TROPHS, LIP, CMP, CBC, ADIFF #### [address] [address] Platelet 372 10 3/mcL Normal 130-400 [facility] ([place]) Comment on above: Performed By: #### M DW, GFR, ANEU, TROPHS, LIP, CMP, CBC, ADIFF #### [address] [address] Platelet mean volume (Bld) [Entitic vol] 6.9 fL Low 7.4-10.4 [facility] ([place] Comment on above: Performed By: #### M DW, GFR, ANEU, TROPHS, LIP, CMP, CBC, ADIFF #### [address] [address] RBC 5.12 10 6/mcL Normal 4.04-6.13 [facility] ([place]) Comment on above: Performed By: #### M DW, GFR, ANEU, TROPHS, LIP, CMP, CBC, ADIFF #### [address] [address] WBC 8.8 10 3/mcL Normal 4.6-10.8 [facility] ([place] Comment on above: Performed By: #### M DW, GFR, ANEU, TROPHS, LIP, CMP, CBC, ADIFF #### [address] [address] CMPon 07-09-2023 Albumin Level 3.5 G/dL Normal 3.4-4.8 [facility] [place] Comment on above: Performed By: #### M DW, GFR, ANEU, TROPHS, LIP, CMP, CBC, ADIFF #### [address] [address] Albumin/Globulin [Mass ratio] 1.0 {ratio} Low 1.1-2.5 [facility] [place] Comment on above: Performed By: #### M DW, GFR, ANEU, TROPHS, LIP, CMP, CBC, ADIFF #### [address] [address] ALP [Catalytic activity/Vol] 87 U/L Normal 40-135 [facility] ([place] Comment on above: Performed By: #### M DW, GFR, ANEU, TROPHS, LIP, CMP, CBC, ADIFF #### [address] [address] ALT [Catalytic activity/Vol] 21 U/L Normal 16-63 [facility] [place] Comment on above: Performed By: #### M DW, GFR, ANEU, TROPHS, LIP, CMP, CBC, ADIFF #### [address] [address] AST [Catalytic activity/Vol] 28 U/L Normal 10-40 [facility] [place] Comment on above: Performed By: #### M DW, GFR, ANEU, TROPHS, LIP, CMP, CBC, ADIFF #### [address] [address] Bili Total 0.4 mg/dL Normal 0.2-1.0 [facility] ([place] Comment on above: Result Comment: Use of this assay is not recommended for patients undergoing treatment with eltrombopag due to the potential for falsely elevated results. Performed By: #### M DW, GFR, ANEU, TROPHS, LIP, CMP, CBC, ADIFF #### [address] [address] BUN/Creatinine Ratio 11 ratio Normal 7-27 [facility] ([place] Comment on above: Performed By: #### M DW, GFR, ANEU, TROPHS, LIP, CMP, CBC, ADIFF #### [address] [address] Calcium [Mass/Vol] 9.1 mg/dL Normal 8.4-10.2 [facility] ([place]) Comment on above: Performed By: #### M DW, GFR, ANEU, TROPHS, LIP, CMP, CBC, ADIFF #### [address] [address] Chloride [Moles/Vol] 104 mmol/L Normal 98-107 [facility] [place] Comment on above: Performed By: #### M DW, GFR, ANEU, TROPHS, LIP, CMP, CBC, ADIFF #### [address] [address] CO2 [Moles/Vol] 27 mmol/L Normal 23-31 [facility] [place] Comment on above: Performed By: #### M DW, GFR, ANEU, TROPHS, LIP, CMP, CBC, ADIFF #### [address] [address] Creatinine [Mass/Vol] 1.23 mg/dL Normal 0.70-1.30 [facility] [place] Comment on above: Performed By: #### M DW, GFR, ANEU, TROPHS, LIP, CMP, CBC, ADIFF #### [address] [address] Electrolyte Balance 11.0 mEq/L Normal 4.0-15.0 [facility] [place] Comment on above: Performed By: #### M DW, GFR, ANEU, TROPHS, LIP, CMP, CBC, ADIFF #### [address] [address] Globulin 3.6 G/dL Normal [facility] ([place] Comment on above: Performed By: #### M DW, GFR, ANEU, TROPHS, LIP, CMP, CBC, ADIFF #### [address] [address] Glucose [Mass/Vol] 139 mg/dL High 83-110 [facility] ([place] Comment on above: Performed By: #### M DW, GFR, ANEU, TROPHS, LIP, CMP, CBC, ADIFF #### [address] [address] Potassium [Moles/Vol] 4.4 mmol/L Normal 3.5-5.1 [facility] [place] Comment on above: Performed By: #### M DW, GFR, ANEU, TROPHS, LIP, CMP, CBC, ADIFF #### [address] [address] Sodium [Moles/Vol] 142 mmol/L Normal 136-145 [facility] ([place] Comment on above: Performed By: #### M DW, GFR, ANEU, TROPHS, LIP, CMP, CBC, ADIFF #### [address] [address] Total Protein 7.1 G/dL Normal 6.4-8.2 [facility] [place] Comment on above: Performed By: #### M DW, GFR, ANEU, TROPHS, LIP, CMP, CBC, ADIFF #### [address] [address] Urea nitrogen [Mass/Vol] 14 mg/dL Normal 7-18 [facility] [place] Comment on above: Performed By: #### M DW, GFR, ANEU, TROPHS, LIP, CMP, CBC, ADIFF #### [address] [place], [place] [address] LIPon 07-09-2023 Lipase Level 52 U/L Normal 16-77 [facility] [place] Comment on above: Performed By: #### M DW, GFR, ANEU, TROPHS, LIP, CMP, CBC, ADIFF #### [facility] [address] [place], [place] [address] TROPHSon 07-09-2023 Troponin I High Sensitivity 4.6 ng/L Normal 0.0-76.2 [facility] ([place] Comment on above: Performed By: #### M DW, GFR, ANEU, TROPHS, LIP, CMP, CBC, ADIFF #### [id number] [place], [place] [address] XR CHEST 1 VIEWon 07-09-2023 XR CHEST [...] 07/09/2023 5:35:07 PM Ordering Provider: ALVIN Horowitz [facility] ([place]) PSA SerPl-ncon 06-21-2023 Prostate specific Ag [Mass/Vol] 11.24 ng/mL High <2.[address] [facility] Comment on above: Order Comment: Speci men Type: BLOOD SPECIMEN Ordering Facility: [facility] Address: [address] [place] [address] Result Comment: Lori mae PSA test methodology [...] [id number]. Performed By: #### 2 [id number] #### [facility] CLIA [id number] [address] [address] [place] [facility] CNOVon 06-14-2023 CNOV Office Visit (UROLAE ) ERIC RENO ([id number]) 1950 M Date Time Provider Department 06/14/23 9:30 AM RAMESH LOVE During your visit today, we recorded the following information about you: Pulse Blood pressure 78/minute 130/76 Ramesh Love MD 06/14/2023 12:56 PM Signed [facility] [place] ESTABLISHED PATIENT OFFICE VISIT HISTORY OF PRESENT [...] core positive 40%, 1 core positive 10% [place] 6. This was repeated again with a [...] s/p MRI fusion biopsy - 05/28/2022 Stable [place] 6 disease and one small focus of [place] 7 Send decipher biopsy. Continue PSA surveillance. Path: 09/15/15 ([facility]) Specimen originated from [facility] Specimen #: [id number] Submitting Physician: VICTOR M MEMBRENO M.D. FINAL DIAGNOSIS 1. Prostate, right base, lateral, needle biopsy (A) - Adenocarcinoma of the prostate, [place] score 3+3=6 discontinuously involving 40% of one [...] (L) - Benign prostatic tissue. Path 06/01/16 ([facility]): FINAL DIAGNOSIS 1. Prostate, right base lateral, [...] biopsy (D) - Adenocarcinoma of the prostate, [place] score 3+3=6 (Grade Group 1), involving 10% [...] Prostate, lesion #1, biopsy: - Prostatic adenocarcinoma [place] score 3+3 = 6 (grade group 1) involving 6 of 6 cores (100%, 15%, 20%, 50%, 5%, and 80%) 23 mm total tumor length. B. Prostate, left lateral base, biopsy: - Benign prostatic tissue. C. Prostate, left lateral mid, biopsy: - Benign prostatic tissue. D. (more content not included)... Normal [facility] UA DIP, URINE (POC)on 2022 BILIRUBIN UA (POCT) Negative Negative [facility] CLARITY UA (POCT) Clear [facility] COLOR UA (POCT) Yellow [facility] GLUCOSE UA (POCT) 100 mg/dL Abnormal Negative mg/dL [facility] Hemoglobin Ql (U) Trace-intact Abnormal Negative [facility] KETONE UA (POCT) Negative Negative mg/dL [facility] LEUKOCYTES UA (POCT) Negative Negative [facility] NITRITE UA (POCT) Negative Negative [facility] PH UA (POCT) 6.0 4.5 - 8.0 [facility] Protein Ql (U) Negative Negative mg/dL [facility] SPECIFIC GRAVITY UA (POCT) <=1.005 Abnormal 1.005 - 1.030 [facility] UROBILINOGEN UA (POCT) 0.2 E.U./dL Normal E.U./dL [facility] US MSR POST-VOID RESID URINE [facility] Vital Signs Date Time Vital Sign Value Performing Clinician Faci lity 03-15-2024 10:14-0400 Diastolic blood pressure 72 mm[Hg] Ramesh Love MD Work Phone: [facility] 03-15-2024 10:14-0400 Heart rate 82 /min Ramesh Love MD Work Phone: [facility] 03-15-2024 10:14-0400 SaO2% (BldA) [Mass fraction] 98 % Ramesh Love MD Work Phone: [facility] 03-15-2024 10:14-0400 Systolic blood pressure 126 mm[Hg] Ramesh Love MD Work Phone: [facility] 02-29-2024 13:14-0400 Diastolic blood pressure 80 mm[Hg] Christina Howard MD Work Phone: [facility] 02-29-2024 13:14-0400 Heart rate 72 /min Christina oHward MD Work Phone: [facility] 02-29-2024 13:14-0400 Respiratory rate 16 /min Christina Howard MD Work Phone: [facility] 02-29-2024 13:14-0400 SaO2% (BldA) [Mass fraction] 99 % Christina Howard MD Work Phone: [facility] 02-29-2024 13:14-0400 Systolic blood pressure 136 mm[Hg] Christina Howard MD Work Phone: [facility] 02-29-2024 12:16-0400 Body height 165.1 cm Christina Howard MD Work Phone: [facility] 02-29-2024 12:16-0400 Body mass index (BMI) [Ratio] 26.96 kg/m2 Christina Howard MD Work Phone: [facility] 02-29-2024 12:16-0400 Body temperature 96.8 [degF] Christina Howard MD Work Phone: [facility] 02-29-2024 12:16-0400 Body weight 73.48 kg Christina Howard MD Work Phone: [facility] 02-14-2024 15:31-0400 Body height 165.1 cm Christina Howard MD Work Phone: [facility] 02-14-2024 15:31-0400 Heart rate 80 /min Christina Howard MD Work Phone: [facility] 02-14-2024 15:31-0400 SaO2% (BldA) [Mass fraction] 98 % Christina Howard MD Work Phone: [facility] 02-02-2024 14:27-0400 Body height 165.1 cm Regla Quinn GIOVANNI Work Phone: [facility] 01-12-2024 09:02-0400 Diastolic blood pressure 74 mm[Hg] Ramesh Love MD Work Phone: [facility] 01-12-2024 09:02-0400 Heart rate 74 /min Ramesh Love MD Work Phone: [facility] 01-12-2024 09:02-0400 SaO2% (BldA) [Mass fraction] 96 % Ramesh Love MD Work Phone: [facility] 01-12-2024 09:02-0400 Systolic blood pressure 124 mm[Hg] Ramesh Love MD Work Phone: [facility] 06-14-2023 09:53-0500 Diastolic blood pressure 76 mm[Hg] Ramesh Love MD Work Phone: [facility] 06-14-2023 09:53-0500 Heart rate 78 /min Ramesh Love MD Work Phone: [facility] 06-14-2023 09:53-0500 SaO2% (BldA) [Mass fraction] 93 % Ramesh Love MD Work Phone: [facility] 06-14-2023 09:53-0500 Systolic blood pressure 130 mm[Hg] Ramesh Love MD Work Phone: [facility] 06-09-2022 15:50-0500 Body height 165.1 cm Lena Peerz DO Work Phone: [facility] 06-09-2022 15:50-0500 Body weight 72.58 kg Lena Perez DO Work Phone: [facility] 04-13-2022 16:00-0400 Body height 165.1 cm Christina Howard MD Work Phone: [facility] 04-13-2022 16:00-0400 Body weight 71.67 kg Christina Howard MD Work Phone: [facility] 04-13-2022 16:00-0400 Diastolic blood pressure 80 mm[Hg] Christina Howard MD Work Phone: [facility] 04-13-2022 16:00-0400 Systolic blood pressure 124 mm[Hg] Christina Howard MD Work Phone: [facility] 02-09-2022 10:38-0400 Body height 165.1 cm Remyyrruben Woodardnan DO Work Phone: [facility] 02-09-2022 10:38-0400 Body weight 71.67 kg Jayram Chris DO Work Phone: [facility] 02-09-2022 10:38-0400 Diastolic blood pressure 80 mm[Hg] Jayram Chris DO Work Phone: [facility] 02-09-2022 10:38-0400 Systolic blood pressure 114 mm[Hg] Jayram Chris DO Work Phone: [facility] Encounters Encounter Date Encounter Type Care Provider Facility Start: 03-15-2024 End: 03-15-2024 Patient encounter procedure Ramesh Love MD Work Phone: Urology Comment on above: Prostate cancer (HCC ) (Primary Dx) Start: 03-15-2024 End: 03-15-2024 ambulatory [facility] Facility:[facility] Start: 02-29-2024 ambulatory SABINE Arelis [place] Facility:[facility] Start: 02-29-2024 End: 02-29-2024 Preprocedural examination done Christina Howard MD Work Phone: [facility] Work Phone: Start: 02-29-2024 End: 02-29-2024 Subsequent hospital visit by physician Christina Howard MD Work Phone: [facility] Comment on above: Elevated prostate sp ecific antigen (PSA) [R97.20] Start: 02-23-2024 Telephone encounter Christina Howard MD Work Phone: [facility] Comment on above: Surgery Scheduled Start: 02-15-2024 End: 02-15-2024 ambulatory REGLA QUINN Facility:[facility] Start: 02-15-2024 End: 02-15-2024 Subsequent hospital visit by physician [facility] Work Phone: Radiology Comment on above: Kidney stone [N20.0] Start: 02-14-2024 End: 02-14-2024 Patient encounter procedure Christina Howard MD Work Phone: [facility] Comment on above: Prostate cancer (HCC ) (Primary Dx); BPH with obstruction/lower urinary tract symptoms Start: 02-14-2024 End: 02-14-2024 ambulatory SABINE ROMERO Facility:[facility] Start: 02-02-2024 End: 02-02-2024 Patient encounter procedure Regla Quinn STORE DIRECTOR Work Phone: Urology Comment on above: Urinary tract infect ion without hematuria, site unspecified (Primary Dx); Kidney stone Start: 02-02-2024 End: 02-02-2024 ambulatory SABINE ROMERO Facility:[facility] Start: 01-12-2024 End: 01-12-2024 Patient encounter procedure Ramesh Love MD Work Phone: Urology Comment on above: Prostate cancer (HCC ) (Primary Dx); BPH with obstruction/lower urinary tract symptoms Start: 01-12-2024 End: 01-12-2024 ambulatory SABINE ROMERO Facility:[facility] Start: 12-08-2023 End: 12-08-2023 ambulatory SABINE ROMERO Facility:[facility] Start: 10-25-2023 ambulatory SABINEIRISH ROMERO [facility] Start: 10-25-2023 End: 10-25-2023 Subsequent hospital visit by physician Mri 1 [facility] (I-Stat/Lg Bore/3t) [facility] Comment on above: Malignant neoplasm o f prostate (HCC) [C61] Start: 07-09-2023 End: 07-09-2023 Emergency department patient visit ALVIN STORM MD Facility:B Start: 06-21-2023 End: 06-21-2023 ambulatory SABINE ROMERO Facility:[facility] Start: 06-14-2023 End: 06-14-2023 Patient encounter procedure Ramesh Love MD Work Phone: Urology Comment on above: Malignant neoplasm o f prostate (HCC) (Primary Dx) Start: 06-14-2023 End: 06-14-2023 ambulatory SABINE Arelis [place] Facility:[facility] Start: 12-03-2022 ambulatory Jayram Michael n DO Work Phone: [facility] [address] Start: 12-03-2022 Patient encounter procedure Remyyram Chris DO Work Phone: [facility] Comment on above: Upcoming appointment - December 07 Start: 06-09-2022 End: 06-09-2022 Patient encounter procedure Remyyram Chris DO Work Phone: [facility] Comment on above: Prostate cancer (HCC ) (Primary Dx) Start: 05-18-2022 Telephone encounter Christina Howard MD Work Phone: [facility] Comment on above: Surgery Scheduled Start: 05-17-2022 Orders Only Christina Howard MD Work Phone: [facility] Comment on above: Malignant neoplasm o f prostate (HCC) (Primary Dx) Start: 04-13-2022 End: 04-13-2022 Patient encounter procedure Christina Howard MD Work Phone: [facility] Comment on above: Prostate cancer (HCC ) (Primary Dx) Start: 04-03-2022 ambulatory Remyyram Michael n DO Work Phone: [facility] Comment on above: Question regarding M RI PROSTATE WO/W IVCON Start: 03-26-2022 End: 03-26-2022 Subsequent hospital visit by physician Mri 1 [facility] (I-Stat/Lg Bore/3t) [facility] Comment on above: Prostate cancer (HCC ) [C61] Start: 02-09-2022 End: 02-09-2022 Patient encounter procedure Remyyram Chris DO Work Phone: [facility] Comment on above: Prostate cancer (HCC ) (Primary Dx) Start: 02-02-2022 Telephone encounter Lena paez DO Work Phone: Urology Comment on above: Results Start: 11-28-2018 Patient encounter procedure LENA PEREZ Facility:[facility] Start: 10-24-2018 Patient encounter procedure LENA PEREZ Facility:[facility] Start: 04-25-2018 End: 04-25-2018 Patient encounter procedure LENA PEREZ Facility:[facility] Start: 02-21-2018 End: 02-21-2018 Patient encounter procedure LENA PEREZ Facility:[facility] Procedures Date Procedure Procedure Detail Performing Clinician Start: 02-15-2024 Us retroperitoneal r eal time w/image complete Regla Quinn NURSERY TEACHER.STORE DIRECTOR Work Phone: Start: 02-02-2024 Urnls dip stick/tabl et rgnt auto w/o microscopy Regla Quinn NURSERY TEACHER.STORE DIRECTOR Work Phone: Start: 01-12-2024 Urnls dip stick/tabl [...] - S alice or Plasma Lipid Screening [facility] Start: 01-27-2027 Lipid panel Lipid Screening [facility] Start: 01-27-2027 LIPID SCREEN LIPID SCREEN [facility] Start: 03-15-2025 BP Controlled (<130/80) BP Controlle d (<130/80) [facility] Start: 01-27-2025 DIABETES SCREEN DIABETES SCREEN [facility] Start: 01-27-2025 Diabetes Screening Diabetes Screenalvin singh [facility] Start: 01-11-2025 BP Controlled (<130/80) BP Controlle d (<130/80) [facility] Start: 06-14-2024 End: 06-14-2024 Patient encounter procedure 06/14/2024 2:45 PM EST Office Visit Urology [address] [place] [address] Ramesh Love MD [address] [place] [address] 1 year fu w/psa Urology Comment on above: 1 year fu w/psa Start: 03-25-2024 Influenza vaccination Influenza Vacc ine (#1) [facility] Start: 03-15-2024 End: 03-15-2024 Patient encounter procedure 03/15/2024 10:00 AM EDT Office Visit Urology [address] [place] [address] Ramesh Love MD [address] [place] [address] fusion Bx results Urology Comment on above: fusion Bx results Start: 02-29-2024 End: 02-29-2024 Admission to same day surgery center 02/29/2024 12:45 PM EDT - 02/29/2024 1:30 PM EDT Surgery [facility] [address] [address] Christina Howard MD [address] [place] [phone] BIOPSY PROSTATE, TRANSRECTAL [facility] Comment on above: BIOPSY PROSTATE, TRA NSRECTAL Start: 02-29-2024 End: 02-29-2024 Prostate needle biopsy any approach BIOPSY PROSTATE Elevated prostate specific antigen (PSA) Malignant neoplasm of prostate (HCC) 02/29/2024 12:45 PM EDT [facility] Start: 02-29-2024 Subsequent hospital visit by physician 02/29/2024 12:45 PM EDT Hospital Encounter [facility] [address] [place] [address] Christina Howard MD [address] [place] [address] Elevated prostate specific antigen (PSA) [R97.20] [facility] Comment on above: Elevated prostate sp ecific antigen (PSA) [R97.20] Start: 02-29-2024 End: 02-29-2024 Us guidance needle placement img s&i MRI FUSION PROSTATE BIOPSY Elevated prostate specific antigen (PSA) Malignant neoplasm of prostate (HCC) 02/29/2024 12:45 PM EDT [facility] Start: 02-15-2024 End: 02-15-2024 Patient encounter procedure 02/15/2024 7:45 AM EDT Appointment Radiology [address] [place], [place] [id number] Kidney stone [N20.0] Radiology Comment on above: Kidney stone [N20.0] Start: 02-14-2024 End: 02-14-2024 Patient encounter procedure 02/14/2024 4:00 PM EDT Office Visit [facility] [address] [place] [address] Christina Howard MD [address] [place] [phone] MRI fusion biopsy prostate Per [facility] Comment on above: MRI fusion biopsy pr ostate Per [facility] Start: 07-25-2023 Advance Directive Discussion Advance Directive Discussion [facility] Start: 07-25-2023 Behavioral Health Screening Behavioral Health Screening [facility] Start: 07-25-2023 Depression Assessment Depression Ass essment [facility] Start: 03-25-2023 Covid-19 Vaccine ( season) Covid-19 Vaccine ( season) [facility] Start: 03-25-2023 Influenza vaccination INFLUENZ A (Season Ended) [facility] Start: 01-27-2023 Hepatitis B surface antibody level LDL Cholesterol [facility] Start: 07-30-2022 Hemoglobin A1c measurement HbA1C [facility] Start: 07-25-2022 ADVANCE DIRECTIVE DISCUSSION ADVANCE DIRECTIVE DISCUSSION [facility] Start: 07-25-2022 DEPRESSION ASSESSMENT DEPRESSION ASS ESSMENT [facility] Start: 03-25-2022 Influenza vaccination INFLUENZA (#1) [facility] Start: 01-26-2022 COVID-19 VACCINE (5 - Booster for Moderna series) COVID-19 VACCINE (5 - Booster for Moderna series) [facility] Start: 07-25-2021 ADVANCE DIRECTIVE DISCUSSION ADVANCE DIRECTIVE DISCUSSION [facility] Start: 07-25-2021 DEPRESSION ASSESSMENT DEPRESSION ASS ESSMENT [facility] Start: 04-10-2021 COVID-19 VACCINE (3 - Booster for Moderna series) COVID-19 VACCINE (3 - Booster for Moderna series) [facility] Start: 01-05-2017 Colonoscopy COLONOSCOPY [facility] Start: 01-05-2017 COLORECTAL CANCER SCREENING COLORECTAL CANCER SCREENING [facility] Start: 01-05-2017 Screening for malign ant neoplasm of colon [facility] Start: 2014 Pneumococcal Vaccine : 65+ (1 - PCV) Pneumococcal Vaccine: 65+ (1 - PCV) [facility] Start: 2014 Pneumococcal Vaccine : 65+ (1 of 1 - PCV) Pneumococcal Vaccine: 65+ (1 of 1 - PCV) [facility] Start: 2014 PNEUMOCOCCAL: 65+ (1 - PCV) PNEUMOCOCCAL: 65+ (1 - PCV) [facility] Start: 2009 RSV Vaccine (1 - 1-d ose 60+ series) RSV Vaccine (1 - 1-dose 60+ series) [facility] Start: 11-27-1999 SHINGRIX VACCINE (1 of 2) SHINGRIX VACCINE (1 of 2) [facility] Start: 1994 COLOGUARD (FIT-DNA) COLOGUARD (FIT-D NA) [facility] Start: [address] COLONOGRAPHY [facility] Start: 1994 FECAL OCCULT BLOOD FECAL OCCULT BLOO D [facility] Start: 1994 Screening for malign ant neoplasm of colon [facility] Start: 1994 SIGMOIDOSCOPY SIGMOIDOSCOPY [facility] Start: 1968 Urine microalbumin profile [facility] Start: 11-27-1967 Annual PCP Team Director Ambulatory magan Disease Visit Annual PCP Team Chronic Disease Visit [facility] Start: 11-27-1967 Anxiety Screening Anxiety Screening [facility] Start: 11-27-1967 Depression Screening Depression Scre ening [facility] [facility] Start: 11-27-1967 HEPATITIS C [facility] Start: 11-27-1967 Hepatitis C screening Hepatitis C [facility] Start: 1961 Adult depression screening assessment DEPRESSION SCREENING [facility] Start: 11-27-1959 Diabetic foot examination Diabetic Foot Exam [facility] Start: 11-27-1959 Glaucoma screening Dilated Retinal E xam [facility] Start: 11-27-1959 Hepatitis B screening Urine Albumin:Creatinine Ratio [facility] Start: 11-27-1955 Pneumococcal Vaccine : 65+ (1 of 2 - PCV) Pneumococcal Vaccine: 65+ (1 of 2 - PCV) [facility] Bacteria identified in Urine by Culture URINE CULTURE Microbiology Routine Urinary tract infection without hematuria, site unspecified 02/02/2024 3:26 PM EDT [facility] MR Prostate WO and W contrast IV MRI PROSTATE WO/W IVCON Radiology Routine Malignant neoplasm of prostate (HCC) 10/25/2023 10:30 AM EDT [facility] Work Phone: MR Unspecified body region 3D post processing MRI 3D POST PROCESSING Radiology Routine Malignant neoplasm of prostate (HCC) 10/25/2023 10:30 AM T [facility] Work Phone: End: 07-13-2024 MRI 3D POST PROCESSING MRI 3D POST PROCESSING Radiology Routine Malignant neoplasm of prostate (HCC) 1 Occurrences starting 06/14/2023 until 07/13/2024 [facility] Work Phone: Comment on above: 1 Occurrences starti ng 06/14/2023 until 07/13/2024 End: 03-11-2023 Mri pelvis w/o & w/contrast material MRI PROSTATE WO/W IVCON Radiology Routine Prostate cancer (HCC) 1 Occurrences starting 02/09/2022 until 03/11/2023 [facility] Work Phone: Comment on above: 1 Occurrences starti ng 02/09/2022 until 03/11/2023 End: 03-26-2022 Mri pelvis w/o & w/contrast material [facility] Work Phone: Comment on above: 1 Occurrences starti ng 03/26/2022 until 03/26/2022 End: 07-13-2024 MRI PROSTATE WO/W IVCON MRI PROSTATE WO/W IVCON Radiology Routine Malignant neoplasm of prostate (HCC) 1 Occurrences starting 06/14/2023 until 07/13/2024 [facility] Work Phone: Comment on above: 1 Occurrences starti ng 06/14/2023 until 07/13/2024 End: 06-09-2023 Prostate specific Ag [Mass/volume] in Serum or Plasma PSA/PROSTSPECAG DIAG Lab Routine Prostate cancer (HCC) Every 6 months for 20 Occurrences starting 06/09/2022 until 06/09/2023 [facility] Work Phone: Comment on above: Every 6 months for 2 0 Occurrences starting 06/09/2022 until 06/09/2023 End: 06-13-2024 Prostate specific Ag [Mass/volume] in Serum or Plasma PSA/PROSTSPECAG DIAG Lab Routine Malignant neoplasm of prostate (HCC) Every 6 months for 3 Occurrences starting 06/14/2023 until 06/13/2024 [facility] Work Phone: Comment on above: Every 6 months for 3 Occurrences starting 06/14/2023 until 06/13/2024 SURGICAL PATHOLOGY [facility] Work Phone: Comment on above: Release Upon Orderin g for 1 Occurrences starting 02/29/2024 End: 03-03-2025 US Kidney - bilateral and Urinary bladder US KIDNEY/BLADDER Radiology Routine Kidney stone 1 Occurrences starting 02/02/2024 until 03/03/2025 [facility] Work Phone: Comment on above: 1 Occurrences starti ng 02/02/2024 until 03/03/2025 [facility] Immunizations Immunization Date Immunization Notes Care Provider Fa jean-pierre 04-22-2023 influenza virus vacc ine, unspecified formulation Regla Quinn APRN.STORE DIRECTOR Work Phone: [facility] Payers Date Payer Category Payer Medicare MEDICARE MEDICAR E A AND B [id number] 2014-Present [phone] [place] [address] Medicare [id number] 2014 Medicare MEDICARE MEDICAR E A AND B [id number] 2014-Present [phone] [place] [address] Medicare [id number] 2014 Medicare [id number] 1950 Unknown [id number] 1950 Unknown [id number] 1950 Unknown [id number] 1950 Unknown [id number] 1950 Unknown [id number] Medicare [id number] Social History Date Type Detail Facility Start: 02-13-2018 End: 05-26-2022 Tobacco smoking status UTIS Never smoked tobacco [facility] Start: 07-14-2021 End: 03-15-2024 Alcohol intake Current drinker of alcohol (finding) [facility] Start: 11-24-2015 History SDOH Alcohol Comment social - weekends [facility] Start: 1950 Sex Assigned At Not on file C [facility] Start: 01-30-2022 End: 05-26-2022 Exposure to SARS-CoV-2 (event) Not sure [facility] Start: 02-13-2018 End: 05-26-2022 Tobacco use and exposure Smokeless tobacco non-user Luis Fernando godoy [facility] Start: 12-07-2022 End: 06-14-2023 History of Social function [facility] Start: 12-07-2022 End: 06-14-2023 Tobacco use panel [facility] National Score (1-10 0), lower number is lower risk 66 [facility] Start: 1950 Sex Assigned At Male C [facility] Start: 06-10-2023 Gender identity Identifies as male gender (finding) [facility] Clinical Notes 02-02-2022 to 03-15-2024 Patient InstructionsRamesh Love MD - 03/15/2024 10:15 AM Ravinder Ellison RN - 02/29/2024 1:52 PM Ravinder Ellison RN - 02/29/2024 1:52 PM EDTPatient InstructionsPatient Instructions Note Date & Type Note Facility 03-15-2024 Instructions Ramesh Love MD - 03/15/2024 10:51 AM EDT Plan: Decipher genetic test Radiation oncology consult Meet back with me afterwards. documented in this encounter [facility] 03-15-2024 Note HNO ID: [id number] Author: RAMESH LOVE MD Service: ? Author Type: Physician Type: Progress Notes Filed: 03/15/2024 10:57 Note Text: [facility] ESTABLISHED PATIENT OFFICE VISIT HISTORY OF PRESENT [...] needle biopsy: - Adenocarcinoma of the prostate, [place] score 3+3 = 6 (grade Group 1), [...] prior to May 2016 came back showing [place] 6 in 2 cores, 1 core positive 40%, 1 core positive 10% [place] 6. This was repeated again with a 2nd biopsy which came back again showing the same [place] 6 tumor. A genetic Oncotype test was [...] s/p MRI fusion biopsy - 05/28/2022 Stable [place] 6 disease and one small focus of [place] 7 Send decipher biopsy. Continue PSA surveillance. Path: 09/15/15 (Aron) Specimen originated from [facility] Specimen #: [id number] Submitting Physician: VICTOR M MEMBRENO M.D. FINAL DIAGNOSIS 1. Prostate, right base, lateral, needle biopsy (A) - Adenocarcinoma of the prostate, [place] score 3+3=6 discontinuously involving 40% of one of one core and measuring 4 mm. 2. Prostate, right mid lateral, needle biopsy (B) - Benign prostatic tissue. 3. Prostate, right apex lateral, needle biopsy (C) - Benign prostatic tissue with focal atrophy and chronic inflammation. 4. Prostate, right base medial, needle biopsy (D) - Adenocarcinoma of the prostate, [place] score 3+3=6 involving 10% of one of [...] D. Prostate, left (more content not included)... [facility] 03-15-2024 History of Presen t illness Narrative Images from the original note were not included. [facility] ESTABLISHED PATIENT OFFICE VISIT HISTORY OF PRESENT [...] prior to May 2016 came back showing [place] 6 in 2 cores, 1 core positive 40%, 1 core positive 10% [place] 6. This was repeated again with a 2nd biopsy which came back again showing the same [place] 6 tumor. A genetic Oncotype test was [...] s/p MRI fusion biopsy - 05/28/2022 Stable [place] 6 disease and one small focus of [place] 7 Send decipher biopsy. Continue PSA surveillance. Path: 09/15/15 (Aron) Specimen originated from [facility] Specimen #: [id number] Submitting Physician: VICTOR M MEMBRENO M.D. FINAL [...] right lateral base, biopsy: - Prostatic adenocarcinoma [place] score 3+4 = 7 (grade group 2) involving 80% of 1 core (5 mm tumor length). 5% pattern 4. F. Prostate, right lateral mid, biopsy: - Prostatic adenocarcinoma [place] score 3+3 = 6 (grade group 1) involving 65% of 1 core (6 mm tumor length). G. Prostate, right lateral apex, biopsy: - Prostatic adenocarcinoma [place] score 3+3 = 6 (grade group 1) involving 20% of 1 core (1 mm tumor length). Prostate Cancer Biopsy Summary Number of cores examined: 12 Number of cores positive: 9 Highest Grade Group: 2 Highest % of core involvement: 100 % Cribriform pattern 4: Absent Intraductal carcinoma: Absent 3D Modeler tumor block to use for additional studies: [...] Take 20 mg by mouth once daily. Rosie-3 Fatty Acids 500 mg cap Take 500 [...] by contextual derivation. documented in this encounter [facility] 02-29-2024 Note HNO ID: [id number] Author: RAVINDER JOHN RN Service: ? Author Type: Registered Nurse Type: Nursing Progress Note Filed: 02/29/2024 13:53 Note Text: Patient voided without difficulty [facility] 02-29-2024 Nurse Note Patient voided without difficulty [facility] 02-29-2024 Nurse Note Patient voided without difficulty documented in this encounter [facility] 02-29-2024 Surgery Surgical operation note MRI Fusion Biopsy of Prostate/transrectal Eric Reno a 73 year old. 02/29/2024 LOG ID: [id number] INCISION/PROCEDURE START TIME: 12:57 PM INCISION CLOSE/PROCEDURE END TIME: 1:09 PM Preop Dx: elevated PSA, prostate cancer Post op Dx: same Procedure: MRI fusion biopsy of the prostate Surgeon: Christina Howard MD SURGEON(S)/PROCEDURALIST(S) AND SHINGLE CATCHER(S): Surgeon(s) and Role: * Christina Howard MD [...] will f/u as planned Christina Howard MD [facility] 02-29-2024 Surgical operatio n note MRI Fusion Biopsy of Prostate/transrectal Eric Reno a 73 year old. 02/29/2024 LOG ID: [id number] INCISION/PROCEDURE START TIME: 12:57 PM INCISION CLOSE/PROCEDURE END TIME: 1:09 PM Preop Dx: elevated PSA, prostate cancer Post op Dx: same Procedure: MRI fusion biopsy of the prostate Surgeon: Christina Howard MD SURGEON(S)/PROCEDURALIST(S) AND SHINGLE CATCHER(S): Surgeon(s) and Role: * Christina Howard MD [...] Christina Howard MD documented in this encounter [facility] 02-29-2024 History and physical note UPDATED HISTORY [...] February 29, 2024 TIME: 12:44 PM PAGER: [facility] 02-29-2024 History and physical note UPDATED HISTORY [...] mg by mouth once daily. 02/29/2024 Yes Rosie-3 Fatty Acids 500 mg cap Take 500 [...] which included preparing to see the patient, [id number] patient care, completing clinical documentation, obtaining and/or reviewing separately obtained history, and performing a medically appropriate examination. SIGNATURE: Raegan Chaparro APRN.CNP PATIENT NAME: Eric Phillipsbereket DATE: February 29, 2024 TIME: 12:22 PM PAGER/CONTACT #: documented in this encounter [facility] 02-29-2024 History and physical note HISTORY AND [...] mg by mouth once daily. 02/29/2024 Yes Rosie-3 Fatty Acids 500 mg cap Take 500 [...] which included preparing to see the patient, [id number] patient care, completing clinical documentation, obtaining and/or reviewing separately obtained history, and performing a medically appropriate examination. SIGNATURE: Raegan Chaparro APRN.CNP PATIENT NAME: Eric Reno DATE: February 29, 2024 TIME: 12:22 PM PAGER/CONTACT #: [facility] 02-23-2024 Telephone encounter Note Pt is scheduled for MRI Fusion Bx LOCAL with Dr Howard at [facility] on 02/29/24 @ 1:30 (12:00 arrival). Pt to stop Plavix 7 days prior and resume 2 days after. Follow up with Dr Love on 03/15/24. Pt and daughter Harvey given date, time, prep and arrival instructions in person on 02/14/24. Written info given also. Aimee Amaya [facility] 02-23-2024 Miscellaneous Notes Pt is scheduled for MRI Fusion Bx LOCAL with Dr Howard at [facility] on 02/29/24 @ 1:30 (12:00 arrival). Pt to stop Plavix 7 days prior and resume 2 days after. Follow up with Dr Love on 03/15/24. Pt and daughter Harvey given date, time, prep and arrival instructions in person on 02/14/24. Written info given also. Aimee Amaya documented in this encounter [facility] 02-15-2024 History of Presen t illness Narrative [...] PATIENT PRESENTS WITH AN IMPLANTABLE OR ATTACHED CHIEF KNOWLEDGE OFFICER: No RADIOLOGY DEPARTMENT: Ultrasound PERIPHERAL IV DATA: Not applicable SIGNED BY: Ibis Escalante RDMS February 15, 2024 9:08 AM documented in this encounter [facility] 02-15-2024 Note HNO ID: [id number] Author: IBIS ESCALANTE RDMS Service: ? Author Type: Gripper Attacher Type: Progress Notes Filed: 02/15/2024 09:08 Note [...] PATIENT PRESENTS WITH AN IMPLANTABLE OR ATTACHED CHIEF KNOWLEDGE OFFICER: No RADIOLOGY DEPARTMENT: Ultrasound PERIPHERAL IV DATA: Not applicable SIGNED BY: Ibis Escalante RDMS February 15, 2024 9:[address] [facility] 02-14-2024 Instructions Christina Howard MD - [...] Anti-Inflammatory Drugs) Aleve (Naproxen) Fish Oil Pepto-Bismol [place] Gingko [place] Persantine (Dipyridamole) Anacin Glucosamine Chondroitin [...] obtain these medications) documented in this encounter [facility] 02-14-2024 Nurse Note patient declined inhalation therapy aides teacher Aida Roldan MA [facility] 02-14-2024 Note HNO ID: [id number] Author: CHRISTINA HOWARD MD Service: ? Author Type: Physician Type: Progress Notes Filed: 02/15/2024 09:25 Note Text: ESTABLISHED PATIENT OFFICE VISIT PATIENT INFO: Eric Reno 73 year old HPI 02/14/2024 CC: bx Patient had MRI done at [facility] and PI-RADS 5 lesion x 1 [...] Was seen in the emergency room at [facility] on 01/31/2024 with complaints of right flank [...] prior to May 2016 came back showing [place] 6 in 2 cores, 1 core positive 40%, 1 core positive 10% [place] 6. This was repeated again with a [...] s/p MRI fusion biopsy - 05/28/2022 Stable [place] 6 disease and one small focus of [place] 7 Send decipher biopsy. Continue PSA surveillance. Path: 09/15/15 (Aron)Specimen originated from [facility] Specimen #: [id number] Submitting Physician: VICTOR M MEMBRENO M.D. FINAL DIAGNOSIS 1. Prostate, right base, lateral, needle biopsy (A) - Adenocarcinoma of the prostate, [place] score 3+3=6 discontinuously involving 40% of one of one core and measuring 4 mm. 4. Prostate, right base medial, needle biopsy (D) - Adenocarcinoma of the prostate, [place] score 3+3=6 involving 10% of one of one core and measuring 1 mm. Path 06/01/16 (Aron): FINAL DIAGNOSIS 1. Prostate, right base lateral, needle biopsy (A) - Adenocarcinoma of the prostate, [place] score 3+3=6 (Grade Group 1), involving 40% of one of one core and measuring 6 mm. 4. Prostate, right base medial, needle biopsy (D) - Adenocarcinoma of the prostate, [place] score 3+3=6 (Grade Group 1), involving 10% of one of one core and measuring 1.5 mm. Path 05/26/22 (Carlos): FINAL DIAGNOSIS A. Prostate, lesion #1, biopsy: - Prostatic adenocarcinoma [place] score 3+3 = 6 (grade group 1) involving 6 of 6 cores (100%, 15%, 20%, 50%, 5%, and 80%) 23 mm total tumor length. E. Prostate, right lateral base, biopsy: - Prostatic adenocarcinoma [place] score 3+4 = 7 (grade group 2) involving 80% of 1 core (5 mm tumor length). 5% pattern 4. F. Prostate, right lateral mid, biopsy: - Prostatic adenocarcinoma [place] score 3+3 = 6 (grade group 1) involving 65% of 1 core (6 mm tumor length). G. Prostate, right lateral apex, biopsy: - Prostatic adenocarcinoma [place] score 3+3 = 6 (grade group 1) [...] by me- CC: (more content not included)... [facility] 02-14-2024 History of Presen t illness Narrative ESTABLISHED PATIENT OFFICE VISIT PATIENT INFO: Eric Reno 73 year old HPI 02/14/2024 CC: bx Patient had MRI done at [facility] and PI-RADS 5 lesion x 1 [...] Was seen in the emergency room at [facility] on 01/31/2024 with complaints of right flank [...] prior to May 2016 came back showing [place] 6 in 2 cores, 1 core positive [...] s/p MRI fusion biopsy - 05/28/2022 Stable [place] 6 disease and one small focus of [place] 7 Send decipher biopsy. Continue PSA surveillance. Path: 09/15/15 (Aron)Specimen originated from [facility] Specimen #: [id number] Submitting Physician: VICTOR M MEMBRENO M.D. FINAL DIAGNOSIS 1. Prostate, right base, lateral, needle biopsy (A) - Adenocarcinoma of the prostate, [place] score 3+3=6 discontinuously involving 40% of one of one core and measuring 4 mm. 4. Prostate, right base medial, needle biopsy (D) - Adenocarcinoma of the prostate, [place] score 3+3=6 involving 10% of one of one core and measuring 1 mm. Path 06/01/16 (Aron): FINAL DIAGNOSIS 1. Prostate, right base lateral, needle biopsy (A) - Adenocarcinoma of the prostate, [place] score 3+3=6 (Grade Group 1), involving 40% of one of one core and measuring 6 mm. 4. Prostate, right base medial, needle biopsy (D) - Adenocarcinoma of the prostate, [place] score 3+3=6 (Grade Group 1), involving 10% of one of one core and measuring 1.5 mm. Path 05/26/22 (Colby/Chris): FINAL DIAGNOSIS A. Prostate, lesion #1, biopsy: - Prostatic adenocarcinoma [place] score 3+3 = 6 (grade group 1) involving 6 of 6 cores (100%, 15%, 20%, 50%, 5%, and 80%) 23 mm total tumor length. E. Prostate, right lateral base, biopsy: - Prostatic adenocarcinoma [place] score 3+4 = 7 (grade group 2) involving 80% of 1 core (5 mm tumor length). 5% pattern 4. F. Prostate, right lateral mid, biopsy: - Prostatic adenocarcinoma [place] score 3+3 = 6 (grade group 1) [...] year. 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 Perez as noted below and has PI-RADS 4 lesion with 26 cc prostate on MRI that was done through [facility] system Had an MRI in 2018 [...] Take 20 mg by mouth once daily. Rosie-3 Fatty Acids 500 mg cap Take 500 [...] - ICD9: 185, ICD10: C61 (primary diagnosis) [facility] fusion biopsy of prostate/local 2. BPH with obstruction/lower urinary tract symptoms - ICD9: 600.01, 599.69, ICD10: N40.1, N13.8 Christina Howard Please note: This note has been produced using speech recognition software and may contain errors related to that system including grammar, punctuation, spelling, gender and words and phrases that may be inappropriate. documented in this encounter [facility] 02-14-2024 Nurse Note patient declined inhalation therapy aides teacher Aida Roldan MA documented in this encounter [facility] 02-02-2024 Note HNO ID: [id number] Author: REGLA QUINN APRN.STORE DIRECTOR Service: ? Author Type: Nurse Practitioner Type: Progress Notes Filed: 02/02/2024 16:02 Note Text: ESTABLISHED PATIENT OFFICE VISIT HISTORY OF PRESENT ILLNESS Eric Reno is a 73 year old male who presents today in f/u. Patient with a history of prostate cancer, BPH. Presents today with complaints of a kidney stone. Was seen in the emergency room at [facility] on 01/31/2024 with complaints of right flank [...] Take 20 mg by mouth once daily. Rosie-3 Fatty Acids 500 mg cap Take 500 [...] No PHYSICAL EXAMINATION (more content not included)... [facility] 02-02-2024 History of Presen t illness Narrative ESTABLISHED PATIENT OFFICE VISIT HISTORY OF PRESENT ILLNESS Eric Reno is a 73 year old male who presents today in f/u. Patient with a history of prostate cancer, BPH. Presents today with complaints of a kidney stone. Was seen in the emergency room at [facility] on 01/31/2024 with complaints of right flank [...] Take 20 mg by mouth once daily. Rosie-3 Fatty Acids 500 mg cap Take 500 [...] greater than 100.5 or uncontrolled pain. Regla Qiunn APRN.PAIGE documented in this encounter [facility] 01-12-2024 Note HNO ID: [id number] Author: RAMESH LOVE MD Service: ? Author Type: Physician Type: Progress Notes Filed: 03/08/2024 15:11 Note Text: [facility] ESTABLISHED PATIENT OFFICE VISIT HISTORY OF PRESENT ILLNESS Eric Reno is a 73 year old male who presents longstanding diagnosis of prostate cancer previous monitors by Dr. Perez.has been on active surveillance. Here today with his daughters, 1 from [place] and 1 from [place] to discuss MRI findings. MRI as below: [...] prior to May 2016 came back showing [place] 6 in 2 cores, 1 core positive [...] surveillance. Path: 09/15/15 (Aron) Specimen originated from [facility] Specimen #: [id number] Submitting Physician: VICTOR M MEMBRENO M.D. FINAL DIAGNOSIS 1. Prostate, right base, lateral, needle biopsy (A) - Adenocarcinoma of the prostate, [place] score 3+3=6 discontinuously involving 40% of one of one core and measuring 4 mm. 2. Prostate, right mid lateral, needle biopsy (B) - Benign prostatic tissue. 3. Prostate, right apex lateral, needle biopsy (C) - Benign prostatic tissue with focal atrophy and chronic inflammation. 4. Prostate, right base medial, needle biopsy (D) - Adenocarcinoma of the prostate, [place] score 3+3=6 involving 10% of one of [...] Cribriform pattern 4: Absent Intraductal carcinoma: Absent 3D Modeler tumor block to use for additional studies: E AUA 19/0 ISHAN 12 Review of Systems Constitutional: Negative. HENT: Negative. Eyes: Negative. Respiratory: Negative. Cardiovascular: Negative. Gastrointestinal: Negative. Genitourinary: Positive for difficulty urinating, frequency and urgency. Musculoskeletal: Negative. Skin: Negative. Allergic/Immunologic: Negative. Neurological: Negative. Hematological: Negative. Psychiatric/Behavioral: Negative. The remainder o (more content not included)... [facility] 01-12-2024 History of Presen t illness Narrative Images from the original note were not included. [facility] ESTABLISHED PATIENT OFFICE VISIT HISTORY OF PRESENT ILLNESS Eric Reno is a 73 year old male who presents longstanding diagnosis of prostate cancer previous monitors by Dr. Perez.has been on active surveillance. Here today with his daughters, 1 from [place] and 1 from [place] to discuss MRI findings. MRI as below: [...] prior to May 2016 came back showing [place] 6 in 2 cores, 1 core positive 40%, 1 core positive 10% [place] 6. This was repeated again with a 2nd biopsy which came back again showing the same [place] 6 tumor. A genetic Oncotype test was [...] s/p MRI fusion biopsy - 05/28/2022 Stable [place] 6 disease and one small focus of [place] 7 Send decipher biopsy. Continue PSA surveillance. Path: 09/15/15 (Aron) Specimen originated from [facility] Specimen #: [id number] Submitting Physician: VICTOR M MEMBRENO M.D. FINAL DIAGNOSIS 1. Prostate, right base, lateral, needle biopsy (A) - Adenocarcinoma of the prostate, [place] score 3+3=6 discontinuously involving 40% of one [...] right lateral mid, biopsy: - Prostatic adenocarcinoma [place] score 3+3 = 6 (grade group 1) involving 65% of 1 core (6 mm tumor length). G. Prostate, right lateral apex, biopsy: - Prostatic adenocarcinoma [place] score 3+3 = 6 (grade group 1) involving 20% of 1 core (1 mm tumor length). Prostate Cancer Biopsy Summary Number of cores examined: 12 Number of cores positive: 9 Highest Grade Group: 2 Highest % of core involvement: 100 % Cribriform pattern 4: Absent Intraductal carcinoma: Absent 3D Modeler tumor block to use for additional studies: [...] Take 20 mg by mouth once daily. Rosie-3 Fatty Acids 500 mg cap Take 500 [...] by contextual derivation. documented in this encounter [facility] 10-25-2023 History of Presen t illness Narrative [...] PATIENT PRESENTS WITH AN IMPLANTABLE OR ATTACHED CHIEF KNOWLEDGE OFFICER: No ALLERGIES: Reviewed and unchanged CONTRAST ALLERGY: NO. EXAM: MRI - CONTRAST TYPE: GROUP II PERIPHERAL IV DATA: Ambulatory: A peripheral IV was started in the Right antecubital site with a Angio cath: 22 gauge. RADIOLOGY DEPARTMENT: MR; Exam(s) Completed: Body: Prostate SIGNATURE: RT Florian(R) PATIENT NAME: Eric Reno DATE: October 25, 2023 TIME: 10:01 AM documented in this encounter [facility] 10-25-2023 Note HNO ID: [id number] Author: SELIN MARTELL RT(R) Service: Radiology Author [...] PATIENT PRESENTS WITH AN IMPLANTABLE OR ATTACHED CHIEF KNOWLEDGE OFFICER: No ALLERGIES: Reviewed and unchanged CONTRAST ALLERGY: NO. EXAM: MRI - CONTRAST TYPE: GROUP II PERIPHERAL IV DATA: Ambulatory: A peripheral IV was started in the Right antecubital site with a Angio cath: 22 gauge. RADIOLOGY DEPARTMENT: MR; Exam(s) Completed: Body: Prostate SIGNATURE: RT Florian(R) PATIENT NAME: Eric Reno DATE: October 25, 2023 TIME: 10:01 AM [facility] 06-14-2023 Instructions Ramesh Love MD - 06/14/2023 10:19 AM EST It was great to see you today! Please continue with a PSA now and every 6 months. We will plan on an MRI in September and I'll see you back in a year. documented in this encounter [facility] 06-14-2023 Note HNO ID: [id number] Author: Ramesh Love MD Service: ? Author Type: Physician Type: Progress Notes Filed: 06/14/2023 12:56 PM Note Text: [facility] ESTABLISHED PATIENT OFFICE VISIT HISTORY OF PRESENT ILLNESS Eric Rneo is a 72 year old male who [...] prior to May 2016 came back showing [place] 6 in 2 cores, 1 core positive [...] s/p MRI fusion biopsy - 05/28/2022 Stable [place] 6 disease and one small focus of [place] 7 Send decipher biopsy. Continue PSA surveillance. Path: 09/15/15 ([facility]) Specimen originated from [facility] Specimen #: [id number] Submitting Physician: VICTOR M MEMBRENO M.D. FINAL DIAGNOSIS 1. Prostate, right base, lateral, needle biopsy (A) - Adenocarcinoma of the prostate, [place] score 3+3=6 discontinuously involving 40% of one of one core and measuring 4 mm. 2. Prostate, right mid lateral, needle biopsy (B) - Benign prostatic tissue. 3. Prostate, right apex lateral, needle biopsy (C) - Benign prostatic tissue with focal atrophy and chronic inflammation. 4. Prostate, right base medial, needle biopsy (D) - Adenocarcinoma of the prostate, [place] score 3+3=6 involving 10% of one of [...] (L) - Benign prostatic tissue. Path 06/01/16 ([facility]): FINAL DIAGNOSIS 1. Prostate, right base lateral, [...] biopsy (D) - Adenocarcinoma of the prostate, [place] score 3+3=6 (Grade Group 1), involving 10% [...] Prostate, lesion #1, biopsy: - Prostatic adenocarcinoma [place] score 3+3 = 6 (grade group 1) involving 6 of 6 cores (100%, 15%, 20%, 50%, 5%, and 80%) 23 mm total tumor length. B. Prostate, left lateral base, biopsy: - Benign prostatic tissue. C. Prostate, left lateral mid, biopsy: - Benign prostatic tissue. D. Prostate, left lateral apex, biopsy: - Benign prostatic tissue. E. Prostate, right lateral base, biopsy: - Prostatic adenocarcinoma [place] score 3+4 = 7 (grade group 2) involving 80% of 1 core (5 mm tumor length). 5% patte (more content not included)... [facility] 06-14-2023 History of Presen t illness Narrative Images from the original note were not included. [facility] ESTABLISHED PATIENT OFFICE VISIT HISTORY OF PRESENT ILLNESS Eric Reno is a 72 year old male who presents with prostate cancer on . Hx as below w/ Dr. Preez. Minimal LUTs. Stream is good. No hesitancy. [...] surveillance. Path: 09/15/15 ([facility]) Specimen originated from [facility] Specimen #: [id number] Submitting Physician: VICTOR M MEMBRENO M.D. FINAL DIAGNOSIS 1. Prostate, right base, lateral, needle biopsy (A) - Adenocarcinoma of the prostate, [place] score 3+3=6 discontinuously involving 40% of one [...] biopsy (A) - Adenocarcinoma of the prostate, [place] score 3+3=6 (Grade Group 1), involving 40% of one of one core and measuring 6 mm. 2. Prostate, right mid lateral, needle biopsy (B) - Benign prostatic tissue with focal atrophy and chronic inflammation. 3. Prostate, right apex, needle biopsy (C) - Benign prostatic tissue with atrophy. 4. Prostate, right base medial, needle biopsy (D) - Adenocarcinoma of the prostate, [place] score 3+3=6 (Grade Group 1), involving 10% [...] Prostate, lesion #1, biopsy: - Prostatic adenocarcinoma [place] score 3+3 = 6 (grade group 1) involving 6 of 6 cores (100%, 15%, 20%, 50%, 5%, and 80%) 23 mm total tumor length. B. Prostate, left lateral base, biopsy: - Benign prostatic tissue. C. Prostate, left lateral mid, biopsy: - Benign prostatic tissue. D. Prostate, left lateral apex, biopsy: - Benign prostatic tissue. E. Prostate, right lateral base, biopsy: - Prostatic adenocarcinoma [place] score 3+4 = 7 (grade group 2) [...] Cribriform pattern 4: Absent Intraductal carcinoma: Absent 3D Modeler tumor block to use for additional studies: [...] Take 20 mg by mouth once daily. Rosie-3 Fatty Acids 500 mg cap Take 500 [...] by contextual derivation. documented in this encounter [facility] 12-06-2022 Miscellaneous Notes No appt needed please cancel Appt scheduled for 12/07/22. Please advise. Lenny oGff RN documented in this encounter [facility] 06-09-2022 History of Presen t illness Narrative Images from the original note were not included. [facility] LOCATION: [address] [place] [address] ESTABLISHED PATIENT PATIENT INFO: Eric Reno 71 [...] right lateral base, biopsy: - Prostatic adenocarcinoma [place] score 3+4 = 7 (grade group 2) involving 80% of 1 core (5 mm tumor length). 5% pattern 4. F. Prostate, right lateral mid, biopsy: - Prostatic adenocarcinoma [place] score 3+3 = 6 (grade group 1) [...] Cribriform pattern 4: Absent Intraductal carcinoma: Absent 3D Modeler tumor block to use for additional studies: [...] 72.7 Lymph% (%) Date Value 01/27/2022 20.6 Wallace% (%) Date Value 01/27/2022 5.8 Baso% (%) Date Value 01/27/2022 0.2 Abs Neut (k/uL) Date Value 01/27/2022 4.78 Abs Wallace (k/uL) Date Value 01/27/2022 0.38 Abs Eosin [...] 11/28/2018 IMAGING: MRI PROSTATE WO/W IVCON (Order [id number]) Patient Info Patient Name Sex Eric Barrera ([id number]) Male 1950 03/30/2022 1:55 PM - Radiology, [...] Take 20 mg by mouth once daily. Rosie-3 Fatty Acids 500 mg cap Take 500 [...] EXAM: Exam NOT Indicated PVR: NA IMPRESSION/PLAN: [place] 6 Prostate cancer PSA at the time [...] s/p MRI fusion biopsy - 05/28/2022 Stable [place] 6 disease and one small focus of [place] 7 Send decipher biopsy. Continue PSA surveillance. I spent 30 minutes in the visit, with more than 50% of the total ivzd-op-iauh time of the visit in counseling / coordination of care. Lena Perez DO MBA documented in this encounter [facility] 05-18-2022 Miscellaneous Notes Pt is scheduled for MRI Fusion Bx MAC with Dr Howard at [facility] on 05/26/22 @ 8:55 (6:55 arrival). Pt takes Plavix- medical clearance form faxed to pcp Dr Sabine Romero, f. [phone] on 04/14/22. 05/18/22- Received clearance back- okay for pt to stop Plavix 7 days prior and resume it 48 hours after.Faxed clearance to chart command. Follow up with Dr Perez in [place] on 06/09/22 @ 4:00. Pt and daughter Ibis given date, time, prep and arrival instructions in person on 04/13/22. Written info given also. 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 Perez as noted below and has PI-RADS 4 lesion with 26 cc prostate on MRI that was done through [facility] system Had an MRI in 2018 [...] prior to May 2016 came back showing [place] 6 in 2 cores, 1 core positive 40%, 1 core positive 10% [place] 6. This was repeated again with a [...] surveillance Repeat biopsy 1 year later confirmed [place] 6 disease GPS score 8 PSA now [...] Take 20 mg by mouth once daily. Rosie-3 Fatty Acids 500 mg cap Take 500 [...] may be inappropriate. documented in this encounter [facility] 04-05-2022 Miscellaneous Notes Lesion has increased in size. Recommend MRI fusion biopsy to make sure cancer is not progressing documented in this encounter [facility] 03-26-2022 History of Presen t illness Narrative [...] TIME: 10:09 AM documented in this encounter [facility] 02-09-2022 History of Presen t illness Narrative Images from the original note were not included. [facility] LOCATION: [address] [place] [address] ESTABLISHED PATIENT PATIENT INFO: Eric Reno 71 [...] core positive 40%, 1 core positive 10% [place] 6. This was repeated again with a 2nd biopsy which came back again showing the same [place] 6 tumor. A genetic Oncotype test was [...] 72.7 Lymph% (%) Date Value 01/27/2022 20.6 Wallace% (%) Date Value 01/27/2022 5.8 Baso% (%) Date Value 01/27/2022 0.2 Abs Neut (k/uL) Date Value 01/27/2022 4.78 Abs Wallace (k/uL) Date Value 01/27/2022 0.38 Abs Eosin [...] Take 20 mg by mouth once daily. Rosie-3 Fatty Acids 500 mg cap Take 500 [...] EXAM: Exam NOT Indicated PVR: NA IMPRESSION/PLAN: [place] 6 Prostate cancer PSA at the time of diagnosis 6.58 Initially diagnosed in November 2015 and was placed on active surveillance Repeat biopsy 1 year later confirmed [place] 6 disease GPS score 8 PSA now [...] with more than 50% of the total trvv-nn-ycnp time of the visit in counseling / coordination of care. Lena Perez DO SOCRATES documented in this encounter [facility] 02-02-2022 Miscellaneous Notes Phoned patient and notified of results as /per provider . Patient acknowledge understanding of instructions and has no further questions. GABBY Jimenes ----- Message from Lena Perez DO sent at 02/01/2022 4:38 PM EDT ----- PSA stable documented in this encounter [facility] Evaluation note Diagnosis Prostate cancer (HCC)- Primary Malignant [facility]oplasm of [facility] ([facility]) Malignant ne[facility] of prostate [facility] Prostate cancer (HCC)- Primary Malignant neoplasm of prostate [facility] Diagnosis Malignant neoplasm of prostate (HCC)- Primary Malignant [facility]oplasm of prostate [facility] Malignant neoplasm of prostate (HCC)- Primary Malignant neoplasm of prostate [facility] Diagnosis Malignant neoplasm of prostate (HCC) [...] tract symptoms (LUTS) [facility] Kidney stone Calculus of kidney [facility] Diagnosis Elevated prostate specific antigen (PSA) Malignant neoplasm of prostate (HCC) Malignant neoplasm of prostate Pre-op exam Preoperative examination, unspecified Primary hypertension Unspecified essential hypertension Diabetes mellitus (adult onset) (HCC) Prostate cancer (HCC) Malignant neoplasm of prostate [facility] Diagnosis Prostate cancer (HCC)- Primary 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) [facility] Diagnosis Prostate cancer (HCC)- Primary Malignant neoplasm of prostate documented in this encounter [facility] for referral (narrative)* Diagnostic Procedure Only (Routine) - Authorized Specialty Diagnoses / Procedures Referred By Contac t Referred To Contact US IMAGING Diagnoses Kidney stone Procedures US KIDNEY/BLADDER US RETROPERITONEAL REAL TIME W/IMAGE COMPLETE Regla Quinn APRN.CNP [address] [place], [place] [id number] Us Imaging [facility] Referral ID Status Reason Start Date Expiration Date Visits Requested Visits Authorized [id number] Authorized Auto-Generat ed Referral 02/02/2024 03/03/2025 1 1 [facility] for referral (narrative)* Diagnostic Procedure Only (Routine) - Closed Specialty Diagnoses / Procedures Referred By Contac t Referred To Contact US IMAGING Diagnoses Kidney stone Procedures US KIDNEY/BLADDER US RETROPERITONEAL REAL TIME W/IMAGE COMPLETE Regla Quinn APRN.STORE DIRECTOR [address] [place] [id number] [place] [address] Referral ID Status Reason Start Date Expiration Date V isits Requested Visits Authorized [id number] Closed Auto-Generate d Referral 02/02/2024 03/03/2025 1 1 [facility] Summary Purpose Family History No Family History Records FoundNo Family History Records FoundNo Family History Records FoundNo Family History Records Found Advance Directives No Advanced Directives Records FoundDocuments on File Type Date Recorded 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 Advance Directive(s) Advance Directive(s) 01/06/2016 8:10 AM Advance Directive(s) 09/25/2015 12:19 PM Documents on File Type Date Recorded 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 Advance Directive(s) Advance Directive(s) 01/06/2016 8:10 AM Advance Directive(s) 09/25/2015 12:19 PM Documents on File Type Date Recorded 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 Advance Directive(s) 09/25/2015 12:19 PM Documents on File Type Date Recorded 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 Advance Directive(s) 09/25/2015 12:19 PM Reason for Referral Specialty Diagnoses / Procedures Referred By Contac t Referred To Contact MR IMAGING Diagnoses Prostate cancer (HCC) Procedures MRI PROSTATE WO/W IVCON MRI PELVIS W/O & W/CONTRAST MATERIAL Lena Perez DO [address] [place] [address] Mr Imaging Referral ID Status Reason Start Date Expiration Date Visits Requested Visits Authorized [id number] Authorized Auto-Generat ed Referral 02/09/2022 03/11/2023 1 1 Referral ID Status Reason Start Date Expiration Date V isits Requested Visits Authorized [id number] Closed Auto-Generate d Referral 02/09/2022 03/11/2023 1 1 Specialty Diagnoses / Procedures Referred By Contac t Referred To Contact MR IMAGING Diagnoses Malignant neoplasm of prostate (HCC) Procedures MRI 3D POST PROCESSING 3D RENDERING W/INTERP&POSTPROC DIFF WORK STATION Ramesh Love MD [address] [place] [address] Mr Imaging [facility] Referral ID Status Reason Start Date Expiration Date Visits Requested Visits Authorized [id number] Authorized Auto-Generat ed Referral 3 07/13/2024 1 1 Specialty Diagnoses / Procedures Referred By Contac t Referred To Contact MR IMAGING Diagnoses Malignant neoplasm of prostate (HCC) Procedures MRI PROSTATE WO/W IVCON MRI PELVIS W/O & W/CONTRAST MATERIAL Ramesh Love MD [address] [place] [address] [place] [address] Referral ID Status Reason Start Date Expiration Date Visits Requested Visits Authorized [id number] Authorized Auto-Generat ed Referral 3 07/13/2024 1 1 Additional Source Comments (unrecognized sect ion and content) No Status Records FoundNo Status Records FoundNo Status Records FoundNo Status Records Found INFORMATION SOURCE (unrecogn ized section and content) DATE CREATED AUTHOR 08/02/2018 [facility] DATE CREATED AUTHOR AUTHOR'S ORGANIZ ATION 07/15/2023 [facility] ([place]) DATE CREATED AUTHOR AUTHOR'S ORGANIZ ATION 02/17/[address] [facility] DATE CREATED AUTHOR AUTHOR'S ORGANIZ ATION 03/17/2024 [facility] Source Comments (unrecognize d section and content) In the event this informatio n is protected by the Federal Confidentiality of Alcohol and Drug Abuse Patient Records regulations: The Federal rules restrict any use of the information to criminally investigate or prosecute any alcohol or drug abuse patient.[facility] the event this information is protected by the Federal Confidentiality of Alcohol and Drug Abuse Patient Records regulations: The Federal rules restrict any use of the information to criminally investigate or prosecute any alcohol or drug abuse patient.[facility] the event this information is protected by the Federal Confidentiality of Alcohol and Drug Abuse Patient Records regulations: The Federal rules restrict any use of the information to criminally investigate or prosecute any alcohol or drug abuse patient.[facility] the event this information is protected by the Federal Confidentiality of Alcohol and Drug Abuse Patient Records regulations: The Federal rules restrict any use of the information to criminally investigate or prosecute any alcohol or drug abuse patient.[facility] the event this information is protected by the Federal Confidentiality of Alcohol and Drug Abuse Patient Records regulations: The Federal rules restrict any use of the information to criminally investigate or prosecute any alcohol or drug abuse patient.[facility] the event this information is protected by the Federal Confidentiality of Alcohol and Drug Abuse Patient Records regulations: The Federal rules restrict any use of the information to criminally investigate or prosecute any alcohol or drug abuse patient.[facility] the event this information is protected by the Federal Confidentiality of Alcohol and Drug Abuse Patient Records regulations: The Federal rules restrict any use of the information to criminally investigate or prosecute any alcohol or drug abuse patient.[facility] the event this information is protected by the Federal Confidentiality of Alcohol and Drug Abuse Patient Records regulations: The Federal rules restrict any use of the information to criminally investigate or prosecute any alcohol or drug abuse patient.[facility] the event this information is protected by the Federal Confidentiality of Alcohol and Drug Abuse Patient Records regulations: The Federal rules restrict any use of the information to criminally investigate or prosecute any alcohol or drug abuse patient.[facility] the event this information is protected by the Federal Confidentiality of Alcohol and Drug Abuse Patient Records regulations: The Federal rules restrict any use of the information to criminally investigate or prosecute any alcohol or drug abuse patient.[facility] the event this information is protected by the Federal Confidentiality of Alcohol and Drug Abuse Patient Records regulations: The Federal rules restrict any use of the information to criminally investigate or prosecute any alcohol or drug abuse patient.[facility] the event this information is protected by the Federal Confidentiality of Alcohol and Drug Abuse Patient Records regulations: The Federal rules restrict any use of the information to criminally investigate or prosecute any alcohol or drug abuse patient.[facility] the event this information is protected by the Federal Confidentiality of Alcohol and Drug Abuse Patient Records regulations: The Federal rules restrict any use of the information to criminally investigate or prosecute any alcohol or drug abuse patient.[facility] Campus[facility] the event this information is protected by the Federal Confidentiality of Alcohol and Drug Abuse Patient Records regulations: The Federal rules restrict any use of the information to criminally investigate or prosecute any alcohol or drug abuse patient.[facility] Campus[facility] the event this information is protected by the Federal Confidentiality of Alcohol and Drug Abuse Patient Records regulations: The Federal rules restrict any use of the information to criminally investigate or prosecute any alcohol or drug abuse patient.[facility] Campus[facility] the event this information is protected by the Federal Confidentiality of Alcohol and Drug Abuse Patient Records regulations: The Federal rules restrict any use of the information to criminally investigate or prosecute any alcohol or drug abuse patient.[facility] Campus[facility] the event this information is protected by the Federal Confidentiality of Alcohol and Drug Abuse Patient Records regulations: The Federal rules restrict any use of the information to criminally investigate or prosecute any alcohol or drug abuse patient.[facility] Campus[facility] the event this information is protected by the Federal Confidentiality of Alcohol and Drug Abuse Patient Records regulations: The Federal rules restrict any use of the information to criminally investigate or prosecute any alcohol or drug abuse patient.[facility] Reason for Visit (unrecogniz ed section and content) Reason Comments Results Reason Comments Prostate Cancer Specialty Diagnoses / Procedures Referred By Contac t Referred To Contact MR IMAGING Diagnoses Prostate cancer (HCC) Procedures MRI PROSTATE WO/W IVCON MRI PELVIS W/O & W/CONTRAST MATERIAL Lena Perez DO [address] [place] [address] Mr Imaging Referral ID Status Reason Start Date Expiration Date V isits Requested Visits Authorized [id number] Closed Auto-Generate d Referral 02/09/2022 03/11/2023 1 1 Reason Comments Prostate Problem Reason Comments Surgery Scheduled Reason Comments Prostate Cancer Specialty Diagnoses / Procedures Referred By Contac t Referred To Contact [facility] IMAGING Diagnoses Malignant neoplasm of prostate (HCC) Procedures MRI PROSTATE WO/W IVCON MRI PELVIS W/O & W/CONTRAST MATERIAL Ramesh Love MD [address] [place] [address] [place] [address] Referral ID Status Reason Start Date Expiration Date V isits Requested Visits Authorized [id number] Closed Auto-Generate d Referral 06/14/2023 07/13/2024 1 1 Reason Comments Kidney Stones Reason Comments PSA Reason Comments Radiology US Specialty Diagnoses / Procedures Referred By Contac t Referred To Contact US IMAGING Diagnoses Kidney stone Procedures US KIDNEY/BLADDER US RETROPERITONEAL REAL TIME W/IMAGE COMPLETE Regla Quinn, NURSERY TEACHER.STORE DIRECTOR [address] [place] [id number] [place] [address] Referral ID Status Reason Start Date Expiration Date V isits Requested Visits Authorized [id number] Closed Auto-Generate d Referral 02/02/2024 03/03/2025 1 1 Reason Comments Prostate Cancer Reason Comments Consult Prostate Biopsy Care Teams (unrecognized sec tion and content) 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 Start Date End Date Ava Macias [place], [place] [id number] PCP - General Family Practice 02/21/18 Camryn Tripp MD, MD [address], [place] [id number] Physician Radiation Oncology 11/18/15 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 Start Date [place] [address] PCP - General Family Practice 02/21/18 Camryn Tripp MD, [address] [place] [address] Physician Radiation Oncology 11/18/15 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 Start Date End Date FionaRema kimjennifer [place] [address] [place] [address] PCP - General Family Practice 02/21/18 Camryn Tripp MD, [address] [place] [address] Physician Radiation Oncology 11/18/15 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 Start Date End Date Ava [address] [address] [place] [address] PCP - General Family Practice 02/21/18 Camryn Tripp MD, [address] [place] [address] Physician Radiation Oncology 11/18/15 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 Start Date End Date Sabine Romero MD [address] [place] [address] PCP - General Family Medicine 04/13/22 Camryn Tripp MD, [address] [place] [address] Physician Radiation Oncology 11/18/15 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 Start Date End Date Sabine Romero MD [address] [place] [address] PCP - General Family Medicine 04/13/22 Camryn Tripp MD, [address] [place] [address] Physician Radiation Oncology 11/18/15 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 Start Date End Date Sabine Romero MD [address] [place] [address] PCP - General Family Medicine 04/13/22 Camryn Tripp MD, [address] [place] [address] Physician Radiation Oncology 11/18/15 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 Start Date End Date Sabine Romero MD [address] [place] [address] PCP - General Family Medicine 04/13/22 Camryn Tripp MD, [address] [place] [address] Physician Radiation Oncology 11/18/15 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 Start Date End Date Sabine Romero MD [address] [place] [address] PCP - General Family Medicine 04/13/22 Camryn Tripp MD [address] [place] [address] Physician Radiation Oncology 11/18/15 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 Start Date End Date Sabine Romero MD [address] [place] [address] PCP - General Family Medicine 04/13/22 Camryn Tripp MD [address] [place] [address] Physician Radiation Oncology 11/18/15 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 Start Date End Date Sabine Romero MD [address] [place] [address] PCP - General Family Medicine 04/13/22 Camryn Tripp MD [address] [place] [address] Physician Radiation Oncology 11/18/15 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 Start Date End Date Sabine Romero MD [address] [place] [address] PCP - General Family Medicine 04/13/22 Camryn Tripp MD [address] [place] [address] Physician Radiation Oncology 11/18/15 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 Start Date End Date Sabine Romero MD [address] [place] [address] PCP - General Family Medicine 04/13/22 Camryn Tripp MD [address] [place] [address] Physician Radiation Oncology 11/18/15 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 [facility]. provides no warranty or guarantee of the accuracy or completeness of information in this document.
== END | disposition home or self-care (01) ==
LOC: MTLAB 15:44
PROVIDERS: PCP Family Medicine; Referring Provider Family Medicine; Visit Provider Family Medicine
DX: H53.2 Diplopia (principal)
CPT/HCPCS: 87177; 87209

== ENCOUNTER → 2024-08-31 | Outpatient (CLI) | payer MEDICARE, SELFPAY ==
[2024-08-31 12:31] LABS: Absolute Lymphocyte Count 2.02 X10^3/uL (0.83-4.51); Absolute Neutrophil Count 2.7 X10^3/uL (2.0-7.7); Basophil# 0.02 X10^3/uL; Basophil% 0.4 % (0-1); Eosinophil# 0.38 X10^3/uL; Eosinophils% 6.8 % (0-5); Hematocrit 53.1 % (40-54); Lymphocyte # 2.02 X10^3/ul (0.83-4.51); Lymphocyte % 35.9 % (19-41); Mean Corpuscular Hgb 28.1 pg (27.0-32.0); Mean Corpuscular Volume 87.8 fL (80-94); Mean Platelet Vol. 9.8 fl (6.2-12.0); Monocyte# 0.46 X10^3/uL; Monocyte% 8.2 % (0-10); NRBC Flagged by Analyzer 0 % (0-5); Neutrophil # 2.72 X10^3/uL (2.7-7.7); Neutrophil % 48.3 % (47-70); Platelet Count 198 K/mm3 (150-450); RBC Distribution Width CV 13.5 % (11.6-14.6); RBC Distribution Width SD 43.2 fl (35.1-43.9); Red Blood Count 6.05 M/mm3 (4.6-6.2); White Blood Count 5.6 K/mm3 (4.4-11.0)
[2024-08-31 12:39] LABS: Microalbumin,Random Urine 8.7 mg/L (NO RANGE EST.)
[2024-08-31 13:03] LABS: ALB/GLOB Ratio 0.9 RATIO (0.9-2.4); AST(SGOT) 16 U/L (15-37); Alanine Aminotransfer ALT/SGPT 18 U/L (16-61); Albumin, Serum 4.2 g/dL (3.2-5.0); Alkaline Phosphatase 85 U/L (45-117); Anion Gap 10 (5-15); BUN 11 mg/dL (7-18); BUN/Creat Ratio 9.6 RATIO (10-20); Calcium,Total 9.7 mg/dL (8.5-10.1); Chloride 106 mmol/L (98-107); Creatinine, Serum 1.15 mg/dL (0.70-1.30); EST Glomerular Filtration Rate 66 mL/min (>60); Est Glom Filt Rate - Afr Amer 80 mL/min (>60); Globulin 4.5 g/dL (2.2-4.2); Glucose 72 mg/dL (74-106); Potassium 3.5 mmol/L (3.5-5.1); Protein, Total 8.7 g/dL (6.4-8.2); Sodium Level 139 mmol/L (136-145)
== END | disposition home or self-care (01) ==
LOC: MFPLAB 10:48
PROVIDERS: PCP Family Medicine; Referring Provider Family Medicine; Visit Provider Family Medicine
DX: C61 Malignant neoplasm of prostate (principal); E11.69 Type 2 diabetes mellitus with other specified complication
CPT/HCPCS: 36415; 80053; 82043; 85025

== ENCOUNTER → 2025-05-22 | Outpatient (CLI) | payer MEDICARE, SELFPAY ==
[2025-05-22 10:18] LABS: Hematocrit 43.9 % (40-54); Hemoglobin 14.5 g/dL (13.0-16.5); Immature Granulocytes Count 0.020 X10^3/uL (0.0-0.0); Mean Corp Hgb Conc 33.0 g/dL (32-36); Mean Corpuscular Volume 88.0 fL (80-94); Mean Platelet Vol. 8.9 fl (6.2-12.0); NRBC Flagged by Analyzer 0 % (0-5); Platelet Count 348 K/mm3 (150-450); RBC Distribution Width CV 14.2 % (11.6-14.6); RBC Distribution Width SD 45.2 fl (35.1-43.9); Red Blood Count 4.99 M/mm3 (4.6-6.2); White Blood Count 3.9 K/mm3 (4.4-11.0)
[2025-05-22 10:51] LABS: Creatinine, Urine (random) 77.40 mg/dL (39.00-259.00); Microalbumin,Random Urine < 12.0 mg/L (<20 mg/L)
[2025-05-22 10:57] LABS: AST(SGOT) 33 U/L (<=37); Alanine Aminotransfer ALT/SGPT 20 U/L (<=46); Albumin, Serum 4.4 g/dL (3.4-4.8); Alkaline Phosphatase 84 U/L (40-129); Anion Gap 12 (5-15); BUN 14 mg/dL (4-19); BUN/Creat Ratio 13.7 RATIO (10-20); Calcium,Total 10.1 mg/dL (7.6-11.0); Carbon Dioxide 25.9 mmol/L (21.0-32.0); Chloride 102 mmol/L (98-108); Globulin 3.3 g/dL (2.2-4.2); Glucose 108 mg/dL (70-99); PSA,Total - Annual Screen 0.08 ng/mL (0.02-4.00); Potassium 4.1 mmol/L (3.3-5.1)
== END | disposition home or self-care (01) ==
LOC: MFPLAB 08:42
PROVIDERS: PCP Family Medicine; Visit Provider Family Medicine
DX: E11.69 Type 2 diabetes mellitus with other specified complication (principal); C61 Malignant neoplasm of prostate; Z12.5 Encounter for screening for malignant neoplasm of prostate
CPT/HCPCS: 36415; 80053; 82043; 82570; 83036; 84153; 84443; 85025; G0103